=== PATIENT | male | born 1965 | race African-American/Black ===

== ENCOUNTER 2016-10-02 18:57 | Inpatient (IN) | payer OTHER ==
[~2016-10-02] VITALS: Ht 182.9 cm; Wt 75.0 kg
[~2016-10-02 18:57] MED LIST: FURO40TA PO; GLUCTAB PO; HYDR12.56 PO; IBUP800T23 PO; METO25 PO; PENI250T59 PO
[2016-10-02 18:58] VITALS: BP 135/63; PULSE 95; RESP 17; TEMP 97.7; O2SAT 95
--- NOTE | 2016-10-02 21:32 | PD ---
HPI Chief Complaint: Pain: Acute or Chronic Time Seen by Provider: 21:11 Travel History International Travel<30 days: No Contact w/Intl Traveler<30days: No Traveled to known affect area: No History of Present Illness HPI The patient is a 50 year old male who presents to the [facility] emergency department with a history of reported right leg pain and swelling that he reports began 3 days ago. He reports that he does have some swelling in the left leg, however the right leg is much worse. He denies having any injury associated with this. He denies having any prior history of DVT or PE. The patient denies having any chest pain or chest pressure. He does report having some dyspnea with exertion that is reportedly chronic. He reports that his primary care physician is Merlyn Weir. He reports that he recently moved back to the area. He reports that he's had multiple amputations done of the fingers of bilateral hands and his right forefoot related to palpitations from diabetes. He reports that his diabetes has been under control recently. He reports that he last checked his blood sugar 2 days ago and it was 93. He reports that he is on metformin. He denies having any history of congestive heart failure or renal failure. He denies having any open wounds. The patient denies any recent fevers cough, congestion, neck pain, chest pain, abdominal pain, vomiting , diarrhea, urinary symptoms, or neurologic symptoms. PENDING SALE TO [facility] Past Medical History Narrative Medical The patient's past medical history is significant for amputation of the fingers of bilateral upper extremities and the right forefoot related to patient's from diabetes mellitus, history of diabetes mellitus, and a heart murmur. I review after reviewing the patient's electronic medical record, the patient does have a history of renal insufficiency and anemia. Arthritis: No Asthma: No Autoimmune Disease: No Anxiety: No Depression: No Heart Rhythm Problems: No Cancer: No Cardiovascular Problems: Yes (MURMUR) High Cholesterol: No Chemotherapy: No Chest Pain: No Congestive Heart Failure: No COPD: No Cerebrovascular Accident: No Diabetes: Yes Patient Takes Glucophage: Yes Diminished Hearing: No Endocrine: Yes Gastrointestinal Disorders: No GERD: No Genitourinary: No Headaches: No Hiatal Hernia: No Heparin Induced Thrombocytopen: No Hypertension: No Immune Disorder: No Implanted Vascular Access Dvce: No Kidney Stones: No Musculoskeletal: Yes (RIGHT FOOT) Neurologic: No Psychiatric: No Reproductive: No Respiratory: No Integumentary: Yes Migraines: No Radiation Therapy: No Renal Failure: No Seizures: No Sickle Cell Disease: No Sleep Apnea: No Thyroid Disease: No Ulcer: No Tetanus Vaccination: > 5 Years Past Surgical History Narrative Surgical The patient's past surgical history is significant for a left thumb amputation, distal second and third phalanx amputation of the right hand, history of a right forefoot amputation. Abdominal Surgery: No AICD: No Arteriovenous Shunt: No Cardiac Surgery: No Ear Surgery: No Endocrine Surgery: No Eye Surgery: No Genitourinary Surgery: No Gynecologic Surgery: No Insulin Pump: No Joint Replacement: No Neurologic Surgery: No Oral Surgery: No Pacemaker: No Thoracic Surgery: No Other Surgery: Yes (AMPUTATION 1ST -5TH TOE RIGHT FOOT, and multiple fingers) Social History Alcohol Use: No Tobacco Use: No Substance Use: No Allergies-Medications (Allergen,Severity, Reaction): Coded Allergies: No Known Allergies (Verified , 10/02/16) Reported Meds & Prescriptions Reported Meds & Active Scripts Active Reported Penicillin Vk (Penicillin V Potassium) 250 Mg Tab 500 Mg PO Q6 Ibuprofen 800 Mg Tab 800 Mg PO Q8HR PRN Hydrochlorothiazide 12.5 Mg Tab 25 Mg PO DAILY Metoprolol Tartrate 25 mg (Metoprolol Tartrate) 25 Mg Tab 25 Mg PO BID Furosemide 40 Mg Tab 40 Mg PO DAILY Metformin (Metformin HCl) 500 Mg Tab 500 Mg PO BID Review of Systems Except as stated in HPI: all other systems reviewed are Neg General / Constitutional: No: Fever Eyes: No: Visual changes HENT: No: Headaches Cardiovascular: Positive: Dyspnea on exertion, Edema, No: Chest Pain or Discomfort Respiratory: No: Shortness of Breath Gastrointestinal: No: Abdominal Pain Genitourinary: No: Dysuria Musculoskeletal: Positive: Myalgias, Pain Skin: No Rash Neurologic: No: Weakness, Focal Abnormalities, Change in Mentation, Slurred Speech, Sensory Disturbance Psychiatric: No: Depression Endocrine: No: Polydipsia Hematologic/Lymphatic: No: Easy Bruising Physical Exam Narrative General: The patient is a well-developed well-nourished male in no acute distress. Head and Neck exam: Head is normocephalic atraumatic. Eyes: Pupils are equal round and reactive to light. Nose: Midline septum with pink mucous membranes Mouth: Dentition unremarkable. Moist mucus membranes. Posterior oropharynx is not erythematous. No tonsillar hypertrophy. Uvula midline. Airway patent. Neck: No palpable lymphadenopathy. No nuchal rigidity. No thyromegaly. Cardiovascular: Regular rate and rhythm with a 1/6 systolic murmur audible. No gallops or rubs. Lungs: Clear to auscultation bilaterally. No wheezes, rhonchi, or rales. Abdomen: Soft, without tenderness to palpation in all 4 quadrants of the abdomen. No guarding, rebound, or rigidity. Normal bowel sounds are audible. Extremities: No clubbing or cyanosis. The patient has 2+ dorsalis pedis pulses bilaterally. The patient is noted on examination of the area of interest, the right lower extremity that he has had before foot amputation. There are no open wounds are the patient reports having right thigh discomfort. The patient has notable swelling involving the right thigh, right leg. Trace edema of the left leg. Back: No spinous process tenderness to palpation. No costovertebral angle tenderness to palpation. Neurologic Exam: Grossly nonfocal. Skin Exam: No rash noted. Intact skin that is warm and dry. Data Data Last Documented VS Vital Signs Date Time Temp Pulse Resp B/P Pulse Ox O2 Delivery O2 Flow Rate FiO2 10/02/16 18:58 97.7 95 17 135/63 95 Orders Electrocardiogram (10/02/16 21:12) Complete Blood Count With Diff (10/02/16 21:12) Comprehensive Metabolic Panel (10/02/16 21:12) Prothrombin Time / Inr (Pt) (10/02/16 21:12) Act Partial Throm Time (Ptt) (10/02/16 21:12) C-Reactive Protein (Crp) (10/02/16 21:12) Urinalysis - C+S If Indicated (10/02/16 21:12) Westergren Sedimentation Rate (10/02/16 21:12) Magnesium (Mg) (10/02/16 21:12) Iv Access Insert/Monitor (10/02/16 21:12) Ecg Monitoring (10/02/16 21:12) Oximetry (10/02/16 21:12) Blood Glucose (10/02/16 21:12) Us Leg Venous Doppler (10/02/16 21:20) B-Type Natriuretic Peptide (10/02/16 21:50) Chest, Single Ap (10/02/16 21:50) Type And Screen (10/02/16 23:28) Red Blood Cells (Rbc) (10/02/16 23:28) Blood Product Administration .UPON TRANSFUSION (10/02/16 23:28) Sodium Chlor 0.9% 250 Ml Inj (Ns 250 Ml (10/02/16 23:30) Admit Order (Ed Use Only) (10/02/16 23:40) Piperacil-Tazo 3.375 Gm Premix (Zosyn 3. (10/02/16 23:45) Vancomycin Inj (Vancomycin Inj) (10/02/16 23:45) Lactic Acid Sepsis Protocol (10/02/16 23:40) Urinary Catheter Management SHERYL.Q8H (10/02/16 23:40) Sodium Chlor 0.9% 1000 Ml Inj (Ns 1000 M (10/02/16 23:45) Blood Culture (10/02/16 23:40) Labs Laboratory Tests Test 10/02/16 21:10 White Blood Count 13.2 TH/MM3 Red Blood Count 2.13 MIL/MM3 Hemoglobin 6.3 GM/DL Hematocrit 20.1 % Mean Corpuscular Volume 94.6 FL Mean Corpuscular Hemoglobin 29.7 PG Mean Corpuscular Hemoglobin 31.4 % Concent Red Cell Distribution Width 17.7 % Platelet Count 237 TH/MM3 Mean Platelet Volume 7.9 FL Neutrophils (%) (Auto) % Lymphocytes (%) (Auto) % Monocytes (%) (Auto) % Eosinophils (%) (Auto) % Basophils (%) (Auto) % Neutrophils # (Auto) TH/MM3 Lymphocytes # (Auto) TH/MM3 Monocytes # (Auto) TH/MM3 Eosinophils # (Auto) TH/MM3 Basophils # (Auto) TH/MM3 CBC Comment AUTO DIFF Differential Total Cells 100 Counted Neutrophils % (Manual) 94 % Lymphocytes % 5 % Monocytes % 1 % Neutrophils # (Manual) 12.4 TH/MM3 Nucleated Red Blood Cells 1 /100 WBC Differential Comment FINAL DIFF MANUAL Platelet Estimate NORMAL Platelet Morphology Comment NORMAL Erythrocyte Sedimentation Rate GREATER THAN 140 mm/hr Prothrombin Time 12.1 SEC Prothromb Time International 1.1 RATIO Ratio Activated Partial 34.3 SEC Thromboplast Time Sodium Level 143 MEQ/L Potassium Level 5.1 MEQ/L Chloride Level 121 MEQ/L Carbon Dioxide Level 11.3 MEQ/L Anion Gap 11 MEQ/L Blood Urea Nitrogen 78 MG/DL Creatinine 5.31 MG/DL Estimat Glomerular Filtration 14 ML/MIN Rate Random Glucose 132 MG/DL Calcium Level 8.2 MG/DL Magnesium Level 2.0 MG/DL Total Bilirubin 0.6 MG/DL Aspartate Amino Transf 35 U/L (AST/SGOT) Alanine Aminotransferase 18 U/L (ALT/SGPT) Alkaline Phosphatase 94 U/L C-Reactive Protein 34.30 MG/DL Total Protein 6.8 GM/DL Albumin 1.7 GM/DL MDM Medical Decision Making Medical Screen Exam Complete: Yes Emergency Medical Condition: Yes Medical Record Reviewed: Yes Interpretation(s) Last Impressions Chest X-Ray 10/02/162149 Signed Impressions: Service Date/Time: Sunday, October 02, 2016 22:14 - CONCLUSION: Symmetric bilateral predominantly perihilar alveolar opacities Dain Lima MD Lower Extremity Ultrasound 10/02/[id number] Signed Impressions: Service Date/Time: Sunday, October 02, 2016 21:49 - CONCLUSION: Normal examination. Dain Lima MD Differential Diagnosis DVT, versus edema related to hypoalbuminemia, versus congestive heart failure, versus acute renal failure, versus musculoskeletal strain with associated edema Narrative Course During the course of the patients emergency department visit, the patients history, examination, and differential diagnosis were reviewed with the patient. The patient had IV access obtained and blood work sent for analysis. The patient had an EKG ordered. The patient was placed on a manager cardiac cath with oximetry and blood pressure monitoring. The patient's EKG shows a sinus rhythm heart rate of 75, no acute ST segment elevation or depression. T waves are inverted in V1 An ultrasound of the right lower extremity was ordered. The patient requested coffee and soup. I explained to him that we would do our initial medical evaluation first and then on his other needs at that point. The patients laboratory studies were reviewed and remarkable for a white count of 13.2, hemoglobin 6.3, platelets 237 with 94 neutrophils 5 lymphocytes. The patient was probably typed and crossmatched for 2 units of packed red blood cells to be administered. A review of the electronic medical record reveals that the patient has had anemia in the past, however this is worse compared to previously. The patient's sedimentation rate was noted to be greater than 140. The patient was started on vancomycin 1 g IV, Zosyn 3.375 g IV. CMP is remarkable for chloride of 121, CO2 11.3, BUN 78, creatinine 5.31, glucose 132 which is greatly increased compared to previously, albumin 1.7, C- reactive protein 34.3, lactic acid 0.8, BNP 827, INR 1.1, due to the patient's acute renal failure will he catheter was placed to gravity to rule out obstruction and monitor urine output. The patient was started on normal saline 1 L IV fluid bolus. Urinalysis and this patient reveals hazy urine 300 protein small occult blood. Radiology studies were reviewed and remarkable for a chest x-ray that shows symmetric bilateral predominantly perihilar alveolar opacities. An ultrasound of the right leg reveals no evidence of DVT. The patient will be admitted to the hospital for symptomatic anemia, acute on chronic renal failure, leukocytosis with suspected source of cellulitis in the right leg. The patients results were discussed with the patient, including the plan of care. I explained that further testing and/ or monitoring is indicated based on the patients history, examination, and/ or laboratory findings. Therefore, I recommended admission for additional evaluation. The patient expressed understanding and was agreeable with this plan. The patient was admitted to the hospital in guarded condition and [facility] Sepsis Criteria SIRS Criteria (2 or more): Heart rate over 90, WBC > 75092, < 4000 or > 10% bands Criteria Outcome: Meets SIRS criteria Physician Communication Physician Communication The patient's case was discussed with Dr. Darnell who did agree to admit the patient for further evaluation and treatment at this time. Diagnosis Primary Impression: Acute on chronic renal failure Additional Impressions: Cellulitis Qualified Code: L03.115 - Cellulitis of right lower extremity Symptomatic anemia Admitting Information Admitting Physician Requests: Admit Julieta Roman MD Oct 02, 2016 21:32
[2016-10-02 22:10] LABS: MEAN CELL VOLUME 94.6 FL (80.0-100.0); MEAN CORPUSCULAR HEMOGLOBIN 29.7 PG (27.0-34.0); MEAN CORPUSCULAR HGB CONC 31.4 % (32.0-36.0); PLATELET COUNT 237 TH/MM3 (150-450); RED BLOOD COUNT 2.13 MIL/MM3 (4.50-5.90); RED CELL DISTRIBUTION WIDTH 17.7 % (11.6-17.2); WHITE BLOOD COUNT 13.2 TH/MM3 (4.0-11.0)
[2016-10-02 22:13] LABS: HEMO FLAGS AUTO DIFF
[2016-10-02 22:15] LABS: HEMATOCRIT 20.1 % (39.0-51.0)
[2016-10-02 22:18] LABS: APTT (PATIENT) 34.3 SEC (24.3-30.1); INTERNATIONAL NORMALIZED RATIO 1.1 RATIO; PROTHROMBIN TIME - PATIENT 12.1 SEC (9.8-11.6)
[2016-10-02 22:39] LABS: CORRECTED NUCLEATED RBC 1 /100 WBC (0-0); NEUTROPHIL # MANUAL DIFF 12.4 TH/MM3 (1.8-7.7); POLYS (SEG NEUTROPHILS) 94 % (16-70); WBC DIFF SAMPLE 100
[2016-10-02 22:40] LABS: PLATELET ESTIMATE SMEAR NORMAL (NORMAL); PLATELET MORPHOLOGY NORMAL (NORMAL); SCAN/DIFF FINAL DIFF MANUAL
[2016-10-02 22:42] LABS: ALKALINE PHOSPHATASE 94 U/L (45-117); TOTAL BILIRUBIN ADULT 0.6 MG/DL (0.2-1.0)
[2016-10-02 22:43] LABS: ALT (GPT) 18 U/L (12-78); ANION GAP 11 MEQ/L (5-15); AST (GOT) 35 U/L (15-37); BICARBONATE 11.3 MEQ/L (21.0-32.0); BLOOD UREA NITROGEN 78 MG/DL (7-18); CHLORIDE 121 MEQ/L (98-107); GLOMERULAR FILTRATION RATE 14 ML/MIN (>89); SODIUM (NA) 143 MEQ/L (136-145)
[2016-10-02 22:44] LABS: POTASSIUM 5.1 MEQ/L (3.5-5.1)
--- NOTE | 2016-10-02 22:44 | RADRPT ---
EXAM DATE/TIME: 10/02/2016 21:49 [facility] COMPARISON: No previous studies available for comparison. INDICATIONS : Right leg pain and swelling. MEDICAL HISTORY : Heart murmur. Diabetes. SURGICAL HISTORY : Right foot toe amputation. Finger amputations. ENCOUNTER: Initial ACUITY: 3 days PAIN SCORE: 3/10 LOCATION: Right leg. TECHNIQUE: Venous ultrasound of the leg was performed from the inguinal ligament to the proximal calf. Real-roly e, color Doppler and spectral tracing, compression and augmentation techniques were used. FINDINGS: There is normal compressibility of the deep venous system from the inguinal region to the proximal ca lf. No echogenic clot is seen in the lumen of the common femoral, femoral, popliteal, and posterior tibial veins. There is a normal response of the venous system to proximal and distal augmentation an d respiration. CONCLUSION: Normal examination. Dain Lima MD on October 02, 2016 at 22:42 Board Certified Radiologist. This report was verified electronically.
[2016-10-02] MEDS ORDERED: SODIUM CHLOR 0.9% 250 ML INJ 250 ML IV ONE (23:30)
--- NOTE | 2016-10-02 23:31 | RADRPT ---
EXAM DATE/TIME: 10/02/2016 22:14 [facility] COMPARISON: CHEST SINGLE AP, July 10, 2016, 11:11. INDICATIONS : Shortness of breath. MEDICAL HISTORY : Diabetes mellitus type II. Renal failure, acute. SURGICAL HISTORY : Partial right foot amputation. ENCOUNTER: Initial ACUITY: 1 day PAIN SCORE: 0/10 LOCATION: Bilateral chest FINDINGS: Bilateral perihilar alveolar opacities are present which may be developing edema. 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 The stomach contours are satisfactory. Thoracic skeleton is intact. CONCLUSION: Symmetric bilateral predominantly perihilar alveolar opacities Dain Lima MD on October 02, 2016 at 23:28 Board Certified Radiologist. This report was verified electronically.
--- NOTE | 2016-10-02 23:40 | HHI.HP ---
[facility] No Primary Care Physician Admission Diagnosis Diagnoses: (1) Cellulitis Diagnosis: Principal (2) Anemia Diagnosis: Principal (3) Renal insufficiency Diagnosis: Principal (4) DM (diabetes mellitus) Diagnosis: Principal Travel History International Travel<30 Days: No Contact w/Intl Traveler <30 Da: No Traveled to Known Affected Are: No History of Present Illness This is a 50-year-old male with PMH of HTN, DM and Peripheral Neuropathy who came to the ER with complaints of right leg pain and swelling x3 days. Denies recent injury. No fever, chills. On arrival, BP 135/63, HR 95, O2 sat 94% on RA, Afebrile. WBC 13.2. Hgb 6.3, previously 9.2 on 07/15/16. No active bleeding noted. Creatinine 5.31, previously 2.40 on 07/15/16. RLE Doppler normal. CXR symmetric bilateral predominantly perihilar alveolar opacities. S/ p Vanc/Zosyn in ER in addition to Blood Cultures for RLE Cellulitis. Review of Systems Other ROS: 14 point review of systems otherwise negative. Past Family Social History Past Medical History PMH: HTN, DM and Peripheral Neuropathy Past Surgical History PAST SURGICAL HISTORY: Multiple Finger Amputations, Right Forefoot Amputation Allergies: Coded Allergies: No Known Allergies (Verified , 10/02/16) Family History PAST FAMILY HISTORY: Reviewed. No h/o DM or CAD Social History PAST SOCIAL HISTORY: Negative for alcohol, tobacco or drugs. Physical Exam Vital Signs Vital Signs Date Time Temp Pulse Resp B/P Pulse Ox O2 Delivery O2 Flow Rate FiO2 10/02/16 18:58 97.7 95 17 135/63 95 Physical Exam PE: GENERAL: Middle-aged male in no acute distress. HEENT: PERRLA, EOMI. No scleral icterus or conjunctival pallor. No lid lag or facial droop. CARDIOVASCULAR: Regular rate and rhythm. No obvious murmurs to auscultation. No chest tenderness to palpation. RESPIRATORY: No obvious rhonchi or wheezing. Clear to auscultation. Breath sounds equal bilaterally. GASTROINTESTINAL: Abdomen soft, non-tender, nondistended. BS normal. MUSCULOSKELETAL: Multiple digit amputations, right forefoot amputation. Right thigh/leg with edema NEUROLOGICAL: Awake, alert and oriented x4. No focal neurologic deficits. Moving both upper and lower extremities spontaneously. Laboratory Laboratory Tests Test 10/02/16 21:10 White Blood Count 13.2 Red Blood Count 2.13 Hemoglobin 6.3 Hematocrit 20.1 Mean Corpuscular Volume 94.6 Mean Corpuscular Hemoglobin 29.7 Mean Corpuscular Hemoglobin 31.4 Concent Red Cell Distribution Width 17.7 Platelet Count 237 Mean Platelet Volume 7.9 Neutrophils (%) (Auto) Lymphocytes (%) (Auto) Monocytes (%) (Auto) Eosinophils (%) (Auto) Basophils (%) (Auto) Neutrophils # (Auto) Lymphocytes # (Auto) Monocytes # (Auto) Eosinophils # (Auto) Basophils # (Auto) CBC Comment AUTO DIFF Differential Total Cells 100 Counted Neutrophils % (Manual) 94 Lymphocytes % 5 Monocytes % 1 Neutrophils # (Manual) 12.4 Nucleated Red Blood Cells 1 Differential Comment FINAL DIFF MANUAL Platelet Estimate NORMAL Platelet Morphology Comment NORMAL Erythrocyte Sedimentation Rate GREATER THAN 140 Prothrombin Time 12.1 Prothromb Time International 1.1 Ratio Activated Partial 34.3 Thromboplast Time Sodium Level 143 Potassium Level 5.1 Chloride Level 121 Carbon Dioxide Level 11.3 Anion Gap 11 Blood Urea Nitrogen 78 Creatinine 5.31 Estimat Glomerular Filtration 14 Rate Random Glucose 132 Calcium Level 8.2 Magnesium Level 2.0 Total Bilirubin 0.6 Aspartate Amino Transf 35 (AST/SGOT) Alanine Aminotransferase 18 (ALT/SGPT) Alkaline Phosphatase 94 C-Reactive Protein 34.30 Total Protein 6.8 Albumin 1.7 Result Diagram: 10/02/16210910/02/162109 Assessment and Plan Problem List: (1) Cellulitis ICD Code: L03.90 Status: Acute (2) Anemia ICD Code: D64.9 Status: Acute (3) DM (diabetes mellitus) ICD Code: E11.9 Status: Acute (4) Renal insufficiency ICD Code: N28.9 Status: Acute Assessment and Plan A/P: 1. Cellulitis: RLE Cellulitis, progressive pain/swelling of RLE x3 days. Doppler RLE negative, images reviewed by me. WBC 13.2. Afebrile. S/p Blood Cultures, Vanc/Zosyn in ER. Follow up cultures, continue w/ IV Abx, IVF for hydration. 2. Anemia: Hgb 6.3, previously 9.2 on 07/15/16. No active bleeding. 2u pRBC ordered in ER, pending transfusion. 3. DM: Sliding scale w/ Accu-Cheks. Hold Metformin in light of renal insufficiency. 4. Renal Insufficiency: Acute on Chronic. Creatinine 5.31, previous eat 2.40 on 07/15/16. Check U/a, h/o Cocaine-check Urine Drug Screen, IVF, repeat labs in am. 5. DVT Prophylaxis: SCD/Teds. 6. Social work for d/c planning as needed. 7. Case discussed w/ ER physician at length. Physician Certification 2 Midnight Certification Type: Admission for Inpatient Services Order for Inpatient Services The services are ordered in accordance with Medicare regulations or non- Medicare payer requirements, as applicable. In the case of services not specified as inpatient-only, they are appropriately provided as inpatient services in accordance with the 2-midnight benchmark. Estimated LOS (days): 2 days is the estimated time the patient will need to remain in the hospital, assuming treatment plan goals are met and no additional complications. Post-Hospital Plan: Not yet determined Petra Darnell MD Oct 02, 2016 23:40
[2016-10-02] MEDS ORDERED: VANCOMYCIN INJ 1,000 MG in SODIUM CHLOR 0.9% 250 ML INJ 250 ML IV ONE (23:45)
[2016-10-02] MEDS ORDERED: SODIUM CHLOR 0.9% 1000 ML INJ 1,000 ML IV ONE (23:45)
[2016-10-02] MEDS ORDERED: PIPERACIL-TAZO 3.375 GM PREMIX 50 ML IV ONE (23:45)
[2016-10-03] VITALS (25 sets, daily range): BP systolic 115–141; BP diastolic 61–95; PULSE 76–92; RESP 14–20; TEMP 95.2–98.1; O2SAT 91–98
[2016-10-03] MEDS ORDERED: BISACODYL 10 MG SUPP PR PRN (00:15)
[2016-10-03] MEDS ORDERED: SODIUM CHLORIDE 0.9% FLUSH 5 ML FLUSH FLUSH PRN (00:15)
[2016-10-03] MEDS ORDERED: GLUCAGON 1 MG/ML VIAL OTHER PRN (00:15)
[2016-10-03] MEDS ORDERED: Vancomycin Consult Pharmacy 1 EA OTHER SCH (00:15)
[2016-10-03] MEDS ORDERED: DEXTROSE 50% IN WATER 50 ML VIAL(D50) IV PUSH PRN (00:15)
[2016-10-03] MEDS ORDERED: MORPHINE SULFATE 4 MG/ML INJ IV PRN (00:15)
[2016-10-03] MEDS ORDERED: ACETAMINOPHEN 325 MG TAB PO PRN (00:15)
[2016-10-03] MEDS ORDERED: ONDANSETRON HCL 4 MG/2 ML VIAL IVP PRN (00:15)
[2016-10-03] MEDS: SODIUM CHLOR 0.9% 1000 ML INJ 1,000 ML IV SCH ×2 (02:06→08:15)
[2016-10-03] MEDS: ACETAMINOPHEN/HYDROcodone 325 MG/5 MG TAB PO PRN (04:06)
[2016-10-03 04:22] LABS: AMPHETAMINE, URINE NEG (NEG); BARBITURATES, URINE NEG (NEG); COCAINE, URINE POS (NEG)
[2016-10-03 04:24] LABS: BACTERIA, URINE RARE /hpf; BLOOD, URINE SMALL (NEG); COMMENT (UR) CULT NOT INDICATED; CULTURE IF INDICATED CULT NOT INDICATED; GLUCOSE,URINE NEG (NEG); HYALINE CAST, URINE 10 /lpf (RARE); KETONE, URINE NEG (NEG); NITRITE,URINE NEG (NEG); PH, URINE 5.5 (5.0-8.5); RENAL EPITHELIAL CELLS <1 /hpf; SQUAMOUS EPITHELIAL CELL URINE <1 /hpf (0-5); URINE COLOR YELLOW (YELLW/STRAW)
[2016-10-03] MEDS ORDERED: diphenhydrAMINE HCL 50 MG/ML VIAL IV PUSH ONE (04:30)
[2016-10-03] MEDS: RESP: ALBUTEROL 2.5 MG/IPRATROPIUM 0.5 MG NEB (PRN) NEB ×3 (04:36→22:52)
--- NOTE | 2016-10-03 05:26 | RADRPT ---
EXAM DATE/TIME: 10/03/2016 04:42 [facility] COMPARISON: CHEST SINGLE AP, October 02, 2016, 22:14. INDICATIONS : Congestion during blood transfusion. MEDICAL HISTORY : Diabetes mellitus type II. Renal failure, acute. SURGICAL HISTORY : Partial right foot amputation. ENCOUNTER: Subsequent ACUITY: 1 day PAIN SCORE: 0/10 LOCATION: Bilateral chest FINDINGS: There has been slight interval increase in confluence of bilateral diffuse infiltrates, slightly wors e on the left than the right. Cardiac contours are now somewhat obscured. CONCLUSION: Worsening aeration. Dain Lima MD on October 03, 2016 at 5:24 Board Certified Radiologist. This report was verified electronically.
[2016-10-03] MEDS ORDERED: FUROSEMIDE 40 MG/4 ML VIAL IV PUSH ONE ×3 (05:45→23:00)
[2016-10-03] MEDS: INSULIN ASPART SUPPLEMENTAL SCALE SQ SCH ×4 (06:03→21:00)
[2016-10-03] MEDS: SODIUM CHLORIDE 0.9% FLUSH 5 ML FLUSH FLUSH SCH ×2 (08:15→20:07)
[2016-10-03] MEDS ORDERED: CEFEPIME INJ 1,000 MG in SODIUM CHLORIDE 0.9% INJ 100 ML IV SCH (09:00)
--- NOTE | 2016-10-03 10:25 | HHI.PR ---
Subjective Remarks Follow-up for right lower extremity pain and swelling. The patient reports pain and swelling of his right leg up to his thigh over the past 3 days. He's having discomfort from the swelling. He denies any fevers or chills. He denies any nausea, vomiting, diarrhea. Stools are formed and brown, denies any bleeding. He reports she's had a blood transfusion before. He reports good oral intake. He reports good urine output. He recently relocated here from [place], and is requesting a cane, metformin, and [place]. He denies any history of CHF. Former tobacco and marijuana use, denies any current use. Objective Vitals Vital Signs Date Time Temp Pulse Resp B/P Pulse Ox O2 Delivery O2 Flow Rate FiO2 10/03/16 08:30 97.2 84 18 120/75 97 10/03/16 08:08 97.1 83 18 115/75 97 10/03/16 08:00 95.2 80 20 120/64 95 10/03/16 07:30 92 Nasal Cannula 2.00 10/03/16 06:23 97.0 83 14 115/73 96 10/03/16 06:01 97.1 83 18 123/81 97 10/03/16 05:18 97.0 86 18 141/85 98 10/03/16 05:10 16 10/03/16 04:52 98.0 87 18 138/95 98 10/03/16 04:39 98 Nasal Cannula 2.00 10/03/16 04:16 98.0 83 18 138/72 97 10/03/16 04:07 97.9 81 18 136/75 93 10/03/16 03:57 79 10/03/16 03:48 98.0 81 18 127/67 91 10/03/16 03:35 98.1 80 20 135/74 91 10/03/16 03:03 97.4 80 16 139/70 91 10/03/16 02:46 98.0 78 20 124/63 95 10/03/16 01:46 76 16 128/61 96 Room Air 10/02/16 18:58 97.7 95 17 135/63 95 Result Diagram: 10/02/16210910/02/162109 Imaging Last Impressions Chest X-Ray 10/03/16 0000 Signed Impressions: Service Date/Time: Monday, October 03, 2016 04:42 - CONCLUSION: Worsening aeration. Dain Lima MD Lower Extremity Ultrasound 10/02/160 Signed Impressions: Service Date/Time: Sunday, October 02, 2016 21:49 - CONCLUSION: Normal examination. Dain Lima MD Objective Remarks GENERAL: Well-developed well-nourished. In no acute distress. SKIN: Warm and dry. No lesions noted. HEENT: Normocephalic. Pupils equal and round. Mucous membranes pink and moist. CARDIOVASCULAR: Regular rate and rhythm. No murmur appreciated. RESPIRATORY: No accessory muscle use. Clear to auscultation. Breath sounds equal bilaterally. Mild bibasilar crackles. GASTROINTESTINAL: Abdomen soft, non-tender, nondistended. Bowel sounds x4. MUSCULOSKELETAL: Right forefoot amputation. 2+ edema on the right, 1+ on the left. No erythema or warmth. No clubbing or cyanosis. NEUROLOGICAL: Awake and alert. No focal neurological deficits. Moves upper and lower extremities spontaneously. Normal speech. PSYCHIATRIC: Appropriate mood and affect; insight and judgment normal. A/P Problem List: (1) Cellulitis ICD Code: L03.90 Status: Acute (2) Anemia ICD Code: D64.9 Status: Acute (3) DM (diabetes mellitus) ICD Code: E11.9 Status: Acute (4) Renal insufficiency ICD Code: N28.9 Status: Acute Assessment and Plan 50-year-old male with PMH of HTN, DM and Peripheral Neuropathy who came to the ER with complaints of right leg pain and swelling x3 days RLE swellin days. Doppler RLE negative. WBC 13.2. Afebrile. S/P Vanc/ cefepime, no signs of active infection on exam, monitor. Blood cultures drawn and pending. PT eval. Follow-up CBC. New-onset CHF: Bilateral lower extremity swelling, right worse than left. BNP 827. Chest x-ray with bilateral edema. Received Lasix overnight. DC IVF. Check echocardiogram. Consult cardiology. Normocytic anemia: Hgb 6.3, previously 9.2 on 07/15/16. No signs of active bleeding. Transfusing 2u pRBCs. Check stool for Hemoccult and consult GI. IV Protonix BID. Check iron studies. DM: Sliding scale w/ Accu-Cheks. Hold Metformin in light of renal insufficiency. Acute kidney injury on CKD: Creatinine 5.31, previously 2.40 on 07/15/16. Secondary to NSAID use? Check renal ultrasound. Check urine sodium and creatinine. Caution with IV hydration with CHF as above. Insert [place] and monitor output. Consult nephrology. Metabolic acidosis: Bicarbonate 11.3. Get sodium bicarbonate 1. Follow-up BMP. Polysubstance abuse: Patient denies any substance abusing years, however UDS is positive for cocaine and cannabis. DVT Prophylaxis: SCD/Teds. Discharge Planning Disposition pending clinical course Attending Statement The exam, history, and the medical decision-making described in the above note were completed with the assistance of the mid-level provider. I reviewed and agree with the findings presented. I attest that I had a [id number] encounter with the patient on the same day, and personally performed and documented my assessment and findings in the medical record. Problem Qualifiers (1) Cellulitis: Qualified Code: L03.115 - Cellulitis of right lower extremity Daniel Hathaway Oct 03, 2016 10:25 Blake Quinn MD Oct 11, 2016 00:49
[2016-10-03] MEDS ORDERED: SODIUM BICARBONATE 325 MG TAB PO ONE (11:00)
[2016-10-03] MEDS: PANTOPRAZOLE SODIUM 40 MG VIAL IV PUSH SCH ×2 (11:45→22:14)
--- NOTE | 2016-10-03 12:00 | PD.CONS ---
HPI History of Present Illness This is a 50 year old who came to the ER for evaluation of right leg pain and swelling x 3 days and was admitted for right lower extremity cellulitis and anemia. He was noted to have an H/H of 6.3/20.1 on admission. He has been transfused 2 units of PRBC. GI has been consulted for further evaluation of anemia. The patient denies any prior hx of anemia. He denies any hx of peptic ulcer disease. He has not seen any obvious blood loss. He denies any nausea, vomiting, heartburn, reflux, weight loss, decreased appetite, abdominal pain, bowel changes, constipation, diarrhea, or melena, or hematochezia. He does have intermittent shortness of breath and has been more tired than usual, but cannot state how long this has been going on. He has never had an EGD or colonoscopy. His maternal grandfather from an unknown type of cancer. He does not know his father's medical history. He used to take ibuprofen, but has not recently. No ETOH use. (Liliana Hays) PFSH Past Medical History HTN DM Peripheral Neuropathy Past Surgical History Multiple Finger Amputations Right Forefoot Amputation (Liliana Hays) Coded Allergies: No Known Allergies (Verified , 10/02/16) Medications Allergies Coded Allergies Type Severity Reaction Last Updated Verified No Known Allergies 10/02/16 Yes Active Scripts Medications Dose Route/Sig Days Date Category Penicillin Vk (Penicillin V Potassium) 250 Mg Tab 500 Mg PO Q6 07/14/16 Reported Ibuprofen 800 Mg Tab 800 Mg PO Q8HR PRN 07/14/16 Reported Hydrochlorothiazide 12.5 Mg Tab 25 Mg PO DAILY 07/14/16 Reported Metoprolol Tartrate 25 mg (Metoprolol Tartrate) 25 Mg Tab 25 Mg PO BID 07/14/16 Reported Furosemide 40 Mg Tab 40 Mg PO DAILY 07/14/16 Reported Metformin (Metformin HCl) 500 Mg Tab 500 Mg PO BID 07/11/16 Reported Family History Maternal grandfather from unknown type of cancer. Social History Negative for alcohol, tobacco or drugs. (Liliana Hays) Review of Systems Constitutional: COMPLAINS OF: Fatigue, DENIES: Weight loss, Change in appetite Respiratory: COMPLAINS OF: Shortness of breath, DENIES: Cough Cardiovascular: COMPLAINS OF: Lower Extremity Edema Gastrointestinal: DENIES: Abdominal pain, Black stools, Bloody stools, Constipation, Diarrhea, Nausea, Vomiting, Anorexia, Heartburn, Hematemesis Musculoskeletal: DENIES: Back pain Integumentary: DENIES: Abnormal pigmentation Hematologic/lymphatic: DENIES: Bruising Neurologic: DENIES: Headache Psychiatric: DENIES: Confusion (Liliana Hays) GI Exam Vitals I&O Vital Signs Date Time Temp Pulse Resp B/P Pulse Ox O2 Delivery O2 Flow Rate FiO2 10/03/16 09:15 97.1 89 20 115/75 96 10/03/16 08:30 97.2 84 18 120/75 97 10/03/16 08:08 97.1 83 18 115/75 97 10/03/16 08:00 86 10/03/16 08:00 95.2 80 20 120/64 95 10/03/16 07:30 92 Nasal Cannula 2.00 10/03/16 06:23 97.0 83 14 115/73 96 10/03/16 06:01 97.1 83 18 123/81 97 10/03/16 05:18 97.0 86 18 141/85 98 10/03/16 05:10 16 10/03/16 04:52 98.0 87 18 138/95 98 10/03/16 04:39 98 Nasal Cannula 2.00 10/03/16 04:16 98.0 83 18 138/72 97 10/03/16 04:07 97.9 81 18 136/75 93 10/03/16 03:57 79 10/03/16 03:48 98.0 81 18 127/67 91 10/03/16 03:35 98.1 80 20 135/74 91 10/03/16 03:03 97.4 80 16 139/70 91 10/03/16 02:46 98.0 78 20 124/63 95 10/03/16 01:46 76 16 128/61 96 Room Air 10/02/16 18:58 97.7 95 17 135/63 95 Imaging Last Impressions Chest X-Ray 10/03/16 0000 Signed Impressions: Service Date/Time: Monday, October 03, 2016 04:42 - CONCLUSION: Worsening aeration. Dain Lima MD Lower Extremity Ultrasound 10/02/162119 Signed Impressions: Service Date/Time: Sunday, October 02, 2016 21:49 - CONCLUSION: Normal examination. Dain Lima MD Laboratory Test 10/02/16 10/03/16 10/03/16 10/03/16 21:10 01:15 01:18 01:37 White Blood Count 13.2 TH/MM3 Red Blood Count 2.13 MIL/MM3 Hemoglobin 6.3 GM/DL Hematocrit 20.1 % Mean Corpuscular Volume 94.6 FL Mean Corpuscular Hemoglobin 29.7 PG Mean Corpuscular Hemoglobin 31.4 % Concent Red Cell Distribution Width 17.7 % Platelet Count 237 TH/MM3 Mean Platelet Volume 7.9 FL Neutrophils (%) (Auto) % Lymphocytes (%) (Auto) % Monocytes (%) (Auto) % Eosinophils (%) (Auto) % Basophils (%) (Auto) % Neutrophils # (Auto) TH/MM3 Lymphocytes # (Auto) TH/MM3 Monocytes # (Auto) TH/MM3 Eosinophils # (Auto) TH/MM3 Basophils # (Auto) TH/MM3 CBC Comment AUTO DIFF Differential Total Cells 100 Counted Neutrophils % (Manual) 94 % Lymphocytes % 5 % Monocytes % 1 % Neutrophils # (Manual) 12.4 TH/MM3 Nucleated Red Blood Cells 1 /100 WBC Differential Comment FINAL DIFF MANUAL Platelet Estimate NORMAL Platelet Morphology Comment NORMAL Erythrocyte Sedimentation Rate GREATER THAN 140 mm/hr Prothrombin Time 12.1 SEC Prothromb Time International 1.1 RATIO Ratio Activated Partial 34.3 SEC Thromboplast Time Sodium Level 143 MEQ/L Potassium Level 5.1 MEQ/L Chloride Level 121 MEQ/L Carbon Dioxide Level 11.3 MEQ/L Anion Gap 11 MEQ/L Blood Urea Nitrogen 78 MG/DL Creatinine 5.31 MG/DL Estimat Glomerular Filtration 14 ML/MIN Rate Random Glucose 132 MG/DL Calcium Level 8.2 MG/DL Magnesium Level 2.0 MG/DL Total Bilirubin 0.6 MG/DL Aspartate Amino Transf 35 U/L (AST/SGOT) Alanine Aminotransferase 18 U/L (ALT/SGPT) Alkaline Phosphatase 94 U/L C-Reactive Protein 34.30 MG/DL Total Protein 6.8 GM/DL Albumin 1.7 GM/DL Lactic Acid Level 0.8 mmol/L Blood Type A POSITIVE Antibody Screen NEGATIVE Crossmatch Leukocyte-Reduced Red Blood Cells Blood Bank Comment B-Type Natriuretic Peptide 827 PG/ML Test 10/03/16 04:05 Urine Color YELLOW Urine Turbidity HAZY Urine pH 5.5 Urine Specific [place] 1.015 Urine Protein 300 mg/dL Urine Glucose (UA) NEG mg/dL Urine Ketones NEG mg/dL Urine Occult Blood SMALL Urine Nitrite NEG Urine Bilirubin NEG Urine Urobilinogen LESS THAN 2.0 MG/DL Urine Leukocyte Esterase NEG Urine RBC 1 /hpf Urine WBC 1 /hpf Urine Squamous Epithelial <1 /hpf Cells Urine Renal Epithelial Cells <1 /hpf Urine Bacteria RARE /hpf Urine Hyaline Casts 10 /lpf Microscopic Urinalysis Comment CULT NOT INDICATED Urine Opiates Screen NEG Urine Barbiturates Screen NEG Urine Amphetamines Screen NEG Urine Benzodiazepines Screen NEG Urine Cocaine Screen POS Urine Cannabinoids Screen POS Date/Time Procedure Status Source Growth 10/03/16 01:15 Aerobic Blood Culture Received Blood Peripheral Pending 10/03/16 01:15 Anaerobic Blood Culture Received Blood Peripheral Pending Physical Examination HEENT: Normocephalic; atraumatic; no jaundice CHEST: CTA CARDIAC: RRR. ABDOMEN: Soft, nondistended, nontender; no hepatosplenomegaly; bowel sounds are present in all four quadrants. EXTREMITIES: RLE edema. SKIN: Normal; no rash; no jaundice. SOFTWARE DEVELOPER INTERN: No focal deficits; alert and oriented times three. (Liliana Hays) Assessment and Plan Plan ASSESSMENT: - Severe anemia. No GI symptoms. No hx of GI bleeding or PUD. No current use of NSAIDS/ETOH. HH 6.3/20.1 on admission. S/P 2 units PRBC. D/W patient our recommendations for egd/colonoscopy- procedure, risks, benefits, and risks of not pursuing, he is adamantly refusing at this time. - Acute renal failure. Pt denies any hx of kidney disease. His creat. is 5.31. - RLE Cellulitis. Abx per primary - HTN, DM per primary. PLAN: - D/W patient our recommendations for egd/colonoscopy- procedure, risks, benefits, and risks of not pursuing, he is adamantly refusing at this time. - PPI - Monitor HH - Transfuse as necessary - Supportive care - Further recommendations to follow based on results of above - Pt seen and examined by Dr. Osorio and myself and this note is written on his behalf (Liliana Hays) Physician Comments Seen and examined with Ms. Lis HILL, no active bleeding at this time. Does not want any gi garcia. Will sign off, reconsult as needed. Thank you (Deanne Osorio MD) Liliana Hays Oct 03, 2016 12:00 Deanne Osorio MD Oct 03, 2016 15:17
--- NOTE | 2016-10-03 12:24 | RADRPT ---
EXAM DATE/TIME: 10/03/2016 11:23 [facility] COMPARISON: US KIDNEY/RENAL/BLADDER, July 12, 2016, 8:03. INDICATIONS : Increased BUN and creatinine. MEDICAL HISTORY : Peripheral neuropathy. Heart murmur. Blurry vision. Diabetes. SURGICAL HISTORY : Right 1st and 5th toe amputation. Multiple finger amputations. ENCOUNTER: Subsequent ACUITY: 1 day PAIN SCORE: 1/10 LOCATION: Bilateral flank MEASUREMENTS: RIGHT KIDNEY: 10.1 x 5.2 x 6.5 cm LEFT KIDNEY: Not visualized. FINDINGS: The kidneys remain mildly echogenic without hydronephrosis. There is no discrete mass appreciated. There is trace ascites. CONCLUSION: Small echogenic kidneys without hydronephrosis. Trace ascites as described previously. Samuel Shah MD FACR on October 03, 2016 at 12:21 Board Certified Radiologist. This report was verified electronically.
[2016-10-03] MEDS ORDERED: FUROSEMIDE 40 MG/4 ML VIAL IV PUSH SCH (14:00)
--- NOTE | 2016-10-03 16:41 | EC ---
Study Study Date:10/03/2016 STUDY CONCLUSIONS SUMMARY - Left ventricle: The cavity size was normal. Wall thickness was increased in a pattern of mild LVH. Systolic function was normal. The estimated ejection fraction was in the range of 55% to 60%. Wall motion was normal; there were no regional wall motion abnormalities. - Mitral valve: Mild regurgitation. - Tricuspid valve: Mild-moderate regurgitation. - Pulmonic valve: Mild regurgitation. If LV function is below 40, please consider prescribing an ACEI or ARB or document rationale for non-use. PROCEDURE DATA STUDY STATUS: Elective. Procedure: Transthoracic echocardiography. Image quality was good. Scanning was performed from the parasternal, apical, and subcostal acoustic windows. Study completion: The patient tolerated the procedure well. Transthoracic echocardiography. M-mode, complete 2D, complete spectral Doppler, and color Doppler. Patient status: Inpatient. CARDIAC ANATOMY LEFT VENTRICLE: The cavity size was normal. Wall thickness was increased in a pattern of mild LVH. Systolic function was normal. The estimated ejection fraction was in the range of 55% to 60%. Wall motion was normal; there were no regional wall motion abnormalities. AORTIC VALVE: Trileaflet; normal thickness leaflets. Doppler: Transvalvular velocity was within the normal range. There was no stenosis. No regurgitation. AORTA: Aortic root: The aortic root was normal in size. MITRAL VALVE: Structurally normal valve. Doppler: Transvalvular velocity was within the normal range. There was no evidence for stenosis. Mild regurgitation. LEFT ATRIUM: The atrium was normal in size. RIGHT VENTRICLE: The cavity size was normal. Wall thickness was normal. PULMONIC VALVE: Doppler: Transvalvular velocity was within the normal range. There was no evidence for stenosis. Mild regurgitation. TRICUSPID VALVE: Structurally normal valve. Doppler: Transvalvular velocity was within the normal range. Mild-moderate regurgitation. PULMONARY ARTERY: The main pulmonary artery was normal-sized. Systolic pressure was within the normal range. RIGHT ATRIUM: The atrium was normal in size. PERICARDIUM: There was no pericardial effusion. SYSTEMIC VEINS: Inferior vena cava: The vessel was normal in size. Prepared and signed by Everardo Wilson [id number]
[2016-10-03] MEDS: SODIUM BICARBONATE 8.4% INJ 75 MEQ in SODIUM CHLOR 0.45% 1000 ML INJ 1,000 ML IV SCH (18:33)
--- NOTE | 2016-10-03 19:29 | EKG ---
Date Performed: 10/02/2016 Time Performed: 21:35:59 PTAGE: 50 years EKG: Sinus rhythm NORMAL ECG PREVIOUS TRACING : 07/10/2016 11.20 DOCTOR: Bony Ortega Interpretating Date/Time 10/03/2016 19:25:34
--- NOTE | 2016-10-03 21:55 | MB ---
cc: KEO LACEY DATE OF CONSULTATION 10/03/2016 INDICATION Congestive heart failure. HISTORY OF PRESENT ILLNESS A 50-year-old gentleman with a history of prior hypertension, diabetes who presented to the emergency department with complaints of right thigh pain over the course of the past 3 days. Initial workup revealed rather profound anemia. He was actively transfused and we are awaiting his hemoglobin redraw. He also had acute on chronic renal insufficiency with a creatinine bump up to 5. They did a venous ultrasound of the right leg due to some edema but it did not show any evidence of DVT. He was treated for cellulitis of the right thigh. Blood culture is pending. He has no prior history of known heart disease although BNP was elevated. Chest x-ray was ordered which showed bilateral perihilar opacity with interstitial edema and he has had some progressive shortness of breath. I am not sure if this has been worsened or progressive since his transfusion. He did get one dose of Lasix early this a.m. but did not put out much in terms of urine output at least from what was measured. We are consulted now for further recommendations. PAST MEDICAL HISTORY 1. Hypertension. 2. Diabetes. 3. Peripheral neuropathy. PAST SURGICAL HISTORY He has severe peripheral arterial disease with right forefoot amputation in addition to multiple finger amputations. ALLERGIES None. FAMILY HISTORY Denies any family history of early coronary artery disease or sudden cardiac . SOCIAL HISTORY Denies alcohol or drug use. Prior tobacco use, quit 2 years ago. REVIEW OF SYSTEMS A 12-point review of systems was performed and negative unless otherwise noted in the history of present illness. PHYSICAL EXAMINATION VITAL SIGNS: Temperature is 97, heart rate is 82, blood pressure is 129/78 mmHg. GENERAL: Alert and oriented times three, in no acute distress. HEENT: Examination shows pupils reactive to light and accommodation. Extraocular movements are intact. NECK: Jugular vein is mildly distended. No thyromegaly. No lymphadenopathy. LUNGS: Clear to auscultation bilaterally with diffuse wheeze, end-expiratory wheeze. Also has bibasilar crackles. CARDIOVASCULAR: Regular rhythm. No murmurs, rubs, or gallops. ABDOMEN: Nontender, nondistended. Good bowel sounds. No hepatosplenomegaly. EXTREMITIES: Show 1-2+ ____ level extremity right mid foot amputation. LABORATORY DATA WBC 13.2, hemoglobin 6.3, platelet count 237. INR is 1.0. Sodium 143, potassium 4.1, chloride 121, BUN 78, creatinine is 5.31. AST, ALT is within normal limits. C-reactive protein is 34. BNP is 827. Electrocardiogram shows sinus rhythm, no ischemic changes. ASSESSMENT 1. Congestive heart failure. 2. Right lower extremity thigh cellulitis. 3. Peripheral arterial disease. 4. Prior smoking history. 5. Acute on chronic renal failure. 6. Anemia. PLAN 1. The patient has significant anemia, seen by GI. They are going to plan for EGD colonoscopy to look for the source of bleeding. He has now received two packs of red blood cells which is also probably created some osmotic fluid overload. In the setting of his renal insufficiency and difficulty with clearance he now has significant interstitial edema. We will also get respiratory therapy as he has got some wheezing, not sure if it is bronchospasm versus cardiac wheeze. We will give him Lasix 40 milligrams IV. We will see how his creatinine trends but we may have to get nephrology involved. We will get an echocardiogram to evaluate for ejection fraction. EKG does not suggest any significant ischemic heart disease or ischemic events. 2. Right thigh pain and point tenderness. It is also warm. All consistent with cellulitis. He does have severe peripheral arterial disease but this does not look to be related to arterial insufficiency. If he does not show much improvement may consider non contrast CT to make sure there is no abscess. We will follow. MD LAKSHMI Banerjee/LU /1:57 PM /9:33 PM
[2016-10-03] MEDS ORDERED: FUROSEMIDE 40 MG/4 ML VIAL ONE (22:47)
[2016-10-03] MEDS ORDERED: SODIUM BICARBONATE 8.4% INJ 50 MEQ/50 ML SYR IV PUSH ONE (23:00)
--- NOTE | 2016-10-03 23:10 | HHI.PR ---
Addendum to Inpatient Note Addendum Reason: Additional Documentation Additional Information Rapid response was called on this patient because respiratory therapist had found him with O2 saturation in the 70s. He was also reported that he was wheezing actively. She therefore gave nebulizer treatments, and placed patient on nonrebreather. Chart reviewed. Patient examined at the bedside. Patient is awake, alert, oriented. However is quite scared of his medical conditions. He was initially refusing care to nursing staff. However when explained in detail of his medical conditions, he was agreeable to all the further treatments. He is noted to be in acute distress. He was saturating 99% on nonrebreather. However positive JVD, increased work of breathing. Heart rate is regular, tachycardic around 100. Abdomen is soft and nontender. However suprapubic tenderness noted. Bilateral lower extremities with no calf asymmetry or edema. Amputated metatarsals. On review of records, patient did receive 2 units of PRBC during his hospitalization. He received Lasix around 6 AM after the first unit. He then got another 40 mg grams of Lasix IV around 3:30 PM today. Cardiology notes reviewed. Cardiology also believed that patient wasn't cardiac asthma at the time of exam. Patient's echo was done today. EF was preserved at 55-60%. Patient after the nebs treatment did not improve in terms of respiratory status. Patient's bicarbonate was also a 11. He was receiving bicarbonate IV drip at 75 cc per hour on top of his antibiotics. Impression: Acute hypoxemic respiratory failurelikely secondary to fluid overload. However is multifactorial with metabolic acidosis, anemia as well. Metabolic acidosis Anemiasecondary to GI bleed COPD Plan: Lasix 40 mg IV push 1 dose now. Bladder scan now. [place] if there is retention. chest x-ray stat. Labsincluding hemoglobin/hematocrit,, BNP, electrolytes BiPAP 15/5 FiO2 to adjust to keep O2 sat 90-93%. Patient is a chronic smoker of pack a day for more than 20 years. Not on home oxygen. Sodium bicarbonate 50 ME Q 1 dose now. Will hold bicarbonate IV drip for now. Field Trainer consult for transfer of care. Discussed with nurse navigator public administration teacher. Critical care time 30 minutes Indira Hendrix MD Oct 03, 2016 23:10
--- NOTE | 2016-10-03 23:27 | RADRPT ---
EXAM DATE/TIME: 10/03/2016 23:19 [facility] COMPARISON: CHEST SINGLE AP, October 03, 2016, 4:42. INDICATIONS : Shortness of breath. MEDICAL HISTORY : Peripheral neuropathy. Heart murmur. Diabetes mellitus type II. Renal failure, acute. SURGICAL HISTORY : None. ENCOUNTER: Subsequent ACUITY: 1 day PAIN SCORE: 0/10 LOCATION: Bilateral chest FINDINGS: There has been slight interval decrease in confluence of diffuse bilateral infiltrates. Cardiomediast inal contours are stable. CONCLUSION: Slight improvement in aeration. Dain Lima MD on October 03, 2016 at 23:25 Board Certified Radiologist. This report was verified electronically.
--- NOTE | 2016-10-03 23:50 | PD.CONS ---
[facility] Service Critical Care Medicine Consult Requested By Dr. Hendrix Reason for Consult hypoxia Primary Care Physician No Primary Care Physician History of Present Illness This is a 50-year-old male with history of hypertension diabetes and peripheral neuropathy who originally presented yesterday to the emergency department with right leg pain and swelling was diagnosed with cellulitis and was admitted for observation and antibiotics. Of note he also had a worsening renal function with a creatinine 5, and was severely anemic with hemoglobin of 6.3. Cardiology was consult didn't diagnose him with diastolic heart failure exacerbation. A rapid response was called for hypoxia, and the patient was on a nonrebreather when I evaluated him. He was unable to provide a history given his severe dyspnea. Review of Systems ROS Limitations: Clinical Condition (hypoxia) Past Family Social History Allergies: Coded Allergies: No Known Allergies (Verified , 10/02/16) Past Medical History The patient is unable to provide a past medical history. Per chart review: HTN, DM and Peripheral Neuropathy Past Surgical History The patient is unable to provide a past surgical history. Per chart review: Multiple Finger Amputations, Right Forefoot Amputation Active Ordered Medications See MAR Family History Patient is unable to provide a past family history. It is unlikely contributory to his acute illness. Social History The patient is unable to provide a past social history reviewed per chart review : Negative for alcohol, tobacco or drugs. Physical Exam Vital Signs Vital Signs Date Time Temp Pulse Resp B/P Pulse Ox O2 Delivery O2 Flow Rate FiO2 10/03/16 21:46 81 10/03/16 19:03 97.8 80 18 131/72 95 10/03/16 12:00 95.2 82 20 129/78 91 10/03/16 09:15 97.1 89 20 115/75 96 10/03/16 08:30 97.2 84 18 120/75 97 10/03/16 08:08 97.1 83 18 115/75 97 10/03/16 08:00 86 10/03/16 08:00 95.2 80 20 120/64 95 10/03/16 07:30 92 Nasal Cannula 2.00 10/03/16 06:23 97.0 83 14 115/73 96 10/03/16 06:01 97.1 83 18 123/81 97 10/03/16 05:18 97.0 86 18 141/85 98 10/03/16 05:10 16 10/03/16 04:52 98.0 87 18 138/95 98 10/03/16 04:39 98 Nasal Cannula 2.00 10/03/16 04:16 98.0 83 18 138/72 97 10/03/16 04:07 97.9 81 18 136/75 93 10/03/16 03:57 79 10/03/16 03:48 98.0 81 18 127/67 91 10/03/16 03:35 98.1 80 20 135/74 91 10/03/16 03:03 97.4 80 16 139/70 91 10/03/16 02:46 98.0 78 20 124/63 95 10/03/16 01:46 76 16 128/61 96 Room Air Physical Exam GENERAL: Middle-aged male, lying in bed, acute respiratory distress. HEENT: Normocephalic. Atraumatic. Pupils equally round and reactive. NECK: Trachea is midline. There is significant JVD up above the level the mandible. CHEST: Labored breathing. On a nonrebreather on my evaluation. SPO2 of 96%. Significant tachypnea. Coarse crackles in all lung dial. CARDIOVASCULAR: Tachycardic rate, regular rhythm. No appreciable murmurs. ABDOMEN: Soft, nontender, nondistended. No guarding. MUSCULOSKELETAL: Right lower extremity with significant erythema, edema. NEUROLOGICAL: RASS -1. Follows commands. Laboratory Laboratory Tests Test 10/03/16 10/03/16 10/03/16 10/03/16 01:15 01:18 01:37 04:05 Lactic Acid Level 0.8 Blood Type A POSITIVE Antibody Screen NEGATIVE Crossmatch Leukocyte-Reduced Red Blood Cells Blood Bank Comment B-Type Natriuretic Peptide 827 Urine Color YELLOW Urine Turbidity HAZY Urine pH 5.5 Urine Specific [place] 1.015 Urine Protein 300 Urine Glucose (UA) NEG Urine Ketones NEG Urine Occult Blood SMALL Urine Nitrite NEG Urine Bilirubin NEG Urine Urobilinogen LESS THAN 2.0 Urine Leukocyte Esterase NEG Urine RBC 1 Urine WBC 1 Urine Squamous Epithelial <1 Cells Urine Renal Epithelial Cells <1 Urine Bacteria RARE Urine Hyaline Casts 10 Microscopic Urinalysis Comment CULT NOT INDICATED Urine Random Creatinine 119.9 Urine Random Sodium 17 Urine Opiates Screen NEG Urine Barbiturates Screen NEG Urine Amphetamines Screen NEG Urine Benzodiazepines Screen NEG Urine Cocaine Screen POS Urine Cannabinoids Screen POS Date/Time Procedure Status Source Growth 10/03/16 01:15 Aerobic Blood Culture Received Blood Peripheral Pending 10/03/16 01:15 Anaerobic Blood Culture Received Blood Peripheral Pending Result Diagram: 10/02/16210910/02/162109 Assessment and Plan Assessment and Plan Assessment: This is a 50-year-old male who was recently admitted for anemia and dyspnea thought to be due to diastolic heart failure exacerbation. He appears to be in decompensated diastolic congestive heart failure with concrete and severe acute kidney injury as well as anemia of unknown cause. I agree that he needs a blood transfusion to help with oxygen caring capacity, but he needs significant force diuresis, which may be very difficult given his severely elevated creatinine of 5. We will start with aggressive force diuresis and main need to resort to renal replacement therapy. Active problems: Metabolic encephalopathy Acute hypoxic restaurant failure Acute heart failure exacerbation, secondary to severe diastolic dysfunction Acute intravascular volume overload Severe acute kidney injury Right lower extremity cellulitis Plan: Every hour neuro checks Place the patient on BiPAP Wean FiO2 for SPO2 greater than 90% Stop maintenance fluids Agree with 1 unit PRBC Lasix 20 mg IV 1 followed by a Lasix infusion at 40 mg an hour. Goal diuresis -2-3 L in the next 12 hours. May require renal replacement therapy Agree with antibiotics for cellulitis, this is unlikely to be septic shock. Every hour urine outputs Daily BMP. Monitor renal function and electrolytes May require mechanical ventilation if we cannot rapidly correct his volume overload. May also require renal replacement therapy for acute volume overload. We'll follow up cardiology and nephrology recommendations This patient remains critically ill with one or more organ systems which are or may become a threat to life. I have spent in excess of 40 minutes discontinuously in the care and management of this patient. This time is exclusive of procedures, and includes, but is not limited to, evaluation of the patient, review of the medical record, discussions with family, consultants, nursing staff, or respiratory therapy, and documentation in the medical record. Code Status Full Code Jan Reyes MD Oct 03, 2016 23:50
[2016-10-04] VITALS (14 sets, daily range): BP systolic 116–158; BP diastolic 76–113; PULSE 86–96; RESP 16–21; TEMP 97.9; O2SAT 92–100
--- NOTE | 2016-10-04 00:31 | HHI.PR ---
Addendum to Inpatient Note Addendum Reason: Additional Documentation Additional Information S: Medical team paged to [employer] at approximately 2230 for respiratory distress and oxygen desaturation. Per nursing report patient began having SOB and then desaturated to the 70s prior to calling the [employer]. Patient is a 50 y/o M admitted for RLE cellulitis and anemia. He received 2 units of RBC over the last 24 hours with 40mg of Lasix given x2 and was started on Cefepime for his infection. O: GENERAL: 50 y/o M lying in bed in no acute distress refusing treatment by the nursing staff. SKIN: Warm and dry. No visible rash. HEENT: Atraumatic, normocephalic. CARDIOVASCULAR: RRR with no MGR. RESPIRATORY: Expiratory wheezes with fine rhonchi throughout all lung dial. GASTROINTESTINAL: Abdomen soft, non-tender, nondistended with +BS. MUSCULOSKELETAL: No cyanosis or edema. RLE bandage CDI. NEURO/PSYCH: Afocal. Awake, alert, and oriented x3. A: Mr. Roman is a 50 y/o M admitted for RLE cellulitis and anemia presenting with respiratory distress. P: 1. Respiratory Distress -Patient placed on 4L with a non-rebreather mask with Duoneb breathing treatment ; oxygen saturation recheck 94% -CBC, CMP, BNP, CXR, and Lasix 40mg IVP ordered for likely fluid overload post- transfusion; Refused by patient -Dr. Hendrix, attending physician, at bedside to resume patient care SDW: Dillon Payton MD R1 Oct 04, 2016 00:31
[2016-10-04 00:38] LABS: ALT (GPT) 14 U/L (12-78); ANION GAP 14 MEQ/L (5-15); AST (GOT) 20 U/L (15-37); BICARBONATE 11.1 MEQ/L (21.0-32.0); BLOOD UREA NITROGEN 83 MG/DL (7-18); CHLORIDE 123 MEQ/L (98-107); GLOMERULAR FILTRATION RATE 13 ML/MIN (>89); POTASSIUM 4.4 MEQ/L (3.5-5.1); SODIUM (NA) 148 MEQ/L (136-145)
[2016-10-04 00:40] LABS: ALKALINE PHOSPHATASE 86 U/L (45-117); FERRITIN 614 NG/ML (26-388); TOTAL BILIRUBIN ADULT 0.4 MG/DL (0.2-1.0); TRANSFERRIN IRON PROFILE 98 MG/DL (200-360)
[2016-10-04 00:44] LABS: HEMATOCRIT 22.4 % (39.0-51.0); MEAN CELL VOLUME 89.9 FL (80.0-100.0); MEAN CORPUSCULAR HEMOGLOBIN 28.8 PG (27.0-34.0); MEAN CORPUSCULAR HGB CONC 32.1 % (32.0-36.0); PLATELET COUNT 230 TH/MM3 (150-450); WHITE BLOOD COUNT 12.6 TH/MM3 (4.0-11.0)
[2016-10-04 00:46] LABS: HEMO FLAGS AUTO DIFF
[2016-10-04 01:09] LABS: BANDS 8 % (0-6); EOSINOPHILS 2 % (0-4); POLYS (SEG NEUTROPHILS) 79 % (16-70); SCAN/DIFF FINAL DIFF MANUAL; WBC DIFF SAMPLE 100
[2016-10-04 01:10] LABS: BURR CELLS 1+ (NORMAL); PLATELET ESTIMATE SMEAR NORMAL (NORMAL); PLATELET MORPHOLOGY NORMAL (NORMAL)
[2016-10-04 01:11] LABS: ACANTHOCYTES OCC (NORMAL)
[2016-10-04 05:18] LABS: TRANSFERRIN IRON PROFILE 93 MG/DL (200-360)
[2016-10-04 05:21] LABS: FERRITIN 845 NG/ML (26-388)
[2016-10-04] MEDS ORDERED: FUROSEMIDE 100 MG/10 ML VIAL IV PUSH ONE (05:30)
[2016-10-04] MEDS: INSULIN ASPART SUPPLEMENTAL SCALE SQ SCH ×4 (06:13→21:00)
[2016-10-04] MEDS: SODIUM BICARBONATE 8.4% INJ 75 MEQ in SODIUM CHLOR 0.45% 1000 ML INJ 1,000 ML IV SCH ×2 (06:18→20:45)
[2016-10-04] MEDS: FUROSEMIDE INJ 100 MG in SODIUM CHLORIDE 0.9% INJ 90 ML IV SCH ×4 (06:56→19:37)
--- NOTE | 2016-10-04 08:21 | MB ---
cc: MARJ GARRISON MD DATE OF CONSULTATION 10/03/2016 REASON FOR CONSULTATION Elevated BUN and creatinine for evaluation. HISTORY OF PRESENT ILLNESS This is a 50-year-old -Cyp[place] male with past medical history of hypertension, diabetes mellitus, history of peripheral neuropathy, peripheral vascular disease and chronic kidney disease who came to the hospital with a complaint of right leg and right foot pain. I was called to see the patient because of elevated BUN and creatinine. The patient has a known history of chronic kidney disease and he was here twice in June of last year and he was seen by Dr. Henderson. The patient is very noncompliant and he signed against medical advice the last time he was here. When he was here in June, his creatinine was 2.3-2.4 and this seems to be his baseline and now he came with a creatinine of 5.3 and also his hemoglobin was low 6.3. The patient denies any nausea or vomiting. He denies taking any nonsteroidal anti-inflammatory drugs. He has pain in the right foot and he was found to have some right lower extremity cellulitis and was started on antibiotics. The patient was also seen by the GI for low hemoglobin and refused any GI workup. He denies any dysuria, hematuria, or difficulty passing urine. PAST MEDICAL HISTORY 1. Hypertension 2. Diabetes mellitus 3. Peripheral vascular disease 4. Peripheral neuropathy 5. Chronic kidney disease 6. Chronic anemia PAST SURGICAL HISTORY History of right foot transmetatarsal amputation. REVIEW OF SYSTEMS The patient has generalized weakness, feeling tired. There is no history of fever. No headache, dizziness or blurring of vision. No shortness breath or chest pain. No palpitation, nausea, vomiting. No abdominal tenderness or diarrhea. He has pain in the right foot. He denies taking any nonsteroidal anti-inflammatory drugs. SOCIAL HISTORY Denies any history of smoking or alcoholism. FAMILY HISTORY Noncontributory ALLERGIES NO KNOWN DRUG ALLERGIES. MEDICATIONS Currently he is on: 1. Furosemide 40 mg IV daily 2. He received one dose of Vancomycin and Zosyn. 3. He is on Protonix 40 mg IV q. 12-hour. 4. Insulin sliding scale 5. Zofran as needed 6. Morphine as needed 7. He also received one dose of cefepime PHYSICAL EXAM On examination, the patient is awake and alert. He is not in acute distress. VITAL SIGNS: His last blood pressure was 129/78 temperature 95.2, oxygen saturation 91-96%. There is no documented hypotensive episode during this admission. HEAD, EYES, EARS, NOSE, AND THROAT: Pupils equally reacting to light. Nonicteric sclerae. Conjunctiva pale. NECK: Supple. JVD is not elevated. LUNGS: The patient has bilateral decreased air entry with occasional wheezing. HEART: S1 and S2 regular rhythm. ABDOMEN: Soft and lax. There is no tenderness. Bowel sounds positive. EXTREMITIES: He has mild edema in lower leg and his right foot is covered with a dressing. INVESTIGATIONS WBC count is 13.2 with a hemoglobin 6.3 and platelet count of 237. Sodium 143, potassium 5.1, chloride 121, bicarb 11.3, BUN 78, creatinine 5.3, calcium 8.6. C-reactive protein is 34, BNP is 827, INR 1.1. Urine toxicology was positive for cocaine and cannabinoids. Urinalysis showing protein of 300. Urine sodium 17, random creatinine is 119, protein to creatinine ratio 3.7. IMAGING STUDIES The patient had an ultrasound of the kidneys done which shows that both kidneys are small and echogenic without any hydronephrosis, trace ascites. Also had a chest x-ray done which shows he has worsening aeration. Lower extremity ultrasound was done yesterday which shows a normal examination. He had echocardiogram done today which shows ejection fraction of 55-60%. ASSESSMENT/PLAN 1. Chronic kidney disease with acute kidney injury 2. Metabolic acidosis 3. Severe anemia 4. Right foot cellulitis 5. Diabetes mellitus 6. History of hypertension. The patient has chronic kidney disease and has proteinuria most likely has diabetic renal disease and there is possibility an element of acute worsening most likely because of infection or there is a possibility of prerenal azotemia. I will hold his Lasix and give him some IV fluid with sodium bicarbonate and follow the urine output and BUN and creatinine. The patient was seen by Dr. Henderson when he was here the last time, so I will ask him to follow the patient from tomorrow. Thank you for the consultation. MD PHILIP Mora/CHRIS /5:04 PM /8:12 AM
--- NOTE | 2016-10-04 08:40 | PD.CARD.PN ---
Subjective Subjective Remarks continues to have mild-moderate shortness of breath, now on non-rebreather mask. Denies chest pain or palpitations. (Ana Chan) Objective Medications Current Medications Medications (Trade) Dose Ordered Sig/John Route Start Time Stop Time Status Last Admin (D50w (Vial) Inj) 25 ml UNSCH PRN IV PUSH 10/03/16 00:15 (Glucagon Inj) 1 mg UNSCH PRN OTHER 10/03/16 00:15 (NS Flush) 2 ml UNSCH PRN FLUSH 10/03/16 00:15 (NS Flush) 2 ml BID FLUSH 10/03/16 09:00 10/03/16 08:15 (Zofran Inj) 4 mg Q6H PRN IVP 10/03/16 00:15 (Dulcolax Supp) 10 mg DAILY PRN OK 10/03/16 00:15 (Tylenol) 650 mg Q6H PRN PO 10/03/16 00:15 ([place] 5-325 Mg) 1 tab Q4H PRN PO 10/03/16 00:15 10/03/16 04:06 (Morphine Inj) 2 mg Q3H PRN IV 10/03/16 00:15 Pantoprazole Sodium 40 mg 40 mg Q12H IV PUSH 10/03/16 11:00 10/03/16 22:14 Sodium Bicarbonate 75 meq/Sodium Chloride 1,075 ml @ 84 mls/hr [id number] IV 10/03/16 18:00 10/04/16 06:18 (Lasix Inj/NS Inj) 100 ml @ 0 mls/hr CONTINUOUS IV 10/04/16 07:30 10/04/16 06:56 Vital Signs / I&O Vital Signs Date Time Temp Pulse Resp B/P Pulse Ox O2 Delivery O2 Flow Rate FiO2 10/04/16 08:21 94 Non-Rebreather 100 10/04/16 04:25 98 50 10/04/16 04:00 90 18 132/78 98 10/04/16 02:15 96 Non-Rebreather 15.00 100 10/04/16 01:11 96 50 10/03/16 23:39 98 50 10/03/16 23:30 97.4 92 17 138/86 98 10/03/16 23:26 98 15.00 100 10/03/16 22:40 94 Non-Rebreather 12.00 10/03/16 21:46 81 10/03/16 19:03 97.8 80 18 131/72 95 10/03/16 12:00 95.2 82 20 129/78 91 10/03/16 09:15 97.1 89 20 115/75 96 10/03/16 08:30 97.2 84 18 120/75 97 I/O 10/03/16 10/03/16 10/03/16 10/04/16 10/04/16 10/04/16 07:00 15:00 23:00 07:00 15:00 23:00 Intake Total 360 ml 120 ml Output Total 200 ml 300 ml 1400 ml Balance 160 ml -300 ml -1280 ml Intake Oral 360 ml 120 ml IV Total 0 ml Output Urine Total 200 ml 300 ml 1400 ml Stool Total 0 ml # Voids 2 # Bowel Movements 1 Physical Exam GENERAL: SKIN: Warm and dry. NECK: Trachea midline. mild JVD. CARDIOVASCULAR: Regular rate and rhythm. RESPIRATORY: Bilateral wheeze and rales present to both bases. GASTROINTESTINAL: Abdomen soft, non-tender, nondistended. MUSCULOSKELETAL: Extremities show 2+ edema bilaterally NEUROLOGICAL: Awake and alert. No obvious cranial nerve deficits.. PSYCHIATRIC: Appropriate mood and affect; insight and judgment normal. Laboratory Laboratory Tests Test 10/03/16 10/04/16 23:58 03:58 White Blood Count 12.6 TH/MM3 Red Blood Count 2.50 MIL/MM3 Hemoglobin 7.2 GM/DL Hematocrit 22.4 % Mean Corpuscular Volume 89.9 FL Mean Corpuscular Hemoglobin 28.8 PG Mean Corpuscular Hemoglobin 32.1 % Concent Red Cell Distribution Width 20.0 % Platelet Count 230 TH/MM3 Mean Platelet Volume 8.1 FL Neutrophils (%) (Auto) % Lymphocytes (%) (Auto) % Monocytes (%) (Auto) % Eosinophils (%) (Auto) % Basophils (%) (Auto) % Neutrophils # (Auto) TH/MM3 Lymphocytes # (Auto) TH/MM3 Monocytes # (Auto) TH/MM3 Eosinophils # (Auto) TH/MM3 Basophils # (Auto) TH/MM3 CBC Comment AUTO DIFF Differential Total Cells 100 Counted Neutrophils % (Manual) 79 % Band Neutrophils % 8 % Lymphocytes % 9 % Monocytes % 2 % Eosinophils % 2 % Neutrophils # (Manual) 11.0 TH/MM3 Differential Comment FINAL DIFF MANUAL Platelet Estimate NORMAL Platelet Morphology Comment NORMAL [place] Cells 1+ Acanthocytes OCC Sodium Level 148 MEQ/L Potassium Level 4.4 MEQ/L Chloride Level 123 MEQ/L Carbon Dioxide Level 11.1 MEQ/L Anion Gap 14 MEQ/L Blood Urea Nitrogen 83 MG/DL Creatinine 5.54 MG/DL Estimat Glomerular Filtration 13 ML/MIN Rate Random Glucose 127 MG/DL Calcium Level 7.5 MG/DL Iron Level 13 MCG/DL 11 MCG/DL Total Iron Binding Capacity 137 MCG/DL 130 MCG/DL Percent Iron Saturation 9.5 % 8.4 % Ferritin 614 NG/ML 845 NG/ML Total Bilirubin 0.4 MG/DL Aspartate Amino Transf 20 U/L (AST/SGOT) Alanine Aminotransferase 14 U/L (ALT/SGPT) Alkaline Phosphatase 86 U/L B-Type Natriuretic Peptide 803 PG/ML Total Protein 6.1 GM/DL Albumin 1.5 GM/DL Phosphorus Level 5.9 MG/DL Imaging Last Impressions Renal Ultrasound 10/03/16 0000 Signed Impressions: Service Date/Time: Monday, October 03, 2016 11:23 - CONCLUSION: Small echogenic kidneys without hydronephrosis. Trace ascites as described previously. Samuel Shah MD FACR Chest X-Ray 10/03/16 0000 Signed Impressions: Service Date/Time: Monday, October 03, 2016 23:19 - CONCLUSION: Slight improvement in aeration. Dain Lima MD Lower Extremity Ultrasound 10/02/16 2120 Signed Impressions: Service Date/Time: Sunday, October 02, 2016 21:49 - CONCLUSION: Normal examination. Dain Lima MD (Ana Chan) Assessment and Plan Problem List: (1) Acute on chronic renal failure (2) Symptomatic anemia (3) Cellulitis (4) Renal insufficiency Assessment and Plan acute CHF- O2 sats dropped to 70 now on bipap. CXR shows continued bilateral infiltrate L>R. Echo EF 55-60% with mild-mod tricuspid valve regurgitation. Diuresing with Lasix IV; awaiting creatinine. tele reviewed NSR. acute on chronic renal failure- creatinine pending. anemia- s/p transfusion x 2. pending GI workup. (Ana Chan) Assessment and Plan patient refusing care now on lasix gtt. refusing labs continue diuresis will sign off call with question (Everardo Wilson MD) Problem Qualifiers (1) Cellulitis: Qualified Code: L03.115 - Cellulitis of right lower extremity Ana Chan Oct 04, 2016 08:40 Everardo Wilson MD Oct 04, 2016 16:04
[2016-10-04] MEDS: SODIUM CHLORIDE 0.9% FLUSH 5 ML FLUSH FLUSH SCH ×2 (09:00→21:00)
[2016-10-04] MEDS: PANTOPRAZOLE SODIUM 40 MG VIAL IV PUSH SCH ×2 (11:00→23:00)
--- NOTE | 2016-10-04 11:14 | HHI.CCPN ---
Subjective Remarks/Hospital Course This is a 50-year-old male with history of hypertension diabetes and peripheral neuropathy who originally presented yesterday to the emergency department with right leg pain and swelling was diagnosed with cellulitis and was admitted for observation and antibiotics. Of note he also had a worsening renal function with a creatinine 5, and was severely anemic with hemoglobin of 6.3. Cardiology was consult didn't diagnose him with diastolic heart failure exacerbation. A rapid response was called for hypoxia, and the patient was on a nonrebreather when I evaluated him. He was unable to provide a history given his severe dyspnea. 10/04: He is responding to diuretics, requiring BiPAP. Pulmonary edema persists. Objective Vital Signs Date Time Temp Pulse Resp B/P Pulse Ox O2 Delivery O2 Flow Rate FiO2 10/04/16 08:21 94 Non-Rebreather 100 10/04/16 08:00 15.00 10/04/16 08:00 87 10/04/16 08:00 97.9 16 158/76 Intake and Output 10/03/16 10/03/16 10/04/16 08:00 16:00 00:00 Intake Total 360 ml Output Total 200 ml 300 ml Balance 160 ml -300 ml Result Diagram: 10/03/168 10/03/162357 Objective Remarks GENERAL: Middle-aged male, lying in bed, continued acute respiratory distress. HEENT: Normocephalic. Atraumatic. NECK: Trachea is midline. Supple. CHEST: Labored breathing. BiPAP SPO2 of 96%. Diffuse crackles. CARDIOVASCULAR: Tachycardic rate, regular rhythm. ++JVD ABDOMEN: Soft, nontender, nondistended. No guarding. BS active. MUSCULOSKELETAL: Right lower extremity with significant erythema, edema. NEUROLOGICAL: Follows commands. Conversant. A/P Assessment and Plan Active problems: Metabolic encephalopathy Acute hypoxic restaurant failure Acute heart failure exacerbation, secondary to severe diastolic dysfunction Acute intravascular volume overload Severe acute kidney injury Right lower extremity cellulitis Plan: Every hour neuro checks BiPAP Wean FiO2 for SPO2 greater than 90% No maintenance fluids Agree with 1 unit PRBC Lasix infusion at 20 mg an hour. May require renal replacement therapy Agree with antibiotics for cellulitis, this is unlikely to be septic shock. Every hour urine outputs Daily BMP. Monitor renal function and electrolytes May require mechanical ventilation if we cannot rapidly correct his volume overload. We'll follow up cardiology and nephrology recommendations This patient remains critically ill with one or more organ systems which are or may become a threat to life. I have spent in excess of 30 minutes discontinuously in the care and management of this patient. This time is exclusive of procedures, and includes, but is not limited to, evaluation of the patient, review of the medical record, discussions with family, consultants, nursing staff, or respiratory therapy, and documentation in the medical record. Chau Wade MD Oct 04, 2016 11:14
[2016-10-04] MEDS: METOPROLOL TARTRATE 25 MG TAB PO SCH ×2 (12:00→21:00)
--- NOTE | 2016-10-04 18:57 | HHI.NPPN ---
Subjective General Problems: Anemia, Hypertension Renal Failure: Chronic, Stage IV History of Present Illness 50-year-old -[place] male with past medical history of hypertension, diabetes mellitus, history of peripheral neuropathy, peripheral vascular disease and chronic kidney disease who came to the hospital with a complaint of right leg and right foot pain. I was called to see the patient because of elevated BUN and creatinine. The patient has a known history of chronic kidney disease and he was here twice in June of last year and he was seen by Dr. Henderson. Additional Remarks Patient is alert, refusing exam and labs. Objective Data Data 10/03/16 10/04/16 19:00 07:00 Intake Total 360 ml 120 ml Output Total 200 ml 1700 ml Balance 160 ml -1580 ml Intake Oral 360 ml 120 ml IV Total 0 ml Output Urine Total 200 ml 1700 ml Stool Total 0 ml # Voids 2 # Bowel Movements 1 Vital Signs Date Time Temp Pulse Resp B/P Pulse Ox O2 Delivery O2 Flow Rate FiO2 10/04/16 18:00 92 10/04/16 16:00 94 10/04/16 16:00 94 16 116/94 100 10/04/16 14:00 94 10/04/16 12:00 86 10/04/16 12:00 86 21 150/86 100 10/04/16 10:00 86 10/04/16 08:21 94 Non-Rebreather 100 10/04/16 08:00 99 Non-Rebreather 15.00 100 10/04/16 08:00 87 10/04/16 08:00 97.9 86 16 158/76 99 10/04/16 04:25 98 50 10/04/16 04:00 90 18 132/78 98 10/04/16 02:15 96 Non-Rebreather 15.00 100 10/04/16 01:11 96 50 10/03/16 23:39 98 50 10/03/16 23:30 97.4 92 17 138/86 98 10/03/16 23:26 98 15.00 100 10/03/16 22:40 94 Non-Rebreather 12.00 10/03/16 21:46 81 10/03/16 19:03 97.8 80 18 131/72 95 -: 10/03/16 2358 10/03/16 2358 Physical Exam General Appearance: No Acute Distress, Comfortable Eyes Eye Exam: Pupils Equal Pulmonary Resp Exam: Breath Sounds Equal, Rhonchi, Decreased Bases Cardiology CV Exam: Regular, Normal Sinus Rhythm Gastrointestinal/Abdomen GI Exam: Soft, Non-Tender, Bowel Sounds Present Extremeties Extremities Exam: Trace Edema Neurologic Neuro Exam: Alert, Awake Assessment/Plan Assessment Summary: JULIA/Acute Renal Failure, Hypertension, CKD Stage IV Electrolyte Assessment: Metabolic Acidosis Problem List: (1) Diabetes (2) Hypertension (3) Anemia (4) Renal insufficiency (5) Cellulitis (6) Acute on chronic renal failure (7) Acute kidney injury Plan Patient has chronic kidney disease and now has JULIA. Urine out put is better with Lasix infusion. He is non compliant and refusing labs also. Follow urine out and labs. Possibly will need HD if not better. Continue IVF with NaHco3. I will ask Dr. Henderson to follow him from tomorrow. Problem Qualifiers (1) Diabetes: (2) Cellulitis: Qualified Code: L03.115 - Cellulitis of right lower extremity Mary Ann Beard MD Oct 04, 2016 18:57
[2016-10-04] MEDS: POTASSIUM CHLORIDE 25 MEQ EFFERVESCENT TAB PO SCH (21:00)
[2016-10-05] VITALS (15 sets, daily range): BP systolic 124–169; BP diastolic 81–90; PULSE 75–98; RESP 13–37; TEMP 97.4–97.6; O2SAT 93–100
[2016-10-05] MEDS: FUROSEMIDE INJ 100 MG in SODIUM CHLORIDE 0.9% INJ 90 ML IV SCH ×3 (01:55→21:10)
[2016-10-05] MEDS: INSULIN ASPART SUPPLEMENTAL SCALE SQ SCH ×4 (07:00→21:00)
[2016-10-05] MEDS: POTASSIUM CHLORIDE 25 MEQ EFFERVESCENT TAB PO SCH ×2 (08:51→21:00)
[2016-10-05] MEDS: METOPROLOL TARTRATE 25 MG TAB PO SCH ×2 (08:52→21:00)
[2016-10-05] MEDS: SODIUM CHLORIDE 0.9% FLUSH 5 ML FLUSH FLUSH SCH ×2 (08:52→21:00)
[2016-10-05] MEDS: SODIUM BICARBONATE 8.4% INJ 75 MEQ in SODIUM CHLOR 0.45% 1000 ML INJ 1,000 ML IV SCH ×2 (09:16→23:33)
[2016-10-05 11:11] LABS: AUTOMATED NEUTROPHIL # 7.7 TH/MM3 (1.8-7.7); BASOPHIL % 0.1 % (0.0-2.0); EOSINOPHIL # 0.4 TH/MM3 (0-0.4); EOSINOPHIL % 4.4 % (0.0-4.0); HEMATOCRIT 22.2 % (39.0-51.0); HEMO FLAGS DIFF FINAL; LYMPH % 6.1 % (9.0-44.0); LYMPHOCYTE # 0.5 TH/MM3 (1.0-4.8); MEAN CORPUSCULAR HEMOGLOBIN 29.1 PG (27.0-34.0); MEAN CORPUSCULAR HGB CONC 32.4 % (32.0-36.0); MONO % 3.1 % (0.0-8.0); NEUT % 86.3 % (16.0-70.0); PLATELET COUNT 238 TH/MM3 (150-450); RED BLOOD COUNT 2.46 MIL/MM3 (4.50-5.90); RED CELL DISTRIBUTION WIDTH 20.5 % (11.6-17.2)
[2016-10-05 11:25] LABS: ANION GAP 14 MEQ/L (5-15); BICARBONATE 14.2 MEQ/L (21.0-32.0); CHLORIDE 117 MEQ/L (98-107); GLOMERULAR FILTRATION RATE 14 ML/MIN (>89); MAGNESIUM 1.8 MG/DL (1.5-2.5); POTASSIUM 3.9 MEQ/L (3.5-5.1); SODIUM (NA) 145 MEQ/L (136-145)
[2016-10-05 11:28] LABS: BLOOD UREA NITROGEN 87 MG/DL (7-18)
[2016-10-05 11:29] LABS: CREATINE KINASE 108 U/L (39-308)
[2016-10-05] MEDS: PANTOPRAZOLE SODIUM 40 MG VIAL IV PUSH SCH ×2 (11:34→21:10)
[2016-10-05 11:47] LABS: CKMB 2.1 NG/ML (0.5-3.6)
[2016-10-05 11:52] LABS: CALCIUM-PROTEIN CORRECTED 7.4 MG/DL (8.5-10.1)
[2016-10-05 20:17] LABS: HEMOGLOBIN A1a 1.5 %; HEMOGLOBIN A1b 1.8 %; HEMOGLOBIN LA1C 2.4 %
[2016-10-05 20:18] LABS: HEMOGLOBIN Ao 83.9 %; HEMOGLOBIN P3 6.4 %
[2016-10-06] VITALS (15 sets, daily range): BP systolic 132–191; BP diastolic 73–90; PULSE 76–86; RESP 14–25; O2SAT 93–100
[2016-10-06] MEDS: INSULIN ASPART SUPPLEMENTAL SCALE SQ SCH ×3 (06:31→20:47)
[2016-10-06] MEDS: METOPROLOL TARTRATE 25 MG TAB PO SCH ×3 (08:03→20:46)
[2016-10-06] MEDS: SODIUM CHLORIDE 0.9% FLUSH 5 ML FLUSH FLUSH SCH ×2 (08:03→20:47)
[2016-10-06] MEDS: FUROSEMIDE INJ 100 MG in SODIUM CHLORIDE 0.9% INJ 90 ML IV SCH ×3 (08:03→21:11)
[2016-10-06] MEDS: PANTOPRAZOLE SODIUM 40 MG VIAL IV PUSH SCH ×3 (11:00→22:56)
[2016-10-06] MEDS: SODIUM BICARBONATE 8.4% INJ 75 MEQ in SODIUM CHLOR 0.45% 1000 ML INJ 1,000 ML IV SCH ×2 (12:18→22:56)
[2016-10-06] MEDS: hydrALAZINE HCL 20 MG/ML VIAL IV PUSH PRN (12:37)
--- NOTE | 2016-10-06 14:50 | HHI.CCPN ---
Subjective Remarks/Hospital Course Note for 10/05/16: This is a 50-year-old male with history of hypertension diabetes and peripheral neuropathy who originally presented yesterday to the emergency department with right leg pain and swelling was diagnosed with cellulitis and was admitted for observation and antibiotics. Of note he also had a worsening renal function with a creatinine 5, and was severely anemic with hemoglobin of 6.3. Cardiology was consult didn't diagnose him with diastolic heart failure exacerbation. A rapid response was called for hypoxia, and the patient was on a nonrebreather when I evaluated him. He was unable to provide a history given his severe dyspnea. 10/04: He is responding to diuretics, requiring BiPAP. Pulmonary edema persists. 10/05: Refuses to have blood drawn or take KCL. Drinking too much water while we are trying to diurese him. Objective Vital Signs Date Time Temp Pulse Resp B/P Pulse Ox O2 Delivery O2 Flow Rate FiO2 10/06/16 06:00 86 10/06/16 04:25 93 Partial Rebreather 15.00 10/06/16 04:00 14 152/75 10/06/16 00:59 60 10/05/16 12:00 97.4 Intake and Output 10/05/16 10/05/16 10/06/16 08:00 16:00 00:00 Intake Total 1313 ml 903 ml 1165 ml Output Total 1750 ml 1500 ml 1201 ml Balance -437 ml -597 ml -36 ml Result Diagram: 10/05/16 1050 10/05/16 1050 Objective Remarks GENERAL: Middle-aged male, lying in bed, continued acute respiratory distress. HEENT: Normocephalic. Atraumatic. NECK: Trachea is midline. Supple. CHEST: Labored breathing. BiPAP SPO2 of 96%. Diffuse crackles. CARDIOVASCULAR: Tachycardic rate, regular rhythm. ++JVD ABDOMEN: Soft, nontender, nondistended. No guarding. BS active. MUSCULOSKELETAL: Right lower extremity with significant erythema, edema. NEUROLOGICAL: Follows commands. Conversant. A/P Assessment and Plan Active problems: Metabolic encephalopathy Acute hypoxic restaurant failure Acute heart failure exacerbation, secondary to severe diastolic dysfunction Acute intravascular volume overload Severe acute kidney injury Right lower extremity cellulitis Plan: Every hour neuro checks BiPAP Wean FiO2 for SPO2 greater than 90% PO fluid limit. Lasix infusion at 20 mg an hour. May require renal replacement therapy Agree with antibiotics for cellulitis, this is unlikely to be septic shock. Every hour urine outputs Daily BMP. Monitor renal function and electrolytes Chau Wade MD Oct 06, 2016 14:50
--- NOTE | 2016-10-06 14:51 | HHI.CCPN ---
Subjective Remarks/Hospital Course Note for 10/06/16: This is a 50-year-old male with history of hypertension diabetes and peripheral neuropathy who originally presented yesterday to the emergency department with right leg pain and swelling was diagnosed with cellulitis and was admitted for observation and antibiotics. Of note he also had a worsening renal function with a creatinine 5, and was severely anemic with hemoglobin of 6.3. Cardiology was consult didn't diagnose him with diastolic heart failure exacerbation. A rapid response was called for hypoxia, and the patient was on a nonrebreather when I evaluated him. He was unable to provide a history given his severe dyspnea. 10/04: He is responding to diuretics, requiring BiPAP. Pulmonary edema persists. 10/05: Refuses to have blood drawn or take KCL. Drinking too much water while we are trying to diurese him. 10/06: Limit placed on PO intake. Continue diuretic gtt. Check lytes. Objective Vital Signs Date Time Temp Pulse Resp B/P Pulse Ox O2 Delivery O2 Flow Rate FiO2 10/06/16 06:00 86 10/06/16 04:25 93 Partial Rebreather 15.00 10/06/16 04:00 14 152/75 10/06/16 00:59 60 10/05/16 12:00 97.4 Intake and Output 10/05/16 10/05/16 10/06/16 08:00 16:00 00:00 Intake Total 1313 ml 903 ml 1165 ml Output Total 1750 ml 1500 ml 1201 ml Balance -437 ml -597 ml -36 ml Result Diagram: 10/05/16 1050 10/05/16 1050 Objective Remarks GENERAL: Middle-aged male, lying in bed, continued acute respiratory distress. HEENT: Normocephalic. Atraumatic. NECK: Trachea is midline. Supple. CHEST: Labored breathing. BiPAP SPO2 of 96%. Diffuse crackles. CARDIOVASCULAR: Tachycardic rate, regular rhythm. ++JVD ABDOMEN: Soft, nontender, nondistended. No guarding. BS active. MUSCULOSKELETAL: Right lower extremity with significant erythema, edema. NEUROLOGICAL: Follows commands. Conversant. A/P Assessment and Plan Active problems: Metabolic encephalopathy Acute hypoxic restaurant failure Acute heart failure exacerbation, secondary to severe diastolic dysfunction Acute intravascular volume overload Severe acute kidney injury Right lower extremity cellulitis Plan: Every hour neuro checks BiPAP Wean FiO2 for SPO2 greater than 90% PO fluid limit. Lasix infusion at 20 mg an hour. May require renal replacement therapy Agree with antibiotics for cellulitis, this is unlikely to be septic shock. Every hour urine outputs Daily BMP. Monitor renal function and electrolytes -, Phirajat, K now. Chau Wade MD Oct 06, 2016 14:51
[2016-10-07] VITALS (15 sets, daily range): BP systolic 140–178; BP diastolic 70–98; PULSE 80–89; RESP 14–24; TEMP 98–98.2; O2SAT 73–100
[2016-10-07] MEDS: FUROSEMIDE INJ 100 MG in SODIUM CHLORIDE 0.9% INJ 90 ML IV SCH ×4 (01:15→13:01)
[2016-10-07] MEDS: hydrALAZINE HCL 20 MG/ML VIAL IV PUSH PRN ×4 (01:15→17:32)
[2016-10-07] MEDS: ACETAMINOPHEN/HYDROcodone 325 MG/5 MG TAB PO PRN (03:18)
[2016-10-07] MEDS: INSULIN ASPART SUPPLEMENTAL SCALE SQ SCH ×4 (07:00→21:00)
[2016-10-07] MEDS: PANTOPRAZOLE SODIUM 40 MG VIAL IV PUSH SCH (09:08)
[2016-10-07] MEDS: SODIUM CHLORIDE 0.9% FLUSH 5 ML FLUSH FLUSH SCH ×2 (09:09→21:00)
[2016-10-07] MEDS: METOPROLOL TARTRATE 25 MG TAB PO SCH ×2 (09:09→21:00)
[2016-10-07 11:25] LABS: BICARBONATE 23.3 MEQ/L (21.0-32.0); POTASSIUM 3.3 MEQ/L (3.5-5.1)
[2016-10-07 11:34] LABS: MEAN CELL VOLUME 87.2 FL (80.0-100.0); MEAN CORPUSCULAR HEMOGLOBIN 28.9 PG (27.0-34.0); MEAN CORPUSCULAR HGB CONC 33.2 % (32.0-36.0); PLATELET COUNT 209 TH/MM3 (150-450); RED BLOOD COUNT 2.33 MIL/MM3 (4.50-5.90); RED CELL DISTRIBUTION WIDTH 19.2 % (11.6-17.2); WHITE BLOOD COUNT 9.8 TH/MM3 (4.0-11.0)
[2016-10-07 11:35] LABS: REVIEW FLAG FINAL
[2016-10-07 11:39] LABS: HEMATOCRIT 20.3 % (39.0-51.0)
[2016-10-07 11:42] LABS: CALCIUM-PROTEIN CORRECTED 7.3 MG/DL (8.5-10.1)
[2016-10-07 12:22] LABS: MAGNESIUM 1.5 MG/DL (1.5-2.5)
[2016-10-07] MEDS: SODIUM BICARBONATE 8.4% INJ 75 MEQ in SODIUM CHLOR 0.45% 1000 ML INJ 1,000 ML IV SCH (12:58)
[2016-10-07] MEDS ORDERED: POTASSIUM CHLORIDE 20 MEQ CONTROLLED RELEASE TAB PO ONE (14:45)
[2016-10-07] MEDS ORDERED: CALCIUM GLUCONATE 10% 1 GM/10 ML VIAL IV ONE (14:45)
[2016-10-07] MEDS ORDERED: FUROSEMIDE 20 MG/2 ML VIAL IV PUSH SCH (15:00)
[2016-10-07 15:48] LABS: HEMOGLOBIN A1a 1.1 %; HEMOGLOBIN A1b 0.8 %; HEMOGLOBIN Ao 84.3 %; HEMOGLOBIN F 0.8 %; HEMOGLOBIN LA1C 2.7 %; HEMOGLOBIN P3 6.3 %
--- NOTE | 2016-10-07 16:06 | HHI.PR ---
Subjective Remarks "Will he give me pain medication when I go home " "am I going to go home today " Patient is to want to go home, he previously refused workup for anemia by the GI Is currently on Lasix drip per renal with high possibility of needing hemodialysis He doesn't seem to be understanding his critical condition, he just wants to go home and take the medication Objective Vitals Vital Signs Date Time Temp Pulse Resp B/P Pulse Ox O2 Delivery O2 Flow Rate FiO2 10/07/16 10:00 89 10/07/16 08:00 88 14 161/82 97 10/07/16 08:00 88 10/07/16 08:00 98 Partial Non-Rebreather 10/07/16 06:00 86 10/07/16 04:00 98.2 83 18 178/98 98 10/07/16 04:00 83 10/07/16 02:00 82 10/07/16 01:23 178/90 10/07/16 00:00 84 10/07/16 00:00 84 18 166/92 96 10/06/16 22:00 80 10/06/16 20:02 97 Partial Rebreather 15.00 10/06/16 20:00 84 18 174/82 98 10/06/16 20:00 85 10/06/16 19:00 98 Non-Rebreather 15.00 10/06/16 18:00 80 I/O 10/06/16 10/06/16 10/06/16 10/07/16 10/07/16 10/07/16 07:00 15:00 23:00 07:00 15:00 23:00 Intake Total 380 ml 1290 ml 1224 ml 1275 ml Output Total 1300 ml 2002 ml 1200 ml 1550 ml Balance -920 ml -712 ml 24 ml -275 ml Intake Oral 240 ml 440 ml 360 ml 480 ml IV Total 140 ml 850 ml 864 ml 795 ml Output Urine Total 1300 ml 2000 ml 1200 ml 1550 ml Stool Total 0 ml 2 ml 0 ml # Bowel Movements 1 Result Diagram: 10/07/16 1038 10/07/16 1038 Objective Remarks GENERAL: This is a well-nourished, well-developed patient, in no apparent distress. SKIN: No rashes, warm and dry HEAD: Atraumatic. Normocephalic. EYES: Pupils equal round and reactive. Extraocular motions intact. No scleral icterus. ENT: Nose without bleeding, or drainage, Airway patent. NECK: Trachea midline. Supple CARDIOVASCULAR: Regular rate and rhythm without murmurs, gallops, or rubs. ++ JVD RESPIRATORY: Fair air entry bilaterally. No wheezes, rales, or rhonchi. GASTROINTESTINAL: Abdomen soft, non-tender, nondistended. Positive bowel sounds MUSCULOSKELETAL: Extremities without clubbing, cyanosis, +1 edema on the right. Pedal pulses appreciated NEUROLOGICAL: Awake and alert. Moves all extremity. Normal speech.no focal neurological deficit. A/P Problem List: (1) Cellulitis ICD Code: L03.90 Status: Acute (2) Anemia ICD Code: D64.9 Status: Acute (3) DM (diabetes mellitus) ICD Code: E11.9 Status: Acute (4) Renal insufficiency ICD Code: N28.9 Status: Acute Assessment and Plan This is a 50-year-old male with history of hypertension diabetes and peripheral neuropathy who originally presented yesterday to the emergency department with right leg pain and swelling was diagnosed with cellulitis and was admitted for observation and antibiotics. Of note he also had a worsening renal function with a creatinine 5, and was severely anemic with hemoglobin of 6.3. Cardiology was consult didn't diagnose him with diastolic heart failure exacerbation. A rapid response was called for hypoxia, and the patient was on a nonrebreather when I evaluated him. He was unable to provide a history given his severe dyspnea. 10/04: He is responding to diuretics, requiring BiPAP. Pulmonary edema persists. 10/05: Refuses to have blood drawn or take KCL. Drinking too much water while we are trying to diurese him. 10/06: Limit placed on PO intake. Continue diuretic gtt. Check lytes. 10/07: Acute on chronic anemia, hemoglobin 6, ordered units of PRBC, hypokalemia replace potassium, Blood pressure still not optimized, continue antihypertensive medication, continue hourly urine output measuring, patient still on Lasix infusion, renal following A/P: Metabolic encephalopathy Acute hypoxic restaurant failure Acute heart failure exacerbation, secondary to severe diastolic dysfunction Acute intravascular volume overload Severe acute kidney injury Right lower extremity cellulitis Plan: Every hour neuro checks BiPAP Wean FiO2 for SPO2 greater than 90% PO fluid limit. Lasix infusion at 20 mg an hour. May require renal replacement therapy cont antibiotics for cellulitis, this is unlikely to be septic shock. Every hour urine outputs Daily BMP. Monitor renal function and electrolytes -Mag, Phis, K now. Problem Qualifiers (1) Cellulitis: Qualified Code: L03.115 - Cellulitis of right lower extremity Hernando Hughes MD Oct 07, 2016 16:06
[2016-10-08] VITALS (13 sets, daily range): BP systolic 141–176; BP diastolic 70–84; PULSE 80–89; RESP 12–24; TEMP 97.9–98.8; O2SAT 92–100
[2016-10-08] MEDS: PANTOPRAZOLE SODIUM 40 MG VIAL IV PUSH SCH ×3 (01:09→23:32)
[2016-10-08] MEDS: METOPROLOL TARTRATE 25 MG TAB PO SCH ×2 (01:10→09:01)
[2016-10-08] MEDS: SODIUM BICARBONATE 8.4% INJ 75 MEQ in SODIUM CHLOR 0.45% 1000 ML INJ 1,000 ML IV SCH ×2 (01:10→08:52)
[2016-10-08] MEDS: FUROSEMIDE INJ 100 MG in SODIUM CHLORIDE 0.9% INJ 90 ML IV SCH (01:10)
[2016-10-08] MEDS: hydrALAZINE HCL 20 MG/ML VIAL IV PUSH PRN ×3 (01:11→23:33)
[2016-10-08] MEDS: INSULIN ASPART SUPPLEMENTAL SCALE SQ SCH ×4 (07:00→21:00)
[2016-10-08] MEDS: SODIUM CHLORIDE 0.9% FLUSH 5 ML FLUSH FLUSH SCH ×2 (08:52→21:25)
--- NOTE | 2016-10-08 11:49 | HHI.NPPN ---
Subjective General Problems: Anemia, Hypertension Renal Failure: Chronic, Stage IV History of Present Illness 50-year-old -[place] male with past medical history of hypertension, diabetes mellitus, history of peripheral neuropathy, peripheral vascular disease and chronic kidney disease who came to the hospital with a complaint of right leg and right foot pain. I was called to see the patient because of elevated BUN and creatinine. The patient has a known history of chronic kidney disease and he was here twice in June of last year and he was seen by Dr. Henderson. Additional Remarks Patient is alert, refused labs today Objective Data Data 10/07/16 10/08/16 19:00 07:00 Intake Total 1460 ml 2084 ml Output Total 2000 ml 2450 ml Balance -540 ml -366 ml Intake Oral 480 ml 360 ml IV Total 980 ml 1224 ml Packed Cells 500 ml Output Urine Total 2000 ml 2450 ml # Bowel Movements 2 2 Vital Signs Date Time Temp Pulse Resp B/P Pulse Ox O2 Delivery O2 Flow Rate FiO2 10/08/16 08:07 96 Partial Rebreather 10/08/16 06:00 84 10/08/16 04:00 98.3 84 24 155/72 99 10/08/16 04:00 84 10/08/16 02:00 84 10/08/16 00:00 98.0 82 24 141/70 94 10/08/16 00:00 82 10/07/16 23:50 98.0 82 24 141/70 94 10/07/16 22:00 82 10/07/16 21:22 96 Partial Rebreather 12.00 10/07/16 20:00 83 10/07/16 20:00 82 21 140/88 73 10/07/16 18:00 82 10/07/16 16:00 80 10/07/16 16:00 80 14 178/82 98 10/07/16 14:00 80 10/07/16 12:00 82 14 158/84 100 10/07/16 12:00 82 -: 10/07/16 1038 10/07/16 1038 Physical Exam General Appearance: No Acute Distress, Comfortable Eyes Eye Exam: Pupils Equal Pulmonary Resp Exam: Breath Sounds Equal, Rhonchi, Decreased Bases Cardiology CV Exam: Regular, Normal Sinus Rhythm Gastrointestinal/Abdomen GI Exam: Soft, Non-Tender, Bowel Sounds Present Integumentary Skin Exam: Intact Extremeties Extremities Exam: Trace Edema Neurologic Neuro Exam: Alert, Awake Assessment/Plan Assessment Summary: JULIA/Acute Renal Failure, Hypertension, CKD Stage IV Electrolyte Assessment: Metabolic Acidosis Problem List: (1) Diabetes (2) Hypertension (3) Anemia (4) Renal insufficiency (5) Cellulitis (6) Acute on chronic renal failure (7) Acute kidney injury Plan JULIA on CKD 4/5, with possible progression of CKD. Creatinine 5.3 -> 4.8 since admission. Patient was last seen with nephrology 10/04, then called to follow with patient today. Patient has a history of non-compliance with labs and exam, allowed my to examine him today. Patient has continued on IVFs and lasix drip, with 4.5L UOP over last 24 hours. At this point will stop IVFs, as patient is tolerating PO diet. Initial acidosis has improved. Potassium and calcium were ordered yesterday, check AM labs (labs refused today) Anemia likely due to advanced CKD, 2u PRBCs were ordered. Check AM labs Will give lasix 40mg IV BID and follow UOP. I suspect the patient is nearing ESRD and dialysis; however he has a history of non-compliance and I am not certain he would comply with dialysis. At this point, no need for HD. Continue medical management and supportive care. Patient has followed with Dr. Henderson in the past during hospitalizations. Initially admitted with cellulitis, which is improved. Problem Qualifiers (1) Diabetes: (2) Cellulitis: Qualified Code: L03.115 - Cellulitis of right lower extremity Lucas Colorado MD Oct 08, 2016 11:49
--- NOTE | 2016-10-08 12:46 | HHI.PR ---
Subjective Remarks I was warned by the nurse prior to going to the room that the patient has already refused to be examined by the administrative assistant coordinator today, he is refusing Accu- Chek as well as blood work, I went into the room with the nurse, patient was in bed with his family at the bedside, he again asked me if he is denied go home today, I explained to him that we cannot discharge him without addressing his issues however he stopped talking to me and Telling me"stop talking ", and continue to talk to the nurse, and eventually he asked me to leave the room. Objective Vitals Vital Signs Date Time Temp Pulse Resp B/P Pulse Ox O2 Delivery O2 Flow Rate FiO2 10/08/16 08:07 96 Partial Rebreather 10/08/16 06:00 84 10/08/16 04:00 98.3 84 24 155/72 99 10/08/16 04:00 84 10/08/16 02:00 84 10/08/16 00:00 98.0 82 24 141/70 94 10/08/16 00:00 82 10/07/16 23:50 98.0 82 24 141/70 94 10/07/16 22:00 82 10/07/16 21:22 96 Partial Rebreather 12.00 10/07/16 20:00 83 10/07/16 20:00 82 21 140/88 73 10/07/16 18:00 82 10/07/16 16:00 80 10/07/16 16:00 80 14 178/82 98 10/07/16 14:00 80 I/O 10/07/16 10/07/16 10/07/16 10/08/16 10/08/16 10/08/16 07:00 15:00 23:00 07:00 15:00 23:00 Intake Total 1275 ml 1460 ml 714 ml 1370 ml Output Total 1550 ml 2000 ml 1200 ml 1250 ml Balance -275 ml -540 ml -486 ml 120 ml Intake Oral 480 ml 480 ml 240 ml 120 ml IV Total 795 ml 980 ml 474 ml 750 ml Packed Cells 500 ml Output Urine Total 1550 ml 2000 ml 1200 ml 1250 ml # Bowel Movements 1 2 0 2 Result Diagram: 10/07/16 1038 10/07/16 1038 Objective Remarks GENERAL: 50 and pleasant male laying in bed in no acute distress NEUROLOGICAL: Awake and alert. Moves all extremity. Normal speech.. A/P Problem List: (1) Cellulitis ICD Code: L03.90 Status: Acute (2) Anemia ICD Code: D64.9 Status: Acute (3) DM (diabetes mellitus) ICD Code: E11.9 Status: Acute (4) Renal insufficiency ICD Code: N28.9 Status: Acute Assessment and Plan This is a 50-year-old male with history of hypertension diabetes and peripheral neuropathy who originally presented yesterday to the emergency department with right leg pain and swelling was diagnosed with cellulitis and was admitted for observation and antibiotics. Of note he also had a worsening renal function with a creatinine 5, and was severely anemic with hemoglobin of 6.3. Cardiology was consult didn't diagnose him with diastolic heart failure exacerbation. A rapid response was called for hypoxia, and the patient was on a nonrebreather when I evaluated him. He was unable to provide a history given his severe dyspnea. A/P: Metabolic encephalopathy Acute hypoxic restaurant failure Acute heart failure exacerbation, secondary to severe diastolic dysfunction Acute intravascular volume overload Severe acute kidney injury Right lower extremity cellulitis Plan: 10/07: Acute on chronic anemia, hemoglobin 6, ordered units of PRBC, hypokalemia replace potassium, Blood pressure still not optimized, continue antihypertensive medication, continue hourly urine output measuring, patient still on Lasix infusion, renal following 10/08: Patient showed very unpleasant and inappropriate attitude to the health care providers, earlier he refused to be examined by the administrative assistant coordinator Dr. Colorado , he refuses Accu-Chek and lab work, I had discussed with him with the presence of the nurse and explained to him the need of being compliant with the management, however he asked me to stop talking, and then to leave the room. We 'll assign to a colleague to resume care, however patient is showing significant noncompliance which is going to be major issue that preclude appropriate management. Today administrative assistant coordinator stopped Lasix drip and sodium bicarbonate, ordered lab work which patient continued to refuse to do Every hour neuro checks BiPAP Wean FiO2 for SPO2 greater than 90% PO fluid limit. Status post Lasix infusion May require renal replacement therapy cont antibiotics for cellulitis, this is unlikely to be septic shock. Every hour urine outputs Daily BMP. Monitor renal function and electrolytes -Mag, Phis, K now. Problem Qualifiers (1) Cellulitis: Qualified Code: L03.115 - Cellulitis of right lower extremity Hernando Hughes MD Oct 08, 2016 12:46
[2016-10-08 16:08] LABS: AUTOMATED NEUTROPHIL # 10.1 TH/MM3 (1.8-7.7); BASOPHIL % 0.1 % (0.0-2.0); EOSINOPHIL # 0.5 TH/MM3 (0-0.4); HEMATOCRIT 27.3 % (39.0-51.0); HEMO FLAGS DIFF FINAL; LYMPHOCYTE # 0.9 TH/MM3 (1.0-4.8); MEAN CELL VOLUME 85.9 FL (80.0-100.0); MEAN CORPUSCULAR HEMOGLOBIN 28.5 PG (27.0-34.0); MEAN CORPUSCULAR HGB CONC 33.2 % (32.0-36.0); MONO % 2.8 % (0.0-8.0); NEUT % 85.1 % (16.0-70.0); PLATELET COUNT 239 TH/MM3 (150-450); RED BLOOD COUNT 3.17 MIL/MM3 (4.50-5.90); RED CELL DISTRIBUTION WIDTH 18.3 % (11.6-17.2); WHITE BLOOD COUNT 11.8 TH/MM3 (4.0-11.0)
[2016-10-08] MEDS: FUROSEMIDE 40 MG/4 ML VIAL IV PUSH SCH (18:01)
[2016-10-09] VITALS (12 sets, daily range): BP systolic 142–170; BP diastolic 67–84; PULSE 79–86; RESP 14–24; TEMP 97.6–98.7; O2SAT 92–100
[2016-10-09] MEDS: INSULIN ASPART SUPPLEMENTAL SCALE SQ SCH ×3 (07:00→16:00)
[2016-10-09] MEDS: METOPROLOL TARTRATE 25 MG TAB PO SCH ×2 (08:33→20:05)
[2016-10-09] MEDS: SODIUM CHLORIDE 0.9% FLUSH 5 ML FLUSH FLUSH SCH ×2 (08:34→20:06)
[2016-10-09] MEDS: PANTOPRAZOLE SODIUM 40 MG VIAL IV PUSH SCH (08:34)
[2016-10-09] MEDS: FUROSEMIDE 40 MG/4 ML VIAL IV PUSH SCH ×2 (08:34→16:52)
[2016-10-09] MEDS ORDERED: HYDR-3533 PO (08:55)
[2016-10-09] MEDS ORDERED: METF500T PO (08:57)
[2016-10-09] MEDS: hydrALAZINE HCL 20 MG/ML VIAL IV PUSH PRN ×2 (09:00→17:35)
--- NOTE | 2016-10-09 10:44 | HHI.NPPN ---
Subjective General Problems: Anemia, Hypertension Renal Failure: Chronic, Stage IV History of Present Illness 50-year-old -[place]wegian male with past medical history of hypertension, diabetes mellitus, history of peripheral neuropathy, peripheral vascular disease and chronic kidney disease who came to the hospital with a complaint of right leg and right foot pain. I was called to see the patient because of elevated BUN and creatinine. The patient has a known history of chronic kidney disease and he was here twice in June of last year and he was seen by Dr. Henderson. Additional Remarks Patient is awake and alert, reports that he wants to go home Objective Data Data 10/08/16 10/09/16 19:00 07:00 Intake Total 922 ml 240 ml Output Total 1300 ml 800 ml Balance -378 ml -560 ml Intake Oral 360 ml 240 ml IV Total 562 ml Output Urine Total 1300 ml 800 ml # Bowel Movements 0 Vital Signs Date Time Temp Pulse Resp B/P Pulse Ox O2 Delivery O2 Flow Rate FiO2 10/09/16 10:00 82 10/09/16 09:00 95 Nasal Cannula 6.00 10/09/16 08:00 96 Nasal Cannula 6.00 10/09/16 08:00 86 10/09/16 08:00 98.0 86 20 168/84 100 10/09/16 07:51 92 Nasal Cannula 6.00 10/09/16 07:00 100 Partial Non-Rebreather 10.00 10/09/16 02:00 84 10/09/16 00:00 82 10/09/16 00:00 98.7 82 24 142/67 95 10/08/16 22:00 89 10/08/16 20:00 80 10/08/16 20:00 98.8 80 14 161/82 100 10/08/16 20:00 100 Partial Non-Rebreather 10.00 10/08/16 18:00 83 10/08/16 16:00 88 10/08/16 16:00 97.9 88 16 176/84 97 10/08/16 14:00 86 10/08/16 12:00 98.0 84 12 150/73 92 10/08/16 12:00 84 -: 10/08/16 1512 10/07/16 1038 Physical Exam General Appearance: No Acute Distress, Comfortable Eyes Eye Exam: Pupils Equal Pulmonary Resp Exam: Breath Sounds Equal, Rhonchi, Decreased Bases Cardiology CV Exam: Regular, Normal Sinus Rhythm Gastrointestinal/Abdomen GI Exam: Soft, Non-Tender, Bowel Sounds Present Integumentary Skin Exam: Intact Extremeties Extremities Exam: Trace Edema Neurologic Neuro Exam: Alert, Awake Assessment/Plan Assessment Summary: JULIA/Acute Renal Failure, Hypertension, CKD Stage IV Electrolyte Assessment: Metabolic Acidosis Problem List: (1) Diabetes (2) Hypertension (3) Anemia (4) Renal insufficiency (5) Cellulitis (6) Acute on chronic renal failure (7) Acute kidney injury Plan JULIA on CKD 4/5, with possible progression of CKD. Creatinine 5.3 -> 4.8 since admission - no new labs for 2 days (patient refused blood draws). Patient was last seen with nephrology 10/04, then called to follow with patient yesterday. Patient has a history of non-compliance with labs and exam, allowed my to examine him today. Apparently he fired the hospitalist earlier. Anemia likely due to advanced CKD, 2u PRBCs were ordered. Check AM labs Was initially on lasix drip, now on lasix 40mg IV BID. 2L UOP/ 24 hours. I suspect the patient is nearing ESRD and dialysis; however he has a history of non-compliance and I am not certain he would comply with dialysis. At this point, no need for HD. Continue medical management and supportive care. He is adamant that he wants to go home, but I explained to him that he needs to feel well here so he can stay home and avoid re-admission. He agrees to try to sit up and walk around today, agreeable to repeat blood draws now. Patient has followed with Dr. Henderson in the past during hospitalizations. Initially admitted with cellulitis, which is improved. Problem Qualifiers (1) Diabetes: (2) Cellulitis: Qualified Code: L03.115 - Cellulitis of right lower extremity Lucas Colorado MD Oct 09, 2016 10:44
[2016-10-09 11:37] LABS: AUTOMATED NEUTROPHIL # 10.1 TH/MM3 (1.8-7.7); BASOPHIL % 0.3 % (0.0-2.0); EOSINOPHIL # 0.4 TH/MM3 (0-0.4); EOSINOPHIL % 3.2 % (0.0-4.0); HEMO FLAGS DIFF FINAL; LYMPH % 8.9 % (9.0-44.0); LYMPHOCYTE # 1.1 TH/MM3 (1.0-4.8); MEAN CELL VOLUME 86.5 FL (80.0-100.0); MEAN CORPUSCULAR HEMOGLOBIN 28.1 PG (27.0-34.0); MEAN CORPUSCULAR HGB CONC 32.5 % (32.0-36.0); NEUT % 84.6 % (16.0-70.0); PLATELET COUNT 233 TH/MM3 (150-450); RED BLOOD COUNT 3.12 MIL/MM3 (4.50-5.90); RED CELL DISTRIBUTION WIDTH 18.2 % (11.6-17.2); WHITE BLOOD COUNT 11.9 TH/MM3 (4.0-11.0)
[2016-10-09 12:12] LABS: BICARBONATE 23.8 MEQ/L (21.0-32.0); MAGNESIUM 1.4 MG/DL (1.5-2.5); POTASSIUM 3.1 MEQ/L (3.5-5.1); TOTAL BILIRUBIN ADULT 0.4 MG/DL (0.2-1.0)
[2016-10-09 12:32] LABS: CALCIUM-PROTEIN CORRECTED 7.1 MG/DL (8.5-10.1)
[2016-10-09] MEDS ORDERED: POTASSIUM CHLORIDE 10 MEQ CONTROLLED RELEASE TAB PO ONE (12:45)
[2016-10-09] MEDS: LACTIC ACID (AMMONIUM LACTATE) 12% LOTION 225 GM BTL TOPICAL SCH ×2 (13:15→20:05)
--- NOTE | 2016-10-09 13:31 | HHI.PR ---
Subjective Remarks Follow-up for respiratory failure. Patient seen with RN at bedside. The patient is very guarded and repeatedly asks to go home. Reportedly he tried ambulate yesterday, and had desaturation. Oxygen was increased overnight. Currently oxygen has been decreased to 5 L nasal cannula. The patient ambulated to the restroom yesterday, hasn't tried ambulated today. He denies any shortness of breath. He denies any headache or dizziness. Initially resistant to physical examination, but was eventually coaxed and is now agreeable. Objective Vitals Vital Signs Date Time Temp Pulse Resp B/P Pulse Ox O2 Delivery O2 Flow Rate FiO2 10/09/16 12:00 82 10/09/16 12:00 97.6 82 22 170/82 97 10/09/16 10:00 82 10/09/16 09:00 95 Nasal Cannula 6.00 10/09/16 08:00 96 Nasal Cannula 6.00 10/09/16 08:00 86 10/09/16 08:00 98.0 86 20 168/84 100 10/09/16 07:51 92 Nasal Cannula 6.00 10/09/16 07:00 100 Partial Non-Rebreather 10.00 10/09/16 02:00 84 10/09/16 00:00 82 10/09/16 00:00 98.7 82 24 142/67 95 10/08/16 22:00 89 10/08/16 20:00 80 10/08/16 20:00 98.8 80 14 161/82 100 10/08/16 20:00 100 Partial Non-Rebreather 10.00 10/08/16 18:00 83 10/08/16 16:00 88 10/08/16 16:00 97.9 88 16 176/84 97 10/08/16 14:00 86 I/O 10/08/16 10/08/16 10/08/16 10/09/16 10/09/16 10/09/16 07:00 15:00 23:00 07:00 15:00 23:00 Intake Total 1370 ml 922 ml 240 ml Output Total 1250 ml 1300 ml 800 ml Balance 120 ml -378 ml -560 ml Intake Oral 120 ml 360 ml 240 ml IV Total 750 ml 562 ml Packed Cells 500 ml Output Urine Total 1250 ml 1300 ml 800 ml # Bowel Movements 2 0 Result Diagram: 1/22/17 1101 10/09/16 1101 Imaging Last Impressions Renal Ultrasound 10/03/16 0000 Signed Impressions: Service Date/Time: Monday, October 03, 2016 11:23 - CONCLUSION: Small echogenic kidneys without hydronephrosis. Trace ascites as described previously. Samuel Shah MD FACR Chest X-Ray 10/03/16 0000 Signed Impressions: Service Date/Time: Monday, October 03, 2016 23:19 - CONCLUSION: Slight improvement in aeration. Dain Lima MD Lower Extremity Ultrasound 10/02/160 Signed Impressions: Service Date/Time: Sunday, October 02, 2016 21:49 - CONCLUSION: Normal examination. Dain Lima MD Objective Remarks GENERAL: Well-developed well-nourished. In no acute distress. SKIN: Warm and dry. No lesions noted. HEENT: Normocephalic. Pupils equal and round. Mucous membranes pink and moist. CARDIOVASCULAR: Regular rate and rhythm. No murmur appreciated. RESPIRATORY: No accessory muscle use. Clear to auscultation. Breath sounds equal bilaterally. Bibasilar crackles. GASTROINTESTINAL: Abdomen soft, non-tender, nondistended. Bowel sounds x4. MUSCULOSKELETAL: Right forefoot amputation. 1+ edema on the right, trace on the left. No erythema or warmth. No clubbing or cyanosis. Mild right groin lymphadenopathy. NEUROLOGICAL: Awake and alert. No focal neurological deficits. Moves upper and lower extremities spontaneously. Normal speech. PSYCHIATRIC: Calm mood and guarded affect; insight and judgment fair to normal. A/P Problem List: (1) Cellulitis ICD Code: L03.90 Status: Acute (2) Anemia ICD Code: D64.9 Status: Acute (3) DM (diabetes mellitus) ICD Code: E11.9 Status: Acute (4) Renal insufficiency ICD Code: N28.9 Status: Acute Assessment and Plan 50-year-old male with PMH of HTN, DM and Peripheral Neuropathy who came to the ER with complaints of right leg pain and swelling x3 days Acute respiratory failure: Acute respiratory failure 10/03. Likely secondary to volume overload from blood transfusion. S/p BiPAP. IV diuresis as below. Continue supplemental oxygen as needed, and will likely need oxygen in [place]. RLE swellin days prior to admission. Doppler RLE negative. WBC 13.2. Afebrile. No signs of cellulitis on exam. Blood cultures with NGTD. PT consulted. Right inguinal lymphadenopathy, check ultrasound. Possibly secondary to CHF as below. Acute diastolic CHF: Presented with lower extremity edema, BNP 827, Chest x- ray with bilateral edema. Echocardiogram with mild LVH, normal systolic function and EF. Cardiology consulted, patient refuses care, cardiology signed off. Continue IV diuresis DC IVF. Normocytic anemia: Hgb 6.3, previously 9.2 on 07/15/16. No signs of active bleeding. Iron studies show iron deficiency. Transfused 2u pRBCs with Lasix. Check stool for Hemoccult. GI consulted, refused EGD and colonoscopy. Start iron replacement. DM: Sliding scale w/ Accu-Cheks. Discontinue metformin in light of advanced renal disease. Acute kidney injury on CKD: Creatinine 5.31, previously 2.40 on 07/15/16. Renal ultrasound with echogenic kidneys, likely underlying medical renal disease. Consulted nephrology. Was on Lasix drip, transitioned to IV Lasix. Monitor intake and output. Monitor renal function. Possible impending dialysis. Polysubstance abuse: Patient denies any substance abusing years, however UDS is positive for cocaine and cannabis. Hypertension: Continue diuresis with Lasix as above. Start oral hydralazine. IV hydralazine as needed. Electrolyte derangement: Hypokalemia, hypomagnesemia, hypocalcemia. Secondary to diuresis and renal disease. Replace orally. Follow-up labs. DVT Prophylaxis: SCD/Teds. Written by Daniel Hathaway, acting as scribe for Dr. Everett on 10/09/16 at 13:17. The documentation accurately reflects the work performed [id number] by me on at 1317 Discharge Planning Disposition pending clinical course. Consider palliative care consultation patient continues to refuse medical therapy. Problem Qualifiers (1) Cellulitis: Qualified Code: L03.115 - Cellulitis of right lower extremity Daniel Hathaway Oct 09, 2016 13:31 Ap Everett MD Oct 09, 2016 15:24
[2016-10-09] MEDS: hydrALAZINE HCL 25 MG TAB PO SCH ×2 (14:03→20:05)
[2016-10-09] MEDS: MAGNESIUM OXIDE 400 MG TAB PO SCH ×2 (14:03→20:05)
[2016-10-09] MEDS: FERROUS SULFATE 325 MG (65 MG ELEMENTAL IRON) TAB PO SCH ×2 (14:04→20:05)
[2016-10-09] MEDS: MUPIROCIN 2% OINT 1 APPLIC/GM SYR EACH NARE SCH ×2 (14:04→20:05)
[2016-10-09] MEDS: ACETAMINOPHEN/HYDROcodone 325 MG/5 MG TAB PO PRN (16:52)
[2016-10-10] VITALS (13 sets, daily range): BP systolic 170–192; BP diastolic 81–109; PULSE 74–96; RESP 11–24; TEMP 97–98; O2SAT 94–99
[2016-10-10] MEDS: FERROUS SULFATE 325 MG (65 MG ELEMENTAL IRON) TAB PO SCH ×3 (09:00→21:12)
[2016-10-10] MEDS: LACTIC ACID (AMMONIUM LACTATE) 12% LOTION 225 GM BTL TOPICAL SCH ×2 (09:00→21:12)
[2016-10-10] MEDS: hydrALAZINE HCL 25 MG TAB PO SCH ×3 (09:00→17:50)
[2016-10-10] MEDS: FUROSEMIDE 40 MG/4 ML VIAL IV PUSH SCH ×3 (09:00→17:49)
[2016-10-10] MEDS: MAGNESIUM OXIDE 400 MG TAB PO SCH ×3 (09:00→21:12)
[2016-10-10] MEDS: SODIUM CHLORIDE 0.9% FLUSH 5 ML FLUSH FLUSH SCH ×3 (09:00→21:11)
[2016-10-10] MEDS: METOPROLOL TARTRATE 25 MG TAB PO SCH ×3 (09:00→21:12)
[2016-10-10] MEDS: MUPIROCIN 2% OINT 1 APPLIC/GM SYR EACH NARE SCH ×2 (09:00→21:11)
[2016-10-10] MEDS ORDERED: LORazepam 2 MG/ML VIAL IV PUSH PRN (10:30)
--- NOTE | 2016-10-10 10:54 | HHI.PR ---
Subjective Remarks F/u encephalopathy. Agitated and refusing treatment and threatening to sign out AGAINST MEDICAL ADVICE. When I was in the room, patient had an altercation with his daughter( who is his primary caregiver) when I requested her to leave the room. He wanted to be alone with me. Explained to the patient he is not medically stable to leave the hospital and likely he will without appropriate treatment but still wants to leave the hospital. Discussed with nursing staff, patient will be placed under Bradford act as patient not making any rational decisions. He is also medically unstable to leave the hospital with uncontrolled hypertension, congestive heart failure requiring oxygen and worsening renal function with possible impending dialysis. Left message with Psychiatry who has been consulted Objective Vitals Vital Signs Date Time Temp Pulse Resp B/P Pulse Ox O2 Delivery O2 Flow Rate FiO2 10/10/16 08:00 99 Nasal Cannula 4.00 10/10/16 07:53 Nasal Cannula 6.00 10/10/16 06:00 77 10/10/16 04:00 97.0 82 24 189/97 98 10/10/16 04:00 90 10/10/16 02:00 96 10/10/16 00:00 82 10/10/16 00:00 97.7 88 16 170/85 94 10/09/16 23:05 95 Nasal Cannula 6.00 10/09/16 22:00 82 10/09/16 20:00 100 Nasal Cannula 6.00 10/09/16 20:00 82 10/09/16 20:00 98.0 82 16 155/82 100 10/09/16 18:00 82 10/09/16 16:00 79 10/09/16 16:00 79 14 170/80 97 10/09/16 14:00 80 10/09/16 12:00 82 10/09/16 12:00 97.6 82 22 170/82 97 I/O 10/09/16 10/09/16 10/09/16 10/10/16 10/10/16 10/10/16 07:00 15:00 23:00 07:00 15:00 23:00 Intake Total 650 ml 240 ml 240 ml Output Total 750 ml 600 ml 700 ml Balance -100 ml -360 ml -460 ml Intake Oral 650 ml 240 ml 240 ml IV Total 0 ml Output Urine Total 750 ml 600 ml 700 ml Stool Total 0 ml 0 ml # Bowel Movements 1 Result Diagram: 1/22/17 1101 10/09/16 1101 Imaging Last Impressions Renal Ultrasound 10/03/16 0000 Signed Impressions: Service Date/Time: Monday, October 03, 2016 11:23 - CONCLUSION: Small echogenic kidneys without hydronephrosis. Trace ascites as described previously. Samuel Shah MD FACR Chest X-Ray 10/03/16 0000 Signed Impressions: Service Date/Time: Monday, October 03, 2016 23:19 - CONCLUSION: Slight improvement in aeration. Dain Lima MD Lower Extremity Ultrasound 10/02/160 Signed Impressions: Service Date/Time: Sunday, October 02, 2016 21:49 - CONCLUSION: Normal examination. Dain Lima MD Objective Remarks GENERAL: Well-developed well-nourished in acute distress with agitation. SKIN: Warm and dry. No lesions noted. HEENT: Normocephalic. Pupils equal and round. Mucous membranes pink and moist. CARDIOVASCULAR: Regular rate and rhythm. No murmur appreciated. RESPIRATORY: No accessory muscle use. Decreased breath sounds GASTROINTESTINAL: Abdomen soft, non-tender, nondistended. Bowel sounds x4. MUSCULOSKELETAL: Right forefoot amputation. 1+ edema on the right, trace on the left. No erythema or warmth. No clubbing or cyanosis. Mild right groin lymphadenopathy. NEUROLOGICAL: Awake and alert. No focal neurological deficits. Moves upper and lower extremities spontaneously. Normal speech. PSYCHIATRIC: Agitated with poor insight Procedures none A/P Problem List: (1) Cellulitis ICD Code: L03.90 Status: Acute (2) Anemia ICD Code: D64.9 Status: Acute (3) DM (diabetes mellitus) ICD Code: E11.9 Status: Acute (4) Renal insufficiency ICD Code: N28.9 Status: Acute Assessment and Plan 50-year-old male with PMH of HTN, DM and Peripheral Neuropathy who came to the ER with complaints of right leg pain and swelling x3 days Acute respiratory failure: Acute respiratory failure 10/03. Likely secondary to volume overload from blood transfusion. S/p BiPAP. IV diuresis as below. Continue supplemental oxygen as needed, and will likely need oxygen in [place]. Titrate and wean oxygen to keep saturation at least 92% RLE swellin days prior to admission. Doppler RLE negative. WBC 13.2. Afebrile. No signs of cellulitis on exam. Blood cultures with NGTD. PT consulted. Right inguinal lymphadenopathy, check ultrasound if patient compliant. Possibly secondary to CHF as below. Acute diastolic CHF: Presented with lower extremity edema, BNP 827, Chest x- ray with bilateral edema. Echocardiogram with mild LVH, normal systolic function and EF. Cardiology consulted, patient refuses care, cardiology signed off. Continue IV diuresis DC IVF. Normocytic anemia: Hgb 6.3, previously 9.2 on 07/15/16. No signs of active bleeding. Iron studies show iron deficiency. Transfused 2u pRBCs with Lasix. Check stool for Hemoccult. GI consulted, refused EGD and colonoscopy. Continue iron replacement. DM: A1c 4.9. Discontinue Sliding scale w/ Accu-Cheks. Also discontinued metformin in light of advanced renal disease. Acute kidney injury on CKD: Creatinine 5.31, previously 2.40 on 07/15/16. Renal ultrasound with echogenic kidneys, likely underlying medical renal disease. Consulted nephrology. Was on Lasix drip, transitioned to IV Lasix. Monitor intake and output. Monitor renal function. Possible impending dialysis. Polysubstance abuse: Patient denies any substance abusing years, however UDS is positive for cocaine and cannabis. Hypertension: Accelerated Continue diuresis with Lasix as above and oral hydralazine. IV hydralazine as needed. Since he is refusing by mouth medications, start Nitropaste and consider adding clonidine patch. If needed Cardene or nitro drip Electrolyte derangement: Hypokalemia, hypomagnesemia, hypocalcemia. Secondary to diuresis and renal disease. Replace orally. Follow-up labs. Encephalopathy with agitation. Threatening to sign out AGAINST MEDICAL ADVICE. Explained to the patient he is not medically stable to leave the hospital and likely he will without appropriate treatment but still wants to leave the hospital. Discussed with nursing staff, patient will be placed under Bradford act as patient not making any rational decisions. He is also medically unstable to leave the hospital with uncontrolled hypertension, congestive heart failure requiring oxygen and worsening renal function with possible impending dialysis. Left message with Psychiatry who has been consulted. IV Ativan and IM Haldol as needed. DVT Prophylaxis: SCD/Teds. Discharge Planning Not stable for discharge. We'll keep in ICU high likelihood of decompensation. He is critically ill with accelerated hypertension, congestive heart failure requiring oxygen and worsening renal function with possible impending dialysis complicated by ongoing encephalopathy with increased agitation. Critical care time spent 35 mins Problem Qualifiers (1) Cellulitis: Qualified Code: L03.115 - Cellulitis of right lower extremity Ap Everett MD Oct 10, 2016 10:54
[2016-10-10] MEDS: NITROGLYCERIN 2% OINT 1 GM PACKET TOPICAL SCH ×2 (12:00→17:50)
[2016-10-10] MEDS ORDERED: HALOPERIDOL LACTATE 5 MG/ML AMP IM PRN ×2 (12:00→18:00)
--- NOTE | 2016-10-10 13:42 | HHI.NPPN ---
Subjective General Problems: Anemia, Hypertension Renal Failure: Chronic, Stage IV History of Present Illness 50-year-old -[place] male with past medical history of hypertension, diabetes mellitus, history of peripheral neuropathy, peripheral vascular disease and chronic kidney disease who came to the hospital with a complaint of right leg and right foot pain. I was called to see the patient because of elevated BUN and creatinine. The patient has a known history of chronic kidney disease and he was here twice in June of last year and he was seen by Dr. Henderson. Additional Remarks Patient is awake and alert, Bradford Act now restrained Objective Data Data 10/09/16 10/10/16 19:00 07:00 Intake Total 650 ml 480 ml Output Total 750 ml 1300 ml Balance -100 ml -820 ml Intake Oral 650 ml 480 ml IV Total 0 ml Output Urine Total 750 ml 1300 ml Stool Total 0 ml # Bowel Movements 1 Vital Signs Date Time Temp Pulse Resp B/P Pulse Ox O2 Delivery O2 Flow Rate FiO2 10/10/16 08:00 99 Nasal Cannula 4.00 10/10/16 07:53 Nasal Cannula 6.00 10/10/16 06:00 77 10/10/16 04:00 97.0 82 24 189/97 98 10/10/16 04:00 90 10/10/16 02:00 96 10/10/16 00:00 82 10/10/16 00:00 97.7 88 16 170/85 94 10/09/16 23:05 95 Nasal Cannula 6.00 10/09/16 22:00 82 10/09/16 20:00 100 Nasal Cannula 6.00 10/09/16 20:00 82 10/09/16 20:00 98.0 82 16 155/82 100 10/09/16 18:00 82 10/09/16 16:00 79 10/09/16 16:00 79 14 170/80 97 10/09/16 14:00 80 -: 10/09/16 1101 10/09/16 1101 Physical Exam General Appearance: No Acute Distress, Comfortable Eyes Eye Exam: Pupils Equal Pulmonary Resp Exam: Breath Sounds Equal, Rhonchi, Decreased Bases Cardiology CV Exam: Regular, Normal Sinus Rhythm Gastrointestinal/Abdomen GI Exam: Soft, Non-Tender, Bowel Sounds Present Integumentary Skin Exam: Intact Extremeties Extremities Exam: Trace Edema Neurologic Neuro Exam: Alert, Awake Assessment/Plan Assessment Summary: JULIA/Acute Renal Failure, Hypertension, CKD Stage IV Electrolyte Assessment: Metabolic Acidosis Problem List: (1) Diabetes (2) Hypertension (3) Anemia (4) Renal insufficiency (5) Cellulitis (6) Acute on chronic renal failure (7) Acute kidney injury Plan JULIA on CKD 4/5, with possible progression of CKD. Creatinine 5.3 -> 4.8 --> 4.2 since admission he has advance kidney disease , he is non compliant and poor patient for dialysis There is no immediate need for dialysis. he is under Bradford Act Problem Qualifiers (1) Diabetes: (2) Cellulitis: Qualified Code: L03.115 - Cellulitis of right lower extremity Goldy Henderson MD Oct 10, 2016 13:42
--- NOTE | 2016-10-10 14:19 | PD.CONS ---
Consult Service Palliative Care Consult Requested By Dr. Everett Primary Care Physician No Primary Care Physician Reason for Consultation a. To assist with evaluation and management of symptoms including: b. To assist medical decision maker(s) with: better understanding of current medical conditions; weighing benefits/burdens of medical treatment options; making medical treatment decisions. HPI History of Present Illness Patient is a 50-year-old with past medical history of diabetes, peripheral neuropathy, cardiac murmur, and drug abuse who presented to [place] emergency department on 10/02/2016 due to right leg pain and swelling that began 3 days prior to hospitalization. He is had multiple hospitalization to [place] with the most recent one with diastolic congestive heart failure, and has a history of noncompliance and signing himself out AMA. 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 In the ER. * WBC is 12.6, hemoglobin 7.2, hematocrit is 22.4, platelet is 230 * Sodium is 143, potassium is 5.1, chloride is 121, bicarbonate is 11.3, BUN 70 , creatinine is 5.31 (baseline from 07/15/2016 was 2.40) * PT 12.1, INR is 1.1, PTT 34.3 * UA shows hazy turbidity small amount of occult blood negative for leukocyte esterase or nitrite. Culture was not indicated. * Tox screen was positive for cocaine and cannabinoids * Lower extremity the ultrasound was negative for blood clots. * Symmetric bilateral predominantly perihilar alveolar opacities. * Patient was admitted to hospitalist service for meeting SIRS criteria, cellulitis of right lower extremity. 10/03 .Patient continue vancomycin and Zosyn. Patient has anemia and was transfused PRBC. GI was consulted due to anemia and an EGD and colonoscopy was recommended. Patient has elevated BNP and cardiology was consulted. 2-D echo was performed, EF is shown to be 55-60%. There is mild regurgitation of mitral , pulmonic and tricuspid valve. Patient was found to have some wheezing and respiratory therapy was given. Patient also was given Lasix. Ctc Operator feel EKG does not require suggest any significant ischemic heart disease or ischemic event. However patient patient's clinical situation got worse later on with worsening hypoxia. A rapid response was called and patient was placed on a nonrebreather. Critical medicine was consulted. Intensivists feel patient has acute heart failure exacerbation likely secondary to severe diastolic dysfunction. Patient was diuresed, which may be difficult given his severe elevation in creatinine. Patient was maintained on BiPAP. Nephrology was also consulted for renal insufficiency. 10/04/2016-patient was responding to diuretics but continued to have pulmonary edema and requires BiPAP. While in the unit patient has refused labs and has been noncompliant. Nephrology, the patient possibly will need hemodialysis if not better. 10/05--patient continued to refuse blood draws or take KCl. Patient has been drinking a lot of watee, while the medical team is trying to diurese him. He has been confused and thought to have metabolic encephalopathy. He has improved in terms of his oxygenation. 10/07--Patient became stable enough for critical care to sign off and transferred to hospitalist care. Patient maintained that he wants to go home and continue to refuse workup by GI. He continues to be on Lasix drip and has a high possibility of needing hemodialysis. Patient endorses that he wants to just go home, but he has been confused. Family (daugther) reports, patient reports that patient has been "playing with his bowel movements." 10/10/16-patient remains in the unit, under hospitalist care. Continues to be noncompliant. Continues to refuse labs. Patient the meantime has been very abrasive to nursing staff trying to hit staff and spit on staff. Patient wanted to sign out AGAINST MEDICAL ADVICE. Patient also had an argument with daughter visited patient this morning. Palliative care was consulted to review goals of care. Patient is [place] acted. Psych was consulted. On my visit patient is clearly confused, and agitated with restraints on. Patient demanded to be released. Patient refuse to speak with me, and asked me to "Get the F out of here." He has attempted to spit at the nurse a few times. Confused and agitated. Function/Cognitive Trajectory Per family member, patient has been getting weaker with a history of multiple falls, and shortness of breath. Patient also has had multiple hospitalization. Pt generally stays with his daughter, but left his daughter 2 weeks. Ago. Daughter states his decline in dyspnea and falls became more significant 3 months ago. Review of Systems ROS Limitations: Clinical Condition, Uncooperative, Refused, Combative Psychiatric: COMPLAINS OF: Confusion, Agitation Past Family Social History Coded Allergies: *MDRO Multi-Drug Resistant Organism (Verified Adverse Reaction, Unknown, ) MRSA PCR Screen POSITIVE - 10/04/2016 Past Medical History HTN DM Peripheral Neuropathy Past Surgical History Multiple Finger Amputations Right Forefoot Amputation Reported Medications Penicillin Vk (Penicillin V Potassium) 250 Mg Tab 500 Mg PO Q6 Ibuprofen 800 Mg Tab 800 Mg PO Q8HR PRN Hydrochlorothiazide 12.5 Mg Tab 25 Mg PO DAILY Metoprolol Tartrate 25 mg (Metoprolol Tartrate) 25 Mg Tab 25 Mg PO BID Furosemide 40 Mg Tab 40 Mg PO DAILY Metformin (Metformin HCl) 500 Mg Tab 500 Mg PO BID Current Medications Medications (Trade) Dose Ordered Sig/John Route Start Time Stop Time Status Last Admin (D50w (Vial) Inj) 25 ml UNSCH PRN IV PUSH 10/03/16 00:15 (Glucagon Inj) 1 mg UNSCH PRN OTHER 10/03/16 00:15 (NS Flush) 2 ml UNSCH PRN FLUSH 10/03/16 00:15 (NS Flush) 2 ml BID FLUSH 10/03/16 09:00 10/10/16 12:00 (Zofran Inj) 4 mg Q6H PRN IVP 10/03/16 00:15 (Dulcolax Supp) 10 mg DAILY PRN [place] 10/03/16 00:15 (Tylenol) 650 mg Q6H PRN PO 10/03/16 00:15 ([place] 5-325 Mg) 1 tab Q4H PRN PO 10/03/16 00:15 10/07/16 03:18 (Morphine Inj) 2 mg Q3H PRN IV 10/03/16 00:15 (Lopressor) 25 mg Q12HR PO 10/04/16 12:00 10/10/16 11:08 (Apresoline Inj) 10 mg Q4H PRN IV PUSH 10/04/16 11:15 10/09/16 17:35 (Lasix Inj) 40 mg BID@09,18 IV PUSH 10/08/16 18:00 10/10/16 12:00 (Mag-Ox) 400 mg Q12HR PO 10/09/16 12:45 10/10/16 11:11 (Ferrous Sulfate) 325 mg BID PO 10/09/16 13:15 10/10/16 11:10 (Bactroban Nasal 2% Oint) 1 applic BID EACH NARE 10/09/16 13:15 10/16/16 13:14 10/09/16 20:05 (Lac-Hydrin 12% Lotion) 1 applic BID TOPICAL 10/09/16 13:15 10/09/16 20:05 (Apresoline) 25 mg TID PO 10/10/16 09:00 10/10/16 11:08 (Ativan Inj) 0.5 mg Q6H PRN IV PUSH 10/10/16 10:30 10/10/16 12:00 (Nitroglycerin 2% Oint) 1 inch Q6HR TOPICAL 10/10/16 12:00 10/10/16 12:00 (Haldol Inj) 2 mg Q8H PRN IM 10/10/16 12:00 10/10/16 12:23 (KCl) 20 meq Q12HR PO 10/10/16 14:00 Family History Maternal grandfather from unknown type of cancer. Substance Use Tobacco:He denies Alcohol: He denies Illicits: Yes. Crack Cocaine, MJ (reported by daughter, although he denies) Psychosocial History Was living with pt's daughter, but moved out 2 weeks. ago. Spiritual/Cultural Factors None listed. Pt uncooperative. Could not elicit. Physical Exam Vital Signs Date Time Temp Pulse Resp B/P Pulse Ox O2 Delivery O2 Flow Rate FiO2 10/10/16 08:00 99 Nasal Cannula 4.00 10/10/16 07:53 Nasal Cannula 6.00 10/10/16 06:00 77 10/10/16 04:00 97.0 82 24 189/97 98 10/10/16 04:00 90 10/10/16 02:00 96 10/10/16 00:00 82 10/10/16 00:00 97.7 88 16 170/85 94 10/09/16 23:05 95 Nasal Cannula 6.00 10/09/16 22:00 82 10/09/16 20:00 100 Nasal Cannula 6.00 10/09/16 20:00 82 10/09/16 20:00 98.0 82 16 155/82 100 10/09/16 18:00 82 10/09/16 16:00 79 10/09/16 16:00 79 14 170/80 97 10/09/16 10/10/16 19:00 07:00 Intake Total 650 ml 480 ml Output Total 750 ml 1300 ml Balance -100 ml -820 ml Intake Oral 650 ml 480 ml IV Total 0 ml Output Urine Total 750 ml 1300 ml Stool Total 0 ml # Bowel Movements 1 Exam Combative, in restraints, overall uncooperative. CONSTITUTIONAL/GENERAL: This is a frail gentle man, appears to have some dyspnea. Uncooperative. Looks older than stated age. Verbally abusive, ask us to leave. SKIN: No jaundice, rashes, or lesions. Ecchymoses on upper extremities. HEAD: Atraumatic. Normocephalic. EYES: Extraocular motions intact. No scleral icterus. No injection or drainage. Fundi not examined. Open eyes. ENT: Hearing grossly normal. Nose without bleeding or purulent drainage. Throat without visible erythema, exudates, masses, or lesions. NECK: Trachea midline. Supple, nontender. No palpable thyroid enlargement or nodularity. CARDIOVASCULAR: RRR no m/rubs appreciated. RESPIRATORY/CHEST: Some tacypnea. Declined examination. GASTROINTESTINAL: ask us to leave GENITOURINARY: ask us to leave. MUSCULOSKELETAL: restraints on. Right forefoot amputation. LYMPHATICS: No palpable cervical or supraclavicular adenopathy. NEUROLOGICAL: Awake and alert. Somewhat confused.. PSYCHIATRIC: Agitated. Upset. Diagnostic Tests Laboratory Laboratory Tests Test 10/07/16 10/08/16 10/09/16 16:10 15:12 11:01 Blood Type A POSITIVE Antibody Screen NEGATIVE Crossmatch Leukocyte-Reduced Red Blood Cells Blood Bank Comment White Blood Count 11.8 TH/MM3 11.9 TH/MM3 (4.0-11.0) (4.0-11.0) Red Blood Count 3.17 MIL/MM3 3.12 MIL/MM3 (4.50-5.90) (4.50-5.90) Hemoglobin 9.1 GM/DL 8.8 GM/DL (13.0-17.0) (13.0-17.0) Hematocrit 27.3 % 27.0 % (39.0-51.0) (39.0-51.0) Mean Corpuscular Volume 85.9 FL 86.5 FL (80.0-100.0) (80.0-100.0) Mean Corpuscular Hemoglobin 28.5 PG 28.1 PG (27.0-34.0) (27.0-34.0) Mean Corpuscular Hemoglobin 33.2 % 32.5 % Concent (32.0-36.0) (32.0-36.0) Red Cell Distribution Width 18.3 % 18.2 % (11.6-17.2) (11.6-17.2) Platelet Count 239 TH/MM3 233 TH/MM3 (150-450) (150-450) Mean Platelet Volume 8.1 FL 7.8 FL (7.0-11.0) (7.0-11.0) Neutrophils (%) (Auto) 85.1 % 84.6 % (16.0-70.0) (16.0-70.0) Lymphocytes (%) (Auto) 8.0 % 8.9 % (9.0-44.0) (9.0-44.0) Monocytes (%) (Auto) 2.8 % (0.0-8.0) 3.0 % (0.0-8.0) Eosinophils (%) (Auto) 4.0 % (0.0-4.0) 3.2 % (0.0-4.0) Basophils (%) (Auto) 0.1 % (0.0-2.0) 0.3 % (0.0-2.0) Neutrophils # (Auto) 10.1 TH/MM3 10.1 TH/MM3 (1.8-7.7) (1.8-7.7) Lymphocytes # (Auto) 0.9 TH/MM3 1.1 TH/MM3 (1.0-4.8) (1.0-4.8) Monocytes # (Auto) 0.3 TH/MM3 0.4 TH/MM3 (0-0.9) (0-0.9) Eosinophils # (Auto) 0.5 TH/MM3 0.4 TH/MM3 (0-0.4) (0-0.4) Basophils # (Auto) 0.0 TH/MM3 0.0 TH/MM3 (0-0.2) (0-0.2) CBC Comment DIFF FINAL DIFF FINAL Differential Comment Sodium Level 143 MEQ/L (136-145) Potassium Level 3.1 MEQ/L (3.5-5.1) Chloride Level 108 MEQ/L (98-107) Carbon Dioxide Level 23.8 MEQ/L (21.0-32.0) Anion Gap 11 MEQ/L (5-15) Blood Urea Nitrogen 79 MG/DL (7-18) Creatinine 4.24 MG/DL (0.60-1.30) Estimat Glomerular Filtration 18 ML/MIN (>89) Rate Random Glucose 131 MG/DL (74-106) Calcium Level 6.8 MG/DL (8.5-10.1) Protein Corrected Calcium 7.1 MG/DL (8.5-10.1) Phosphorus Level 4.7 MG/DL (2.5-4.9) Magnesium Level 1.4 MG/DL (1.5-2.5) Total Bilirubin 0.4 MG/DL (0.2-1.0) Aspartate Amino Transf 11 U/L (15-37) (AST/SGOT) Alanine Aminotransferase 10 U/L (12-78) (ALT/SGPT) Alkaline Phosphatase 109 U/L (45-117) Total Protein 6.6 GM/DL (6.4-8.2) Albumin 1.3 GM/DL (3.4-5.0) Result Diagram: 10/09/16 1101 10/09/16 1101 Imaging Last Impressions Renal Ultrasound 10/03/16 0000 Signed Impressions: Service Date/Time: Monday, October 03, 2016 11:23 - CONCLUSION: Small echogenic kidneys without hydronephrosis. Trace ascites as described previously. Samuel Shah MD FACR Chest X-Ray 10/03/16 0000 Signed Impressions: Service Date/Time: Monday, October 03, 2016 23:19 - CONCLUSION: Slight improvement in aeration. Dain Lima MD Lower Extremity Ultrasound 10/02/160 Signed Impressions: Service Date/Time: Sunday, October 02, 2016 21:49 - CONCLUSION: Normal examination. Dain Lima MD Patient/Family Conference Present at Family Conference: Daughter Adriana Roman (pt's only child) Pt not . Family Conference Time (mins): 35 Family Conference Location: Telephone Issues Discussed: * Palliative care role, purpose, approach * Additional medical, psychosocial, and spiritual history * Patients general health, functional status, and cognitive changes in the months leading up to the current hospitalization * Patient/family understanding of the current medical problems * Patient/family understanding of prognosis * Patients goals of care as best understood from advance directives and/or conversations and/or values * Current medical treatment options and benefits/burdens of those options * Likely scenarios comparing ongoing aggressive care with a transition to comfort measures only * Questions answered to the best of my ability * Palliative care contact information provided Assessment and Plan Disease Oriented Problem List: (1) Anemia (2) Cellulitis (3) Diabetes (4) Hypertension (5) DM (diabetes mellitus) (6) Renal insufficiency Comment: spoke with nephrology, high probablity may need dialysis in the future , in which pt is a poor candidate due to non-compliance, cardiac issue. (7) Acute on chronic renal failure (8) Substance abuse (9) Diastolic CHF (10) Encephalopathy Comment: appears to have some encephalopathy. Pt is Sanchez voss. Pt reportedly has been playing with his own Bowel Movement. Symptom Scale: (1) Agitation 0-10 Scale: Unable to quantify Comment: upset, agitated, spit at and became physical with staff and also daughter. Pertinent Non-Medical Issues Psychosocial: Spiritual: Legal: Ethical issues impacting care: Important Contacts Denny Roman. Prognosis 50 year old old with DM, PVD, drug abuse, came in with worsening kidney functions, diastolic heart failure, agitation, dyspnea. Discussed with nephrology in which pt is a poor candidate should he need it (high possibility ) due to non-compliance and other medically complicated factor such as heart failure and drug abuse. Pt has had multiple hospitalization. Should he survive current hospitalization, likely will continue to have multiple hospitalization related to agitation, infections, kidney dyspfunction, dyspnea. He has been getting more dyspneic and weak when he was at home. At risk of sudden decline, setback and and prognosis may be less than 6 months. Code Status: Full Code Plan == capacity- pt is Sanchez acted, appears confused, likely have encephalopathy. Psych to evaluate please comment on capacity to make medical decision. Currently pt has no capacity to make medical decision on my exam. Daughter noted pt had been playing with his own bowel movements. == Legal medical decision maker: Pt is single, and has only one child. Pt's daughter would be proxy. Pt's mother would be alternate proxy. == Agitation- defer to psych at this time. == goals of care. Could not review goals of care with pt. Pt is bradford acted and has no capacity. Spoke with daughter about pt's condition and recents hospitalization. Pt's daughter recognizes pt's clinical condition and decline from chronic issue. Reviewed kidney function, he is a poor candidate for dialysis (non compliance, substance abuse, cardiac issues), reviewed his diastolic heart disease, PVD, diabets and HTN. Pt's daughter indicate "I know his body is shutting down" but she and pt's mother both feel because of his non-compliance he never really had a chance and wants to continue aggressive care. I did say, his conditions are chronic, and likely would not improved. Combine with his non-compliance and substance abuse, overall prognosis is poor. She states she would want to continue aggressive care and full code. Should pt need to be on a ventilator and life support, okay with short term, and does not think extermination supervisor. When ask what do you think pt would want, she states "It does not matter what the patient would want now." Goals are aggressive. == Palliative Care will follow as pt's clinical condition evolves. Time Spent Total Floor Time (mins): 65 Face to Face Time (mins): 25 Thank you for the opportunity to participate in the care of Mr. Roman. Attestation To help prompt me to consider important information that might be impacting today's encounter and assessment, information from prior notes written by myself or my colleagues may have been "brought forward" into today's note. My signature on this note, however, is an attestation that I personally performed the exam, history, and/or decision-making noted today, and, unless otherwise indicated, the interactions with patient, family, and staff as well as the review of records all occurred today. I also attest that the listed assessment and stated plan reflect my best clinical judgment today based on the combination of historical information, prior notes, and today's exam/ interactions. When time spent is documented, it refers only to time spent today by the signer, or if indicated, combined time spent today by collaborating physician/nurse practitioner. Trevin Ramires MD Oct 10, 2016 14:19
[2016-10-10] MEDS: POTASSIUM CHLORIDE 20 MEQ CONTROLLED RELEASE TAB PO SCH ×2 (14:23→21:12)
[2016-10-10] MEDS: hydrALAZINE HCL 20 MG/ML VIAL IV PUSH PRN (14:42)
--- NOTE | 2016-10-10 15:38 | PD.CONS ---
Provisional Diagnosis Admission Date Oct 02, 2016 at 23:43 History of Present Illness Service Psychiatry Consult Requested By Primary Care Physician No Primary Care Physician Past Family Social History Coded Allergies: *MDRO Multi-Drug Resistant Organism (Verified Adverse Reaction, Unknown, ) MRSA PCR Screen POSITIVE - 10/04/2016 Reported Medications Metformin 500 Mg TabUnknown Dose PO BIDPC #60 TAB Ref 0 With meals 10/09/16 Hydrocodone-Acetaminophen (Lortab)5-325 Mg TabUnknown Dose PO Q4H PRN (PAIN) Ref 0 10/09/16 Current Medications Medications (Trade) Dose Ordered Sig/John Route Start Time Stop Time Status Last Admin (D50w (Vial) Inj) 25 ml UNSCH PRN IV PUSH 10/03/16 00:15 (Glucagon Inj) 1 mg UNSCH PRN OTHER 10/03/16 00:15 (NS Flush) 2 ml UNSCH PRN FLUSH 10/03/16 00:15 (NS Flush) 2 ml BID FLUSH 10/03/16 09:00 10/10/16 12:00 (Zofran Inj) 4 mg Q6H PRN IVP 10/03/16 00:15 (Dulcolax Supp) 10 mg DAILY PRN [place] 10/03/16 00:15 (Tylenol) 650 mg Q6H PRN PO 10/03/16 00:15 ([place] 5-325 Mg) 1 tab Q4H PRN PO 10/03/16 00:15 10/07/16 03:18 (Morphine Inj) 2 mg Q3H PRN IV 10/03/16 00:15 (Lopressor) 25 mg Q12HR PO 10/04/16 12:00 10/10/16 11:08 (Apresoline Inj) 10 mg Q4H PRN IV PUSH 10/04/16 11:15 10/10/16 14:42 (Lasix Inj) 40 mg BID@,18 IV PUSH 10/08/16 18:00 10/10/16 12:00 (Mag-Ox) 400 mg Q12HR PO 10/09/16 12:45 10/10/16 11:11 (Ferrous Sulfate) 325 mg BID PO 10/09/16 13:15 10/10/16 11:10 (Bactroban Nasal 2% Oint) 1 applic BID EACH NARE 10/09/16 13:15 10/16/16 13:14 10/09/16 20:05 (Lac-Hydrin 12% Lotion) 1 applic BID TOPICAL 10/09/16 13:15 10/09/16 20:05 (Apresoline) 25 mg TID PO 10/10/16 09:00 10/10/16 11:08 (Ativan Inj) 0.5 mg Q6H PRN IV PUSH 10/10/16 10:30 10/10/16 12:00 (Nitroglycerin 2% Oint) 1 inch Q6HR TOPICAL 10/10/16 12:00 10/10/16 12:00 (Haldol Inj) 2 mg Q8H PRN IM 10/10/16 12:00 10/10/16 12:23 (KCl) 20 meq Q12HR PO 10/10/16 14:00 10/10/16 14:23 Physical Exam Vital Signs Vital Signs Date Time Temp Pulse Resp B/P Pulse Ox O2 Delivery O2 Flow Rate FiO2 10/10/16 08:00 99 Nasal Cannula 4.00 10/10/16 06:00 77 10/10/16 04:00 97.0 24 189/97 I/O 10/09/16 10/09/16 10/10/16 08:00 16:00 00:00 Intake Total 650 ml 240 ml Output Total 750 ml 600 ml Balance -100 ml -360 ml Assessment & Plan Problem List: (1) Acute kidney injury Assessment & Plan: Patient was visited for psychiatric evaluation today but was found restrained in 4-point, completely sedated and unable to participate in a psychiatric interview due to level of sedation after beginning medication for agitation and aggressive behavior. We will revisit later this evening or tomorrow morning. ICD Code: N17.9 Assessment & Plan Estimated LOS: Chapin Raphael MD Oct 10, 2016 15:38
[2016-10-11] VITALS (14 sets, daily range): BP systolic 134–176; BP diastolic 70–85; PULSE 60–96; RESP 19–22; TEMP 97.9–98.4; O2SAT 92–100
[2016-10-11] MEDS: NITROGLYCERIN 2% OINT 1 GM PACKET TOPICAL SCH ×2 (06:00)
[2016-10-11] MEDS: MAGNESIUM OXIDE 400 MG TAB PO SCH ×4 (09:00→21:16)
[2016-10-11] MEDS: POTASSIUM CHLORIDE 20 MEQ CONTROLLED RELEASE TAB PO SCH ×3 (09:17→21:16)
[2016-10-11] MEDS: FERROUS SULFATE 325 MG (65 MG ELEMENTAL IRON) TAB PO SCH ×3 (09:17→22:41)
[2016-10-11] MEDS: hydrALAZINE HCL 25 MG TAB PO SCH ×3 (09:17→17:21)
[2016-10-11] MEDS: LACTIC ACID (AMMONIUM LACTATE) 12% LOTION 225 GM BTL TOPICAL SCH ×2 (09:18→21:00)
[2016-10-11] MEDS: MUPIROCIN 2% OINT 1 APPLIC/GM SYR EACH NARE SCH ×2 (09:18→21:16)
[2016-10-11] MEDS: METOPROLOL TARTRATE 25 MG TAB PO SCH ×3 (09:18→22:42)
[2016-10-11] MEDS: SODIUM CHLORIDE 0.9% FLUSH 5 ML FLUSH FLUSH SCH ×2 (09:18→21:16)
[2016-10-11] MEDS: FUROSEMIDE 40 MG/4 ML VIAL IV PUSH SCH (09:18)
--- NOTE | 2016-10-11 10:05 | HHI.PR ---
Subjective Remarks F/U HTN. No complaints today. Amazingly a dramatic change with nurse Mary Ellen taking care of him. BP still elevated but no headache or dizziness. He is compliant with therapy. States he will moved to [place] to stay with another family. He is not going back to his girlfriend who reportedly is a drug dependent and daughter. Objective Vitals Vital Signs Date Time Temp Pulse Resp B/P Pulse Ox O2 Delivery O2 Flow Rate FiO2 10/11/16 09:22 94 Nasal Cannula 3.00 10/11/16 06:00 89 10/11/16 04:00 98.2 96 22 156/74 100 10/11/16 04:00 89 10/11/16 02:00 80 10/11/16 00:00 81 10/11/16 00:00 98.2 78 22 134/80 100 10/10/16 22:00 78 10/10/16 20:05 97 Nasal Cannula 6.00 10/10/16 20:00 78 10/10/16 20:00 98.0 78 14 172/81 99 10/10/16 20:00 Nasal Cannula 4.00 Humidified 10/10/16 18:00 78 10/10/16 16:00 74 10/10/16 16:00 74 11 188/109 97 10/10/16 14:00 78 10/10/16 12:00 80 13 192/102 99 10/10/16 12:00 80 I/O 10/10/16 10/10/16 10/10/16 10/11/16 10/11/16 10/11/16 07:00 15:00 23:00 07:00 15:00 23:00 Intake Total 240 ml 240 ml 720 ml 120 ml Output Total 700 ml 603 ml 300 ml Balance -460 ml 240 ml 117 ml -180 ml Intake Oral 240 ml 240 ml 720 ml 120 ml Output Urine Total 700 ml 600 ml 300 ml Stool Total 0 ml 3 ml 0 ml # Voids 2 # Bowel Movements 0 Result Diagram: 10/09/16 1101 10/09/16 1101 Objective Remarks GENERAL: Well-developed well-nourished in no distress. SKIN: Warm and dry. No lesions noted. HEENT: Normocephalic. Pupils equal and round. Mucous membranes pink and moist. CARDIOVASCULAR: Regular rate and rhythm. No murmur appreciated. RESPIRATORY: No accessory muscle use. Decreased breath sounds GASTROINTESTINAL: Abdomen soft, non-tender, nondistended. Bowel sounds x4. MUSCULOSKELETAL: Right forefoot amputation. 1+ edema on the right, trace on the left. No erythema or warmth. No clubbing or cyanosis. Mild right groin lymphadenopathy. NEUROLOGICAL: Awake and alert. No focal neurological deficits. Moves upper and lower extremities spontaneously. Normal speech. PSYCHIATRIC: Calm and cooperative Procedures none A/P Problem List: (1) Cellulitis ICD Code: L03.90 Status: Acute (2) Anemia ICD Code: D64.9 Status: Acute (3) DM (diabetes mellitus) ICD Code: E11.9 Status: Acute (4) Renal insufficiency ICD Code: N28.9 Status: Acute Assessment and Plan 50-year-old male with PMH of HTN, DM and Peripheral Neuropathy who came to the ER with complaints of right leg pain and swelling x3 days Acute respiratory failure: Acute respiratory failure 10/03. Likely secondary to volume overload from blood transfusion. S/p BiPAP. IV diuresis as below. Continue supplemental oxygen as needed, and will likely need oxygen in [place]. Titrate and wean oxygen to keep saturation at least 92% RLE swellin days prior to admission. Doppler RLE negative. WBC 13.2. Afebrile. No signs of cellulitis on exam. Blood cultures with NGTD. PT consulted. Right inguinal lymphadenopathy, check ultrasound if patient compliant. Possibly secondary to CHF as below. Improving Acute diastolic CHF: Presented with lower extremity edema, BNP 827, Chest x- ray with bilateral edema. Echocardiogram with mild LVH, normal systolic function and EF. Cardiology consulted, patient refuses care, cardiology signed off. Improving switch to by mouth Lasix. Repeat BMP and magnesium in the morning Normocytic anemia: Hgb 6.3, previously 9.2 on 07/15/16. No signs of active bleeding. Iron studies show iron deficiency. Transfused 2u pRBCs with Lasix. Check stool for Hemoccult. GI consulted, refused EGD and colonoscopy. Continue iron replacement. DM: A1c 4.9. Discontinue Sliding scale w/ Accu-Cheks. Also discontinued metformin in light of advanced renal disease. Acute kidney injury on CKD: Creatinine 5.31, previously 2.40 on 07/15/16. Renal ultrasound with echogenic kidneys, likely underlying medical renal disease. Consulted nephrology. Was on Lasix drip, transitioned to IV Lasix. Monitor intake and output. Monitor renal function. Possible impending dialysis. Polysubstance abuse: Patient denies any substance abusing years, however UDS is positive for cocaine and cannabis. Hypertension: Improving. Continue diuresis with Lasix as above and increase oral hydralazine for better control. IV hydralazine as needed. Discontinue Nitropaste since he is noncompliant Electrolyte derangement: Hypokalemia, hypomagnesemia, hypocalcemia. Secondary to diuresis and renal disease. Replace orally. Follow-up labs. Encephalopathy with agitation. Threatening to sign out AGAINST MEDICAL ADVICE. Explained to the patient he is not medically stable to leave the hospital and likely he will without appropriate treatment but still wants to leave the hospital. Improved psychiatry has limited Bradford act. Haldol as needed Loose stools. Check C. difficile and start Lactinex. Hold magnesium oxide DVT Prophylaxis: SCD/Teds. Discharge Planning Stable for transfer to floor Problem Qualifiers (1) Cellulitis: Qualified Code: L03.115 - Cellulitis of right lower extremity Ap Everett MD Oct 11, 2016 10:05
--- NOTE | 2016-10-11 10:33 | HHI.NPPN ---
Subjective General Problems: Anemia, Hypertension Renal Failure: Chronic, Stage IV History of Present Illness 50-year-old -[place]amanian male with past medical history of hypertension, diabetes mellitus, history of peripheral neuropathy, peripheral vascular disease and chronic kidney disease who came to the hospital with a complaint of right leg and right foot pain. I was called to see the patient because of elevated BUN and creatinine. The patient has a known history of chronic kidney disease and he was here twice in June of last year and he was seen by Dr. Henderson. Additional Remarks Patient is awake and alert, Bradford Act now restrained Objective Data Data 10/10/16 10/11/16 19:00 07:00 Intake Total 720 ml 360 ml Output Total 903 ml Balance 720 ml -543 ml Intake Oral 720 ml 360 ml Output Urine Total 900 ml Stool Total 3 ml # Voids 2 # Bowel Movements 0 Vital Signs Date Time Temp Pulse Resp B/P Pulse Ox O2 Delivery O2 Flow Rate FiO2 10/11/16 09:22 94 Nasal Cannula 3.00 10/11/16 06:00 89 10/11/16 04:00 98.2 96 22 156/74 100 10/11/16 04:00 89 10/11/16 02:00 80 10/11/16 00:00 81 10/11/16 00:00 98.2 78 22 134/80 100 10/10/16 22:00 78 10/10/16 20:05 97 Nasal Cannula 6.00 10/10/16 20:00 78 10/10/16 20:00 98.0 78 14 172/81 99 10/10/16 20:00 Nasal Cannula 4.00 Humidified 10/10/16 18:00 78 10/10/16 16:00 74 10/10/16 16:00 74 11 188/109 97 10/10/16 14:00 78 10/10/16 12:00 80 13 192/102 99 10/10/16 12:00 80 -: 10/09/16 1101 10/09/16 1101 Physical Exam General Appearance: No Acute Distress, Comfortable Eyes Eye Exam: Pupils Equal Pulmonary Resp Exam: Breath Sounds Equal, Rhonchi, Decreased Bases Cardiology CV Exam: Regular, Normal Sinus Rhythm Gastrointestinal/Abdomen GI Exam: Soft, Non-Tender, Bowel Sounds Present Integumentary Skin Exam: Intact Extremeties Extremities Exam: Trace Edema Neurologic Neuro Exam: Alert, Awake Assessment/Plan Assessment Summary: JULIA/Acute Renal Failure, Hypertension, CKD Stage IV Electrolyte Assessment: Metabolic Acidosis Problem List: (1) Diabetes (2) Hypertension (3) Anemia (4) Renal insufficiency (5) Cellulitis (6) Acute on chronic renal failure (7) Acute kidney injury Plan JULIA on CKD 4/5, with possible progression of CKD. Creatinine 5.3 -> 4.8 --> 4.2 since admission Refuses blood draws Lasix can be K to oral continue to replace potassium and give extra potassium today he has advance kidney disease , he is non compliant and poor patient for dialysis There is no immediate need for dialysis. he is under Bradford Act I asked him about hemodialysis in the future and he refused to consider this patient has poor insight and is going to be noncompliant patient He himself refuses hemodialysis and do not want to live on the machines palliative care is managing Problem Qualifiers (1) Diabetes: (2) Cellulitis: Qualified Code: L03.115 - Cellulitis of right lower extremity Goldy Henderson MD Oct 11, 2016 10:33
[2016-10-11] MEDS: hydrALAZINE HCL 20 MG/ML VIAL IV PUSH PRN ×2 (11:07→18:29)
--- NOTE | 2016-10-11 11:41 | PD.CONS ---
Provisional Diagnosis Admission Date Oct 02, 2016 at 23:43 Buxton I. Adjustment disorder with disturbance of conduct, cocaine and cannabis use disorder Buxton II. Deferred Buxton III. Hypertension, diabetes, renal insufficiency History of Present Illness Service Psychiatry Consult Requested By Primary Care Physician No Primary Care Physician HPI The patient is a 50-year-old -Thai man, domiciled with his daughter, unemployed, on SSI, single, without any previous psychiatric history, no previous psychiatric hospitalizations, no previous suicidal attempts, cocaine and cannabis use disorder, with past medical history of hypertension, diabetes mellitus, history of peripheral neuropathy, peripheral vascular disease and chronic kidney disease who came to the hospital with a complaint of right leg and right foot pain, admitted with a diagnosis of cellulitis and acute anemia. Consulted to psychiatry due to aggressive behavior, also to assess his capacity to leave AMA. Patient was seen for psychiatric evaluation at bedside in the medical floor, a substantial conversation with nurse in charge was sustained in which is nurse add that the patient has been calm and cooperative today, without any episodes of aggressive behavior, following very well her recommendations, sustaining meaningful and logical conversations without any mood or behavioral dysregulation to the moment. On psychiatric evaluation the patient is stays that he feels much better, yesterday he had an articulation with his daughter "I became very mad with her, I understand that I was loud and inappropriate, but she was not helping me". He endorses good mood, he actually states that his mood is excellent, he denies pain, distress, he denies anxiety, he denies hopelessness, helplessness, worthlessness, poor appetite, problems sleeping, with energy, suicidal and homicidality ideation. He also denies visual and auditory hallucinations. Patient states that he is fully motivated to follow medical recommendations and to be compliant with his treatment. Patient is fully oriented 3, on MMS he scored 29/30, without any gross cognitive impairments present at this moment. He was able to express that he wants and he needs to stay in the hospital, "because I am a diabetic person with a lot of complications, including anemia and kidney problems"patient states that not following medical recommendations and taking his treatment might end up in fatal consequences "most probably I would ". Patient reports 2 or 3 times of days use of cocaine and cannabis, he denies any use of alcohol or other illicit drugs. Past Family Social History Coded Allergies: *MDRO Multi-Drug Resistant Organism (Verified Adverse Reaction, Unknown, ) MRSA PCR Screen POSITIVE - 10/04/2016 Reported Medications Metformin 500 Mg TabUnknown Dose PO BIDPC #60 TAB Ref 0 With meals 10/09/16 Hydrocodone-Acetaminophen (Lortab)5-325 Mg TabUnknown Dose PO Q4H PRN (PAIN) Ref 0 10/09/16 Current Medications Medications (Trade) Dose Ordered Sig/Ojhn Route Start Time Stop Time Status Last Admin (D50w (Vial) Inj) 25 ml UNSCH PRN IV PUSH 10/03/16 00:15 (Glucagon Inj) 1 mg UNSCH PRN OTHER 10/03/16 00:15 (NS Flush) 2 ml UNSCH PRN FLUSH 10/03/16 00:15 10/10/16 17:49 (NS Flush) 2 ml BID FLUSH 10/03/16 09:00 10/11/16 09:18 (Zofran Inj) 4 mg Q6H PRN IVP 10/03/16 00:15 (Dulcolax Supp) 10 mg DAILY PRN VT 10/03/16 00:15 (Tylenol) 650 mg Q6H PRN PO 10/03/16 00:15 ([place]hall 5-325 Mg) 1 tab Q4H PRN PO 10/03/16 00:15 10/07/16 03:18 (Morphine Inj) 2 mg Q3H PRN IV 10/03/16 00:15 (Lopressor) 25 mg Q12HR PO 10/04/16 12:00 10/11/16 09:18 (Mag-Ox) 400 mg Q12HR PO 10/09/16 12:45 10/10/16 21:12 (Ferrous Sulfate) 325 mg BID PO 10/09/16 13:15 10/11/16 09:17 (Bactroban Nasal 2% Oint) 1 applic BID EACH NARE 10/09/16 13:15 10/16/16 13:14 10/11/16 09:18 (Lac-Hydrin 12% Lotion) 1 applic BID TOPICAL 10/09/16 13:15 10/11/16 09:18 (Ativan Inj) 0.5 mg Q6H PRN IV PUSH 10/10/16 10:30 10/10/16 12:00 (KCl) 20 meq Q12HR PO 10/10/16 14:00 10/11/16 09:17 (Haldol Inj) 2.5 mg Q6HR PRN IM 10/10/16 18:00 (Apresoline Inj) 20 mg Q4H PRN IV PUSH 10/10/16 20:00 10/11/16 11:07 (Apresoline) 75 mg TID PO 10/11/16 13:00 (Lactinex) 1 tab TID PO 10/11/16 13:00 (Lasix) 40 mg BID@09,18 PO 10/11/16 18:00 (KCl) 20 meq ONCE ONCE PO 10/11/16 13:00 10/11/16 13:01 Family History He denies Social History Patient was born and raised in [place], he was raised by his grandmother, he says that he had a happy childhood, he is single, unemployed, he is on SSI, his highest level of education was "about 8 grade" Patient's Strengths (min. 2) Motivation to continue his medical treatment Physical Exam Vital Signs Vital Signs Date Time Temp Pulse Resp B/P Pulse Ox O2 Delivery O2 Flow Rate FiO2 10/11/16 09:22 94 Nasal Cannula 3.00 10/11/16 06:00 89 10/11/16 04:00 98.2 22 156/74 I/O 10/10/16 10/10/16 10/11/16 08:00 16:00 00:00 Intake Total 240 ml 240 ml 720 ml Output Total 700 ml 603 ml Balance -460 ml 240 ml 117 ml Mental Status Examination Appearance man, who appears older than his stated age, chronically/ acutely ill, poor personal hygiene, calm, cooperative and pleasant Speech: Unremarkable Orientation: x3 Memory: Unremarkable Thought Process: Logical Thought Content: Unremarkable Hallucination Type: None Suicidal Ideation: No Previous Suicide Attempts: No Homicidal Ideation: No Previous Homicide Attempts: No Judgement: Impulsive Affect: Good Mood: Euthymic Motor Activity: Normal gait Assessment & Plan Problem List: (1) Acute kidney injury ICD Code: N17.9 (2) Adjustment disorder with disturbance of conduct Assessment & Plan: The patient is a 50-year-old -Thai man without any previous psychiatric history, no previous psychiatric hospitalizations, no previous suicidal attempts, cocaine and cannabis use disorder, with past medical history of hypertension, diabetes mellitus, history of peripheral neuropathy, peripheral vascular disease and chronic kidney disease who came to the hospital with a complaint of right leg and right foot pain, admitted with a diagnosis of cellulitis and acute anemia. Psychiatric evaluation the patient is calm, cooperative and pleasant. Collateral information from nursing charge obtained, no episodes of mood, psychotic or behavioral dysregulation observed in the last 24 hours. Patient denies depressive symptoms, he denies anxiety, he denies past or current gonzalez, he denies perceptual disturbances, patient is fully oriented 3, no delirium, confusion, agitation, delusions or paranoia observed or reported. MMS was performed, patient scored 29/30. No gross cognitive impairment observed , however adjustment for low level of education were necessary. At this moment the patient does not need any immediate psychiatric intervention , he does not meet criteria for psychiatric hospitalization and his Bradford act will be lifted. The patient was able to verbalize his motivation and wish to continue his process of hospitalization, following medical recommendations and recommended treatment, so at this moment assessment of decision-making capacity was not applicable. However, is important to clarify that decision-making capacity can change from moment to moment, and given the many risk factors of the patient for AMS and delirium changes in decision-making capacity for disposition are probably. Please contact me, , if you have any further questions. Order Haldol 5 mg IM every 8 hours when necessary aggressive behavior and agitation. Consul appreciated. ICD Code: F43.24 Assessment & Plan Estimated LOS: Chapin Raphael MD Oct 11, 2016 11:41
[2016-10-11] MEDS: LACTOBACILLUS ACIDOPHILUS TAB PO SCH ×2 (12:34→17:21)
[2016-10-11] MEDS ORDERED: POTASSIUM CHLORIDE 20 MEQ CONTROLLED RELEASE TAB PO ONE (13:00)
[2016-10-11 16:58] LABS: AUTOMATED NEUTROPHIL # 16.3 TH/MM3 (1.8-7.7); BASOPHIL % 0.3 % (0.0-2.0); EOSINOPHIL # 0.1 TH/MM3 (0-0.4); EOSINOPHIL % 0.6 % (0.0-4.0); HEMATOCRIT 30.5 % (39.0-51.0); HEMO FLAGS DIFF FINAL; LYMPH % 4.1 % (9.0-44.0); LYMPHOCYTE # 0.7 TH/MM3 (1.0-4.8); MEAN CELL VOLUME 88.9 FL (80.0-100.0); MEAN CORPUSCULAR HGB CONC 31.5 % (32.0-36.0); MONO % 2.2 % (0.0-8.0); NEUT % 92.8 % (16.0-70.0); PLATELET COUNT 270 TH/MM3 (150-450); RED BLOOD COUNT 3.43 MIL/MM3 (4.50-5.90); RED CELL DISTRIBUTION WIDTH 18.1 % (11.6-17.2); WHITE BLOOD COUNT 17.5 TH/MM3 (4.0-11.0)
[2016-10-11] MEDS: FUROSEMIDE 40 MG TAB PO SCH (17:21)
[2016-10-11 20:12] LABS: BICARBONATE 22.3 MEQ/L (21.0-32.0); MAGNESIUM 1.9 MG/DL (1.5-2.5); POTASSIUM 4.6 MEQ/L (3.5-5.1)
[2016-10-11] MEDS: ACETAMINOPHEN/HYDROcodone 325 MG/5 MG TAB PO PRN ×2 (21:15→22:40)
[2016-10-12 00:25] VITALS: BP 159/81; PULSE 104; RESP 20; TEMP 98.7; O2SAT 92
[2016-10-12] MEDS: LACTOBACILLUS ACIDOPHILUS TAB PO SCH (09:00)
[2016-10-12] MEDS: POTASSIUM CHLORIDE 20 MEQ CONTROLLED RELEASE TAB PO SCH (09:00)
[2016-10-12] MEDS: FUROSEMIDE 40 MG TAB PO SCH (09:00)
[2016-10-12] MEDS: MAGNESIUM OXIDE 400 MG TAB PO SCH (09:00)
[2016-10-12] MEDS: SODIUM CHLORIDE 0.9% FLUSH 5 ML FLUSH FLUSH SCH (09:00)
[2016-10-12] MEDS: MUPIROCIN 2% OINT 1 APPLIC/GM SYR EACH NARE SCH (09:00)
[2016-10-12] MEDS: hydrALAZINE HCL 25 MG TAB PO SCH (09:00)
[2016-10-12] MEDS: LACTIC ACID (AMMONIUM LACTATE) 12% LOTION 225 GM BTL TOPICAL SCH (09:00)
--- NOTE | 2016-10-12 11:23 | HHI.PR ---
Subjective Remarks Follow-up acute kidney injury. He is doing okay and no headache or dizziness. Denies shortness of breath on room air since yesterday. He wants to go home and if not discharged he will sign out AGAINST MEDICAL ADVICE. He is alert and oriented and has capacity to make decisions. States he is going to [place] stay with relative. He does not want me to call his family. Discussed with RN Objective Vitals Vital Signs Date Time Temp Pulse Resp B/P Pulse Ox O2 Delivery O2 Flow Rate FiO2 10/12/16 00:25 98.7 104 20 159/81 92 10/11/16 22:00 94 10/11/16 20:00 92 22 143/72 93 10/11/16 20:00 92 10/11/16 19:00 98 Nasal Cannula 1.00 10/11/16 18:00 85 10/11/16 16:00 78 10/11/16 16:00 97.9 78 19 172/83 92 10/11/16 14:00 81 10/11/16 12:00 85 10/11/16 12:00 98.4 85 19 157/70 95 I/O 10/11/16 10/11/16 10/11/16 10/12/16 10/12/16 10/12/16 07:00 15:00 23:00 07:00 15:00 23:00 Intake Total 120 ml 480 ml 120 ml 240 ml Output Total 300 ml 750 ml Balance -180 ml -270 ml 120 ml 240 ml Intake Oral 120 ml 480 ml 120 ml 240 ml IV Total 0 ml 0 ml Output Urine Total 300 ml 750 ml Stool Total 0 ml # Voids 1 # Bowel Movements 0 Result Diagram: 10/11/16 1640 10/11/16 1640 Objective Remarks GENERAL: Well-developed well-nourished in no distress. SKIN: Warm and dry. No lesions noted. HEENT: Normocephalic. Pupils equal and round. Mucous membranes pink and moist. CARDIOVASCULAR: Regular rate and rhythm. No murmur appreciated. RESPIRATORY: No accessory muscle use. Decreased breath sounds GASTROINTESTINAL: Abdomen soft, non-tender, nondistended. Bowel sounds x4. MUSCULOSKELETAL: Right forefoot amputation. 1+ edema on the right, trace on the left. No erythema or warmth. No clubbing or cyanosis. Mild right groin lymphadenopathy. NEUROLOGICAL: Awake and alert. No focal neurological deficits. Moves upper and lower extremities spontaneously. Normal speech. Procedures none A/P Problem List: (1) Cellulitis ICD Code: L03.90 Status: Acute (2) Anemia ICD Code: D64.9 Status: Acute (3) DM (diabetes mellitus) ICD Code: E11.9 Status: Acute (4) Renal insufficiency ICD Code: N28.9 Status: Acute Assessment and Plan 50-year-old male with PMH of HTN, DM and Peripheral Neuropathy who came to the ER with complaints of right leg pain and swelling x3 days Acute respiratory failure: Acute respiratory failure 10/03. Likely secondary to volume overload from blood transfusion. S/p BiPAP. IV diuresis as below. Continue supplemental oxygen as needed, and will likely need oxygen in [place]. Titrate and wean oxygen to keep saturation at least 92%. Improved tolerating RA since yesterday RLE swellin days prior to admission. Doppler RLE negative. WBC 13.2. Afebrile. No signs of cellulitis on exam. Blood cultures with NGTD. PT consulted. Right inguinal lymphadenopathy, check ultrasound if patient compliant. Possibly secondary to CHF as below. Improving Acute diastolic CHF: Presented with lower extremity edema, BNP 827, Chest x- ray with bilateral edema. Echocardiogram with mild LVH, normal systolic function and EF. Cardiology consulted, patient refuses care, cardiology signed off. Improving switch to by mouth Lasix. Repeat BMP and magnesium pt refused Normocytic anemia: Hgb 6.3, previously 9.2 on 07/15/16. No signs of active bleeding. Iron studies show iron deficiency. Transfused 2u pRBCs with Lasix. Check stool for Hemoccult. GI consulted, refused EGD and colonoscopy. Continue iron replacement. DM: A1c 4.9. Discontinue Sliding scale w/ Accu-Cheks. Also discontinued metformin in light of advanced renal disease. Acute kidney injury on CKD: Creatinine 5.31, previously 2.40 on 07/15/16. Renal ultrasound with echogenic kidneys, likely underlying medical renal disease. Consulted nephrology. Was on Lasix drip, transitioned to IV Lasix. Monitor intake and output. Monitor renal function. Possible impending dialysis. Polysubstance abuse: Patient denies any substance abusing years, however UDS is positive for cocaine and cannabis. Hypertension: Improving. Continue diuresis with Lasix as above and increase oral hydralazine for better control. IV hydralazine as needed. Discontinue Nitropaste since he is noncompliant Electrolyte derangement: Hypokalemia, hypomagnesemia, hypocalcemia. Secondary to diuresis and renal disease. Replace orally. Follow-up labs. Encephalopathy with agitation. Improved psychiatry has lifted Bradford act. Haldol as needed Loose stools. Check C. difficile and start Lactinex. Hold magnesium oxide. Improved DVT Prophylaxis: SCD/Teds. Left AMA he is aware of worsening multiple conditions(HTn and JULIA) without appropriate treatment leading to Problem Qualifiers (1) Cellulitis: Qualified Code: L03.115 - Cellulitis of right lower extremity Ap Everett MD Oct 12, 2016 11:23
[2016-10-12] MEDS ORDERED: FERR325T PO (11:43)
[2016-10-12] MEDS ORDERED: METO25TA3 PO (11:43)
[2016-10-12] MEDS ORDERED: HYDR25TA35 PO (11:43)
[2016-10-12] MEDS ORDERED: FURO1TAB60 PO (11:43)
[2016-10-12] MEDS ORDERED: HYDR-3516 PO (11:43)
--- NOTE | 2016-10-12 11:43 | HHI.DCPOC ---
Discharge Care Plan Diagnosis: (1) Acute kidney injury (2) Diastolic CHF Your Health Problems Are: Difficulty with ADL Exercise Tolerance Goals to Promote Your Health * To prevent worsening of your condition and complications * To maintain your health at the optimal level Directions to Meet Your Goals Take your medications as prescribed Follow your dietary instruction Follow activity as directed Keep your appointments as scheduled Take your immunizations and boosters as scheduled If your symptoms worsen call your PCP, if no PCP go to Urgent Care Center or Emergency Room Smoking is Dangerous to Your Health. Avoid second hand smoke Call the 24-hour hour crisis hotline for domestic abuse at Ap Everett MD Oct 12, 2016 11:43
--- NOTE | 2016-10-12 16:34 | HHI.DS ---
Discharge Summary Admission Date Oct 02, 2016 at 23:43 Discharge Date: Oct 12, 2016 Admitting Diagnosis (1) Cellulitis ICD Code: L03.90 Diagnosis: Principal (2) Anemia ICD Code: D64.9 Diagnosis: Principal (3) DM (diabetes mellitus) ICD Code: E11.9 Diagnosis: Principal (4) Renal insufficiency ICD Code: N28.9 Diagnosis: Principal Procedures none Brief History - From Admission This is a 50-year-old male with PMH of HTN, DM and Peripheral Neuropathy who came to the ER with complaints of right leg pain and swelling x3 days. Denies recent injury. No fever, chills. On arrival, BP 135/63, HR 95, O2 sat 94% on RA, Afebrile. WBC 13.2. Hgb 6.3, previously 9.2 on 07/15/16. No active bleeding noted. Creatinine 5.31, previously 2.40 on 07/15/16. RLE Doppler normal. CXR symmetric bilateral predominantly perihilar alveolar opacities. S/ p Vanc/Zosyn in ER in addition to Blood Cultures for RLE Cellulitis. CBC/BMP: 10/11/16 1640 10/11/16 1640 Significant Findings Laboratory Tests Test 10/11/16 16:40 White Blood Count 17.5 TH/MM3 (4.0-11.0) Red Blood Count 3.43 MIL/MM3 (4.50-5.90) Hemoglobin 9.6 GM/DL (13.0-17.0) Hematocrit 30.5 % (39.0-51.0) Mean Corpuscular Hemoglobin 31.5 % Concent (32.0-36.0) Red Cell Distribution Width 18.1 % (11.6-17.2) Neutrophils (%) (Auto) 92.8 % (16.0-70.0) Lymphocytes (%) (Auto) 4.1 % (9.0-44.0) Neutrophils # (Auto) 16.3 TH/MM3 (1.8-7.7) Lymphocytes # (Auto) 0.7 TH/MM3 (1.0-4.8) Chloride Level 111 MEQ/L (98-107) Blood Urea Nitrogen 73 MG/DL (7-18) Creatinine 4.07 MG/DL (0.60-1.30) Estimat Glomerular Filtration 19 ML/MIN (>89) Rate Random Glucose 287 MG/DL (74-106) Calcium Level 7.5 MG/DL (8.5-10.1) Imaging Last Impressions Renal Ultrasound 10/03/16 0000 Signed Impressions: Service Date/Time: Monday, October 03, 2016 11:23 - CONCLUSION: Small echogenic kidneys without hydronephrosis. Trace ascites as described previously. Samuel Shah MD FACR Chest X-Ray 10/03/16 0000 Signed Impressions: Service Date/Time: Monday, October 03, 2016 23:19 - CONCLUSION: Slight improvement in aeration. Dain Lima MD Lower Extremity Ultrasound 10/02/160 Signed Impressions: Service Date/Time: Sunday, October 02, 2016 21:49 - CONCLUSION: Normal examination. Dain Lima MD PE at Discharge GENERAL: Well-developed well-nourished in no distress. SKIN: Warm and dry. No lesions noted. HEENT: Normocephalic. Pupils equal and round. Mucous membranes pink and moist. CARDIOVASCULAR: Regular rate and rhythm. No murmur appreciated. RESPIRATORY: No accessory muscle use. Decreased breath sounds GASTROINTESTINAL: Abdomen soft, non-tender, nondistended. Bowel sounds x4. MUSCULOSKELETAL: Right forefoot amputation. 1+ edema on the right, trace on the left. No erythema or warmth. No clubbing or cyanosis. Mild right groin lymphadenopathy. NEUROLOGICAL: Awake and alert. No focal neurological deficits. Moves upper and lower extremities spontaneously. Normal speech. Hospital Course 50-year-old male with PMH of HTN, DM and Peripheral Neuropathy who came to the ER with complaints of right leg pain and swelling x3 days Acute respiratory failure: Acute respiratory failure 10/03. Likely secondary to volume overload from blood transfusion. S/p BiPAP. IV diuresis as below. Continue supplemental oxygen as needed, and will likely need oxygen in DC. Titrate and wean oxygen to keep saturation at least 92%. Improved tolerating RA since yesterday RLE swellin days prior to admission. Doppler RLE negative. WBC 13.2. Afebrile. No signs of cellulitis on exam. Blood cultures with NGTD. PT consulted. Right inguinal lymphadenopathy, check ultrasound if patient compliant. Possibly secondary to CHF as below. Improving Acute diastolic CHF: Presented with lower extremity edema, BNP 827, Chest x- ray with bilateral edema. Echocardiogram with mild LVH, normal systolic function and EF. Cardiology consulted, patient refuses care, cardiology signed off. Improving switch to by mouth Lasix. Repeat BMP and magnesium pt refused Normocytic anemia: Hgb 6.3, previously 9.2 on 07/15/16. No signs of active bleeding. Iron studies show iron deficiency. Transfused 2u pRBCs with Lasix. Check stool for Hemoccult. GI consulted, refused EGD and colonoscopy. Continue iron replacement. DM: A1c 4.9. Discontinue Sliding scale w/ Accu-Cheks. Also discontinued metformin in light of advanced renal disease. Acute kidney injury on CKD: Creatinine 5.31, previously 2.40 on 07/15/16. Renal ultrasound with echogenic kidneys, likely underlying medical renal disease. Consulted nephrology. Was on Lasix drip, transitioned to IV Lasix. Monitor intake and output. Monitor renal function. Possible impending dialysis. Polysubstance abuse: Patient denies any substance abusing years, however UDS is positive for cocaine and cannabis. Hypertension: Improving. Continue diuresis with Lasix as above and increase oral hydralazine for better control. IV hydralazine as needed. Discontinue Nitropaste since he is noncompliant Electrolyte derangement: Hypokalemia, hypomagnesemia, hypocalcemia. Secondary to diuresis and renal disease. Replace orally. Follow-up labs. Encephalopathy with agitation. Improved psychiatry has lifted Bradford act. Haldol as needed Loose stools. Check C. difficile and start Lactinex. Hold magnesium oxide. Improved DVT Prophylaxis: SCD/Teds. Left AMA he is aware of worsening multiple conditions(HTn and JULIA) without appropriate treatment leading to Pt Condition on Discharge: Guarded Discharge Disposition: Discharge Home (AMA) Discharge Time: <= 30 minutes Discharge Instructions DIET: Follow Instructions for: Heart Healthy Diet, Diabetic Diet Activities you can perform: Regular-No Restrictions Activities to Avoid: Driving Follow up Referrals: PCP Follow-up - 1 Week New Medications: Ferrous Sulfate (Ferrous Sulfate) 325 Mg Tab 325 MG PO BID Build Red Blood Cells #60 TAB Furosemide (Lasix) 40 Mg Tab 40 MG PO BID@09,18 Blood Pressure Management #60 TAB Hydralazine (Hydralazine) 25 Mg Tab 75 MG PO TID Blood Pressure Management #90 TAB Hydrocodone-Acetaminophen (Hydrocodone-Acetaminophen) 5-325 mg Tab 1 TAB PO Q6HR PRN pain #20 TAB Metoprolol Tartrate (Metoprolol Tartrate) 25 Mg Tab 25 MG PO Q12HR Blood Pressure Management #60 TAB Ap Everett MD Oct 12, 2016 16:33
== END 2016-10-12 12:49 | disposition left against medical advice (07) | DRG 602 ==
LOC: NEPE 18:57 → NEDA 23:43 → NEPFCDU 10-03 02:48 → N03B 10-03 23:22 → N05B 10-12 00:15
PROVIDERS: ADMIT Internal Medicine; ATTEND Internal Medicine
PROC: 0T9B70Z Drainage of Bladder with Drainage Device, Via Natural or Artificial Opening (ICD-10-PCS; principal; 2016-10-02)
PROC: 30233N1 Transfusion of Nonautologous Red Blood Cells into Peripheral Vein, Percutaneous Approach (ICD-10-PCS; 2016-10-02)
PROC: 5A09557 Assistance with Respiratory Ventilation, Greater than 96 Consecutive Hours, Continuous Positive Airway Pressure (ICD-10-PCS; 2016-10-03)
DX: L03.115 Cellulitis of right lower limb (principal); J96.01 Acute respiratory failure with hypoxia; I50.31 Acute diastolic (congestive) heart failure; G93.41 Metabolic encephalopathy; N17.9 Acute kidney failure, unspecified; N18.4 Chronic kidney disease, stage 4 (severe); K92.2 Gastrointestinal hemorrhage, unspecified; E87.2 Acidosis; I07.1 Rheumatic tricuspid insufficiency; E11.22 Type 2 diabetes mellitus with diabetic chronic kidney disease; E11.42 Type 2 diabetes mellitus with diabetic polyneuropathy; E11.51 Type 2 diabetes mellitus with diabetic peripheral angiopathy without gangrene; Z89.431 Acquired absence of right foot; I12.9 Hypertensive chronic kidney disease with stage 1 through stage 4 chronic kidney disease, or unspecified chronic kidney disease; Z87.891 Personal history of nicotine dependence; Z91.19 Patient's noncompliance with other medical treatment and regimen; J44.9 Chronic obstructive pulmonary disease, unspecified; D50.0 Iron deficiency anemia secondary to blood loss (chronic); E83.42 Hypomagnesemia; E83.51 Hypocalcemia; E87.6 Hypokalemia; F14.10 Cocaine abuse, uncomplicated; F43.24 Adjustment disorder with disturbance of conduct; E87.71 Transfusion associated circulatory overload
CPT/HCPCS: 36430; 71010; 76775; 76937; 80048; 80053; 80307; 81001; 82550; 82552; 82570; 82728; 82948; 83036; 83540; 83550; 83605; 83735; 83880; 84100; 84155; 84300; 84484; 85007; 85025; 85027; 85610; 85652; 85730; 86140; 86850; 86900; 86901; 86920; 87040; 87641; 93005; 93306; 93971; 94002; 94003; 94640; 94664; C9113; J0360; J0610; J0692; J1200; J1630; J1815; J1940; J2060; J2543; J3370; J7030; J7050; P9016

== ENCOUNTER 2016-10-13 08:21 | Inpatient (IN) | payer OTHER ==
[2016-10-13] VITALS (14 sets, daily range): BP systolic 117–228; BP diastolic 75–118; PULSE 93–126; RESP 15–35; TEMP 97.8–102; O2SAT 87–99
[~2016-10-13] VITALS: Ht 182.9 cm; Wt 82.0 kg
[~2016-10-13 08:21] MED LIST changes: +FERR325T PO; +FURO1TAB60 PO; -FURO40TA PO; -GLUCTAB PO; +HYDR-3516 PO; +HYDR-3533 PO; -HYDR12.56 PO; +HYDR25TA35 PO; -IBUP800T23 PO; +METF500T PO; -METO25 PO; +METO25TA3 PO; -PENI250T59 PO
--- NOTE | 2016-10-13 08:38 | PD ---
HPI Chief Complaint: Respiratory Distress Time Seen by Provider: 08:23 Travel History International Travel<30 days: No Contact w/Intl Traveler<30days: No Traveled to known affect area: No History of Present Illness HPI The patient is a 50-year-old [place] male presents emergency department via EMS for shortness of breath. The patient signed out against medical technicians , yesterday, from the hospital after he was admitted for cellulitis and acute renal failure. The patient states that his shortness of breath got worse after he left the hospital. He does complain of increasing shortness of breath, dry nonproductive cough, but denies any company chest pain. EMS states patient's temperature prior to arrival was 101. The patient does have a history of diabetes and illicit drug use, however, denies using any illicit drugs after he left the hospital yesterday. The patient does have a remote history of tobacco use, denies any current tobacco use. The patient was placed on CPAP by EMS prior to arrival, his high saturation per EMS was 88% on CPAP. The patient's symptoms are moderate, there are no current alleviating or exacerbating factors. PFSH Past Medical History Arthritis: No Asthma: No Autoimmune Disease: No Anxiety: No Depression: No Heart Rhythm Problems: No Cancer: No Cardiovascular Problems: Yes (MURMUR) High Cholesterol: No Chemotherapy: No Chest Pain: No Congestive Heart Failure: No COPD: No Cerebrovascular Accident: No Diabetes: Yes Patient Takes Glucophage: No Diminished Hearing: No Endocrine: Yes Gastrointestinal Disorders: No GERD: No Genitourinary: No Headaches: No Hiatal Hernia: No Heparin Induced Thrombocytopen: No Hypertension: No Immune Disorder: No Implanted Vascular Access Dvce: No Kidney Stones: No Musculoskeletal: Yes (RIGHT FOOT) Neurologic: No Psychiatric: No Reproductive: No Respiratory: No Integumentary: Yes Migraines: No Radiation Therapy: No Renal Failure: No Seizures: No Sickle Cell Disease: No Sleep Apnea: No Thyroid Disease: No Ulcer: No Past Surgical History Abdominal Surgery: No AICD: No Arteriovenous Shunt: No Cardiac Surgery: No Ear Surgery: No Endocrine Surgery: No Eye Surgery: No Genitourinary Surgery: No Gynecologic Surgery: No Insulin Pump: No Joint Replacement: No Neurologic Surgery: No Oral Surgery: No Pacemaker: No Thoracic Surgery: No Other Surgery: Yes (AMPUTATION 1ST -5TH TOE RIGHT FOOT, and multiple fingers) Social History Alcohol Use: No Tobacco Use: No Substance Use: Yes (COCAINE) Allergies-Medications (Allergen,Severity, Reaction): Coded Allergies: *MDRO Multi-Drug Resistant Organism (Verified Adverse Reaction, Unknown, ) MRSA PCR Screen POSITIVE - 10/04/2016 Reported Meds & Prescriptions Reported Meds & Active Scripts Active Metoprolol Tartrate 25 Mg Tab 25 Mg PO Q12HR Hydrocodone-Acetaminophen 5-325 mg Tab 1 Tab PO Q6HR PRN Hydralazine (Hydralazine HCl) 25 Mg Tab 75 Mg PO TID Lasix (Furosemide) 40 Mg Tab 40 Mg PO BID@,18 Ferrous Sulfate 325 Mg Tab 325 Mg PO BID Reported Metformin (Metformin HCl) 500 Mg Tab Unknown Dose PO BIDPC With meals Lortab (Hydrocodone-Acetaminophen) 5-325 Mg Tab Unknown Dose PO Q4H PRN Review of Systems Except as stated in HPI: all other systems reviewed are Neg General / Constitutional: Positive: Fever (fever of 101 per EMS) HENT: No: Headaches, Lightheadedness Cardiovascular: No: Chest Pain or Discomfort Respiratory: Positive: Cough, Shortness of Breath, Wheezing Gastrointestinal: No: Nausea, Vomiting, Diarrhea, Abdominal Pain Physical Exam Narrative GENERAL: Awake, alert, 50-year-old male who appears in moderate respiratory distress. SKIN: Warm and dry. HEAD: Atraumatic. Normocephalic. EYES: No injection or drainage. ENT: Unable to assess the oropharynx secondary to BiPAP. NECK: Trachea midline. No JVD. CARDIOVASCULAR: Regular, tachycardic with a heart rate in the 120s. Audible murmur. RESPIRATORY: Mild tachypnea with a respiratory rate of 32. Diminished breath sounds in the right base with diffuse rhonchi. GASTROINTESTINAL: Abdomen soft, non-tender, nondistended. No rebound tenderness.. MUSCULOSKELETAL: Partial amputation of right foot. Partial amputation of multiple digits of the right hand. NEUROLOGICAL: Awake and alert. No obvious cranial nerve deficits. Motor grossly within normal limits. Normal speech. Nonfocal. PSYCHIATRIC: Appropriate mood and affect; insight and judgment normal. Data Data Last Documented VS Vital Signs Date Time Temp Pulse Resp B/P Pulse Ox O2 Delivery O2 Flow Rate FiO2 10/13/16 10:00 104 17 157/88 99 BiPAP 50 10/13/16 08:30 102.0 Orders Electrocardiogram (10/13/16 08:31) Complete Blood Count With Diff (10/13/16 08:31) Comprehensive Metabolic Panel (10/13/16 08:31) Prothrombin Time / Inr (Pt) (10/13/16 08:31) Act Partial Throm Time (Ptt) (10/13/16 08:31) Lactic Acid Sepsis Protocol (10/13/16 08:31) Magnesium (Mg) (10/13/16 08:31) Phosphorus (Po4) (10/13/16 08:31) Ckmb (Isoenzyme) Profile (10/13/16 08:31) Troponin I (10/13/16 08:31) Urinalysis - C+S If Indicated (10/13/16 08:31) Influenzae A/B Antigen (10/13/16 08:31) Blood Culture (10/13/16 08:31) Chest, Single Ap (10/13/16 08:31) Blood Gas Venous (Vbg) (10/13/16 08:31) Blood Glucose (10/13/16 08:31) Ecg Monitoring (10/13/16 08:31) Iv Access Insert/Monitor (10/13/16 08:31) Oximetry (10/13/16 08:31) Oxygen Administration (10/13/16 08:31) Acetaminophen (Tylenol) (10/13/16 08:45) Ondansetron Inj (Zofran Inj) (10/13/16 08:45) Cefepime Inj (Maxipime Inj) (10/13/16 08:45) Azithromycin Inj (Zithromax Inj) (10/13/16 08:45) Labetalol Inj (Trandate Inj) (10/13/16 08:45) CKMB (10/13/16 08:35) CKMB% (10/13/16 08:35) Sodium Chlor 0.9% 1000 Ml Inj (Ns 1000 M (10/13/16 09:30) Admit Order (Ed Use Only) (10/13/16 10:40) Labs Laboratory Tests Test 10/13/16 10/13/16 08:35 08:42 White Blood Count 19.4 TH/MM3 Red Blood Count 3.01 MIL/MM3 Hemoglobin 8.7 GM/DL Hematocrit 26.9 % Mean Corpuscular Volume 89.1 FL Mean Corpuscular Hemoglobin 28.8 PG Mean Corpuscular Hemoglobin 32.3 % Concent Red Cell Distribution Width 18.2 % Platelet Count 263 TH/MM3 Mean Platelet Volume 8.4 FL Neutrophils (%) (Auto) 90.5 % Lymphocytes (%) (Auto) 5.3 % Monocytes (%) (Auto) 3.0 % Eosinophils (%) (Auto) 0.9 % Basophils (%) (Auto) 0.3 % Neutrophils # (Auto) 17.6 TH/MM3 Lymphocytes # (Auto) 1.0 TH/MM3 Monocytes # (Auto) 0.6 TH/MM3 Eosinophils # (Auto) 0.2 TH/MM3 Basophils # (Auto) 0.1 TH/MM3 CBC Comment DIFF FINAL Differential Comment Prothrombin Time 11.6 SEC Prothromb Time International 1.0 RATIO Ratio Activated Partial 26.7 SEC Thromboplast Time Sodium Level 148 MEQ/L Potassium Level 5.2 MEQ/L Chloride Level 117 MEQ/L Carbon Dioxide Level 22.2 MEQ/L Anion Gap 9 MEQ/L Blood Urea Nitrogen 80 MG/DL Creatinine 4.24 MG/DL Estimat Glomerular Filtration 18 ML/MIN Rate Random Glucose 218 MG/DL Lactic Acid Level 1.1 mmol/L Calcium Level 7.7 MG/DL Phosphorus Level 2.5 MG/DL Magnesium Level 1.8 MG/DL Total Bilirubin 0.3 MG/DL Aspartate Amino Transf 55 U/L (AST/SGOT) Alanine Aminotransferase 34 U/L (ALT/SGPT) Alkaline Phosphatase 110 U/L Total Creatine Kinase 235 U/L Creatine Kinase MB 2.0 NG/ML Troponin I 0.11 NG/ML Total Protein 7.8 GM/DL Albumin 1.7 GM/DL Blood Gas Puncture Site CENTRAL LINE Blood Gas Patient Temperature 98.6 Venous Blood pH 7.36 Venous Blood Partial Pressure 39 mmHg CO2 Venous Blood Partial Pressure 55 mmHg O2 Venous Blood HCO3 22 mmol/L Venous Blood Oxygen Saturation 83 % Venous Blood Oxygen Content 10.3 Vol % Venous Blood Base Excess -3.0 mmol/L Oxygen Delivery Device BiPAP Blood Gas Ventilator Setting [id number] Blood Gas Inspired Oxygen 60 % [facility] Medical Decision Making Medical Screen Exam Complete: Yes Emergency Medical Condition: Yes Medical Record Reviewed: Yes Interpretation(s) EKG reveals sinus tachycardia with a heart rate of 126. Nonspecific T wave changes. Last Impressions Chest X-Ray 10/13/16 0831 Signed Impressions: Service Date/Time: September 08:56 - CONCLUSION: Worsening airspace consolidation. Sis Porter MD Laboratory Tests Test 10/13/16 10/13/16 08:35 08:42 White Blood Count 19.4 TH/MM3 Red Blood Count 3.01 MIL/MM3 Hemoglobin 8.7 GM/DL Hematocrit 26.9 % Mean Corpuscular Volume 89.1 FL Mean Corpuscular Hemoglobin 28.8 PG Mean Corpuscular Hemoglobin 32.3 % Concent Red Cell Distribution Width 18.2 % Platelet Count 263 TH/MM3 Mean Platelet Volume 8.4 FL Neutrophils (%) (Auto) 90.5 % Lymphocytes (%) (Auto) 5.3 % Monocytes (%) (Auto) 3.0 % Eosinophils (%) (Auto) 0.9 % Basophils (%) (Auto) 0.3 % Neutrophils # (Auto) 17.6 TH/MM3 Lymphocytes # (Auto) 1.0 TH/MM3 Monocytes # (Auto) 0.6 TH/MM3 Eosinophils # (Auto) 0.2 TH/MM3 Basophils # (Auto) 0.1 TH/MM3 CBC Comment DIFF FINAL Differential Comment Prothrombin Time 11.6 SEC Prothromb Time International 1.0 RATIO Ratio Activated Partial 26.7 SEC Thromboplast Time Sodium Level 148 MEQ/L Potassium Level 5.2 MEQ/L Chloride Level 117 MEQ/L Carbon Dioxide Level 22.2 MEQ/L Anion Gap 9 MEQ/L Blood Urea Nitrogen 80 MG/DL Creatinine 4.24 MG/DL Estimat Glomerular Filtration 18 ML/MIN Rate Random Glucose 218 MG/DL Lactic Acid Level 1.1 mmol/L Calcium Level 7.7 MG/DL Phosphorus Level 2.5 MG/DL Magnesium Level 1.8 MG/DL Total Bilirubin 0.3 MG/DL Aspartate Amino Transf 55 U/L (AST/SGOT) Alanine Aminotransferase 34 U/L (ALT/SGPT) Alkaline Phosphatase 110 U/L Total Creatine Kinase 235 U/L Creatine Kinase MB 2.0 NG/ML Troponin I 0.11 NG/ML Total Protein 7.8 GM/DL Albumin 1.7 GM/DL Blood Gas Puncture Site CENTRAL LINE Blood Gas Patient Temperature 98.6 Venous Blood pH 7.36 Venous Blood Partial Pressure 39 mmHg CO2 Venous Blood Partial Pressure 55 mmHg O2 Venous Blood HCO3 22 mmol/L Venous Blood Oxygen Saturation 83 % Venous Blood Oxygen Content 10.3 Vol % Venous Blood Base Excess -3.0 mmol/L Oxygen Delivery Device BiPAP Blood Gas Ventilator Setting [id number] Blood Gas Inspired Oxygen 60 % Date/Time Procedure Status Source Growth 10/13/16 08:30 Aerobic Blood Culture Received Blood Peripheral Pending 10/13/16 08:30 Anaerobic Blood Culture Received Blood Peripheral Pending 10/13/16 08:35 Aerobic Blood Culture Received Blood Peripheral Pending 10/13/16 08:35 Anaerobic Blood Culture Received Blood Peripheral Pending 10/13/16 09:32 Influenza Types A,B Antigen (HARIKA) - Final Complete Nasal Aspirate NEGATIVE FOR FLU A AND B ANTIGEN.... Differential Diagnosis Differential diagnosis includes pneumonia, flash pulmonary edema, congestive heart failure, pleural effusion, sepsis, DKA, lactic acidosis. Narrative Course IV was established, labs were drawn and sent, and the patient was placed on cardiac telemetry monitoring and continuous pulse oximetry monitoring. EKG was ordered and interpreted. Stat chest x-ray was obtained. Blood cultures and lactic acid were sent to lab. 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 Chest x-ray reveals worsening aeration of the lungs, significant pneumonia on the left side, unsure if this is mild bilateral pulmonary edema with underlying pneumonia as the patient does have elevated creatinine greater than 4. The patient was administered 1 L of IV fluids, but was not administered 30 mL/kg for sepsis secondary to possible underlying pulmonary edema from acute renal failure. Patient's white count was noted to be elevated and 19.8. The patient will be admitted to the medical service, but may need ICU/CICU as he does have sepsis with worsening symptoms. The patient's creatinine is baseline just above 4, patient's blood pressure and heart rate did improve after being placed on BiPAP. Patient's lactic is normal at 1.1, he appears to have pneumonia with underlying pulmonary edema, unsure if this is related to his acute on chronic renal failure. [facility]. Critical Care Narrative Aggregate critical care time was 40 minutes. Time to perform other separately billable procedures was not included in the critical care time. My time did not include minutes spent treating any other patients simultaneously or on activities that did not directly contribute to the patient's treatment. The services I provided to this patient were to treat and/or prevent clinically significant deterioration that could result in: Anoxia, hypoxia, arrhythmia, respiratory distress, septic shock, . I provided critical care services requiring my management, as noted below: Chart data review, documentation time, medication orders and management, vital sign assessments/reviewing monitor data, ordering and reviewing lab tests, ordering and interpreting/reviewing x-rays and diagnostic studies, care of the patient and discussion of the patient with the admitting physicians. Sepsis Criteria SIRS Criteria (2 or more): Temp > 100.9 or < 96.8, Heart rate over 90, RR > 20 or PaCO2 < 32, WBC > 22822, < 4000 or > 10% bands Severe Sepsis (+one): Acute Oliguria/Renal Failure Criteria Outcome: Meets severe sepsis criteria Physician Communication Physician Communication The patient was admitted to [facility], signed out AMA yesterday. 4, [facility] were paged for admission. I discussed the patient with Dr. Everett who requests that the patient be admitted to the lens cutter. Therefore, the on-call lens cutter was paged for admission. I discussed the patient with Dr. Almanza who agrees with admission. Diagnosis Primary Impression: Pneumonia Qualified Code: J18.9 - Pneumonia of both lungs due to infectious organism, unspecified part of lung Additional Impressions: Sepsis Qualified Code: A41.9 - Sepsis, due to unspecified organism Acute on chronic renal failure Admitting Information Admitting Physician Requests: Admit Condition: Stable Drake Temple MD Oct 13, 2016 08:38
[2016-10-13] MEDS ORDERED: LABETALOL HCL 100 MG/20 ML VIAL IV PUSH ONE (08:45)
[2016-10-13] MEDS ORDERED: AZITHROMYCIN INJ 500 MG in SODIUM CHLOR 0.9% 250 ML INJ 250 ML IV ONE (08:45)
[2016-10-13] MEDS ORDERED: CEFEPIME INJ 2,000 MG in SODIUM CHLORIDE 0.9% INJ 100 ML IV ONE (08:45)
[2016-10-13] MEDS ORDERED: ACETAMINOPHEN 325 MG TAB PO ONE (08:45)
[2016-10-13] MEDS ORDERED: ONDANSETRON HCL 4 MG/2 ML VIAL IV ONE (08:45)
[2016-10-13 08:47] LABS: AUTOMATED NEUTROPHIL # 17.6 TH/MM3 (1.8-7.7); BASOPHIL # 0.1 TH/MM3 (0-0.2); BASOPHIL % 0.3 % (0.0-2.0); EOSINOPHIL # 0.2 TH/MM3 (0-0.4); EOSINOPHIL % 0.9 % (0.0-4.0); HEMATOCRIT 26.9 % (39.0-51.0); HEMO FLAGS DIFF FINAL; LYMPH % 5.3 % (9.0-44.0); MEAN CELL VOLUME 89.1 FL (80.0-100.0); MEAN CORPUSCULAR HEMOGLOBIN 28.8 PG (27.0-34.0); MEAN CORPUSCULAR HGB CONC 32.3 % (32.0-36.0); NEUT % 90.5 % (16.0-70.0); PLATELET COUNT 263 TH/MM3 (150-450); RED BLOOD COUNT 3.01 MIL/MM3 (4.50-5.90); RED CELL DISTRIBUTION WIDTH 18.2 % (11.6-17.2); WHITE BLOOD COUNT 19.4 TH/MM3 (4.0-11.0)
[2016-10-13 08:55] LABS: BLOOD GAS VENOUS HCO3 22 mmol/L (22-26); BLOOD GAS VENOUS O2 CONTENT 10.3 Vol % (9.0-17.0); BLOOD GAS VENOUS O2 HGB SAT 83 % (70-76); BLOOD GAS VENOUS PCO2 39 mmHg (44-48); BLOOD GAS VENOUS PO2 55 mmHg (35-40); BLOOD GAS VENOUS pH 7.36 (7.360-7.400); CRITICAL VALUE NO; FIO2 60 %; OXYGEN DEVICE BiPAP; TEMP CORR TO 98.6; VENT SETTINGS IPAP12EPAP5
[2016-10-13 08:56] LABS: DRAW SITE CENTRAL LINE; STAT YES
[2016-10-13 08:57] LABS: APTT (PATIENT) 26.7 SEC (24.3-30.1); PROTHROMBIN TIME - PATIENT 11.6 SEC (9.8-11.6)
[2016-10-13 09:05] LABS: ALKALINE PHOSPHATASE 110 U/L (45-117); CREATINE KINASE 235 U/L (39-308); TOTAL BILIRUBIN ADULT 0.3 MG/DL (0.2-1.0)
[2016-10-13 09:06] LABS: ALT (GPT) 34 U/L (12-78); ANION GAP 9 MEQ/L (5-15); AST (GOT) 55 U/L (15-37); BICARBONATE 22.2 MEQ/L (21.0-32.0); BLOOD UREA NITROGEN 80 MG/DL (7-18); CHLORIDE 117 MEQ/L (98-107); GLOMERULAR FILTRATION RATE 18 ML/MIN (>89); MAGNESIUM 1.8 MG/DL (1.5-2.5); POTASSIUM 5.2 MEQ/L (3.5-5.1); SODIUM (NA) 148 MEQ/L (136-145)
--- NOTE | 2016-10-13 09:08 | RADRPT ---
EXAM DATE/TIME: 10/13/2016 08:56 [facility] COMPARISON: CHEST SINGLE AP, October 03, 2016, 23:19. INDICATIONS : Short of breath. MEDICAL HISTORY : None. SURGICAL HISTORY : None. ENCOUNTER: Initial ACUITY: 2 days PAIN SCORE: 1/10 LOCATION: Bilateral chest FINDINGS: Single AP view of the chest demonstrates worsening airspace consolidation involving predominately the left hemithorax. The hazy airspace consolidation involving the right hemithorax remains stable. Osse ous structures appear intact. CONCLUSION: Worsening airspace consolidation. Sis Porter MD on October 13, 2016 at 9:05 Board Certified Radiologist. This report was verified electronically.
[2016-10-13] MEDS ORDERED: SODIUM CHLOR 0.9% 1000 ML INJ 1,000 ML IV ONE (09:30)
[2016-10-13] MEDS ORDERED: SENNOSIDES 8.6 MG TAB PO PRN (11:30)
[2016-10-13] MEDS ORDERED: RESP: ALBUTEROL 2.5 MG/IPRATROPIUM 0.5 MG NEB (PRN) INH (11:30)
[2016-10-13] MEDS ORDERED: MISCELLANEOUS NURSING INFORMATION XX SCH ×2 (11:30)
[2016-10-13] MEDS ORDERED: ACETAMINOPHEN 325 MG TAB PO PRN (11:30)
[2016-10-13] MEDS ORDERED: Vancomycin Consult Pharmacy 1 EA XX SCH (11:30)
[2016-10-13] MEDS ORDERED: CHLORHEXIDINE GLUCONATE 2 % 1 PACK (2 CLOTHS) TOP PRN ×2 (11:30)
[2016-10-13] MEDS: RESP: ALBUTEROL 2.5 MG/IPRATROPIUM 0.5 MG NEB (SCH) INH ×4 (11:40→23:42)
[2016-10-13] MEDS ORDERED: CALCIUM GLUCONATE 10% 1 GM/10 ML VIAL SLOW IVP ONE (11:45)
[2016-10-13] MEDS ORDERED: DEXTROSE 50% IN WATER 50 ML VIAL(D50) IV PUSH ONE (11:45)
[2016-10-13] MEDS ORDERED: SODIUM BICARBONATE 8.4% SOLN 50 MEQ/50 ML VIAL SLOW IVP ONE (11:45)
[2016-10-13] MEDS ORDERED: SODIUM POLYSTYRENE SULFONATE SUSP 15 GM/60 ML CUP PO ONE (11:45)
--- NOTE | 2016-10-13 11:49 | HHI.HP ---
[facility] Service Critical Care Medicine Primary Care Physician No Primary Care Physician Admission Diagnosis bilateral pneumonia, sepsis, acute on chronic renal failure Diagnosis: (1) Acute on chronic renal failure Diagnosis: Principal (2) Adjustment disorder with disturbance of conduct Diagnosis: Principal (3) HCAP (healthcare-associated pneumonia) Diagnosis: Principal (4) Sepsis Diagnosis: Principal (5) Diastolic CHF Diagnosis: Principal (6) Hypertension Diagnosis: Principal (7) Diabetes Diagnosis: Principal (8) Symptomatic anemia Diagnosis: Principal (9) Cellulitis Diagnosis: Principal (10) Hyperkalemia Diagnosis: Principal (11) Hypernatremia Diagnosis: Principal (12) Elevated AST (SGOT) Diagnosis: Principal (13) Elevated troponin Diagnosis: Principal (14) Hypoalbuminemia Diagnosis: Principal (15) Leukocytosis Diagnosis: Principal (16) Open wound of right foot Diagnosis: Principal Chief Complaint: Dyspnea Travel History International Travel<30 Days: No Contact w/Intl Traveler <30 Da: No Traveled to Known Affected Are: No Sepsis Criteria SIRS Criteria (2 or more): Heart rate over 90, RR > 20 or PaCO2 < 32 Sepsis Criteria (SIRS+source): Infect source susp/known Severe Sepsis (+one): Acute Oliguria/Renal Failure Criteria Outcome: Meets severe sepsis criteria History of Present Illness 50-year-old Ruthy male. Date of admission 10/13/2016. Past medical history includes adjustment disorder, history of syncope, anemia, diabetes mellitus, hypertension and peripheral neuropathy. He presents to [facility] emergency department via EMS for shortness of breath. Patient was originally admitted to [facility] from 10/03/2016 until 10/12/2016 for multiple medical issues including right leg pain with shortness of breath times 3 days. He developed acute respiratory failure on the secondary to volume overload from blood transfusions. Echocardiogram revealed EF 55-60% with mild LVH, mild MR, TR and OR. He diuresed with IV Lasix and treated with BiPAP. This was weaned off and and patient was off oxygen as of 10/11. Dopplers are negative the right lower extremity. He does have some right inguinal lymphadenopathy however. 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 The patient was placed on CPAP by EMS prior to arrival, his high saturation per EMS was 88% on CPAP. The patient's symptoms are moderate, there are no current alleviating or exacerbating factors. Chest x-ray revealed extensive lobar pneumonia. Currently on BiPAP 7/5 at 40% and breathing comfort. Review of Systems Constitutional: COMPLAINS OF: Fatigue, Fever, DENIES: Weight gain, Weight loss Endocrine: DENIES: Polydipsia, Polyuria Eyes: DENIES: Blurred vision, Double Vision Ears, nose, mouth, throat: DENIES: Tinnitus Respiratory: COMPLAINS OF: Cough, Shortness of breath, DENIES: Sputum production Cardiovascular: COMPLAINS OF: Syncope, DENIES: Chest pain Gastrointestinal: DENIES: Abdominal pain, Nausea, Vomiting Genitourinary: DENIES: Urinary frequency Musculoskeletal: DENIES: Joint pain, Joint Swelling, Back pain Integumentary: DENIES: Abnormal pigmentation Hematologic/lymphatic: DENIES: Bruising Immunologic/allergic: DENIES: Eczema Neurologic: DENIES: Abnormal gait, Headache Psychiatric: COMPLAINS OF: Anxiety, DENIES: Confusion, Depression Past Family Social History Allergies: Coded Allergies: *MDRO Multi-Drug Resistant Organism (Verified Adverse Reaction, Unknown, ) MRSA PCR Screen POSITIVE - 10/04/2016 Past Medical History Adjustment disorder History syncope Anemia Diabetes mellitus Hypertension Peripheral neuropathy Past Surgical History Amputation of right first and/fifth toes. Converted to partial right foot amputation Amputation of left thumb Amputation of right second/third fingers Reported Medications Lasix 40 mg by mouth twice a day Iron sulfate 325 mg by mouth twice a day Hydralazine 75 mg by mouth 3 times a day Metoprolol 25 mg by mouth twice a day Metformin 500 mg by mouth twice a day [place] as needed Active Ordered Medications Reviewed in EMR Family History Mother with diabetes. Grandmother with diabetes. Unknown father history Social History Positive THC use. +5-6 cigarettes daily. Denies alcohol or IV drug use Physical Exam Vital Signs Vital Signs Date Time Temp Pulse Resp B/P Pulse Ox O2 Delivery O2 Flow Rate FiO2 10/13/16 10:00 104 17 157/88 99 BiPAP 50 10/13/16 09:30 106 18 154/75 99 BiPAP 60 10/13/16 08:50 107 28 189/87 99 BiPAP 60 10/13/16 08:30 99 60 10/13/16 08:30 102.0 126 26 228/118 98 BiPAP 100 10/13/16 08:21 99 BiPAP 60 10/13/16 08:21 BiPAP 10/13/16 08:21 102.0 126 35 216/113 87 Physical Exam GENERAL: 50-year-old AA male, critically ill currently on BiPAP SKIN: Warm and dry. HEAD: Atraumatic. Normocephalic. EYES: Pupils equal and round. No scleral icterus. No injection or drainage. ENT: No nasal bleeding or discharge. Mucous membranes pink and moist. NECK: Trachea midline. No JVD. CARDIOVASCULAR: Tachycardic, RR. S1, S2 no S4. Faint 1/6 murmur and sternal RESPIRATORY: Coarse crackles appreciated throughout the left lung dial. No significant wheezing appreciated by me GASTROINTESTINAL: Abdomen soft, non-tender, nondistended. Positive bowel sounds MUSCULOSKELETAL: Extremities with right partial lower extremity amputation, laceration noted depressed 2 x 2 centimeters at plantar aspect of right partial amputation. Irritation of left thumb and right second and third fingers noted. NEUROLOGICAL: Awake and alert. No obvious cranial nerve deficits. Motor grossly within normal limits. Five out of 5 muscle strength in the arms and legs. Normal speech. Decreased sensation light touch and pinprick extremities Laboratory Laboratory Tests Test 10/13/16 10/13/16 08:35 08:42 White Blood Count 19.4 Red Blood Count 3.01 Hemoglobin 8.7 Hematocrit 26.9 Mean Corpuscular Volume 89.1 Mean Corpuscular Hemoglobin 28.8 Mean Corpuscular Hemoglobin 32.3 Concent Red Cell Distribution Width 18.2 Platelet Count 263 Mean Platelet Volume 8.4 Neutrophils (%) (Auto) 90.5 Lymphocytes (%) (Auto) 5.3 Monocytes (%) (Auto) 3.0 Eosinophils (%) (Auto) 0.9 Basophils (%) (Auto) 0.3 Neutrophils # (Auto) 17.6 Lymphocytes # (Auto) 1.0 Monocytes # (Auto) 0.6 Eosinophils # (Auto) 0.2 Basophils # (Auto) 0.1 CBC Comment DIFF FINAL Differential Comment Prothrombin Time 11.6 Prothromb Time International 1.0 Ratio Activated Partial 26.7 Thromboplast Time Sodium Level 148 Potassium Level 5.2 Chloride Level 117 Carbon Dioxide Level 22.2 Anion Gap 9 Blood Urea Nitrogen 80 Creatinine 4.24 Estimat Glomerular Filtration 18 Rate Random Glucose 218 Lactic Acid Level 1.1 Calcium Level 7.7 Phosphorus Level 2.5 Magnesium Level 1.8 Total Bilirubin 0.3 Aspartate Amino Transf 55 (AST/SGOT) Alanine Aminotransferase 34 (ALT/SGPT) Alkaline Phosphatase 110 Total Creatine Kinase 235 Creatine Kinase MB 2.0 Troponin I 0.11 Total Protein 7.8 Albumin 1.7 Blood Gas Puncture Site CENTRAL LINE Blood Gas Patient Temperature 98.6 Venous Blood pH 7.36 Venous Blood Partial Pressure 39 CO2 Venous Blood Partial Pressure 55 O2 Venous Blood HCO3 22 Venous Blood Oxygen Saturation 83 Venous Blood Oxygen Content 10.3 Venous Blood Base Excess -3.0 Oxygen Delivery Device BiPAP Blood Gas Ventilator Setting [id number] Blood Gas Inspired Oxygen 60 Date/Time Procedure Status Source Growth 10/13/16 09:32 Influenza Types A,B Antigen (HARIKA) - Final Complete Nasal Aspirate NEGATIVE FOR FLU A AND B ANTIGEN.... 10/13/16 08:35 Aerobic Blood Culture Received Blood Peripheral Pending 10/13/16 08:35 Anaerobic Blood Culture Received Blood Peripheral Pending Result Diagram: 10/13/16 0835 10/13/16 0835 Imaging Last Impressions Chest X-Ray 10/13/16 0831 Signed Impressions: Service Date/Time: September 08:56 - CONCLUSION: Worsening airspace consolidation. Sis Porter MD Assessment and Plan Assessment and Plan Neuro/Psych: Adjustment disorder History of THC use Status post Bradford act last admission. Seen by Dr. Nigel drake. Currently on no medications. Acetaminophen for fever [place]/morphine for pain management CV: History of syncope Hypertension Elevated troponin Chronic diastolic heart failure Severe sepsis Home medication of hydralazine 75 mg by mouth 3 times a day and metoprolol 25 mg by mouth twice a day. Resume hydralazine 50 mg by mouth 3 times a day with its needed labetalol/hydralazine and Nitropaste EKG revealed no acute cardiopulmonary findings consistent sinus tachycardia. Echocardiogram 10/04 revealed EF 55-60%. Mild LVH. Mild MR, TR and OR. Status post 1 liter of saline in ED. Resp: Acute respiratory failure secondary to HCAP Left-sided pneumonia Tobaccoism Currently on CPAP 03/22 at 40%. Wean as tolerated See ID for antibiotic coverage Bronchodilator therapy every 4 hours and as needed Chest x-ray revealed a dense left-sided pneumonia. GI: Hypoalbuminemia Elevated AST Moderate to severe protein calorie malnutrition ADA diet ordered Protonix for GI prophylaxis Colace/as needed Senokot for bowel regimen. : [place] if needed for accurate I's and O's in a critically ill patient Endo: Diabetes mellitus 2 Sliding-scale insulin with Accu-Cheks to maintain euglycemia. Before meals/at bedtime. Moderate regimen Metformin discontinued in light of creatinine greater than 2 Renal: Acute on chronic kidney disease stage IV to 5 Seen by nephrology last admission. No current indication for hemodialysis. Making adequate urine. Status post 1 L in ED for severe sepsis. Heme: Leukocytosis Anemia Follow CBC daily. Monitor trends. No indications for transfusion of blood products at this time. ID: HCAP Status post cefepime/azithromycin in the ED for pneumonia. Added vancomycin day #1 Pertinent cultures 10/13 - blood cultures 2 - pending Influenza pending FEN: Hypernatremia Hyperpotassemia Given bicarbonate, insulin/D50/Kayexalate 1. Recheck in 3 hours MSK: Left thumb, right second and third finger, right lower extremity amputation Diabetic foot ulcer Wound care evaluate and treat. Access - Utilize peripheral IV. Central line if indicated Prophylaxis - GI - Protonix - DVT - SCD/heparin subcutaneous Critical Care: The total critical care time was 65 minutes. Time to perform other separately billable procedures was not included in the critical care time. Code Status Full code Discussed Condition With Dr. Temple/ED physician and patient. Care plan discussed and all questions answered Problem Qualifiers (1) Sepsis: Qualified Code: A41.9 - Sepsis, due to unspecified organism (2) Diastolic CHF: Qualified Code: I50.32 - Chronic diastolic congestive heart failure (3) Hypertension: Qualified Code: I10 - Essential hypertension (4) Diabetes: Qualified Code: E11.8 - Type 2 diabetes mellitus with complication, without long-term current use of insulin (5) Cellulitis: Qualified Code: L03.90 - Cellulitis, unspecified cellulitis site (6) Leukocytosis: Qualified Code: D72.829 - Leukocytosis, unspecified type (7) Open wound of right foot: Qualified Code: S91.301D - Open wound of right foot, subsequent encounter Pipo Almanza MD Oct 13, 2016 11:49
[2016-10-13] MEDS ORDERED: INSULIN HUMAN REGULAR 1,000 UNITS/10 ML VIAL IV PUSH ONE (12:00)
[2016-10-13] MEDS ORDERED: NITROGLYCERIN 2% OINT 1 GM PACKET TOPICAL PRN (12:00)
[2016-10-13] MEDS: HEPARIN SODIUM - SQ 10,000 UNITS/ML VIAL SQ SCH (12:45)
[2016-10-13] MEDS ORDERED: VANCOMYCIN INJ 1,500 MG in SODIUM CHLORID 0.9% 500 ML INJ 500 ML IV ONE (13:00)
[2016-10-13] MEDS: hydrALAZINE HCL 50 MG TAB PO SCH ×2 (13:09→20:00)
[2016-10-13 13:18] LABS: BACTERIA, URINE OCC /hpf; BLOOD, URINE SMALL (NEG); GLUCOSE,URINE 70 mg/dL (NEG); KETONE, URINE NEG (NEG); MUCUS URINE FEW /lpf (OCC); NITRITE,URINE NEG (NEG); PH, URINE 5.5 (5.0-8.5); SQUAMOUS EPITHELIAL CELL URINE 1 /hpf (0-5); URINE COLOR YELLOW (YELLW/STRAW)
[2016-10-13 13:19] LABS: COMMENT (UR) CATH-CULTURE IND; CULTURE IF INDICATED CATH CULTURE IND
[2016-10-13] MEDS: hydrALAZINE HCL 20 MG/ML VIAL IV PUSH PRN ×3 (17:14→22:18)
[2016-10-13] MEDS ORDERED: FUROSEMIDE 20 MG TAB PO SCH (18:00)
[2016-10-13] MEDS: DOCUSATE SODIUM 100 MG CAP PO SCH (20:00)
[2016-10-13] MEDS: SODIUM CHLORIDE 0.9% FLUSH 5 ML FLUSH IV FLUSH SCH (20:00)
--- NOTE | 2016-10-13 20:17 | EKG ---
Date Performed: 10/13/2016 Time Performed: 08:32:42 PTAGE: 50 years EKG: SINUS TACHYCARDIA NONSPECIFIC T-WAVE ABNORMALITY When compared to previous tracing, sinus r ate has increased. ABNORMAL RHYTHM ECG PREVIOUS TRACING : 10/02/2016 21.35 DOCTOR: Og Lomas Interpretating Date/Time 10/13/2016 20:16:32
[2016-10-13] MEDS: MORPHINE SULFATE 4 MG/ML INJ IV PRN (22:29)
[2016-10-13] MEDS: CHLORHEXIDINE GLUCONATE 2 % 1 PACK (2 CLOTHS) TOP SCH (22:53)
[2016-10-14] VITALS (18 sets, daily range): BP systolic 107–183; BP diastolic 67–107; PULSE 81–119; RESP 15–41; TEMP 97–98.7; O2SAT 87–100
[2016-10-14] MEDS: HEPARIN SODIUM - SQ 10,000 UNITS/ML VIAL SQ SCH ×2 (01:57→10:29)
[2016-10-14] MEDS: hydrALAZINE HCL 20 MG/ML VIAL IV PUSH PRN (03:05)
[2016-10-14] MEDS: RESP: ALBUTEROL 2.5 MG/IPRATROPIUM 0.5 MG NEB (SCH) INH ×6 (03:48→23:38)
[2016-10-14] MEDS ORDERED: CHLORHEXIDINE GLUCONATE 2 % 1 PACK (2 CLOTHS) TOP SCH (04:00)
--- NOTE | 2016-10-14 05:10 | RADRPT ---
EXAM DATE/TIME: 10/14/2016 03:24 [facility] COMPARISON: CHEST SINGLE AP, October 13, 2016, 8:56. INDICATIONS : Shortness of breath. MEDICAL HISTORY : None. SURGICAL HISTORY : None. ENCOUNTER: Subsequent ACUITY: 2 days PAIN SCORE: Non-responsive. LOCATION: Bilateral chest FINDINGS: There is increasing bilateral consolidation diffusely within both lungs. A right-sided effusion is no lucho. CONCLUSION: Worsening appearance of the chest. Abhinav Sullivan MD on October 14, 2016 at 5:08 Board Certified Radiologist. This report was verified electronically.
[2016-10-14 05:44] LABS: AUTOMATED NEUTROPHIL # 16.3 TH/MM3 (1.8-7.7); HEMATOCRIT 23.7 % (39.0-51.0); HEMO FLAGS DIFF FINAL; LYMPH % 5.2 % (9.0-44.0); LYMPHOCYTE # 0.9 TH/MM3 (1.0-4.8); MEAN CELL VOLUME 89.9 FL (80.0-100.0); MEAN CORPUSCULAR HEMOGLOBIN 28.6 PG (27.0-34.0); MEAN CORPUSCULAR HGB CONC 31.8 % (32.0-36.0); MONO % 2.7 % (0.0-8.0); NEUT % 92.1 % (16.0-70.0); PLATELET COUNT 202 TH/MM3 (150-450); RED BLOOD COUNT 2.63 MIL/MM3 (4.50-5.90); RED CELL DISTRIBUTION WIDTH 18.6 % (11.6-17.2); WHITE BLOOD COUNT 17.7 TH/MM3 (4.0-11.0)
[2016-10-14 05:52] LABS: APTT (PATIENT) 23.8 SEC (24.3-30.1); PROTHROMBIN TIME - PATIENT 11.6 SEC (9.8-11.6)
[2016-10-14 06:10] LABS: BICARBONATE 21.2 MEQ/L (21.0-32.0); POTASSIUM 4.9 MEQ/L (3.5-5.1); TOTAL BILIRUBIN ADULT 0.3 MG/DL (0.2-1.0)
[2016-10-14 06:14] LABS: CALCIUM-PROTEIN CORRECTED 7.3 MG/DL (8.5-10.1)
[2016-10-14] MEDS ORDERED: GLUCAGON 1 MG/ML VIAL OTHER PRN (06:45)
[2016-10-14] MEDS: hydrALAZINE HCL 50 MG TAB PO SCH ×3 (06:51→19:27)
[2016-10-14] MEDS: INSULIN NovoLIN REGULAR SUPPLEMENTAL SCALE SQ SCH ×3 (07:15→19:23)
--- NOTE | 2016-10-14 08:08 | HHI.CCPN ---
Subjective Remarks/Hospital Course 50-year-old Ruthy male. Date of admission 10/13/2016. Past medical history includes adjustment disorder, history of syncope, anemia, diabetes mellitus, hypertension and peripheral neuropathy. He presents to [facility] emergency department via EMS for shortness of breath. Patient was originally admitted to [facility] from 10/03/2016 until 10/12/2016 for multiple medical issues including right leg pain with shortness of breath times 3 days. He developed acute respiratory failure on the secondary to volume overload from blood transfusions. Echocardiogram revealed EF 55-60% with mild LVH, mild MR, TR and NE. He diuresed with IV Lasix and treated with BiPAP. This was weaned off and and patient was off oxygen as of 10/11. Dopplers are negative the right lower extremity. He does have some right inguinal lymphadenopathy however. 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 The patient was placed on CPAP by EMS prior to arrival, his high saturation per EMS was 88% on CPAP. The patient's symptoms are moderate, there are no current alleviating or exacerbating factors. Chest x-ray revealed extensive lobar pneumonia. Currently on BiPAP 7/ at 40% and breathing comfort. Subjective 10/14: Currently on 4 L nasal cannula. Intermittently on BiPAP overnight. Frustrated. Requesting home O2. Objective Vital Signs Date Time Temp Pulse Resp B/P Pulse Ox O2 Delivery O2 Flow Rate FiO2 10/14/16 06:00 96 10/14/16 04:29 95 50 10/14/16 04:00 98.7 15 163/91 10/13/16 19:56 Nasal Cannula 4.50 Intake and Output 10/13/16 10/13/16 10/14/16 08:00 16:00 00:00 Intake Total 1650 ml 960 ml Output Total 200 ml 0 ml Balance 1450 ml 960 ml Result Diagram: 10/14/16 0524 10/14/16 0524 Other Results Microbiology Date/Time Procedure Status Source Growth 10/13/16 13:00 Urine Culture Received Urine Catheterized Urine Pending 10/13/16 13:00 Legionella Antigen - Final Resulted Urine Catheterized Urine PRESUMPTIVE NEGATIVE FOR LEGIONELLA P... 10/13/16 13:00 Streptococcus pneumoniae Antigen (M - Preliminary Resulted Urine Catheterized Urine 10/13/16 13:00 Received Other Pending 10/13/16 09:32 Influenza Types A,B Antigen (HARIKA) - Final Complete Nasal Aspirate NEGATIVE FOR FLU A AND B ANTIGEN.... 10/13/16 08:35 Aerobic Blood Culture Received Blood Peripheral Pending 10/13/16 08:35 Anaerobic Blood Culture Received Blood Peripheral Pending Imaging Last Impressions Chest X-Ray 10/14/16 0000 Signed Impressions: Service Date/Time: Friday, October 14, 2016 03:24 - CONCLUSION: Worsening appearance of the chest. Abhinav Sullivan MD Objective Remarks GENERAL: 50-year-old AA male, critically ill currently on breathing treatment SKIN: Warm and dry. HEAD: Atraumatic. Normocephalic. EYES: Pupils equal and round. No scleral icterus. No injection or drainage. ENT: No nasal bleeding or discharge. Mucous membranes pink and moist. NECK: Trachea midline. No JVD. CARDIOVASCULAR: Tachycardic, RR. S1, S2 no S4. Faint 1/6 murmur and sternal RESPIRATORY: Coarse crackles appreciated throughout the left lung dial. No significant wheezing appreciated by me GASTROINTESTINAL: Abdomen soft, non-tender, nondistended. Positive bowel sounds MUSCULOSKELETAL: Extremities with right partial lower extremity amputation, laceration noted depressed 2 x 2 centimeters at plantar aspect of right partial amputation. Irritation of left thumb and right second and third fingers noted. NEUROLOGICAL: Awake and alert. No obvious cranial nerve deficits. Motor grossly within normal limits. Five out of 5 muscle strength in the arms and legs. Normal speech. Decreased sensation light touch and pinprick extremities A/P Assessment and Plan Neuro/Psych: Adjustment disorder History of THC use Status post Bradford act last admission. Seen by Dr. Manning and subsequently lifted. Currently on no anti-psychiatric medications. Acetaminophen for fever [place]/morphine for pain management CV: History of syncope Hypertension Elevated troponin Chronic diastolic heart failure Severe sepsis Home medication of hydralazine 75 mg by mouth 3 times a day and metoprolol 25 mg by mouth twice a day. Resume hydralazine 75 mg by mouth 3 times a day , Lopressor 12.5 mg twice a day with its needed labetalol/hydralazine and Nitropaste EKG revealed no acute cardiopulmonary findings consistent sinus tachycardia. Echocardiogram 10/04 revealed EF 55-60%. Mild LVH. Mild MR, TR and NE. Status post 1 liter of saline in ED. +2.5 L since admission. We'll attempt to diurese today see orders Resp: Acute respiratory failure secondary to HCAP Left-sided pneumonia Tobaccoism Currently on nasal cannula at 4 L to maintain a saturation greater than equal to 90% Refusing incentive spirometry. Wean as tolerated See ID for antibiotic coverage Bronchodilator therapy every 4 hours and as needed Chest x-ray 10/14 revealed a worsening dense left-sided pneumonia. Will order CT chest to better define GI: Hypoalbuminemia Elevated AST Moderate to severe protein calorie malnutrition ADA diet ordered Protonix for GI prophylaxis Colace/ Senokot for bowel regimen. : [place] if needed for accurate I's and O's in a critically ill patient Endo: Diabetes mellitus 2 Sliding-scale insulin with Accu-Cheks to maintain euglycemia. Before meals/at bedtime. Moderate regimen Metformin discontinued in light of creatinine greater than 2 Renal: Acute on chronic kidney disease stage IV to 5 Seen by nephrology last admission. No current indication for hemodialysis. Making borderline urine Status post 1 L in ED for severe sepsis. Will receive Lasix today Heme: Leukocytosis Anemia Follow CBC daily. Monitor trends. No indications for transfusion of blood products at this time. ID: HCAP Status post cefepime/azithromycin #2 in the ED for pneumonia. Added vancomycin day #2 Pertinent cultures 10/13 - blood cultures 2 - pending Influenza negative FEN: Hypocalcemia Replace electrolytes as clinically indicated 1 g calcium gluconate IV 1 now MSK: Left thumb, right second and third finger, right lower extremity amputation Diabetic foot ulcer Wound care evaluate and treat. Access - Utilize peripheral IV. Central line if indicated Prophylaxis - GI - Protonix - DVT - SCD/heparin subcutaneous Critical Care: The total critical care time was 35 minutes. Time to perform other separately billable procedures was not included in the critical care time. Pipo Almanza MD Oct 14, 2016 08:08 - DVT - SCD/heparin subcutaneous Critical Care: The total critical care time was 65 minutes. Time to perform other separately billable procedures was not included in the critical care time. Pipo Almanza MD Oct 14, 2016 08:08
[2016-10-14] MEDS ORDERED: CEFEPIME INJ 1,000 MG in SODIUM CHLORIDE 0.9% INJ 100 ML IV SCH (09:00)
[2016-10-14] MEDS: FERROUS SULFATE 325 MG (65 MG ELEMENTAL IRON) TAB PO SCH ×2 (09:00→19:21)
[2016-10-14] MEDS ORDERED: CALCIUM GLUCONATE INJ 1 GM in SODIUM CHLORIDE 0.9% INJ 100 ML IV ONE (09:30)
[2016-10-14] MEDS: FUROSEMIDE 40 MG/4 ML VIAL IV PUSH SCH ×2 (10:28→17:08)
[2016-10-14] MEDS: AZITHROMYCIN 250 MG TAB PO SCH (10:28)
[2016-10-14] MEDS: ASCORBIC ACID 500 MG TAB PO SCH ×2 (10:29→19:20)
[2016-10-14] MEDS: METOPROLOL TARTRATE 25 MG TAB PO SCH ×2 (10:29→19:20)
[2016-10-14] MEDS: INSULIN DETEMIR 100 UNITS/ML VIAL SQ SCH ×2 (10:29→19:23)
[2016-10-14] MEDS: DOCUSATE SODIUM 100 MG CAP PO SCH ×2 (10:29→19:21)
[2016-10-14] MEDS: PANTOPRAZOLE SOD 40 MG DELAYED RELEASE TAB PO SCH (10:29)
[2016-10-14] MEDS: SODIUM CHLORIDE 0.9% FLUSH 5 ML FLUSH IV FLUSH SCH ×2 (10:30→19:22)
[2016-10-14] MEDS: SENNOSIDES 8.6 MG TAB PO SCH ×2 (11:30→19:32)
--- NOTE | 2016-10-14 12:17 | OTSOAPIP ---
TIME SESSION COMPLETED: 1200 PM TREATMENT TIME: 0 MINS. CHART REVIEWED. RECEIVED ORDERS FOR OCCUPATIONAL THERAPY FROM DR. CLARK. ATTEMPTED TO SEE PATIENT HOWEVER RN REQUESTED TO HOLD EVALUATION THIS DATE PATIENT HAD RESPIRATORY DISTRESS EARLIER AND REQUIRED MEDICATION. INTERDISCIPLINARY COMMUNICATION: REVIEWED ELECTRONIC MEDICAL RECORD, SPOKE WITH ROSENDA SUNG Therapist: Maddie Francis, OTR/L Signature on file
[2016-10-14] MEDS ORDERED: VANCOMYCIN 1,500 MG/NS 500 ML IV ONE ×2 (13:00)
[2016-10-14] MEDS: MORPHINE SULFATE 4 MG/ML INJ IV PRN ×2 (13:45→19:22)
[2016-10-14] MEDS: DEXTROSE 50% IN WATER 50 ML VIAL(D50) IV PUSH PRN ×4 (17:08→20:35)
[2016-10-14] MEDS: LORazepam 2 MG/ML VIAL IV PUSH PRN (17:08)
[2016-10-14] MEDS ORDERED: FUROSEMIDE 40 MG/4 ML VIAL IV PUSH STA (22:16)
[2016-10-14 22:36] LABS: BLOOD GAS BASE EXCESS -6.7 mmol/L (-2-2); BLOOD GAS CARBOXYHEMOGLOBIN 1.3 % (0-4); BLOOD GAS HCO3 19 mmol/L (22-26); BLOOD GAS O2 HGB SATURATION 85 % (90-100); BLOOD GAS OXYGEN CONTENT 10.5 Vol % (12.0-20.0); BLOOD GAS PCO2 45 mmHg (38-42); BLOOD GAS PO2 64 mmHg (61-120); BLOOD GAS TOTAL HGB 8.7 G/DL (12.0-16.0); TEMP CORR TO 98.6
[2016-10-14 22:37] LABS: CRITICAL VALUE YES; DRAW SITE RT RADIAL; FIO2 50 %; OXYGEN DEVICE BiPAP
[2016-10-14 22:38] LABS: NUMBER OF ARTERIAL PUNCTURES 1; STAT YES; ULNAR PULSE PRESENT
[2016-10-14] MEDS ORDERED: DEXTROSE 10% INJ 1,000 ML IV SCH (23:15)
[2016-10-15] VITALS (15 sets, daily range): BP systolic 111–167; BP diastolic 58–84; PULSE 92–104; RESP 17–36; TEMP 97.9–98.6; O2SAT 92–100
[2016-10-15] MEDS: LORazepam 2 MG/ML VIAL IV PUSH PRN ×2 (01:48→04:27)
[2016-10-15] MEDS: MORPHINE SULFATE 4 MG/ML INJ IV PRN ×2 (01:48→04:27)
[2016-10-15] MEDS: CHLORHEXIDINE GLUCONATE 2 % 1 PACK (2 CLOTHS) TOP SCH (01:49)
[2016-10-15] MEDS: RESP: ALBUTEROL 2.5 MG/IPRATROPIUM 0.5 MG NEB (SCH) INH ×6 (03:25→23:37)
[2016-10-15] MEDS: HEPARIN SODIUM - SQ 10,000 UNITS/ML VIAL SQ SCH ×2 (04:28→11:00)
[2016-10-15] MEDS: hydrALAZINE HCL 50 MG TAB PO SCH (04:28)
--- NOTE | 2016-10-15 04:29 | RADRPT ---
EXAM DATE/TIME: 10/15/2016 02:36 [facility] COMPARISON: CHEST SINGLE AP, October 14, 2016, 3:24. INDICATIONS : Shortness of breath, possible pulmonary disease. MEDICAL HISTORY : None. SURGICAL HISTORY : None. ENCOUNTER: Subsequent ACUITY: 3 days PAIN SCORE: Non-responsive. LOCATION: Bilateral chest FINDINGS: Esent bilateral consolidation and cardiomegaly. Small right effusion suspected. Osseous structures ar e intact. CONCLUSION: No significant change has occurred. Abhinav Sullivan MD on October 15, 2016 at 4:27 Board Certified Radiologist. This report was verified electronically.
[2016-10-15] MEDS: INSULIN NovoLIN REGULAR SUPPLEMENTAL SCALE SQ SCH ×5 (06:30→22:35)
[2016-10-15] MEDS ORDERED: ETOMIDATE 20 MG/10 ML VIAL ONE (08:03)
[2016-10-15] MEDS ORDERED: ROCURONIUM INJ 50 MG/5 ML VIAL ONE (08:03)
[2016-10-15] MEDS ORDERED: MIDAZOLAM HCL 5 MG/ML VIAL (1 ML) ONE (08:03)
[2016-10-15] MEDS ORDERED: PROPOFOL 1000 MG/100 ML INJ 100 ML ONE ×2 (08:04→12:59)
--- NOTE | 2016-10-15 08:59 | PD.PROCEDR ---
Procedure Note Procedure After the risks and benefits were discussed the following procedure was performed: INTUBATION: The patient was put in optimal position for the procedure. Rapid sequence intubation was initiated by me using 20 milligrams of etomidate IV, 50 mcg Fentanyl IV and 5 milligrams of Versed IV. Neuromuscular paralysis with 50 mg of rocuronium IV. The patient was intubated with a 8.0 cuffed endotracheal tube. DL with Mac 4 blade and Grade 1 view. Tube placement was confirmed by visualization of the tube and balloon passing through the cords, capnometry and subsequent chest x-ray. Breath sounds were equal and well aerated bilaterally postintubation. No breath sounds over stomach. Patient tolerated procedure well. Vicky Gautam MD Oct 15, 2016 08:59
[2016-10-15] MEDS: METOPROLOL TARTRATE 25 MG TAB PO SCH ×2 (09:00→19:54)
[2016-10-15] MEDS: PANTOPRAZOLE SOD 40 MG DELAYED RELEASE TAB PO SCH (09:00)
[2016-10-15] MEDS: FERROUS SULFATE 325 MG (65 MG ELEMENTAL IRON) TAB PO SCH (09:00)
--- NOTE | 2016-10-15 09:01 | PD.PROCEDR ---
Central Line Procedure REASON FOR PROCEDURE Central venous access PROCEDURE PERFORMED Central line placement: LIJ central line US guided CONSENT Informed consent for procedure was obtained prior to intubation. The risks and benefits of the procedure were discussed to include but limited to bleeding, clot formation, infection, and even . ANESTHESIA Local injection of 1% Lidocaine DESCRIPTION OF THE PROCEDURE The patient was placed in supine, mild Trendelenburg position. The area was exposed and cleansed with ChloraPrep, times two. Large sterile drape was used to cover the patient, with the site exposed, under sterile conditions including cap, face mask, sterile gown, and sterile gloves. On single attempt, the introducer needle was inserted with negative pressure in syringe and venous flash was obtained. The guide wire was then advanced without any restriction and the needle was removed. The dilator was used without any complications. Using Seldinger technique the 20 cm 7F triple lumen ABX coated catheter was advanced over the guide wire to a depth of 17 centimeters. The guide wire was removed. All ports were aspirated with dark venous blood return and flushed easily with sterile saline. All ports were capped. Antibiotic disc was placed around central line at puncture site. The central line was secured to the skin with two interrupted 2.0 silk sutures. The area was bandaged with sterile see- through central line bandage. RADIOLOGICAL DATA Ultrasound guidance was used to locate LIJ. Doppler/color flow was used to confirm venous flow. COMPLICATIONS: No apparent complications ESTIMATED BLOOD LOSS: Less than 1 cc. Vicky Gautam MD Oct 15, 2016 09:01
--- NOTE | 2016-10-15 09:02 | OTSOAPIP ---
TIME SESSION COMPLETED: 09:00 AM TREATMENT TIME: 0 MINS. CHART REVIEWED. REATTEMPTED TO SEE PATIENT THIS AM FOR INITIAL OT EVALUATION, HOWEVER PATIENT WAS JUST INTUBATED PER ROSENDA TOBIAS. WILL HOLD AND FOLLOW UP TOMORROW. INTERDISCIPLINARY COMMUNICATION: REVIEWED ELECTRONIC MEDICAL RECORD, SPOKE WITH ROSENDA TOBIAS Therapist: Maddie Francis, OTR/L Signature on file
--- NOTE | 2016-10-15 09:10 | HHI.CCPN ---
Subjective Remarks/Hospital Course 50-year-old [place] male. Date of admission 10/13/2016. Past medical history includes adjustment disorder, history of syncope, anemia, diabetes mellitus, hypertension and peripheral neuropathy. He presents to [facility] emergency department via EMS for shortness of breath. Patient was originally admitted to [facility] from 10/03/2016 until 10/12/2016 for multiple medical issues including right leg pain with shortness of breath times 3 days. He developed acute respiratory failure on the secondary to volume overload from blood transfusions. Echocardiogram revealed EF 55-60% with mild LVH, mild MR, TR and KS. He diuresed with IV Lasix and treated with BiPAP. This was weaned off and and patient was off oxygen as of 10/11. Dopplers are negative the right lower extremity. He does have some right inguinal lymphadenopathy however. 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 The patient signed out against medical aide, yesterday, from the hospital EMS was call if the patient was complaining of increasing shortness of breath, dry nonproductive cough, but denies any company chest pain. The patient was placed on CPAP by EMS prior to arrival, his high saturation per EMS was 88% on CPAP. The patient's symptoms are moderate, there are no current alleviating or exacerbating factors. Chest x-ray revealed extensive lobar pneumonia. Currently on BiPAP 03/22 at 40% and breathing comfort. Subjective 10/14: Currently on 4 L nasal cannula. Intermittently on BiPAP overnight. Frustrated. Requesting home O2. 10/15: Patient in severe respiratory distress today, not tolerating BiPAP, currently on 100% nonrebreather very tachypneic hardly can stop. Initially reluctant to get intubated, but after discussion he agreed for endotracheal intubation. I emergently intubated him on placed on mechanical ventilation. Prior to intubation patient had coarse crackles and reduces extensively on bilateral lung dial. Chest x-ray showed almost complete whiteout of the bilateral lung dial indicating probable ARDS. BUN 92 cr 4.3. UO 1.9 L in 24 hour. Nephrology consulted may need hemodialysis. Also will consider prone therapy after CT chest Objective Vital Signs Date Time Temp Pulse Resp B/P Pulse Ox O2 Delivery O2 Flow Rate FiO2 10/15/16 08:20 96 100 10/15/16 07:27 Non-Rebreather 15.00 10/15/16 06:00 99 10/15/16 04:00 98.6 17 125/68 Intake and Output 10/14/16 10/14/16 10/15/16 08:00 16:00 00:00 Intake Total 480 ml 400 ml Output Total 400 ml 500 ml 400 ml Balance 80 ml -100 ml -400 ml Result Diagram: 10/14/16 0524 10/14/16 0524 Other Results Microbiology Date/Time Procedure Status Source Growth 10/13/16 09:32 Influenza Types A,B Antigen (HARIKA) - Final Complete Nasal Aspirate NEGATIVE FOR FLU A AND B ANTIGEN.... Laboratory Tests Test 10/14/16 22:18 Blood Gas Puncture Site RT RADIAL Blood Gas Patient Temperature 98.6 Blood Gas HCO3 19 mmol/L (22-26) Blood Gas Base Excess -6.7 mmol/L (-2-2) Blood Gas Oxygen Saturation 85 % (90-100) Arterial Blood pH 7.25 (7.380-7.420) Arterial Blood Partial 45 mmHg (38-42) Pressure CO2 Arterial Blood Partial 64 mmHg Pressure O2 (61-120) Arterial Blood Oxygen Content 10.5 Vol % (12.0-20.0) Arterial Blood 1.3 % (0-4) Carboxyhemoglobin Arterial Blood Methemoglobin 2.0 % (0-2) Blood Gas Hemoglobin 8.7 G/DL (12.0-16.0) Oxygen Delivery Device BiPAP Blood Gas Inspired Oxygen 50 % Imaging Last Impressions Chest X-Ray 10/14/16 0000 Signed Impressions: Service Date/Time: Friday, October 14, 2016 03:24 - CONCLUSION: Worsening appearance of the chest. Abhinav Sullivan MD Objective Remarks GENERAL: 50-year-old AA male, critically ill currently on NRB, very tachypneic, unable to speak SKIN: Warm and dry. HEAD: Atraumatic. Normocephalic. EYES: Pupils equal and round. No scleral icterus. No injection or drainage. ENT: No nasal bleeding or discharge. Mucous membranes pink and moist. NECK: Trachea midline. No JVD. CARDIOVASCULAR: Tachycardic, RR. S1, S2 no S4. Faint 1/6 murmur and sternal RESPIRATORY: Coarse crackles appreciated throughout both lung dial. Bilateral wheezes and rhonchi GASTROINTESTINAL: Abdomen soft, non-tender, nondistended. Positive bowel sounds MUSCULOSKELETAL: Extremities with right partial lower extremity amputation, laceration noted depressed 2 x 2 centimeters at plantar aspect of right partial amputation. Irritation of left thumb and right second and third fingers noted. NEUROLOGICAL: Awake and alert. Severe respiratory distress and impending arrest limits neuro exam Urinary Catheter: Yes Assessment to: Continue Vascular Central Line Catheter: Yes Assessment to: Continue Date of Insertion: Oct 15, 2016 Side: Left Location: Internal, Jugular A/P Assessment and Plan Neuro/Psych: Adjustment disorder History of THC use Status post [place] act last admission. Seen by Dr. Manning and subsequently lifted. Currently on no anti-psychiatric medications. Acetaminophen for fever Post intubation started on propofol and fentanyl for sedation and ventilator synchrony CV: Acute on Chronic diastolic heart failure Severe sepsis History of syncope Hypertension Elevated troponin Home medication of hydralazine 75 mg by mouth 3 times a day and metoprolol 25 mg by mouth twice a day. Currently on hydralazine 75 mg by mouth 3 times a day , Lopressor 12.5 mg twice a day with its needed labetalol/hydralazine and Nitropaste Will hold blood pressure medications if hypotensive EKG revealed no acute cardiopulmonary findings consistent sinus tachycardia. Echocardiogram 10/04 revealed EF 55-60%. Mild LVH. Mild MR, TR and KS. Received 40 mg of Lasix IV overnight and currently on 40 mg Lasix every 12, nephrology consult pending. DC IV Lasix. Start Bumex infusion 0.5 mg per hour after 2 mg Bumex IV push Resp: Acute hypoxemic respiratory failure ARDS Multilobar healthcare associated pneumonia Tobaccoism Emergently intubated and placed on mechanical ventilation today 10/15/16 Low tidal volume mechanical ventilation with PEEP 14. ACV 16/550/14/100% Ventilator bundle, DuoNeb every 4 hours scheduled and when necessary Sputum culture See ID for antibiotic coverage CT chest to better define bilateral lung infiltrate Consider prone therapy if respiratory status is not improving with adequate fluid removal GI: Hypoalbuminemia Elevated AST Moderate to severe protein calorie malnutrition NPO. Start tube feeds and next 24 hours Protonix for GI prophylaxis Colace/ Senokot for bowel regimen. : Acute on chronic kidney disease Place [place]. Start Bumex infusion 0.5 mg per hour after 2 mg Bumex IV push Nephrology consulted Endo: Hypoglycemia Diabetes mellitus 2 Hold all insulin. Continue D10 infusion at 42 mL per hour for hypoglycemia Heme: Leukocytosis Anemia Follow CBC daily. Monitor trends. No indications for transfusion of blood products at this time. ID: HCAP Severe sepsis Status post cefepime/azithromycin #3 for pneumonia. Also vancomycin day #3 Pertinent cultures 10/13 - blood cultures 2 -negative to date Send sputum culture today 10/15/16 Influenza negative MSK: Left thumb, right second and third finger, right lower extremity amputation Diabetic foot ulcer Wound care evaluate and treat. Access - Utilize peripheral IV. Left IJ central line placed 10/15/16 Prophylaxis - GI - Protonix - DVT - SCD/heparin subcutaneous Critical Care: The total critical care time was 78 minutes. Excluding procedures Patient remains critically ill with severe sepsis ARDS and severe hypoxemia. He was emergently intubated and placed on mechanical ventilation. Based on CAT scan of chest and response to Bumex, he may need prone therapy Vicky Gautam MD Oct 15, 2016 09:10 - GI - Protonix - DVT - SCD/heparin subcutaneous Critical Care: The total critical care time was 35 minutes. Time to perform other separately billable procedures was not included in the critical care time. Vicky Gautam MD Oct 15, 2016 09:10
--- NOTE | 2016-10-15 09:21 | RADRPT ---
EXAM DATE/TIME: 10/15/2016 08:49 [facility] COMPARISON: CHEST SINGLE AP, October 15, 2016, 2:36. INDICATIONS : Post intubation. MEDICAL HISTORY : None. SURGICAL HISTORY : None. ENCOUNTER: Subsequent ACUITY: 3 days PAIN SCORE: Non-responsive. LOCATION: Bilateral chest FINDINGS: A single view of the chest demonstrates ET tube and left sided central line in good position. There i s no pneumothorax. There continues to be bilateral interstitial and airspace infiltrates throughout b oth lung dial, left greater than right. The heart size is enlarged but stable. There is a small rig ht-sided effusion. The bony structures are stable.. CONCLUSION: 1. The ET tube and left central line are in good position. 2. No pneumothorax. 3. Bilateral pulmonary infiltrates. Yoandy Nj MD on October 15, 2016 at 9:18 Board Certified Radiologist. This report was verified electronically.
[2016-10-15 09:31] LABS: BACTERIA, URINE OCC /hpf; BLOOD, URINE LARGE (NEG); GLUCOSE,URINE NEG (NEG); KETONE, URINE NEG (NEG); MUCUS URINE FEW /lpf (OCC); NITRITE,URINE NEG (NEG); PH, URINE 5.5 (5.0-8.5); SQUAMOUS EPITHELIAL CELL URINE 2 /hpf (0-5); URINE COLOR LIGHT-RED (YELLW/STRAW)
[2016-10-15 09:32] LABS: COMMENT (UR) CATH-CULTURE IND; CULTURE IF INDICATED CATH CULTURE IND
[2016-10-15 09:42] LABS: BLOOD GAS CARBOXYHEMOGLOBIN 1.2 % (0-4); BLOOD GAS HCO3 19 mmol/L (22-26); BLOOD GAS METHEMOGLOBIN 2.4 % (0-2); BLOOD GAS O2 HGB SATURATION 95 % (90-100); BLOOD GAS OXYGEN CONTENT 9.9 Vol % (12.0-20.0); BLOOD GAS PCO2 48 mmHg (38-42); BLOOD GAS PO2 176 mmHg (61-120); BLOOD GAS TOTAL HGB 7.2 G/DL (12.0-16.0); CRITICAL VALUE YES; OXYGEN DEVICE VENTILATOR; TEMP CORR TO 98.6
[2016-10-15 09:43] LABS: DRAW SITE RT RADIAL; FIO2 100 %; NUMBER OF ARTERIAL PUNCTURES 1; STAT NO; ULNAR PULSE PRESENT; VENT SETTINGS AC/16/500/PEEP14
[2016-10-15] MEDS: fentaNYL DRIP 250 ML IV SCH (09:44)
[2016-10-15] MEDS: ASCORBIC ACID 500 MG TAB PO SCH ×2 (09:44→19:54)
[2016-10-15] MEDS: AZITHROMYCIN 250 MG TAB PO SCH (09:44)
[2016-10-15] MEDS: SODIUM CHLORIDE 0.9% FLUSH 5 ML FLUSH IV FLUSH SCH ×2 (09:45→19:54)
[2016-10-15] MEDS ORDERED: BUMETANIDE INJ 1 MG/4 ML VIAL IV PUSH ONE (10:00)
[2016-10-15] MEDS ORDERED: PROPOFOL 1000 MG/100 ML INJ 100 ML IV SCH (10:00)
[2016-10-15 10:17] LABS: MEAN CELL VOLUME 91.8 FL (80.0-100.0); MEAN CORPUSCULAR HEMOGLOBIN 28.3 PG (27.0-34.0); MEAN CORPUSCULAR HGB CONC 30.8 % (32.0-36.0); PLATELET COUNT 210 TH/MM3 (150-450); RED CELL DISTRIBUTION WIDTH 17.9 % (11.6-17.2); WHITE BLOOD COUNT 12.7 TH/MM3 (4.0-11.0)
[2016-10-15 10:21] LABS: REVIEW FLAG FINAL
--- NOTE | 2016-10-15 10:55 | RADRPT ---
EXAM DATE/TIME: 10/15/2016 10:17 [facility] COMPARISON: CHEST SINGLE AP, October 15, 2016, 8:49. INDICATIONS : Short of breath, pneumonia. RADIATION DOSE: 4.94 CTDIvol (mGy) MEDICAL HISTORY : Cardiovascular disease. Diabetes mellitus type 2. SURGICAL HISTORY : None. ENCOUNTER: Initial ACUITY: 3 days PAIN SCALE: 5/10 LOCATION: chest TECHNIQUE: Volumetric scanning of the chest was performed. Using automated exposure control and adjustment of t he mA and/or kV according to patient size, radiation dose was kept as low as reasonably achievable to obtain optimal diagnostic quality images. FINDINGS: LUNGS: There is diffuse prominence interstitial and airspace infiltrates throughout both lung dial. There is consolidation with atelectasis in both lung bases, left greater than right. There is no evidence o f pneumothorax. PLEURAE: There is a very small left pleural effusion. There is a small to moderate right effusion. MEDIASTINUM: The heart and great vessels demonstrate no acute abnormality. There is no mediastinal or hilar lymph adenopathy. The ET tube is in good position. The heart size is enlarged. AXILLAE: Within normal limits. No lymphadenopathy. MUSCULOSKELETAL: Within normal limits for patient age. MISCELLANEOUS: The visualized upper abdominal organs demonstrate no acute abnormality. CONCLUSION: 1. Diffuse prominent bilateral interstitial and airspace infiltrates throughout both lung dial. 2. There is atelectasis and compression of the lower lung dial, left greater than right. 3. Small to moderate right-sided pleural effusion. Yoandy Nj MD on October 15, 2016 at 10:50 Board Certified Radiologist. This report was verified electronically.
[2016-10-15] MEDS: PANTOPRAZOLE SODIUM 40 MG VIAL IV PUSH SCH (11:00)
[2016-10-15] MEDS: DOCUSATE SODIUM 100 MG/10 ML UDC OG-TUBE SCH ×2 (11:00→19:54)
[2016-10-15] MEDS: SENNOSIDES SYRUP 8.8 MG/5 ML CUP OG-TUBE SCH ×2 (11:00→19:54)
[2016-10-15] MEDS: FERROUS SULFATE 300 MG /5ML UDC OG-TUBE SCH ×2 (11:02→19:54)
[2016-10-15 11:18] LABS: BICARBONATE 19.9 MEQ/L (21.0-32.0); MAGNESIUM 1.9 MG/DL (1.5-2.5); POTASSIUM 5.3 MEQ/L (3.5-5.1)
[2016-10-15] MEDS: BUMETANIDE INJ 100 ML IV SCH (11:42)
[2016-10-15] MEDS ORDERED: SODIUM BICARBONATE 8.4% INJ 50 MEQ/50 ML SYR IV PUSH ONE ×2 (11:45→17:30)
[2016-10-15 11:47] LABS: CALCIUM-PROTEIN CORRECTED 7.5 MG/DL (8.5-10.1)
[2016-10-15] MEDS ORDERED: SODIUM CHLOR 0.9% 1000 ML INJ 1,000 ML IV PRN (12:44)
[2016-10-15] MEDS ORDERED: GELATIN 12 MM/7 MM FOAM TOP PRN (12:45)
[2016-10-15] MEDS ORDERED: cloNIDine HCL 0.1 MG TAB PO PRN (12:45)
[2016-10-15] MEDS ORDERED: ACETAMINOPHEN 325 MG TAB PO PRN (12:45)
[2016-10-15] MEDS ORDERED: ONDANSETRON HCL 4 MG/2 ML VIAL IV PRN (12:45)
[2016-10-15] MEDS ORDERED: NITROGLYCERIN 0.4 MG SL 25 TABS/BTL SL PRN (12:45)
[2016-10-15] MEDS ORDERED: diphenhydrAMINE HCL 25 MG CAP PO PRN (12:45)
[2016-10-15] MEDS: DEXTROSE 10% INJ 500 ML IV SCH (12:45)
[2016-10-15] MEDS ORDERED: HEPARIN SODIUM - IV 10,000 UNITS/10 ML VIAL IVF PRN (12:45)
[2016-10-15] MEDS ORDERED: MANNITOL 12.5 GM/50 ML VIAL IV PRN (12:45)
--- NOTE | 2016-10-15 12:58 | PD.CONS ---
HPI Consult Requested By Primary Care Physician No Primary Care Physician Review of Systems ROS Limitations: Clinical Condition, Intubated Past Family Social History Allergies: Coded Allergies: *MDRO Multi-Drug Resistant Organism (Verified Adverse Reaction, Unknown, ) MRSA PCR Screen POSITIVE - 10/04/2016 Past Medical History Obtained from the chart. Adjustment disorder History syncope Anemia Diabetes mellitus Hypertension Peripheral neuropathy Past Surgical History Amputation of right first and/fifth toes. Converted to partial right foot amputation Amputation of left thumb Amputation of right second/third fingers Reported Medications Lasix 40 mg by mouth twice a day Iron sulfate 325 mg by mouth twice a day Hydralazine 75 mg by mouth 3 times a day Metoprolol 25 mg by mouth twice a day Metformin 500 mg by mouth twice a day Kincaid as needed Active Ordered Medications Current Medications Medications (Trade) Dose Ordered Sig/John Route Start Time Stop Time Status Last Admin (NS Flush) 2 ml UNSCH PRN IV FLUSH 10/13/16 11:30 (NS Flush) 2 ml BID IV FLUSH 10/13/16 21:00 10/15/16 09:45 (Tylenol) 650 mg Q6H PRN PO 10/13/16 11:30 (Kincaid 5-325 Mg) 1 tab Q4H PRN PO 10/13/16 11:30 (Morphine Inj) 2 mg Q2H PRN IV 10/13/16 11:30 10/15/16 04:27 (Zofran Inj) 4 mg Q6H PRN IV 10/13/16 11:30 Miscellaneous Information 1 Q361D XX 10/13/16 11:30 (Chlorhexidine 2% Cloth) 3 pack Taper DAILY@04 TOP 10/14/16 04:00 10/10/17 03:59 10/15/16 01:49 Chlorhexidine Gluconate 3 pack 3 pack UNSCH PRN TOP 10/13/16 11:30 (Vancomycin Consult Pharmacy) 0 ml @ 0 mls/hr UNSCH XX 10/13/16 11:30 (Heparin Inj) 5,000 units Q12H SQ 10/13/16 12:00 10/15/16 11:00 (Zithromax) 500 mg DAILY PO 10/14/16 09:00 10/15/16 09:44 (Nitroglycerin 2% Oint) 2 inch Q6HR PRN TOPICAL 10/13/16 12:00 10/13/16 22:18 (Apresoline Inj) 10 mg Q1HR PRN IV PUSH 10/13/16 12:00 10/14/16 03:05 (D50w (Vial) Inj) 25 ml UNSCH PRN IV PUSH 10/14/16 06:45 10/14/16 20:35 (Glucagon Inj) 1 mg UNSCH PRN OTHER 10/14/16 06:45 (Apresoline) 75 mg Q8HR PO 10/14/16 14:00 Hold 10/14/16 19:27 (Vitamin C) 500 mg BID PO 10/14/16 09:00 10/15/16 09:44 (Levemir Inj) 5 units Q12HR SQ 10/14/16 09:00 Hold 10/14/16 10:29 (Lopressor) 12.5 mg Q12HR PO 10/14/16 09:00 10/14/16 19:20 (Ativan Inj) 1 mg Q6H PRN IV PUSH 10/14/16 13:45 10/15/16 04:27 Chlorhexidine Gluconate 15 ml 15 ml BID@08,20 MT 10/15/16 20:00 Fentanyl Citrate 250 ml @ 0 mls/hr TITRATE IV 10/15/16 10:00 10/15/16 09:44 Bumetanide 100 ml @ 2 mls/hr CONTINUOUS IV 10/15/16 12:00 10/15/16 11:42 (Maxipime Inj/NS Inj) 100 ml @ 200 mls/hr Q24H IV 10/15/16 21:00 (Protonix Inj) 40 mg DAILY IV PUSH 10/15/16 10:30 10/15/16 11:00 (Colace Liq) 100 mg BID OG-TUBE 10/15/16 10:30 10/15/16 11:00 (Ferrous Sulfate Liq) 300 mg BID OG-TUBE 10/15/16 10:30 10/15/16 11:02 (Senna Liq) 17.6 mg BID OG-TUBE 10/15/16 11:00 10/15/16 11:00 (NovoLIN R SUPPLEMENTAL SCALE) 1 Q3H SQ 10/15/16 14:00 Sodium Bicarbonate 50 meq 50 meq NOW ONCE IVP 10/15/16 13:00 10/15/16 13:01 (D10w 500 ml Inj) 500 ml @ 40 mls/hr [id number] IV 10/15/16 12:45 UNV Family History Mother with diabetes. Grandmother with diabetes. Unknown father history. Obtained from the chart. Social History Positive THC use. +5-6 cigarettes daily. Denies alcohol or IV drug use. Obtained from the chart. Physical Exam Vital Signs Vital Signs Date Time Temp Pulse Resp B/P Pulse Ox O2 Delivery O2 Flow Rate FiO2 10/15/16 11:17 98 100 10/15/16 08:20 96 100 10/15/16 07:27 98 Non-Rebreather 15.00 10/15/16 06:00 99 10/15/16 04:00 101 10/15/16 04:00 98.6 101 17 125/68 98 10/15/16 02:00 103 10/15/16 01:18 100 50 10/15/16 00:00 104 10/15/16 00:00 98.0 104 27 123/61 100 10/14/16 22:00 96 10/14/16 20:02 97 40 10/14/16 20:00 87 10/14/16 20:00 97.5 87 23 120/67 97 10/14/16 18:00 91 10/14/16 16:00 98.0 92 24 151/83 100 10/14/16 16:00 92 10/14/16 15:48 99 40 10/14/16 14:00 119 Physical Exam GENERAL: patient is intubated, he is unresponsive. SKIN: Warm and dry. HEAD: Normocephalic. EYES: No scleral icterus. No injection or drainage. NECK: Supple, trachea midline. No JVD or lymphadenopathy. CARDIOVASCULAR: Regular rate and rhythm without murmurs, gallops, or rubs. RESPIRATORY: bilateral rhonchi, decreased breath sounds. Vented breath sounds heard bilaterally. GASTROINTESTINAL: Abdomen soft, non-tender, nondistended. MUSCULOSKELETAL: No cyanosis, or edema. Amputation of toes on the right foot. Ulcer on the right foot plantar surface. BACK: Nontender without obvious deformity. No CVA tenderness. Laboratory Laboratory Tests Test 10/14/16 10/15/16 10/15/16 10/15/16 22:18 07:15 09:32 09:50 Blood Gas Puncture Site RT RADIAL RT RADIAL Blood Gas Patient Temperature 98.6 98.6 Blood Gas HCO3 19 19 Blood Gas Base Excess -6.7 -8.0 Blood Gas Oxygen Saturation 85 95 Arterial Blood pH 7.25 7.21 Arterial Blood Partial 45 48 Pressure CO2 Arterial Blood Partial 64 176 Pressure O2 Arterial Blood Oxygen Content 10.5 9.9 Arterial Blood 1.3 1.2 Carboxyhemoglobin Arterial Blood Methemoglobin 2.0 2.4 Blood Gas Hemoglobin 8.7 7.2 Oxygen Delivery Device BiPAP VENTILATOR Blood Gas Inspired Oxygen 50 100 Urine Color LIGHT-RED Urine Turbidity CLOUDY Urine pH 5.5 Urine Specific [place] 1.018 Urine Protein 300 Urine Glucose (UA) NEG Urine Ketones NEG Urine Occult Blood LARGE Urine Nitrite NEG Urine Bilirubin NEG Urine Urobilinogen LESS THAN 2.0 Urine Leukocyte Esterase TRACE Urine RBC Urine WBC 17 Urine Squamous Epithelial 2 Cells Urine Amorphous Sediment RARE Urine Bacteria OCC Urine Mucus FEW Microscopic Urinalysis Comment CATH-CULTURE IND Blood Gas Ventilator Setting AC/16/500/PEEP14 White Blood Count 12.7 Red Blood Count 2.40 Hemoglobin 6.8 Hematocrit 22.0 Mean Corpuscular Volume 91.8 Mean Corpuscular Hemoglobin 28.3 Mean Corpuscular Hemoglobin 30.8 Concent Red Cell Distribution Width 17.9 Platelet Count 210 Mean Platelet Volume 8.9 Sodium Level 143 Potassium Level 5.3 Chloride Level 112 Carbon Dioxide Level 19.9 Anion Gap 11 Blood Urea Nitrogen 101 Creatinine 4.23 Estimat Glomerular Filtration 18 Rate Random Glucose 140 Calcium Level 7.4 Protein Corrected Calcium 7.5 Phosphorus Level 4.5 Magnesium Level 1.9 Total Protein 7.0 Random Vancomycin Level 27.4 Test 10/15/16 10:45 Blood Type A POSITIVE Antibody Screen NEGATIVE Crossmatch Leukocyte-Reduced Red Blood Cells Blood Bank Comment Date/Time Procedure Status Source Growth 10/15/16 09:30 Gram Stain Received Sputum Endotracheal Pending 10/15/16 09:30 Sputum Culture Received Sputum Endotracheal Pending 10/15/16 07:15 Urine Culture Received Urine Clean Catch Pending 10/13/16 13:00 Urine Culture - Preliminary Resulted Urine Catheterized Urine NO GROWTH IN 24 HOURS. 10/13/16 13:00 Legionella Antigen - Final Resulted Urine Catheterized Urine PRESUMPTIVE NEGATIVE FOR LEGIONELLA P... 10/13/16 13:00 Streptococcus pneumoniae Antigen (M - Preliminary Resulted Urine Catheterized Urine 10/13/16 13:00 Received Other Pending 10/13/16 09:32 Influenza Types A,B Antigen (HARIKA) - Final Complete Nasal Aspirate NEGATIVE FOR FLU A AND B ANTIGEN.... 10/13/16 08:35 Aerobic Blood Culture - Preliminary Resulted Blood Peripheral NO GROWTH IN 2 DAYS 10/13/16 08:35 Anaerobic Blood Culture - Preliminary Resulted Blood Peripheral NO GROWTH IN 2 DAYS Result Diagram: 10/15/16 0950 10/15/16 0950 Assessment and Plan Problem List: (1) Chronic kidney disease, stage 5 Plan: GFR this month has been consistent with stage V CKD. He has heavy proteinuria, most likely has diabetic nephropathy. In June 2016 his creatinine was 2.4, there may be an element of JULIA. It should be noted however that during his previous admission to this facility this month, his GFR had declined significantly, and had not improved to baseline levels of last year at the time of discharge. Stage V CKD may be his new baseline. At this time he is oliguric. Serum potassium level has increased. We will need to initiate dialysis. Previously he did not want to initiate dialysis, but apparently he agreed to have dialysis just before intubation. Discussed with Dr. Gautam. (2) HCAP (healthcare-associated pneumonia) Plan: He is on Cefepime, has received Vancomycin. He has moderately large right sided pleural effusion. (3) Respiratory failure Plan: ARDS. Ventilator support. (4) DM (diabetes mellitus) Plan: insulin coverage. Maintain blood glucose between 140 and 180 while hospitalized. (5) Sepsis Plan: due to pneumonia. (6) Hyperkalemia Plan: Dialysis today. Monitor. Assessment and Plan Thanks for the consult. Overall poor prognosis. At high risk for morbidity and mortality. Problem Qualifiers (1) Sepsis: Qualified Code: A41.9 - Sepsis, due to unspecified organism Tomas Blanc MD Oct 15, 2016 12:58
[2016-10-15] MEDS ORDERED: SODIUM BICARBONATE 8.4% INJ 50 MEQ/50 ML SYR IVP ONE (13:00)
[2016-10-15] MEDS ORDERED: DEXTROSE 5% IN WATE 1000ML INJ 1,000 ML IV SCH (13:00)
--- NOTE | 2016-10-15 13:59 | PD.PROCEDR ---
Procedure Note Procedure R thoracentesis Indication: Large right pleural effusion A time-out was completed verifying correct patient, procedure, site, positioning , and special equipment if applicable. The patient's right side was prepped and draped in a sterile manner after the appropriate infiltration level was confirmed by ultrasound. 1% lidocaine was used anesthetize the surrounding skin. A 10-blade scalpel used to make the incision. The thoracentesis Angio cath was then introduced without difficulty and needle was removed. Catheter was connected to Vacutainer bottle and 1700 ml straw colored fluid was removed. A post-procedure chest x-ray was ordered and the fluid will be sent for several studies. Estimated Blood Loss: <1 ml The patient tolerated the procedure well and there were no immediate complications. Vicky Gautam MD Oct 15, 2016 13:59
--- NOTE | 2016-10-15 15:09 | PD.PROCEDR ---
Central Line Procedure REASON FOR PROCEDURE Central venous access PROCEDURE PERFORMED Central line placement: RIJ VasCath CONSENT Informed consent for procedure was obtained and time out performed. The risks and benefits of the procedure were discussed to include but limited to bleeding , clot formation, infection, and even . ANESTHESIA Local injection of 1% Lidocaine DESCRIPTION OF THE PROCEDURE The patient was placed in supine, mild Trendelenburg position. The area was exposed and cleansed with ChloraPrep, times two. Large sterile drape was used to cover the patient, with the site exposed, under sterile conditions including cap, face mask, sterile gown, and sterile gloves. On single attempt, the introducer needle was inserted with negative pressure in syringe and venous flash was obtained. The guide wire was then advanced without any restriction and the needle was removed. The dilator was used without any complications. Using Seldinger technique the 14F 20 CM VasCath was advanced over the guide wire to a depth of 18 centimeters. The guide wire was removed. All ports were aspirated with dark venous blood return and flushed easily with sterile saline. All ports were capped. Antibiotic disc was placed around central line at puncture site. The central line was secured to the skin with two interrupted 2.0 silk sutures. The area was bandaged with sterile see-through central line bandage. RADIOLOGICAL DATA Ultrasound guidance was used to locate RIJ. Doppler/color flow was used to confirm venous flow. COMPLICATIONS: No apparent complications ESTIMATED BLOOD LOSS: Less than 1 cc. Vicky Gautam MD Oct 15, 2016 15:09
--- NOTE | 2016-10-15 15:41 | RADRPT ---
EXAM DATE/TIME: 10/15/2016 14:57 [facility] COMPARISON: CHEST SINGLE AP, October 15, 2016, 8:49. INDICATIONS : Central line placement. MEDICAL HISTORY : None. SURGICAL HISTORY : Thoracentesis ENCOUNTER: Subsequent ACUITY: 4 - 6 days PAIN SCORE: Non-responsive. LOCATION: Bilateral chest FINDINGS: Right internal jugular catheter is in place with the tip projected in the right atrium. No evidence of pneumothorax. Endotracheal tube tip is 2.9 cm above the evan. Left internal jugular catheter t ip at the origin of the superior vena cava. Gastric tube traverses the [id number]. There is diff use air space opacities with air bronchograms throughout the entire left lung, similar in severity to prior. There is improved airspace opacities in the right lung with only minimal right infrahilar in filtrate. Right hemidiaphragm is well delineated. CONCLUSION: 1. Right internal jugular catheter is in good position. No evidence of pneumothorax. 2. Improved aeration of the right lung. Stable severe air space opacities throughout the left lung. Varun Senior MD on October 15, 2016 at 15:38 Board Certified Radiologist. This report was verified electronically.
[2016-10-15 16:55] LABS: BLOOD GAS BASE EXCESS -7.1 mmol/L (-2-2); BLOOD GAS CARBOXYHEMOGLOBIN 1.8 % (0-4); BLOOD GAS HCO3 19 mmol/L (22-26); BLOOD GAS METHEMOGLOBIN 2.2 % (0-2); BLOOD GAS O2 HGB SATURATION 94 % (90-100); BLOOD GAS OXYGEN CONTENT 10.7 Vol % (12.0-20.0); BLOOD GAS PCO2 49 mmHg (38-42); BLOOD GAS PO2 124 mmHg (61-120); BLOOD GAS TOTAL HGB 7.9 G/DL (12.0-16.0); TEMP CORR TO 98.6
[2016-10-15 16:55] LABS: TOTAL PROTEIN,PLEURAL FLUID 2.1 GM/DL
[2016-10-15 16:56] LABS: CRITICAL VALUE YES; DRAW SITE RT RADIAL; FIO2 50 %; NUMBER OF ARTERIAL PUNCTURES 1; OXYGEN DEVICE VENTILATOR; STAT NO; ULNAR PULSE PRESENT; VENT SETTINGS AC/18/550/PEEP10
[2016-10-15 17:31] LABS: PLEURAL FLUID LYMPHS 70 %
[2016-10-15] MEDS: HEPARIN SODIUM - IV 10,000 UNITS/10 ML VIAL PRN (18:27)
[2016-10-15] MEDS: GENTAMICIN SULFATE (DIALYSIS USE ONLY) 20 MG/2 ML VIAL IV PRN (18:27)
[2016-10-15] MEDS: SODIUM CHLOR 0.9% 1000 ML INJ 1,000 ML IV PRN (18:28)
[2016-10-15] MEDS: ALBUMIN HUMAN 25% 25 GM/100 ML BAGP IV PRN (18:28)
[2016-10-15] MEDS: DEXTROSE 50% IN WATER 50 ML VIAL(D50) IV PUSH PRN ×5 (19:53→23:01)
[2016-10-15] MEDS: CEFEPIME INJ 1,000 MG in SODIUM CHLORIDE 0.9% INJ 100 ML IV SCH (19:54)
[2016-10-15] MEDS: CHLORHEXIDINE 0.12% (ORAL KIT) 15 ML CUP MT SCH (19:55)
[2016-10-15] MEDS: PROPOFOL 1000 MG/100 ML IV SCH (20:17)
[2016-10-16] VITALS (16 sets, daily range): BP systolic 131–168; BP diastolic 67–91; PULSE 71–90; RESP 18–20; TEMP 97.5–98; O2SAT 97–100
[2016-10-16] MEDS: fentaNYL DRIP 250 ML IV SCH ×2 (00:17→15:28)
[2016-10-16] MEDS: HEPARIN SODIUM - SQ 10,000 UNITS/ML VIAL SQ SCH ×3 (00:21→22:54)
[2016-10-16] MEDS: DEXTROSE 50% IN WATER 50 ML VIAL(D50) IV PUSH PRN (00:21)
[2016-10-16] MEDS: DEXTROSE 10% INJ 500 ML IV SCH ×2 (01:15→13:05)
[2016-10-16] MEDS: INSULIN NovoLIN REGULAR SUPPLEMENTAL SCALE SQ SCH ×8 (01:16→22:54)
[2016-10-16] MEDS: PROPOFOL 1000 MG/100 ML IV SCH ×4 (01:18→22:36)
[2016-10-16] MEDS: RESP: ALBUTEROL 2.5 MG/IPRATROPIUM 0.5 MG NEB (SCH) INH ×6 (03:23→23:50)
[2016-10-16] MEDS: CHLORHEXIDINE GLUCONATE 2 % 1 PACK (2 CLOTHS) TOP SCH (04:00)
--- NOTE | 2016-10-16 04:42 | RADRPT ---
EXAM DATE/TIME: 10/16/2016 02:54 [facility] COMPARISON: CHEST SINGLE AP, October 15, 2016, 14:57. INDICATIONS : Shortness of breath, possible pulmonary disease. MEDICAL HISTORY : None. SURGICAL HISTORY : Thoracentesis ENCOUNTER: Subsequent ACUITY: 4 - 6 days PAIN SCORE: Non-responsive. LOCATION: Bilateral chest FINDINGS: There is persistent consolidation of the left lung unchanged. Endotracheal tube, enteric tube and rig ht jugular and left jugular lines are again seen. Cardiomegaly. Right lung is clear. CONCLUSION: No significant change has occurred. Abhinav Sullivan MD on October 16, 2016 at 4:40 Board Certified Radiologist. This report was verified electronically.
[2016-10-16 05:36] LABS: AUTOMATED NEUTROPHIL # 12.7 TH/MM3 (1.8-7.7); BASOPHIL % 0.3 % (0.0-2.0); EOSINOPHIL # 0.4 TH/MM3 (0-0.4); EOSINOPHIL % 2.7 % (0.0-4.0); HEMATOCRIT 22.7 % (39.0-51.0); HEMO FLAGS DIFF FINAL; LYMPH % 6.6 % (9.0-44.0); MEAN CELL VOLUME 90.2 FL (80.0-100.0); MEAN CORPUSCULAR HEMOGLOBIN 28.2 PG (27.0-34.0); MEAN CORPUSCULAR HGB CONC 31.3 % (32.0-36.0); MONO % 4.6 % (0.0-8.0); NEUT % 85.8 % (16.0-70.0); PLATELET COUNT 195 TH/MM3 (150-450); RED BLOOD COUNT 2.52 MIL/MM3 (4.50-5.90); RED CELL DISTRIBUTION WIDTH 17.3 % (11.6-17.2); WHITE BLOOD COUNT 14.8 TH/MM3 (4.0-11.0)
[2016-10-16 05:54] LABS: CALCIUM-PROTEIN CORRECTED 7.6 MG/DL (8.5-10.1); MAGNESIUM 1.8 MG/DL (1.5-2.5); POTASSIUM 4.6 MEQ/L (3.5-5.1); TOTAL BILIRUBIN ADULT 0.7 MG/DL (0.2-1.0)
[2016-10-16] MEDS: PANTOPRAZOLE SODIUM 40 MG VIAL IV PUSH SCH (07:45)
[2016-10-16] MEDS: FERROUS SULFATE 300 MG /5ML UDC OG-TUBE SCH ×2 (07:45→19:36)
[2016-10-16] MEDS: SENNOSIDES SYRUP 8.8 MG/5 ML CUP OG-TUBE SCH ×2 (07:45→19:36)
[2016-10-16] MEDS: DOCUSATE SODIUM 100 MG/10 ML UDC OG-TUBE SCH ×2 (07:45→19:37)
[2016-10-16] MEDS: ASCORBIC ACID 500 MG TAB PO SCH ×2 (07:45→19:38)
[2016-10-16] MEDS: METOPROLOL TARTRATE 25 MG TAB PO SCH ×2 (07:45→19:38)
[2016-10-16] MEDS: AZITHROMYCIN 250 MG TAB PO SCH (07:45)
[2016-10-16] MEDS: SODIUM CHLORIDE 0.9% FLUSH 5 ML FLUSH IV FLUSH SCH ×2 (07:45→19:37)
[2016-10-16] MEDS: CHLORHEXIDINE 0.12% (ORAL KIT) 15 ML CUP MT SCH ×2 (07:46→19:37)
--- NOTE | 2016-10-16 10:48 | HHI.NPPN ---
Subjective Interval History Remains on the ventilator. His condition is more stable. Underwent thoracentesis with removal of 1700 ml of pleural fluid from the right pleural cavity. Had dialysis with removal of 3 liters in UF. Patient's oxygen requirement has improved. He is on Bumex drip, non oliguric. Objective Data Data 10/15/16 10/16/16 19:00 07:00 Intake Total 1180 ml 1340 ml Output Total 325 ml 3675 ml Balance 855 ml -2335 ml IV Total 581 ml 1280 ml Packed Cells 359 ml Other 240 ml 60 ml Output Urine Total 325 ml 675 ml Stool Total 0 ml Hemodialysis 3000 ml Vital Signs Date Time Temp Pulse Resp B/P Pulse Ox O2 Delivery O2 Flow Rate FiO2 10/16/16 07:30 99 50 10/16/16 04:09 98 50 10/16/16 04:00 97.5 90 20 139/68 98 10/16/16 04:00 50 10/16/16 01:08 98 50 10/16/16 00:00 50 10/16/16 00:00 97.6 89 18 131/67 98 10/15/16 23:08 97 50 10/15/16 21:03 99 50 10/15/16 20:00 97.9 92 20 134/75 100 10/15/16 20:00 50 10/15/16 17:42 50 10/15/16 16:00 50 10/15/16 16:00 98.1 92 20 111/58 100 10/15/16 15:25 100 50 10/15/16 12:00 97.9 97 20 129/63 97 10/15/16 12:00 75 10/15/16 11:17 98 100 -: 10/16/16 0430 10/16/16 0430 Microbiology 10/15/16 Gram Stain - Final, Resulted 10/15/16 Body Fluid Culture, Resulted Pending 10/15/16 Acid Fast Stain, Received Pending 10/15/16 Mycobacterial Culture, Received Pending 10/15/16 Fungal Smear - Final, Resulted NO FUNGAL ELEMENTS SEEN. 10/15/16 Fungal Culture, Resulted Pending Physical Exam General Appearance: Well Developed Neck Neck Exam: Neck Supple Pulmonary Resp Exam: Rhonchi, Diminished Breath Sounds Cardiology CV Exam: Regular, Normal Sinus Rhythm Gastrointestinal/Abdomen GI Exam: Soft, Non-Tender Integumentary Skin Exam: Intact Extremeties Extremities Exam: No Edema Extremeties Remarks amputation of toes from right foot. Ulcer on the plantar surface of right foot. Neurologic Neuro Exam: Sedated Assessment/Plan Problem List: (1) Chronic kidney disease, stage 5 Plan: GFR this month has been consistent with stage V CKD. He has heavy proteinuria, most likely has diabetic nephropathy. In June 2016 his creatinine was 2.4, there may be an element of JULIA. It should be noted however that during his previous admission to this facility this month, his GFR had declined significantly, and had not improved to baseline levels of last year at the time of discharge. Stage V CKD may be his new baseline. He was dialyzed yesterday. Serum potassium is acceptable today. Continue Bumex drip today. Consider dialysis again tomorrow. Avoid nephrotoxic agents. (2) HCAP (healthcare-associated pneumonia) Plan: He is on Vancomycin and Cefepime. Carefully dose Vancomycin in order to avoid nephrotoxicity. Level was 27.4 yesterday. (3) Respiratory failure Plan: Ventilatory support. Improvement in oxygen requirement. (4) DM (diabetes mellitus) Plan: insulin coverage. Maintain blood glucose between 140 and 180 while hospitalized. (5) Sepsis Plan: due to pneumonia. (6) Hyperkalemia Plan: Improved. Problem Qualifiers (1) Sepsis: Qualified Code: A41.9 - Sepsis, due to unspecified organism Tomas Blanc MD Oct 16, 2016 10:48
--- NOTE | 2016-10-16 11:09 | HHI.CCPN ---
Subjective Remarks/Hospital Course 50-year-old Rut[place] male. Date of admission 10/13/2016. Past medical history includes adjustment disorder, history of syncope, anemia, diabetes mellitus, hypertension and peripheral neuropathy. He presents to [facility] emergency department via EMS for shortness of breath. Patient was originally admitted to [facility] from 10/03/2016 until 10/12/2016 for multiple medical issues including right leg pain with shortness of breath times 3 days. He developed acute respiratory failure on the secondary to volume overload from blood transfusions. Echocardiogram revealed EF 55-60% with mild LVH, mild MR, TR and NE. He diuresed with IV Lasix and treated with BiPAP. This was weaned off and and patient was off oxygen as of 10/11. Dopplers are negative the right lower extremity. He does have some right inguinal lymphadenopathy however. 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 The patient was placed on CPAP by EMS prior to arrival, his high saturation per EMS was 88% on CPAP. The patient's symptoms are moderate, there are no current alleviating or exacerbating factors. Chest x-ray revealed extensive lobar pneumonia. Currently on BiPAP 03/22 at 40% and breathing comfort. Subjective 10/14: Currently on 4 L nasal cannula. Intermittently on BiPAP overnight. Frustrated. Requesting home O2. 10/15: Patient in severe respiratory distress today, not tolerating BiPAP, currently on 100% nonrebreather very tachypneic hardly can stop. Initially reluctant to get intubated, but after discussion he agreed for endotracheal intubation. I emergently intubated him on placed on mechanical ventilation. Prior to intubation patient had coarse crackles and reduces extensively on bilateral lung dial. Chest x-ray showed almost complete whiteout of the bilateral lung dial indicating probable ARDS. BUN 92 cr 4.3. UO 1.9 L in 24 hour. Nephrology consulted may need hemodialysis. Also will consider prone therapy after CT chest 10/16: Intubated yesterday for severe hypoxemic respiratory failure. Thoracentesis performed right-1.7 L of transudative fluid removed. Underwent hemodialysis with 3 L removed. Making urine 1 L in 24 hours. FiO2 has improved now at 50%. Sputum culture showing gram-positive rods Objective Vital Signs Date Time Temp Pulse Resp B/P Pulse Ox O2 Delivery O2 Flow Rate FiO2 10/16/16 07:30 99 50 10/16/16 04:00 97.5 90 20 139/68 10/15/16 07:27 Non-Rebreather 15.00 Intake and Output 10/15/16 10/15/16 10/16/16 08:00 16:00 00:00 Intake Total 173 ml 1180 ml 742 ml Output Total 1000 ml 325 ml 3225 ml Balance -827 ml 855 ml -2483 ml Result Diagram: 10/16/16 0430 10/16/16 0430 Other Results Microbiology Date/Time Procedure Status Source Growth 10/13/16 13:00 Urine Culture - Final Complete Urine Catheterized Urine NO GROWTH IN 48 HOURS. Laboratory Tests Test 10/15/16 16:44 Blood Gas Puncture Site RT RADIAL Blood Gas Patient Temperature 98.6 Blood Gas HCO3 19 mmol/L (22-26) Blood Gas Base Excess -7.1 mmol/L (-2-2) Blood Gas Oxygen Saturation 94 % (90-100) Arterial Blood pH 7.22 (7.380-7.420) Arterial Blood Partial 49 mmHg (38-42) Pressure CO2 Arterial Blood Partial 124 mmHg Pressure O2 (61-120) Arterial Blood Oxygen Content 10.7 Vol % (12.0-20.0) Arterial Blood 1.8 % (0-4) Carboxyhemoglobin Arterial Blood Methemoglobin 2.2 % (0-2) Blood Gas Hemoglobin 7.9 G/DL (12.0-16.0) Oxygen Delivery Device VENTILATOR Blood Gas Ventilator Setting AC/18/550/PEEP10 Blood Gas Inspired Oxygen 50 % Imaging Last Impressions Chest X-Ray 10/14/16 0000 Signed Impressions: Service Date/Time: Friday, October 14, 2016 03:24 - CONCLUSION: Worsening appearance of the chest. Abhinav Sullivan MD Objective Remarks GENERAL: 50-year-old AA male, critically ill currently on intubated heavily sedated SKIN: Warm and dry. HEAD: Atraumatic. Normocephalic. EYES: Pupils equal and round. No scleral icterus. No injection or drainage. ENT: No nasal bleeding or discharge. Orotracheally intubated NECK: Trachea midline. No JVD. CARDIOVASCULAR: Tachycardic, RR. S1, S2 no S4. Faint 1/6 murmur RESPIRATORY: Coarse crackles appreciated throughout left lung field. Lung essentially clear GASTROINTESTINAL: Abdomen soft, non-tender, nondistended. Positive bowel sounds MUSCULOSKELETAL: Extremities with right partial lower extremity amputation, laceration noted depressed 2 x 2 centimeters at plantar aspect of right partial amputation. Irritation of left thumb and right second and third fingers noted. NEUROLOGICAL: Intubated heavily sedated,. Wakes up follows some commands Date of Insertion: Oct 15, 2016 Side: Left Location: Internal, Jugular A/P Assessment and Plan Neuro/Psych: Adjustment disorder History of THC use Post intubation started on propofol and fentanyl for sedation and ventilator synchrony Start daily sedation vacation Status post Bradford act last admission. Seen by Dr. Manning and subsequently lifted. Currently on no anti-psychiatric medications. Acetaminophen for fever CV: Acute on Chronic diastolic heart failure Severe sepsis History of syncope Hypertension Elevated troponin Home medication of hydralazine 75 mg by mouth 3 times a day and metoprolol 25 mg by mouth twice a day. Currently on hydralazine 75 mg by mouth 3 times a day, Lopressor 12.5 mg twice a day with its needed labetalol/hydralazine and Nitropaste Hold blood pressure medications if hypotensive EKG revealed no acute cardiopulmonary findings consistent sinus tachycardia. Echocardiogram 10/04 revealed EF 55-60%. Mild LVH. Mild MR, TR and NE. Continue Bumex infusion 0.5 mg per hour after 2 mg Bumex IV push HD with 3L fluid removed yesterday Resp: Acute hypoxemic respiratory failure ARDS Multilobar healthcare associated pneumonia Tobaccoism Emergently intubated and placed on mechanical ventilation 10/15/16 ACV 18/550/8/50% Ventilator bundle, DuoNeb every 4 hours scheduled and when necessary F/u Sputum culture See ID for antibiotic coverage s/p thoracentesis 10/15 with 1.7L of fluid removed (Transudate) Start SBT today GI: Hypoalbuminemia Elevated AST Moderate to severe protein calorie malnutrition NPO. Start tube feeds with Nepro Protonix for GI prophylaxis Colace/ Senokot for bowel regimen. : Acute on chronic kidney disease Hemodialysis started yesterday with 3 L removed. Continue Bumex infusion for now Nephrology consulted Dr. Jayashree Schneider: Hypoglycemia Diabetes mellitus 2 Hold all insulin. Continue D10 infusion at 42 mL per hour for hypoglycemia Heme: Leukocytosis Anemia Follow CBC daily. Monitor trends. No indications for transfusion of blood products at this time. ID: HCAP Severe sepsis Status post cefepime/azithromycin/vancomycin day #4 Pertinent cultures 10/13 - blood cultures 2 -negative to date Send sputum culture 10/15/1663-[id number] rods Influenza negative, Legionella and pneumococcal antigen negative MSK: Left thumb, right second and third finger, right lower extremity amputation Diabetic foot ulcer Wound care evaluate and treat. Access - Utilize peripheral IV. Left IJ central line placed 10/15/16 Prophylaxis - GI - Protonix - DVT - SCD/heparin subcutaneous Critical Care: The total critical care time was 40 minutes. Excluding procedures Patient remains critically ill with severe sepsis ARDS Vicky Gautam MD Oct 16, 2016 11:09
[2016-10-16] MEDS: CEFEPIME INJ 1,000 MG in SODIUM CHLORIDE 0.9% INJ 100 ML IV SCH (19:37)
[2016-10-17] VITALS (15 sets, daily range): BP systolic 117–154; BP diastolic 60–80; PULSE 67–102; RESP 18–22; TEMP 97.6–98.7; O2SAT 94–100
[2016-10-17] MEDS: BUMETANIDE INJ 100 ML IV SCH (00:33)
[2016-10-17] MEDS: fentaNYL DRIP 250 ML IV SCH ×2 (00:33→09:58)
[2016-10-17] MEDS: INSULIN NovoLIN REGULAR SUPPLEMENTAL SCALE SQ SCH ×7 (02:00→20:00)
[2016-10-17] MEDS: DEXTROSE 10% INJ 500 ML IV SCH ×2 (02:24→14:45)
[2016-10-17] MEDS: RESP: ALBUTEROL 2.5 MG/IPRATROPIUM 0.5 MG NEB (SCH) INH ×3 (03:34→11:26)
[2016-10-17] MEDS: PROPOFOL 1000 MG/100 ML IV SCH ×2 (03:51→09:59)
[2016-10-17] MEDS: CHLORHEXIDINE GLUCONATE 2 % 1 PACK (2 CLOTHS) TOP SCH (03:51)
[2016-10-17 08:42] LABS: AUTOMATED NEUTROPHIL # 11.9 TH/MM3 (1.8-7.7); BASOPHIL # 0.1 TH/MM3 (0-0.2); BASOPHIL % 0.7 % (0.0-2.0); EOSINOPHIL # 0.6 TH/MM3 (0-0.4); EOSINOPHIL % 4.2 % (0.0-4.0); HEMATOCRIT 26.5 % (39.0-51.0); HEMO FLAGS DIFF FINAL; LYMPH % 5.4 % (9.0-44.0); LYMPHOCYTE # 0.8 TH/MM3 (1.0-4.8); MEAN CELL VOLUME 88.2 FL (80.0-100.0); MEAN CORPUSCULAR HEMOGLOBIN 29.2 PG (27.0-34.0); MEAN CORPUSCULAR HGB CONC 33.1 % (32.0-36.0); NEUT % 85.7 % (16.0-70.0); PLATELET COUNT 206 TH/MM3 (150-450); RED BLOOD COUNT 3.01 MIL/MM3 (4.50-5.90); RED CELL DISTRIBUTION WIDTH 18.5 % (11.6-17.2); WHITE BLOOD COUNT 13.8 TH/MM3 (4.0-11.0)
[2016-10-17 09:11] LABS: POTASSIUM 4.6 MEQ/L (3.5-5.1)
[2016-10-17 09:13] LABS: BICARBONATE 25.9 MEQ/L (21.0-32.0)
[2016-10-17] MEDS: ASCORBIC ACID 500 MG TAB PO SCH ×2 (10:47→21:19)
[2016-10-17] MEDS: METOPROLOL TARTRATE 25 MG TAB PO SCH ×2 (10:47→21:19)
[2016-10-17] MEDS: AZITHROMYCIN 250 MG TAB PO SCH (10:47)
[2016-10-17] MEDS: SODIUM CHLORIDE 0.9% FLUSH 5 ML FLUSH IV FLUSH SCH (10:48)
[2016-10-17] MEDS: DOCUSATE SODIUM 100 MG/10 ML UDC OG-TUBE SCH ×2 (10:48→21:19)
[2016-10-17] MEDS: SENNOSIDES SYRUP 8.8 MG/5 ML CUP OG-TUBE SCH ×2 (10:48→21:19)
[2016-10-17] MEDS: FERROUS SULFATE 300 MG /5ML UDC OG-TUBE SCH ×2 (10:48→21:18)
[2016-10-17] MEDS: PANTOPRAZOLE SODIUM 40 MG VIAL IV PUSH SCH (10:48)
[2016-10-17] MEDS: CHLORHEXIDINE 0.12% (ORAL KIT) 15 ML CUP MT SCH (11:05)
[2016-10-17] MEDS: HEPARIN SODIUM - SQ 10,000 UNITS/ML VIAL SQ SCH (12:00)
--- NOTE | 2016-10-17 12:05 | RADRPT ---
EXAM DATE/TIME: 10/17/2016 11:07 [facility] COMPARISON: CHEST SINGLE AP, October 16, 2016, 2:54. INDICATIONS : Respiratory disease. MEDICAL HISTORY : Peripheral neuropathy. Heart murmur. Blurry vision. Diabetes. SURGICAL HISTORY : Right 1st and 5th toe amputation. Multiple finger amputations. ENCOUNTER: Subsequent ACUITY: 2 weeks PAIN SCORE: Non-responsive. LOCATION: Bilateral chest FINDINGS: Chest is stable with ET tube above the evan and nasogastric tube to the midline at the stomach as w ell as bilateral jugular catheters in place with no pneumothorax. Left pulmonary infiltrate and conso lidation is stable CONCLUSION: Stable chest Tom Cheng MD on October 17, 2016 at 12:03 Board Certified Radiologist. This report was verified electronically.
[2016-10-17] MEDS: ALBUMIN HUMAN 25% 25 GM/100 ML BAGP IV PRN (12:19)
[2016-10-17] MEDS: HEPARIN SODIUM - IV 10,000 UNITS/10 ML VIAL PRN (12:20)
[2016-10-17] MEDS: SODIUM CHLOR 0.9% 1000 ML INJ 1,000 ML IV PRN ×2 (12:20→12:21)
[2016-10-17] MEDS: SODIUM CHLORIDE 0.9% FLUSH 5 ML FLUSH IVF PRN (12:21)
--- NOTE | 2016-10-17 13:31 | HHI.CCPN ---
Subjective Remarks/Hospital Course 50-year-old Rut[place] male. Date of admission 10/13/2016. Past medical history includes adjustment disorder, history of syncope, anemia, diabetes mellitus, hypertension and peripheral neuropathy. He presents to [facility] emergency department via EMS for shortness of breath. Patient was originally admitted to [facility] from 10/03/2016 until 10/12/2016 for multiple medical issues including right leg pain with shortness of breath times 3 days. He developed acute respiratory failure on the secondary to volume overload from blood transfusions. Echocardiogram revealed EF 55-60% with mild LVH, mild MR, TR and ID. He diuresed with IV Lasix and treated with BiPAP. This was weaned off and and patient was off oxygen as of 10/11. Dopplers are negative the right lower extremity. He does have some right inguinal lymphadenopathy however. 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 The patient was placed on CPAP by EMS prior to arrival, his high saturation per EMS was 88% on CPAP. The patient's symptoms are moderate, there are no current alleviating or exacerbating factors. Chest x-ray revealed extensive lobar pneumonia. Currently on BiPAP 03/22 at 40% and breathing comfort. Subjective 10/14: Currently on 4 L nasal cannula. Intermittently on BiPAP overnight. Frustrated. Requesting home O2. 10/15: Patient in severe respiratory distress today, not tolerating BiPAP, currently on 100% nonrebreather very tachypneic hardly can stop. Initially reluctant to get intubated, but after discussion he agreed for endotracheal intubation. I emergently intubated him on placed on mechanical ventilation. Prior to intubation patient had coarse crackles and reduces extensively on bilateral lung dial. Chest x-ray showed almost complete whiteout of the bilateral lung dial indicating probable ARDS. BUN 92 cr 4.3. UO 1.9 L in 24 hour. Nephrology consulted may need hemodialysis. Also will consider prone therapy after CT chest 10/16: Intubated yesterday for severe hypoxemic respiratory failure. Thoracentesis performed right-1.7 L of transudative fluid removed. Underwent hemodialysis with 3 L removed. Making urine 1 L in 24 hours. FiO2 has improved now at 50%. Sputum culture showing gram-positive rods 10/17: Improving infiltrate on L side on my review. FiO2 down to 40%. Getting hemodialysis today. Wakes up on sedation hold. Start spontaneous breathing trials after hemodialysis Objective Vital Signs Date Time Temp Pulse Resp B/P Pulse Ox O2 Delivery O2 Flow Rate FiO2 10/17/16 12:10 40 10/17/16 11:27 99 10/17/16 10:00 75 10/17/16 04:00 98.0 19 117/69 10/15/16 07:27 Non-Rebreather 15.00 Intake and Output 10/16/16 10/16/16 10/17/16 08:00 16:00 00:00 Intake Total 598 ml 1241 ml 1050 ml Output Total 450 ml 1000 ml 1250 ml Balance 148 ml 241 ml -200 ml Result Diagram: 10/17/16 0825 10/17/16 0825 Other Results Microbiology Date/Time Procedure Status Source Growth 10/15/16 07:15 Urine Culture - Final Complete Urine Clean Catch NO GROWTH IN 48 HOURS. 10/15/16 09:30 Gram Stain - Final Complete Sputum Endotracheal 10/15/16 09:30 Sputum Culture - Final Complete Sputum Endotracheal HEAVY GROWTH NORMAL RESPIRATORY RABIA Imaging Last Impressions Chest X-Ray 10/14/16 0000 Signed Impressions: Service Date/Time: Friday, October 14, 2016 03:24 - CONCLUSION: Worsening appearance of the chest. Abhinav Sullivan MD Objective Remarks GENERAL: 50-year-old AA male, critically ill currently on intubated heavily sedated SKIN: Warm and dry. HEAD: Atraumatic. Normocephalic. EYES: Pupils equal and round. No scleral icterus. No injection or drainage. ENT: No nasal bleeding or discharge. Orotracheally intubated NECK: Trachea midline. No JVD. CARDIOVASCULAR: RR. S1, S2 no S4. Faint 1/6 murmur RESPIRATORY: Coarse crackles appreciated throughout left lung field. GASTROINTESTINAL: Abdomen soft, non-tender, nondistended. Positive bowel sounds MUSCULOSKELETAL: Extremities with right partial lower extremity amputation, laceration noted depressed 2 x 2 centimeters at plantar aspect of right partial amputation. Irritation of left thumb and right second and third fingers noted. NEUROLOGICAL: Intubated heavily sedated,. Wakes up follows some commands Urinary Catheter: Yes Assessment to: Continue Vascular Central Line Catheter: Yes Assessment to: Continue Date of Insertion: Oct 15, 2016 Side: Left Location: Internal, Jugular A/P Assessment and Plan Neuro/Psych: Adjustment disorder History of THC use Post intubation started on propofol and fentanyl for sedation and ventilator synchrony Daily sedation vacation Status post Bradford act last admission. Seen by Dr. Manning and subsequently lifted. Currently on no anti-psychiatric medications. Acetaminophen for fever CV: Acute on Chronic diastolic heart failure Severe sepsis History of syncope Hypertension Elevated troponin Home medication of hydralazine 75 mg by mouth 3 times a day and metoprolol 25 mg by mouth twice a day. Currently on hydralazine 75 mg by mouth 3 times a day, Lopressor 12.5 mg twice a day with its needed labetalol/hydralazine and Nitropaste Hold blood pressure medications if hypotensive Continue Bumex infusion 0.5 mg per hour. HD today EKG revealed no acute cardiopulmonary findings consistent sinus tachycardia. Echocardiogram 10/04 revealed EF 55-60%. Mild LVH. Mild MR, TR and ID. Resp: Acute hypoxemic respiratory failure ARDS Multilobar healthcare associated pneumonia Tobaccoism Emergently intubated and placed on mechanical ventilation 10/15/16 ACV 18/550/8/50% Ventilator bundle, DuoNeb every 4 hours scheduled and when necessary F/u Sputum culture See ID for antibiotic coverage s/p thoracentesis 10/15 with 1.7L of fluid removed (Transudate) Start SBT GI: Hypoalbuminemia Elevated AST Moderate to severe protein calorie malnutrition Tube feeds with Nepro Protonix for GI prophylaxis Colace/ Senokot for bowel regimen. : Acute on chronic kidney disease Hemodialysis started yesterday with 3 L removed, repeat today. Continue Bumex infusion for now Nephrology Dr. Blanc Endo: Hypoglycemia Diabetes mellitus 2 Hold all insulin. Continue D10 infusion at 42 mL per hour for hypoglycemia Heme: Leukocytosis Anemia Follow CBC daily. Monitor trends. No indications for transfusion of blood products at this time. ID: HCAP Severe sepsis Status post cefepime/azithromycin/vancomycin day #5 Pertinent cultures 10/13 - blood cultures 2 -negative to date sputum culture 10/15/[id number] rods-final negative Influenza negative, Legionella and pneumococcal antigen negative MSK: Left thumb, right second and third finger, right lower extremity amputation Diabetic foot ulcer Wound care evaluate and treat. Access - Utilize peripheral IV. Left IJ central line placed 10/15/16 Prophylaxis - GI - Protonix - DVT - SCD/heparin subcutaneous Critical Care: The total critical care time was 40 minutes. Excluding procedures Patient remains critically ill with severe sepsis ARDS Vicky Gautam MD Oct 17, 2016 13:31
--- NOTE | 2016-10-17 15:15 | HHI.NPPN ---
Objective Data Data 10/16/16 10/17/16 19:00 07:00 Intake Total 1241 ml 1819 ml Output Total 1000 ml 1700 ml Balance 241 ml 119 ml IV Total 639 ml 1293 ml Tube Feeding 80 ml 466 ml Packed Cells 342 ml Other 180 ml 60 ml Output Urine Total 1000 ml 1700 ml Stool Total 0 ml Vital Signs Date Time Temp Pulse Resp B/P Pulse Ox O2 Delivery O2 Flow Rate FiO2 10/17/16 12:10 40 10/17/16 11:27 99 40 10/17/16 10:00 75 10/17/16 07:43 100 40 10/17/16 06:00 68 10/17/16 04:53 100 40 10/17/16 04:00 71 10/17/16 04:00 98.0 71 19 117/69 100 10/17/16 04:00 40 10/17/16 02:00 67 10/17/16 01:08 100 40 10/17/16 00:00 40 10/17/16 00:00 69 10/17/16 00:00 97.6 69 18 139/77 100 10/16/16 22:00 71 10/16/16 21:29 99 40 10/16/16 20:00 97.5 75 18 157/84 100 10/16/16 20:00 78 10/16/16 20:00 40 10/16/16 18:00 82 10/16/16 16:00 85 10/16/16 16:00 40 10/16/16 16:00 98.0 85 18 153/80 98 10/16/16 15:47 99 40 -: 10/17/16 0825 10/17/16 0825 Physical Exam General Appearance: Well Developed Neck Neck Exam: Neck Supple Pulmonary Resp Exam: Rhonchi, Diminished Breath Sounds Cardiology CV Exam: Regular, Normal Sinus Rhythm Gastrointestinal/Abdomen GI Exam: Soft, Non-Tender Integumentary Skin Exam: Intact Extremeties Extremities Exam: No Edema Neurologic Neuro Exam: Sedated Assessment/Plan Problem List: (1) Chronic kidney disease, stage 5 Plan: GFR this month has been consistent with stage V CKD. He has heavy proteinuria, most likely has diabetic nephropathy. he had second dialysis today 3.5 L off tolerated it well continue supportive care (2) HCAP (healthcare-associated pneumonia) Plan: He is on Azithromycin and Cefepime. (3) Respiratory failure Plan: Ventilatory support. Improvement in oxygen requirement. (4) DM (diabetes mellitus) Plan: insulin coverage. Maintain blood glucose between 140 and 180 while hospitalized. (5) Sepsis Plan: due to pneumonia. (6) Hyperkalemia Plan: Improved. Problem Qualifiers (1) Sepsis: Qualified Code: A41.9 - Sepsis, due to unspecified organism Goldy Henderson MD Oct 17, 2016 15:14 oGldy Henderson MD Oct 17, 2016 15:14
[2016-10-17] MEDS: hydrALAZINE HCL 20 MG/ML VIAL IV PUSH PRN (16:35)
[2016-10-17] MEDS: CEFEPIME INJ 1,000 MG in SODIUM CHLORIDE 0.9% INJ 100 ML IV SCH (21:18)
[2016-10-18] VITALS (14 sets, daily range): BP systolic 150–211; BP diastolic 79–98; PULSE 88–100; RESP 18–25; TEMP 98.1–98.6; O2SAT 92–97
[2016-10-18 05:15] LABS: AUTOMATED NEUTROPHIL # 13.1 TH/MM3 (1.8-7.7); BASOPHIL # 0.1 TH/MM3 (0-0.2); BASOPHIL % 0.4 % (0.0-2.0); EOSINOPHIL # 0.2 TH/MM3 (0-0.4); EOSINOPHIL % 1.4 % (0.0-4.0); HEMATOCRIT 27.2 % (39.0-51.0); HEMO FLAGS DIFF FINAL; LYMPH % 3.8 % (9.0-44.0); LYMPHOCYTE # 0.5 TH/MM3 (1.0-4.8); MEAN CELL VOLUME 87.2 FL (80.0-100.0); MEAN CORPUSCULAR HEMOGLOBIN 28.6 PG (27.0-34.0); MEAN CORPUSCULAR HGB CONC 32.8 % (32.0-36.0); MONO % 3.9 % (0.0-8.0); NEUT % 90.5 % (16.0-70.0); PLATELET COUNT 226 TH/MM3 (150-450); RED BLOOD COUNT 3.12 MIL/MM3 (4.50-5.90); WHITE BLOOD COUNT 14.4 TH/MM3 (4.0-11.0)
[2016-10-18 05:36] LABS: BICARBONATE 29.5 MEQ/L (21.0-32.0); POTASSIUM 4.1 MEQ/L (3.5-5.1)
[2016-10-18] MEDS: CHLORHEXIDINE 0.12% (ORAL KIT) 15 ML CUP MT SCH (07:50)
[2016-10-18] MEDS: PANTOPRAZOLE SODIUM 40 MG VIAL IV PUSH SCH (07:51)
[2016-10-18] MEDS: FERROUS SULFATE 300 MG /5ML UDC OG-TUBE SCH ×2 (07:51→22:16)
[2016-10-18] MEDS: hydrALAZINE HCL 20 MG/ML VIAL IV PUSH PRN ×3 (07:51→22:17)
[2016-10-18] MEDS: DOCUSATE SODIUM 100 MG/10 ML UDC OG-TUBE SCH ×2 (07:52→21:00)
[2016-10-18] MEDS: METOPROLOL TARTRATE 25 MG TAB PO SCH ×2 (07:52→22:17)
[2016-10-18] MEDS: ASCORBIC ACID 500 MG TAB PO SCH ×2 (07:52→22:17)
[2016-10-18] MEDS: SENNOSIDES SYRUP 8.8 MG/5 ML CUP OG-TUBE SCH ×2 (07:52→21:00)
[2016-10-18] MEDS: AZITHROMYCIN 250 MG TAB PO SCH (07:52)
[2016-10-18] MEDS: SODIUM CHLORIDE 0.9% FLUSH 5 ML FLUSH IV FLUSH SCH ×2 (07:53→22:18)
[2016-10-18] MEDS: INSULIN NovoLIN REGULAR SUPPLEMENTAL SCALE SQ SCH ×6 (08:00→23:00)
[2016-10-18] MEDS: ONDANSETRON HCL 4 MG/2 ML VIAL IV PRN ×2 (08:04→22:16)
--- NOTE | 2016-10-18 08:52 | HHI.CCPN ---
Subjective Remarks/Hospital Course 50-year-old [place] male. Date of admission 10/13/2016. Past medical history includes adjustment disorder, history of syncope, anemia, diabetes mellitus, hypertension and peripheral neuropathy. He presents to [facility] emergency department via EMS for shortness of breath. Patient was originally admitted to [facility] from 10/03/2016 until 10/12/2016 for multiple medical issues including right leg pain with shortness of breath times 3 days. He developed acute respiratory failure on the secondary to volume overload from blood transfusions. Echocardiogram revealed EF 55-60% with mild LVH, mild MR, TR and NH. He diuresed with IV Lasix and treated with BiPAP. This was weaned off and and patient was off oxygen as of 10/11. Dopplers are negative the right lower extremity. He does have some right inguinal lymphadenopathy however. 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 The patient signed out against medical transcription, yesterday, from the hospital EMS was call if the patient was complaining of increasing shortness of breath, dry nonproductive cough, but denies any company chest pain. The patient was placed on CPAP by EMS prior to arrival, his high saturation per EMS was 88% on CPAP. The patient's symptoms are moderate, there are no current alleviating or exacerbating factors. Chest x-ray revealed extensive lobar pneumonia. Currently on BiPAP 03/22 at 40% and breathing comfort. Subjective 10/14: Currently on 4 L nasal cannula. Intermittently on BiPAP overnight. Frustrated. Requesting home O2. 10/15: Patient in severe respiratory distress today, not tolerating BiPAP, currently on 100% nonrebreather very tachypneic hardly can stop. Initially reluctant to get intubated, but after discussion he agreed for endotracheal intubation. I emergently intubated him on placed on mechanical ventilation. Prior to intubation patient had coarse crackles and reduces extensively on bilateral lung dial. Chest x-ray showed almost complete whiteout of the bilateral lung dial indicating probable ARDS. BUN 92 cr 4.3. UO 1.9 L in 24 hour. Nephrology consulted may need hemodialysis. Also will consider prone therapy after CT chest 10/16: Intubated yesterday for severe hypoxemic respiratory failure. Thoracentesis performed right-1.7 L of transudative fluid removed. Underwent hemodialysis with 3 L removed. Making urine 1 L in 24 hours. FiO2 has improved now at 50%. Sputum culture showing gram-positive rods 10/17: Improving infiltrate on L side on my review. FiO2 down to 40%. Getting hemodialysis today. Wakes up on sedation hold. Start spontaneous breathing trials after hemodialysis 10/18: Extubated yesterday tolerating well. Currently on nasal cannula with good oxygen saturation. Had hemodialysis yesterday with 3.5 L removed. Last 24 hours and 1.3 today urine output, BUN/creatinine steadily improving creatinine is 2.75 today Objective Vital Signs Date Time Temp Pulse Resp B/P Pulse Ox O2 Delivery O2 Flow Rate FiO2 10/18/16 06:00 94 10/18/16 04:00 98.5 18 160/93 94 10/17/16 20:57 Nasal Cannula 4.00 10/17/16 15:36 40 Intake and Output 10/17/16 10/17/16 10/18/16 08:00 16:00 00:00 Intake Total 769 ml 824 ml Output Total 450 ml 3500 ml 1000 ml Balance 319 ml -3500 ml -176 ml Result Diagram: 10/18/16 0420 10/18/16 0420 Other Results Microbiology Date/Time Procedure Status Source Growth 10/15/16 09:30 Gram Stain - Final Complete Sputum Endotracheal 10/15/16 09:30 Sputum Culture - Final Complete Sputum Endotracheal HEAVY GROWTH NORMAL RESPIRATORY RABIA 10/15/16 13:50 Gram Stain - Final Complete Fluid Pleural Fluid 10/15/16 13:50 Body Fluid Culture - Final Complete Fluid Pleural Fluid NO GROWTH IN 72 HRS.--AEROBICALLY OR ... Imaging Last Impressions Chest X-Ray 10/14/16 0000 Signed Impressions: Service Date/Time: Friday, October 14, 2016 03:24 - CONCLUSION: Worsening appearance of the chest. Abhinav Sullivan MD Objective Remarks GENERAL: 50-year-old ill-appearing AA male, on nasal cannula SKIN: Warm and dry. HEAD: Atraumatic. Normocephalic. EYES: Pupils equal and round. No scleral icterus. No injection or drainage. ENT: No nasal bleeding or discharge. NECK: Trachea midline. No JVD. CARDIOVASCULAR: RR. S1, S2 no S4. Faint 1/6 murmur RESPIRATORY: Coarse crackles appreciated throughout bilateral lung dial GASTROINTESTINAL: Abdomen soft, non-tender, nondistended. Positive bowel sounds MUSCULOSKELETAL: Extremities with right partial lower extremity amputation, laceration noted depressed 2 x 2 centimeters at plantar aspect of right partial amputation. Irritation of left thumb and right second and third fingers noted. NEUROLOGICAL: Alert awake oriented no focal deficits Urinary Catheter: Yes Assessment to: Continue Vascular Central Line Catheter: Yes Assessment to: Continue Date of Insertion: Oct 15, 2016 Side: Left Location: Internal, Jugular A/P Assessment and Plan Neuro/Psych: Adjustment disorder History of THC use Minimize sedation. Acetaminophen for fever pain Status post Bradford act last admission. Seen by Dr. Manning and subsequently lifted. Currently on no anti-psychiatric medications. CV: Acute on Chronic diastolic heart failure Severe sepsis History of syncope Hypertension Elevated troponin Home medication of hydralazine 75 mg by mouth 3 times a day and metoprolol 25 mg by mouth twice a day. Currently on hydralazine 75 mg by mouth 3 times a day, Lopressor 12.5 mg twice a day with its needed labetalol/hydralazine and Nitropaste Hold blood pressure medications if hypotensive Continue Bumex infusion 0.5 mg per hour. HD yesterday with 3.5 L Echocardiogram 10/04 revealed EF 55-60%. Mild LVH. Mild MR, TR and NH. Resp: Acute hypoxemic respiratory failure ARDS-resolving Multilobar healthcare associated pneumonia Tobaccoism Emergently intubated and placed on mechanical ventilation 10/15/16, extubated DuoNeb every 4 hours scheduled and when necessary F/u Sputum culture negative to date See ID for antibiotic coverage s/p thoracentesis 10/15 with 1.7L of fluid removed (Transudate) GI: Hypoalbuminemia Elevated AST Moderate to severe protein calorie malnutrition Resume diet per speech recommendation Protonix for GI prophylaxis Colace/ Senokot for bowel regimen. : Acute on chronic kidney disease Hemodialysis started yesterday with 3.5 L removed10/17/16. Continue Bumex infusion for now. Nephrology Dr. Blanc Endo: Hypoglycemia Diabetes mellitus 2 Holding all insulin. Continue D10 infusion at 42 mL per hour for hypoglycemia Heme: Leukocytosis Anemia Follow CBC daily. Monitor trends. No indications for transfusion of blood products at this time. ID: HCAP Severe sepsis Cefepime/azithromycin/vancomycin day #6 DC Vanc today Pertinent cultures 10/13 - blood cultures 2 -negative to date sputum culture 10/15/1684-[id number] rods-final cx negative Influenza negative, Legionella and pneumococcal antigen negative MSK: Left thumb, right second and third finger, right lower extremity amputation Diabetic foot ulcer Wound care evaluate and treat. Access - Utilize peripheral IV. Left IJ central line placed 10/15/16 Prophylaxis - GI - Protonix - DVT - SCD/heparin subcutaneous Critical Care: Level [address] Dr. Epps [facility] to assume care in Vicky Gautam MD Oct 18, 2016 08:52 Vicky Gautam MD Oct 18, 2016 08:52
--- NOTE | 2016-10-18 10:35 | RADRPT ---
EXAM DATE/TIME: 10/18/2016 08:01 [facility] COMPARISON: Prior study previous day. INDICATIONS : Respiratory disease. Shortness of breath. MEDICAL HISTORY : Peripheral neuropathy. Heart murmur. Blurry vision. Diabetes. SURGICAL HISTORY : Right 1st and 5th toe amputation. Multiple finger amputations. ENCOUNTER: Subsequent ACUITY: 2 weeks PAIN SCORE: 0/10 LOCATION: Bilateral chest FINDINGS: A single view of the chest demonstrates the patient's right IJ Vas cath and left IJ central venous ca theter are both in good position. ET tube and NG tube have been removed. There is patchy bilateral air space disease, left worse than right. There is some perihilar vascular congestion. No visible p neumothorax. Small right pleural effusion. CONCLUSION: ET tube and NG tube have been removed. Patchy air space disease left lung with some air bronchograms left lower lobe are unchanged. Everardo Nolan MD on October 18, 2016 at 8:38 Board Certified Radiologist. This report was verified electronically.
[2016-10-18] MEDS: HEPARIN SODIUM - SQ 10,000 UNITS/ML VIAL SQ SCH ×2 (11:33)
--- NOTE | 2016-10-18 11:43 | HHI.NPPN ---
Objective Data Data 10/17/16 10/18/16 19:00 07:00 Intake Total 1138 ml Output Total 3500 ml 1300 ml Balance -3500 ml -162 ml Intake Oral 50 ml IV Total 1088 ml Output Urine Total 1300 ml Hemodialysis 3500 ml # Bowel Movements 4 Vital Signs Date Time Temp Pulse Resp B/P Pulse Ox O2 Delivery O2 Flow Rate FiO2 10/18/16 10:00 100 10/18/16 09:20 96 Nasal Cannula 2.00 10/18/16 08:00 98.6 99 20 197/93 95 10/18/16 08:00 99 10/18/16 06:00 94 10/18/16 04:00 97 10/18/16 04:00 98.5 99 18 160/93 94 10/18/16 02:00 100 10/18/16 00:00 100 10/18/16 00:00 98.4 100 20 177/90 95 10/17/16 22:00 80 10/17/16 20:57 97 Nasal Cannula 4.00 10/17/16 20:00 98.7 94 22 154/60 100 10/17/16 20:00 102 10/17/16 18:17 85 10/17/16 16:48 94 Nasal Cannula 4.00 10/17/16 16:48 94 Nasal Cannula 3 10/17/16 16:00 98.3 73 19 149/80 100 10/17/16 15:36 40 10/17/16 12:10 40 -: 10/18/16 0420 10/18/16 0420 Physical Exam General Appearance: Well Developed Neck Neck Exam: Neck Supple Pulmonary Resp Exam: Rhonchi, Diminished Breath Sounds Cardiology CV Exam: Regular, Normal Sinus Rhythm Gastrointestinal/Abdomen GI Exam: Soft, Non-Tender Integumentary Skin Exam: Intact Extremeties Extremities Exam: No Edema Neurologic Neuro Exam: Sedated Assessment/Plan Problem List: (1) Chronic kidney disease, stage 5 Plan: GFR this month has been consistent with stage V CKD. He has heavy proteinuria, most likely has diabetic nephropathy. he had second dialysis yesterday 3.5 L off tolerated it well continue supportive care (2) HCAP (healthcare-associated pneumonia) Plan: He is on Azithromycin and Cefepime. (3) Respiratory failure Plan: extubated doing better (4) DM (diabetes mellitus) Plan: insulin coverage. Maintain blood glucose between 140 and 180 while hospitalized. (5) Sepsis Plan: due to pneumonia. (6) Hyperkalemia Plan: Improved. Problem Qualifiers (1) Sepsis: Qualified Code: A41.9 - Sepsis, due to unspecified organism Goldy Henderson MD Oct 18, 2016 11:43 Goldy Henderson MD Oct 18, 2016 11:43
[2016-10-18] MEDS: DEXTROSE 10% INJ 500 ML IV SCH (18:58)
[2016-10-18] MEDS: CEFEPIME INJ 1,000 MG in SODIUM CHLORIDE 0.9% INJ 100 ML IV SCH (22:18)
[2016-10-19] VITALS (13 sets, daily range): BP systolic 164–185; BP diastolic 86–93; PULSE 82–101; RESP 15–24; TEMP 97.8–98.9; O2SAT 83–97
[2016-10-19] MEDS: CHLORHEXIDINE GLUCONATE 2 % 1 PACK (2 CLOTHS) TOP SCH (04:00)
[2016-10-19] MEDS: INSULIN NovoLIN REGULAR SUPPLEMENTAL SCALE SQ SCH ×2 (05:00→07:58)
[2016-10-19 05:45] LABS: AUTOMATED NEUTROPHIL # 9.9 TH/MM3 (1.8-7.7); BASOPHIL # 0.2 TH/MM3 (0-0.2); BASOPHIL % 1.3 % (0.0-2.0); EOSINOPHIL # 0.2 TH/MM3 (0-0.4); EOSINOPHIL % 1.5 % (0.0-4.0); HEMATOCRIT 28.4 % (39.0-51.0); HEMO FLAGS DIFF FINAL; LYMPH % 8.3 % (9.0-44.0); MEAN CELL VOLUME 88.5 FL (80.0-100.0); MEAN CORPUSCULAR HEMOGLOBIN 27.9 PG (27.0-34.0); MEAN CORPUSCULAR HGB CONC 31.5 % (32.0-36.0); MONO % 7.2 % (0.0-8.0); NEUT % 81.7 % (16.0-70.0); PLATELET COUNT 233 TH/MM3 (150-450); RED BLOOD COUNT 3.21 MIL/MM3 (4.50-5.90); RED CELL DISTRIBUTION WIDTH 17.4 % (11.6-17.2); WHITE BLOOD COUNT 12.1 TH/MM3 (4.0-11.0)
[2016-10-19 06:11] LABS: ALT (GPT) 15 U/L (12-78); ANION GAP 9 MEQ/L (5-15); AST (GOT) 19 U/L (15-37); BICARBONATE 29.4 MEQ/L (21.0-32.0); BLOOD UREA NITROGEN 51 MG/DL (7-18); CHLORIDE 104 MEQ/L (98-107); GLOMERULAR FILTRATION RATE 24 ML/MIN (>89); SODIUM (NA) 142 MEQ/L (136-145)
[2016-10-19 06:13] LABS: ALKALINE PHOSPHATASE 103 U/L (45-117); TOTAL BILIRUBIN ADULT 0.5 MG/DL (0.2-1.0)
[2016-10-19] MEDS: hydrALAZINE HCL 20 MG/ML VIAL IV PUSH PRN ×4 (06:17→22:49)
[2016-10-19] MEDS: BUMETANIDE INJ 100 ML IV SCH (06:18)
--- NOTE | 2016-10-19 06:25 | RADRPT ---
EXAM DATE/TIME: 10/19/2016 03:59 [facility] COMPARISON: CHEST SINGLE AP, October 18, 2016, 8:01. INDICATIONS : Shortness of breath. MEDICAL HISTORY : Cardiovascular disease. Diabetes mellitus type II. SURGICAL HISTORY : None. ENCOUNTER: Subsequent ACUITY: 1 week PAIN SCORE: Non-responsive. LOCATION: Bilateral chest FINDINGS: Left greater than right airspace disease persists, not significantly changed. There is mild left volu me loss, also stable. Mild cardiomegaly again noted. No large effusion seen. No pneumothorax. Bilateral internal jugular central venous catheters are present with tips in the superior vena cava, unchanged. CONCLUSION: No significant change. Dain Morrison MD on October 19, 2016 at 6:21 Board Certified Radiologist. This report was verified electronically.
[2016-10-19] MEDS: ASCORBIC ACID 500 MG TAB PO SCH ×2 (07:57→20:27)
[2016-10-19] MEDS: METOPROLOL TARTRATE 25 MG TAB PO SCH ×2 (07:57→20:27)
[2016-10-19] MEDS: ONDANSETRON HCL 4 MG/2 ML VIAL IV PRN (07:57)
[2016-10-19] MEDS: PANTOPRAZOLE SODIUM 40 MG VIAL IV PUSH SCH (07:57)
[2016-10-19] MEDS: DOCUSATE SODIUM 100 MG/10 ML UDC OG-TUBE SCH ×2 (07:58→20:28)
[2016-10-19] MEDS: SENNOSIDES SYRUP 8.8 MG/5 ML CUP OG-TUBE SCH ×2 (07:58→20:28)
[2016-10-19] MEDS: SODIUM CHLORIDE 0.9% FLUSH 5 ML FLUSH IV FLUSH SCH ×2 (07:58→20:27)
[2016-10-19] MEDS: FERROUS SULFATE 300 MG /5ML UDC OG-TUBE SCH ×2 (07:58→20:28)
[2016-10-19] MEDS: AZITHROMYCIN 250 MG TAB PO SCH (07:58)
[2016-10-19] MEDS: CHLORHEXIDINE 0.12% (ORAL KIT) 15 ML CUP MT SCH ×2 (07:59→20:00)
--- NOTE | 2016-10-19 11:25 | HHI.NPPN ---
Objective Data Data 10/18/16 10/19/16 19:00 07:00 Intake Total 751 ml 989 ml Output Total 450 ml 650 ml Balance 301 ml 339 ml Intake Oral 120 ml 300 ml IV Total 631 ml 689 ml Tube Feeding 0 ml Output Urine Total 450 ml 650 ml # Bowel Movements 1 Vital Signs Date Time Temp Pulse Resp B/P Pulse Ox O2 Delivery O2 Flow Rate FiO2 10/19/16 10:00 101 10/19/16 08:40 96 Nasal Cannula 3.00 10/19/16 08:00 92 10/19/16 08:00 98.4 96 22 176/91 96 10/19/16 06:00 89 10/19/16 04:00 89 10/19/16 04:00 97.8 82 15 164/90 96 10/19/16 00:00 89 10/19/16 00:00 98.0 82 18 164/90 95 10/18/16 22:00 88 10/18/16 21:20 97 Nasal Cannula 3.00 10/18/16 20:00 99 10/18/16 20:00 98.1 96 18 211/98 96 10/18/16 18:00 94 10/18/16 16:00 94 10/18/16 16:00 98.2 94 25 176/89 97 10/18/16 14:00 94 10/18/16 12:00 98.4 91 25 150/79 92 10/18/16 12:00 94 -: 10/19/16 0445 10/19/16 0445 Physical Exam General Appearance: Well Developed Neck Neck Exam: Neck Supple Pulmonary Resp Exam: Rhonchi, Diminished Breath Sounds Cardiology CV Exam: Regular, Normal Sinus Rhythm Gastrointestinal/Abdomen GI Exam: Soft, Non-Tender Integumentary Skin Exam: Intact Extremeties Extremities Exam: No Edema Neurologic Neuro Exam: Sedated Assessment/Plan Problem List: (1) Chronic kidney disease, stage 5 Plan: Patient is told that he has remained on hemodialysis continue with diet restrictions and continue with hemodialysis he will need access primary AV fistula placement Placement for hemodialysis as outpatient He kept talking about the discharge but he was told it will take a while Next hemodialysis today (2) HCAP (healthcare-associated pneumonia) Plan: He is on Azithromycin and Cefepime. (3) Respiratory failure Plan: off Vent (4) DM (diabetes mellitus) Plan: insulin coverage. Maintain blood glucose between 140 and 180 while hospitalized. (5) Sepsis Plan: due to pneumonia. (6) Hyperkalemia Plan: Improved. Problem Qualifiers (1) Sepsis: Qualified Code: A41.9 - Sepsis, due to unspecified organism Goldy Henderson MD Oct 19, 2016 11:25 Goldy Henderson MD Oct 19, 2016 11:25
[2016-10-19] MEDS: HEPARIN SODIUM - IV 10,000 UNITS/10 ML VIAL PRN (15:02)
[2016-10-19] MEDS: GENTAMICIN SULFATE (DIALYSIS USE ONLY) 20 MG/2 ML VIAL IV PRN (15:02)
--- NOTE | 2016-10-19 17:23 | HHI.PR ---
Subjective Remarks Follow-up for hypertension No complaints, shortness of breath better, no chest pain, denies any headache. Objective Vitals Vital Signs Date Time Temp Pulse Resp B/P Pulse Ox O2 Delivery O2 Flow Rate FiO2 10/19/16 12:00 88 10/19/16 12:00 98.6 88 24 185/86 95 10/19/16 10:00 101 10/19/16 08:40 96 Nasal Cannula 3.00 10/19/16 08:00 92 10/19/16 08:00 98.4 96 22 176/91 96 10/19/16 06:00 89 10/19/16 04:00 89 10/19/16 04:00 97.8 82 15 164/90 96 10/19/16 00:00 89 10/19/16 00:00 98.0 82 18 164/90 95 10/18/16 22:00 88 10/18/16 21:20 97 Nasal Cannula 3.00 10/18/16 20:00 99 10/18/16 20:00 98.1 96 18 211/98 96 10/18/16 18:00 94 I/O 10/18/16 10/18/16 10/18/16 10/19/16 10/19/16 10/19/16 07:00 15:00 23:00 07:00 15:00 23:00 Intake Total 314 ml 751 ml 600 ml 389 ml Output Total 300 ml 450 ml 300 ml 350 ml 3000 ml Balance 14 ml 301 ml 300 ml 39 ml -3000 ml Intake Oral 50 ml 120 ml 300 ml IV Total 264 ml 631 ml 300 ml 389 ml Tube Feeding 0 ml Output Urine Total 300 ml 450 ml 300 ml 350 ml Hemodialysis 3000 ml # Bowel Movements 2 1 Result Diagram: 10/19/16 0445 10/19/16 0445 Objective Remarks GENERAL: 50-year-old ill-appearing AA male, on nasal cannula SKIN: Warm and dry. NECK: Trachea midline. No JVD. CARDIOVASCULAR: RR. S1, S2 no S4. Faint 1/6 murmur RESPIRATORY: Occasional crackles, no wheezing. Decreased breath sounds bilaterally. GASTROINTESTINAL: Abdomen soft, non-tender, nondistended. Positive bowel sounds MUSCULOSKELETAL: Extremities with right partial lower extremity amputation, laceration noted depressed 2 x 2 centimeters at plantar aspect of right partial amputation. Irritation of left thumb and right second and third fingers noted. NEUROLOGICAL: Alert awake oriented to place, person and time, no focal deficits Date of Insertion: Oct 15, 2016 Side: Left Location: Internal, Jugular A/P Problem List: (1) Acute on chronic renal failure ICD Code: N17.9 Status: Acute (2) Adjustment disorder with disturbance of conduct ICD Code: F43.24 Status: Acute (3) HCAP (healthcare-associated pneumonia) ICD Code: J18.9 Status: Acute (4) Sepsis ICD Code: A41.9 Status: Acute (5) Diastolic CHF ICD Code: I50.30 Status: Acute (6) Hypertension ICD Code: I10 Status: Acute (7) Diabetes ICD Code: E11.9 Status: Acute (8) Symptomatic anemia ICD Code: D64.9 Status: Acute (9) Cellulitis ICD Code: L03.90 Status: Acute (10) Hyperkalemia ICD Code: E87.5 Status: Acute (11) Hypernatremia ICD Code: E87.0 Status: Acute (12) Elevated AST (SGOT) ICD Code: R74.0 Status: Acute (13) Elevated troponin ICD Code: R79.89 Status: Acute (14) Hypoalbuminemia ICD Code: E88.09 Status: Acute (15) Leukocytosis ICD Code: D72.829 Status: Acute (16) Open wound of right foot ICD Code: S91.301A Status: Acute Assessment and Plan Adjustment disorder History of THC use Status post Bradford act last admission. Seen by Dr. Manning and subsequently lifted. Currently on no anti-psychiatric medications. Acute on Chronic diastolic heart failure Severe sepsis History of syncope Hypertension Elevated troponin - Hypertension uncontrolled, restart hydralazine at a lower dose, continue metoprolol, increase dose. Echocardiogram 10/04 revealed EF 55-60%. Mild LVH. Mild MR, TR and NH. Acute hypoxemic respiratory failure ARDS-resolving Multilobar healthcare associated pneumonia Tobaccoism -Emergently intubated and placed on mechanical ventilation 10/15/16, extubated DuoNeb every 4 hours scheduled and when necessary, sputum culture negative to date. s/p thoracentesis 10/15 with 1.7L of fluid removed (Transudate), continue Cefepime/azithromycin, received vancomycin for 6 days. -10/13 - blood cultures 2 -negative to date sputum culture 10/15/1675-[id number] rods-final cx negative Influenza negative, Legionella and pneumococcal antigen negative MSK: Hypoalbuminemia Elevated AST Moderate to severe protein calorie malnutrition -Resume diet per speech recommendation Protonix for GI prophylaxis Colace/ Senokot for bowel regimen. Acute on chronic kidney disease stage V-nephrology following, diuretics for nephrology, continue dialysis, started 10/17/16. Hypoglycemia Diabetes mellitus 2-continue Levemir with sliding scale insulin. Left thumb, right second and third finger, right lower extremity amputation Diabetic foot ulcer Wound care evaluate and treat. Prophylaxis - GI - Protonix - DVT - SCD/heparin subcutaneous Problem Qualifiers (1) Sepsis: Qualified Code: A41.9 - Sepsis, due to unspecified organism (2) Diastolic CHF: Qualified Code: I50.32 - Chronic diastolic congestive heart failure (3) Hypertension: Qualified Code: I10 - Essential hypertension (4) Diabetes: Qualified Code: E11.8 - Type 2 diabetes mellitus with complication, without long-term current use of insulin (5) Cellulitis: Qualified Code: L03.90 - Cellulitis, unspecified cellulitis site (6) Leukocytosis: Qualified Code: D72.829 - Leukocytosis, unspecified type (7) Open wound of right foot: Qualified Code: S91.301D - Open wound of right foot, subsequent encounter Nat Epps MD Oct 19, 2016 17:23
[2016-10-19] MEDS: CEFEPIME INJ 1,000 MG in SODIUM CHLORIDE 0.9% INJ 100 ML IV SCH (20:27)
[2016-10-19] MEDS: INSULIN ASPART SUPPLEMENTAL SCALE SQ SCH (20:28)
[2016-10-19] MEDS: hydrALAZINE HCL 50 MG TAB PO SCH (21:44)
[2016-10-19] MEDS: PANTOPRAZOLE SOD 40 MG DELAYED RELEASE TAB PO SCH (21:44)
--- NOTE | 2016-10-19 21:47 | RADRPT ---
EXAM DATE/TIME: 10/19/2016 20:53 [facility] COMPARISON: No previous studies available for comparison. INDICATIONS : Bilateral arm swelling. Evaluate for future AVF placement. MEDICAL HISTORY : Heart murmur. Diabetes. MRSA. Substance use. SURGICAL HISTORY : Right first and fifth toe amputated. Blood transfusions. ENCOUNTER: Initial ACUITY: 1 day PAIN SCORE: 2/10 LOCATION: Bilateral arm. FINDINGS: RIGHT UPPER EXTREMITY: There is spontaneous flow documented in the brachial, basilic, cephalic, axillary, and subclavian vei ns. The vessels are compressible and augmentation response is documented. No filling defects are se en. The flow is phasic with respiration. Direction of flow in the jugular vein is caudal. LEFT UPPER EXTREMITY: There is spontaneous flow documented in the brachial, basilic, cephalic, axillary, and subclavian vei ns. The vessels are compressible and augmentation response is documented. No filling defects are se en. The flow is phasic with respiration. Direction of flow in the jugular vein is caudal. CONCLUSION: No DVT in either arm. Ronnie Lozano MD on October 19, 2016 at 21:45 Board Certified Radiologist. This report was verified electronically.
[2016-10-19] MEDS ORDERED: hydrALAZINE HCL 50 MG TAB PO SCH (22:00)
[2016-10-19] MEDS: SODIUM CHLORIDE 0.9% FLUSH 5 ML FLUSH IV FLUSH PRN (22:49)
[2016-10-19] MEDS: HEPARIN SODIUM - SQ 10,000 UNITS/ML VIAL SQ SCH (23:52)
[2016-10-20] VITALS (13 sets, daily range): BP systolic 130–179; BP diastolic 61–100; PULSE 84–96; RESP 12–20; TEMP 98.1–99; O2SAT 89–97
[2016-10-20] MEDS: CHLORHEXIDINE GLUCONATE 2 % 1 PACK (2 CLOTHS) TOP SCH (04:00)
[2016-10-20] MEDS: hydrALAZINE HCL 20 MG/ML VIAL IV PUSH PRN (05:10)
[2016-10-20] MEDS: SODIUM CHLORIDE 0.9% FLUSH 5 ML FLUSH IV FLUSH PRN (05:11)
[2016-10-20] MEDS: hydrALAZINE HCL 50 MG TAB PO SCH ×3 (05:13→23:35)
[2016-10-20] MEDS: INSULIN ASPART SUPPLEMENTAL SCALE SQ SCH ×4 (06:21→20:57)
--- NOTE | 2016-10-20 06:23 | RADRPT ---
EXAM DATE/TIME: 10/19/2016 21:02 [facility] COMPARISON: No previous studies available for comparison. INDICATIONS : AV fistula placement. MEDICAL HISTORY : Heart murmur. Diabetes. MRSA. Substance use. SURGICAL HISTORY : Right first and fifth toe amputated. Blood transfusions. ENCOUNTER: Initial ACUITY: 1 day PAIN SCORE: 2/10 LOCATION: Bilateral arm. CEPHALIC: ORIGIN: Right 2 mm Left 2 mm MID-ARM: Right 2 mm Left 2 mm ELBOW: Right 2 mm Left 3 mm FOREARM: Right Non-visualized Left Non-visualized WRIST: Right Non-visualized Left Non-visualized BASILIC: ORIGIN: Right 3 mm Left 3 mm MID-ARM: Right 3 mm Left 3 mm ELBOW: Right 3 mm Left 4 mm ARTERIES: BRACHIAL: Right 5 mm Left 6 mm ULNAR: Right 2 mm Left 2 mm RADIAL: Right 2 mm Left 3 mm VEINS: RADIAL: Right 2 mm Left 2 mm ULNAR: Right 2 mm Left 2 mm FINDINGS: The venous system of the upper extremities are patent by color Doppler imaging. Measurements of the arm veins (in mm) are listed above. CONCLUSION: Upper extremity venous mapping as above. Dain Morrison MD on October 20, 2016 at 6:21 Board Certified Radiologist. This report was verified electronically.
[2016-10-20] MEDS: CHLORHEXIDINE 0.12% (ORAL KIT) 15 ML CUP MT SCH ×2 (07:28→20:00)
--- NOTE | 2016-10-20 08:41 | PD.VS.CON ---
History of Present Illness Chief Complaint: ESRD, need for HD access Consult Requested by: nephrology History of Present Illness 50 yo male with ESRD, started HD this week. Adm for pneumonia/sepsis but improved and now extubated. RIGHT handed. +DM, HTN, PAD no prior access attempts Past/Family/Social History Past Medical History HTN DM ESRD, now on HD heart failure Past Surgical History TMA R finger amps Social History lives with mother in [facility] Family History grandmother was on HD but in 1991 Home Medications Active Scripts Metoprolol Tartrate 25 Mg Tab25 Mg PO Q12HR #60 TAB Prov:Ap Everett MD 10/12/16 Hydrocodone-Acetaminophen 5-325 mg Tab1 Tab PO Q6HR PRN (pain) #20 TAB Prov:Ap Everett MD 10/12/16 Hydralazine 25 Mg Tab75 Mg PO TID #90 TAB Prov:Ap Everett MD 10/12/16 Furosemide (Lasix)40 Mg Tab40 Mg PO BID@,18 #60 TAB Prov:Ap Everett MD 10/12/16 Ferrous Sulfate 325 Mg Bbs578 Mg PO BID #60 TAB Prov:Ap Everett MD 10/12/16 Reported Medications Metformin 500 Mg TabUnknown Dose PO BIDPC #60 TAB Ref 0 With meals 10/09/16 Hydrocodone-Acetaminophen (Lortab)5-325 Mg TabUnknown Dose PO Q4H PRN (PAIN) Ref 0 10/09/16 Coded Allergies: *MDRO Multi-Drug Resistant Organism (Verified Adverse Reaction, Unknown, ) MRSA PCR Screen POSITIVE - 10/04/2016 Review of Systems Respiratory: COMPLAINS OF: Apneas, DENIES: Shortness of breath Musculoskeletal: COMPLAINS OF: Back pain Physical Exam Vitals/I&O Date Time Temp Pulse Resp B/P Pulse Ox O2 Delivery O2 Flow Rate FiO2 10/20/16 06:00 96 10/20/16 04:00 99.0 96 20 179/100 96 10/20/16 04:00 96 10/20/16 02:00 92 10/20/16 00:00 92 10/20/16 00:00 98.6 92 16 170/82 97 10/19/16 22:00 97 10/19/16 20:00 98.7 96 20 169/93 83 10/19/16 20:00 96 10/19/16 19:20 94 Nasal Cannula 3.00 10/19/16 18:00 91 10/19/16 16:00 98.9 88 19 173/92 97 10/19/16 16:00 91 10/19/16 14:00 91 10/19/16 12:00 88 10/19/16 12:00 98.6 88 24 185/86 95 10/19/16 10:00 101 10/19/16 08:40 96 Nasal Cannula 3.00 10/20/16 10/20/16 10/20/16 07:00 15:00 23:00 Intake Total 113 ml Output Total 275 ml Balance -162 ml Neuro: somewhat somnolent, [place] HEENT: NC/AT Anicteric sclera Neck: trachea midline, no JVD but B neck catheters Heart: reg rate Lungs: unlabored breathing Abdomen: sacral decubitus, stage 2, no surrounding erythema Vascular: palpable B UE pulses, 2+ Extremities: R digit amps Date/Time Procedure Status Source Growth 10/15/16 13:50 Gram Stain - Final Complete Fluid Pleural Fluid 10/15/16 13:50 Body Fluid Culture - Final Complete Fluid Pleural Fluid NO GROWTH IN 72 HRS.--AEROBICALLY OR ... 10/15/16 13:50 Fungal Smear - Final Resulted Fluid Pleural Fluid NO FUNGAL ELEMENTS SEEN. 10/15/16 13:50 Fungal Culture Resulted Fluid Pleural Fluid Pending 10/15/16 13:50 Acid Fast Stain - Final Resulted Fluid Pleural Fluid NO ACID FAST BACILLI SEEN 10/15/16 13:50 Mycobacterial Culture Resulted Fluid Pleural Fluid Pending Last 48 hours Impressions Chest X-Ray 10/19/16 0600 Signed Impressions: Service Date/Time: Wednesday, October 19, 2016 03:59 - CONCLUSION: No significant change. Dain Morrison MD Upper Extremity Ultrasound 10/19/16 0000 Signed Impressions: Service Date/Time: Wednesday, October 19, 2016 21:02 - CONCLUSION: Upper extremity venous mapping as above. Dain Morrison MD Upper Extremity Ultrasound 10/19/16 0000 Signed Impressions: Service Date/Time: Wednesday, October 19, 2016 20:53 - CONCLUSION: No DVT in either arm. Ronnie Lozano MD Assessment and Plan Assessment: (1) Renal insufficiency Status: Acute (2) Acute kidney injury Status: Acute (3) Acute on chronic renal failure Status: Acute Plan Would be a candidate for either RIGHT or LEFT brachiobasilic AVF. Since he is RIGHT handed, I will preferentially perform a LEFT arm access. This can be done once he is out of the ICU, prior to discharge or potentially as an outpatient. I'd like to talk this over with him again and include his mother in the discussions since he lives with her. Please save the LEFT arm for future HD access (no bp, no IV, etc). Eugeen England MD FACS senior project manager engineering [facility] [phone] Eugene England MD Oct 20, 2016 08:41
[2016-10-20] MEDS: DOCUSATE SODIUM 100 MG/10 ML UDC OG-TUBE SCH ×3 (09:00→20:56)
[2016-10-20] MEDS: SODIUM CHLORIDE 0.9% FLUSH 5 ML FLUSH IV FLUSH SCH ×2 (09:00→20:48)
[2016-10-20] MEDS: FERROUS SULFATE 300 MG /5ML UDC OG-TUBE SCH ×3 (09:00→20:56)
[2016-10-20] MEDS: SENNOSIDES SYRUP 8.8 MG/5 ML CUP OG-TUBE SCH ×3 (09:00→20:56)
--- NOTE | 2016-10-20 09:02 | HHI.NPPN ---
Subjective History of Present Illness 50 year old with non compliance multiple admissions, renal failure, DM, HTN Additional Remarks Combative non cooperative refusing medications and treatment Review of Systems Psych Psych: Anxiety (Psychosis) Objective Data Data 10/19/16 10/20/16 19:00 07:00 Intake Total 538 ml Output Total 3000 ml 725 ml Balance -3000 ml -187 ml Intake Oral 100 ml IV Total 438 ml Output Urine Total 725 ml Hemodialysis 3000 ml # Bowel Movements 0 Vital Signs Date Time Temp Pulse Resp B/P Pulse Ox O2 Delivery O2 Flow Rate FiO2 10/20/16 06:00 96 10/20/16 04:00 99.0 96 20 179/100 96 10/20/16 04:00 96 10/20/16 02:00 92 10/20/16 00:00 92 10/20/16 00:00 98.6 92 16 170/82 97 10/19/16 22:00 97 10/19/16 20:00 98.7 96 20 169/93 83 10/19/16 20:00 96 10/19/16 19:20 94 Nasal Cannula 3.00 10/19/16 18:00 91 10/19/16 16:00 98.9 88 19 173/92 97 10/19/16 16:00 91 10/19/16 14:00 91 10/19/16 12:00 88 10/19/16 12:00 98.6 88 24 185/86 95 10/19/16 10:00 101 -: 10/19/16 0445 10/19/16 0445 Physical Exam General Appearance: Well Developed Neck Neck Exam: Neck Supple Pulmonary Resp Exam: Rhonchi, Diminished Breath Sounds Cardiology CV Exam: Regular, Normal Sinus Rhythm Gastrointestinal/Abdomen GI Exam: Soft, Non-Tender Integumentary Skin Exam: Intact Extremeties Extremities Exam: No Edema Neurologic Neuro Exam: Sedated Assessment/Plan Problem List: (1) Chronic kidney disease, stage 5 Plan: Patient is told that he has remained on hemodialysis he is non cooperative, combative refusing medications non compliant with medical care poor prognosis and poor candidate for dialysis I will reconsult Psychiatrist (2) HCAP (healthcare-associated pneumonia) Plan: He is on Azithromycin and Cefepime. (3) Respiratory failure Plan: off Vent (4) DM (diabetes mellitus) Plan: insulin coverage. Maintain blood glucose between 140 and 180 while hospitalized. (5) Sepsis Plan: due to pneumonia. (6) Hyperkalemia Plan: Improved. Problem Qualifiers (1) Sepsis: Qualified Code: A41.9 - Sepsis, due to unspecified organism Goldy Henderson MD Oct 20, 2016 09:02
[2016-10-20] MEDS: AZITHROMYCIN 250 MG TAB PO SCH (09:53)
[2016-10-20] MEDS: PANTOPRAZOLE SOD 40 MG DELAYED RELEASE TAB PO SCH (09:53)
[2016-10-20] MEDS: ASCORBIC ACID 500 MG TAB PO SCH ×3 (09:53→20:57)
[2016-10-20] MEDS: METOPROLOL TARTRATE 25 MG TAB PO SCH ×3 (09:53→20:57)
[2016-10-20] MEDS: NIFEdipine 60 MG SUSTAINED RELEASE TAB PO SCH (10:14)
[2016-10-20] MEDS: HEPARIN SODIUM - SQ 10,000 UNITS/ML VIAL SQ SCH ×2 (12:37→23:36)
--- NOTE | 2016-10-20 14:53 | HHI.PR ---
Subjective Remarks Follow-up for kidney failure, pneumonia Patient refused to be seen, once to go home. Threatening to leave AMA.? Capacity Objective Vitals Vital Signs Date Time Temp Pulse Resp B/P Pulse Ox O2 Delivery O2 Flow Rate FiO2 10/20/16 14:00 90 10/20/16 12:00 98.9 90 12 155/81 90 10/20/16 12:00 88 10/20/16 10:00 95 10/20/16 09:25 93 21 10/20/16 08:00 98.6 90 18 130/61 89 10/20/16 08:00 92 10/20/16 06:00 96 10/20/16 04:00 99.0 96 20 179/100 96 10/20/16 04:00 96 10/20/16 02:00 92 10/20/16 00:00 92 10/20/16 00:00 98.6 92 16 170/82 97 10/19/16 22:00 97 10/19/16 20:00 98.7 96 20 169/93 83 10/19/16 20:00 96 10/19/16 19:20 94 Nasal Cannula 3.00 10/19/16 18:00 91 10/19/16 16:00 98.9 88 19 173/92 97 10/19/16 16:00 91 I/O 10/19/16 10/19/16 10/19/16 10/20/16 10/20/16 10/20/16 07:00 15:00 23:00 07:00 15:00 23:00 Intake Total 389 ml 425 ml 113 ml 385 ml Output Total 350 ml 3450 ml 275 ml 800 ml Balance 39 ml -3025 ml -162 ml -415 ml Intake Oral 100 ml 320 ml IV Total 389 ml 425 ml 13 ml 65 ml Output Urine Total 350 ml 450 ml 275 ml 800 ml Hemodialysis 3000 ml # Bowel Movements 0 0 Result Diagram: 10/19/16 0445 10/19/16 0445 Objective Remarks Patient refused to be examined today. Was root. Vital signs and labs reviewed. Patient awake, alert, oriented to place. Speech is normal. Moves extremities. Date of Insertion: Oct 15, 2016 Side: Left Location: Internal, Jugular A/P Problem List: (1) Acute on chronic renal failure ICD Code: N17.9 Status: Acute (2) Adjustment disorder with disturbance of conduct ICD Code: F43.24 Status: Acute (3) HCAP (healthcare-associated pneumonia) ICD Code: J18.9 Status: Acute (4) Sepsis ICD Code: A41.9 Status: Acute (5) Diastolic CHF ICD Code: I50.30 Status: Acute (6) Hypertension ICD Code: I10 Status: Acute (7) Diabetes ICD Code: E11.9 Status: Acute (8) Symptomatic anemia ICD Code: D64.9 Status: Acute (9) Cellulitis ICD Code: L03.90 Status: Acute (10) Hyperkalemia ICD Code: E87.5 Status: Acute (11) Hypernatremia ICD Code: E87.0 Status: Acute (12) Elevated AST (SGOT) ICD Code: R74.0 Status: Acute (13) Elevated troponin ICD Code: R79.89 Status: Acute (14) Hypoalbuminemia ICD Code: E88.09 Status: Acute (15) Leukocytosis ICD Code: D72.829 Status: Acute (16) Open wound of right foot ICD Code: S91.301A Status: Acute Assessment and Plan Adjustment disorder History of THC use Status post [place] act last admission. Currently on no anti-psychiatric medications. Patient wants to leave AGAINST MEDICAL ADVICE,? Capacity, discussed with Dr. Wheeler, might need to be transferred to [facility] psych Acute on Chronic diastolic heart failure Severe sepsis History of syncope Hypertension Elevated troponin - Hypertension uncontrolled, continue hydralazine and metoprolol. Echocardiogram 10/04 revealed EF 55-60%. Mild LVH. Mild MR, TR and AK. Acute hypoxemic respiratory failure ARDS-resolving Multilobar healthcare associated pneumonia Tobaccoism -Emergently intubated and placed on mechanical ventilation 10/15/16, extubated DuoNeb every 4 hours scheduled and when necessary, sputum culture negative to date. s/p thoracentesis 10/15 with 1.7L of fluid removed (Transudate), finish azithromycin, switch cefepime to oral, start Ceftin until October 23. -10/13 - blood cultures 2 -negative to date sputum culture 10/15/1615-[id number] rods-final cx negative Influenza negative, Legionella and pneumococcal antigen negative Hypoalbuminemia Elevated AST Moderate to severe protein calorie malnutrition -Resume diet per speech recommendation Protonix for GI prophylaxis Colace/ Senokot for bowel regimen. Acute on chronic kidney disease stage V-nephrology following, diuretics for nephrology, continue dialysis, started 10/17/16. Hypoglycemia Diabetes mellitus 2-continue Levemir with sliding scale insulin. Left thumb, right second and third finger, right lower extremity amputation Diabetic foot ulcer Wound care evaluate and treat. Prophylaxis - GI - Protonix - DVT - SCD/heparin subcutaneous Discussed with psychiatry. Patient may transfer to [facility] or [facility] Problem Qualifiers (1) Sepsis: Qualified Code: A41.9 - Sepsis, due to unspecified organism (2) Diastolic CHF: Qualified Code: I50.32 - Chronic diastolic congestive heart failure (3) Hypertension: Qualified Code: I10 - Essential hypertension (4) Diabetes: Qualified Code: E11.8 - Type 2 diabetes mellitus with complication, without long-term current use of insulin (5) Cellulitis: Qualified Code: L03.90 - Cellulitis, unspecified cellulitis site (6) Leukocytosis: Qualified Code: D72.829 - Leukocytosis, unspecified type (7) Open wound of right foot: Qualified Code: S91.301D - Open wound of right foot, subsequent encounter Nat Epps MD Oct 20, 2016 14:53
[2016-10-20] MEDS ORDERED: HALOPERIDOL LACTATE 5 MG/ML AMP IM PRN (15:15)
--- NOTE | 2016-10-20 15:30 | PD.CONS ---
Provisional Diagnosis Admission Date Oct 13, 2016 at 10:41 [place]. Adjustment disorder with depression and anxiety History of Present Illness Service Psychiatry Consult Requested By Primary Care Physician No Primary Care Physician HPI The patient is a 50-year-old -[place] man without any previous psychiatric history, no previous psychiatric hospitalizations, no previous suicidal attempts, cocaine and cannabis use disorder, with past medical history of hypertension, diabetes mellitus, history of peripheral neuropathy, peripheral vascular disease and chronic kidney disease hospitalized Chronic diastolic heart failure, Severe sepsis, History of syncope, uncontrolled Hypertension, chronic kidney disease stage V-nephrology following, diuretics for nephrology, continue dialysis, started 10/17/16. Patient was consulted to psychiatry due to aggressive behavior and agitation, to assess capacity to leave AMA. On psychiatric evaluation today patient refuses to speak with psychiatry, he is continuously asking to leave AMA, to let him go back home and . He says that he just want to , that he should be allowed to and he is not been taking care in this hospital. Patient seems to be partially oriented, but unable to give a rational explanation for his choice of leaving AMA, also unable to list his medical problems, unable to verbalize understanding of his medical condition and appreciation of the importance of continuing under medical care versus leaving AMA. Review of Systems ROS Limitations: Uncooperative, Combative Past Family Social History Coded Allergies: *MDRO Multi-Drug Resistant Organism (Verified Adverse Reaction, Unknown, ) MRSA PCR Screen POSITIVE - 10/04/2016 Active Scripts Metoprolol Tartrate 25 Mg Tab25 Mg PO Q12HR #60 TAB Prov:Ap Everett MD 10/12/16 Hydrocodone-Acetaminophen 5-325 mg Tab1 Tab PO Q6HR PRN (pain) #20 TAB Prov:Ap Everett MD 10/12/16 Hydralazine 25 Mg Tab75 Mg PO TID #90 TAB Prov:Ap Everett MD 10/12/16 Furosemide (Lasix)40 Mg Tab40 Mg PO BID@,18 #60 TAB Prov:Ap Everett MD 10/12/16 Ferrous Sulfate 325 Mg Vps831 Mg PO BID #60 TAB Prov:Ap Everett MD 10/12/16 Reported Medications Metformin 500 Mg TabUnknown Dose PO BIDPC #60 TAB Ref 0 With meals 10/09/16 Hydrocodone-Acetaminophen (Lortab)5-325 Mg TabUnknown Dose PO Q4H PRN (PAIN) Ref 0 10/09/16 Current Medications Medications (Trade) Dose Ordered Sig/John Route Start Time Stop Time Status Last Admin (NS Flush) 2 ml UNSCH PRN IV FLUSH 10/13/16 11:30 10/20/16 05:11 (NS Flush) 2 ml BID IV FLUSH 10/13/16 21:00 10/19/16 07:58 (Tylenol) 650 mg Q6H PRN PO 10/13/16 11:30 ([place] 5-325 Mg) 1 tab Q4H PRN PO 10/13/16 11:30 (Zofran Inj) 4 mg Q6H PRN IV 10/13/16 11:30 10/19/16 07:57 Miscellaneous Information 1 Q361D XX 10/13/16 11:30 (Chlorhexidine 2% Cloth) Taper DAILY@04 TOP 10/14/16 04:00 10/10/17 03:59 10/17/16 03:51 (Chlorhexidine 2% Cloth) 3 pack UNSCH PRN TOP 10/13/16 11:30 (Heparin Inj) 5,000 units Q12H SQ 10/13/16 12:00 10/20/16 12:37 (Nitroglycerin 2% Oint) 2 inch Q6HR PRN TOPICAL 10/13/16 12:00 10/13/16 22:18 (Apresoline Inj) 10 mg Q1HR PRN IV PUSH 10/13/16 12:00 10/20/16 05:10 (D50w (Vial) Inj) 25 ml UNSCH PRN IV PUSH 10/14/16 06:45 10/16/16 00:21 (Glucagon Inj) 1 mg UNSCH PRN OTHER 10/14/16 06:45 (Vitamin C) 500 mg BID PO 10/14/16 09:00 10/20/16 09:53 (Levemir Inj) 5 units Q12HR SQ 10/14/16 09:00 Hold 10/14/16 10:29 (Ativan Inj) 1 mg Q6H PRN IV PUSH 10/14/16 13:45 10/15/16 04:27 Chlorhexidine Gluconate 15 ml 15 ml BID@08,20 MT 10/15/16 20:00 10/17/16 11:05 (fentaNYL DRIP) 250 ml @ 0 mls/hr TITRATE IV 10/15/16 10:00 10/17/16 09:58 (Colace Liq) 100 mg BID OG-TUBE 10/15/16 10:30 10/17/16 21:19 (Ferrous Sulfate Liq) 300 mg BID OG-TUBE 10/15/16 10:30 10/19/16 07:58 Sennosides 17.6 mg 17.6 mg BID OG-TUBE 10/15/16 11:00 10/17/16 21:19 (NS 1000 ml Inj) 1,000 ml @ 0 mls/hr Q0M PRN IV 10/15/16 12:44 10/17/16 12:20 Heparin Sodium (Porcine) 8000 units 8,000 units UNSCH PRN IVF 10/15/16 12:45 Sodium Chloride 1,000 ml @ 200 mls/hr Q5H PRN IV 10/15/16 12:44 10/17/16 12:21 (NS 1000 ml Inj) 1,000 ml @ 0 mls/hr Q0M PRN IV 10/15/16 12:44 (Mannitol Inj) 12.5 gm UNSCH PRN IV 10/15/16 12:45 (Albumin 25% Inj) 25 gm UNSCH PRN IV 10/15/16 12:45 10/17/16 12:19 (NS Flush) 5 ml UNSCH PRN IVF 10/15/16 12:45 10/17/16 12:21 (Heparin Inj) UNSCH PRN .XX 10/15/16 12:45 10/19/16 15:02 (Gentamicin (Dialysis) Inj) 20 mg UNSCH PRN IV 10/15/16 12:45 10/19/16 15:02 (Zofran Inj) 4 mg UNSCH PRN IV 10/15/16 12:45 (Tylenol) 650 mg UNSCH PRN PO 10/15/16 12:45 (Benadryl) 25 mg UNSCH PRN PO 10/15/16 12:45 (Nitrostat Sl) 0.4 mg UNSCH PRN SL 10/15/16 12:45 (Catapres) 0.1 mg UNSCH PRN PO 10/15/16 12:45 (Gelfoam 12 Mm/7 Mm Top) 1 foam UNSCH PRN TOP 10/15/16 12:45 (Lopressor) 25 mg Q12HR PO 10/19/16 21:00 10/20/16 09:53 (Protonix) 40 mg DAILY PO 10/19/16 18:00 10/20/16 09:53 (Apresoline) 50 mg Q8HR PO 10/19/16 22:00 10/20/16 12:37 (Procardia Xl) 60 mg DAILY PO 10/20/16 10:00 10/20/16 10:14 (Ceftin) 500 mg Q12HR PO 10/20/16 21:00 10/23/16 20:59 (Haldol Inj) 5 mg Q8H PRN IV 10/20/16 16:00 (Ativan Inj) 2 mg Q8H PRN IV 10/20/16 16:00 (Haldol Inj) 5 mg Q8HR PRN IM 10/20/16 15:15 (risperDAL) 1 mg Q12HR PO 10/20/16 21:00 Social History Patient was born and raised in [place], he was raised by his grandmother, he says that he had a happy childhood, he is single, unemployed, he is on SSI, his highest level of education was "about 8 grade" Physical Exam Vital Signs Vital Signs Date Time Temp Pulse Resp B/P Pulse Ox O2 Delivery O2 Flow Rate FiO2 10/20/16 14:00 90 10/20/16 12:00 98.9 12 155/81 90 10/20/16 09:25 21 10/19/16 19:20 Nasal Cannula 3.00 I/O 10/19/16 10/19/16 10/20/16 08:00 16:00 00:00 Intake Total 389 ml 425 ml Output Total 350 ml 3000 ml 450 ml Balance 39 ml -3000 ml -25 ml Mental Status Examination Appearance man, underlying stated age, combative, aggressive, poorly cooperative Speech: Fast (loud) Orientation: Person Memory: Impaired (describe) Thought Process: Loose Association, Tangential Thought Content: Unremarkable Attention and Concentration: Abnormal Suicidal Ideation: Yes (patient expresses his wish to be ) Previous Suicide Attempts: No Previous Homicide Attempts: No Insight: Poor Affect: Irritable Mood: Angry Motor Activity: Normal gait Assessment & Plan Problem List: (1) Adjustment disorder with mixed anxiety and depressed mood Assessment & Plan: Patient refusing to cooperate with psychotic assessment, requesting to leave AMA, but seems to be acting erratically, oddly related, verbally aggressive and combative, just partially oriented, unable to verbalize a reason for his choice of leaving AMA, unable to verbalize a clear understanding and appreciation of his multiple medical history and the consequences of leaving AMA. At this moment the patient does not have decision- making capacity to leave AMA. Patient can be medicated with Haldol 5 mg IV every 8 hours when necessary aggressive behavior and agitation, Haldol can be accompanied with Ativan IV 1 mg every 8 hours severe aggressive behavior and agitation. We'll start the patient is standing Risperdal 1 mg twice a day to help with behavioral dysregulation. Patient voiced a wish to be , he did not voice a plan. Due to his behavior and mood dysregulation patient might benefit of being is transferred to the/med psych unit in order to continue with his medical care and also monitoring and stabilizing psychiatric symptom. We will follow-up. ICD Code: F43.23 Assessment & Plan Estimated LOS: days Chapin Morfin MD Oct 20, 2016 15:30
[2016-10-20] MEDS ORDERED: LORazepam 2 MG/ML VIAL IV PRN (16:00)
[2016-10-20] MEDS ORDERED: HALOPERIDOL LACTATE 5 MG/ML AMP IV PRN (16:00)
[2016-10-20] MEDS: CEFUROXIME AXETIL 500 MG TAB PO SCH ×2 (20:47→20:56)
[2016-10-20] MEDS: risperiDONE 1 MG TAB PO SCH ×2 (20:47→20:57)
[2016-10-21] VITALS (8 sets, daily range): BP systolic 158–189; BP diastolic 80–98; PULSE 60–100; RESP 17–20; TEMP 96.7–98.7; O2SAT 91–97
[2016-10-21] MEDS: CHLORHEXIDINE GLUCONATE 2 % 1 PACK (2 CLOTHS) TOP SCH (04:00)
[2016-10-21] MEDS: INSULIN ASPART SUPPLEMENTAL SCALE SQ SCH ×4 (04:57→21:28)
[2016-10-21] MEDS: hydrALAZINE HCL 50 MG TAB PO SCH ×3 (04:57→21:26)
[2016-10-21 05:52] LABS: BICARBONATE 31.4 MEQ/L (21.0-32.0); POTASSIUM 3.7 MEQ/L (3.5-5.1)
[2016-10-21 06:47] LABS: AUTOMATED NEUTROPHIL # 6.3 TH/MM3 (1.8-7.7); BASOPHIL # 0.1 TH/MM3 (0-0.2); BASOPHIL % 1.5 % (0.0-2.0); EOSINOPHIL # 0.3 TH/MM3 (0-0.4); EOSINOPHIL % 3.5 % (0.0-4.0); HEMATOCRIT 25.8 % (39.0-51.0); HEMO FLAGS DIFF FINAL; LYMPH % 17.6 % (9.0-44.0); LYMPHOCYTE # 1.6 TH/MM3 (1.0-4.8); MEAN CELL VOLUME 89.2 FL (80.0-100.0); MEAN CORPUSCULAR HEMOGLOBIN 28.7 PG (27.0-34.0); MEAN CORPUSCULAR HGB CONC 32.2 % (32.0-36.0); MONO % 8.5 % (0.0-8.0); NEUT % 68.9 % (16.0-70.0); PLATELET COUNT 203 TH/MM3 (150-450); RED BLOOD COUNT 2.89 MIL/MM3 (4.50-5.90); WHITE BLOOD COUNT 9.2 TH/MM3 (4.0-11.0)
[2016-10-21] MEDS: CHLORHEXIDINE 0.12% (ORAL KIT) 15 ML CUP MT SCH ×2 (08:00→20:00)
[2016-10-21] MEDS: FERROUS SULFATE 300 MG /5ML UDC OG-TUBE SCH ×2 (09:00→21:00)
[2016-10-21] MEDS: DOCUSATE SODIUM 100 MG/10 ML UDC OG-TUBE SCH ×2 (09:00→21:00)
[2016-10-21] MEDS: SENNOSIDES SYRUP 8.8 MG/5 ML CUP OG-TUBE SCH ×2 (09:00→21:00)
[2016-10-21] MEDS: ASCORBIC ACID 500 MG TAB PO SCH ×2 (09:43→21:26)
[2016-10-21] MEDS: risperiDONE 1 MG TAB PO SCH ×2 (09:43→21:26)
[2016-10-21] MEDS: CEFUROXIME AXETIL 500 MG TAB PO SCH ×2 (09:43→21:26)
[2016-10-21] MEDS: NIFEdipine 60 MG SUSTAINED RELEASE TAB PO SCH (09:44)
[2016-10-21] MEDS: PANTOPRAZOLE SOD 40 MG DELAYED RELEASE TAB PO SCH (09:44)
[2016-10-21] MEDS: METOPROLOL TARTRATE 25 MG TAB PO SCH ×2 (09:44→21:25)
[2016-10-21] MEDS: SODIUM CHLORIDE 0.9% FLUSH 5 ML FLUSH IV FLUSH SCH ×2 (09:44→21:26)
[2016-10-21] MEDS: HEPARIN SODIUM - SQ 10,000 UNITS/ML VIAL SQ SCH ×2 (11:46→22:52)
--- NOTE | 2016-10-21 13:44 | HHI.NPPN ---
Subjective History of Present Illness 50 year old with non compliance multiple admissions, renal failure, DM, HTN Review of Systems Psych Psych: Anxiety (Psychosis) Objective Data Data 10/20/16 10/21/16 19:00 07:00 Intake Total 385 ml 480 ml Output Total 800 ml 500 ml Balance -415 ml -20 ml Intake Oral 320 ml 480 ml IV Total 65 ml 0 ml Output Urine Total 800 ml 500 ml # Bowel Movements 1 Vital Signs Date Time Temp Pulse Resp B/P Pulse Ox O2 Delivery O2 Flow Rate FiO2 10/21/16 12:00 96.7 88 18 172/82 91 10/21/16 09:35 94 Nasal Cannula 2.00 10/21/16 08:00 98.4 96 17 183/89 93 10/21/16 06:35 95 167/86 10/21/16 04:00 97.8 96 20 189/85 96 10/21/16 00:00 98.7 93 20 158/80 97 10/20/16 19:47 97 Nasal Cannula 5.00 10/20/16 18:42 92 Nasal Cannula 5.00 10/20/16 18:00 84 10/20/16 16:00 98.1 85 18 142/67 97 10/20/16 16:00 84 10/20/16 14:00 90 -: 10/21/16 0500 10/21/16 0500 Physical Exam General Appearance: Well Developed Neck Neck Exam: Neck Supple Pulmonary Resp Exam: Rhonchi, Diminished Breath Sounds Cardiology CV Exam: Regular, Normal Sinus Rhythm Gastrointestinal/Abdomen GI Exam: Soft, Non-Tender Integumentary Skin Exam: Intact Extremeties Extremities Exam: No Edema Neurologic Neuro Exam: Sedated Assessment/Plan Problem List: (1) Chronic kidney disease, stage 5 Plan: Patient is told that he has remained on hemodialysis he refuses his medications today he is calmer appreciate Psychiatrist Dr. Morfin help seen during dialysis 3 L UF tolerating it (2) HCAP (healthcare-associated pneumonia) Plan: He is on Ceftin (3) DM (diabetes mellitus) Plan: insulin coverage. Maintain blood glucose between 140 and 180 while hospitalized. (4) Sepsis Plan: due to pneumonia. (5) Hyperkalemia Plan: Improved. Problem Qualifiers (1) Sepsis: Qualified Code: A41.9 - Sepsis, due to unspecified organism Goldy Henderson MD Oct 21, 2016 13:44
[2016-10-21] MEDS: HEPARIN SODIUM - IV 10,000 UNITS/10 ML VIAL PRN (15:39)
[2016-10-21] MEDS: GENTAMICIN SULFATE (DIALYSIS USE ONLY) 20 MG/2 ML VIAL IV PRN (15:40)
[2016-10-21] MEDS: SODIUM CHLOR 0.9% 1000 ML INJ 1,000 ML IV PRN (15:40)
--- NOTE | 2016-10-21 15:47 | HHI.PR ---
Subjective Remarks Finished dialysis today, no overnight events, denies any chest pain or shortness of breath. Agreed to stay in the hospital. Objective Vitals Vital Signs Date Time Temp Pulse Resp B/P Pulse Ox O2 Delivery O2 Flow Rate FiO2 10/21/16 12:00 96.7 88 18 172/82 91 10/21/16 09:35 94 Nasal Cannula 2.00 10/21/16 08:00 98.4 96 17 183/89 93 10/21/16 06:35 95 167/86 10/21/16 04:00 97.8 96 20 189/85 96 10/21/16 00:00 98.7 93 20 158/80 97 10/20/16 19:47 97 Nasal Cannula 5.00 10/20/16 18:42 92 Nasal Cannula 5.00 10/20/16 18:00 84 10/20/16 16:00 98.1 85 18 142/67 97 10/20/16 16:00 84 I/O 10/20/16 10/20/16 10/20/16 10/21/16 10/21/16 10/21/16 07:00 15:00 23:00 07:00 15:00 23:00 Intake Total 113 ml 385 ml 480 ml 0 ml Output Total 275 ml 800 ml 500 ml Balance -162 ml -415 ml -20 ml 0 ml Intake Oral 100 ml 320 ml 480 ml IV Total 13 ml 65 ml 0 ml 0 ml Output Urine Total 275 ml 800 ml 500 ml # Bowel Movements 0 1 Result Diagram: 10/21/16 0500 10/21/16 0500 Objective Remarks Patient refused to be examined today. Was root. Vital signs and labs reviewed. Patient awake, alert, oriented to place. Speech is normal. Moves extremities. Date of Insertion: Oct 15, 2016 Side: Left Location: Internal, Jugular A/P Problem List: (1) Acute on chronic renal failure ICD Code: N17.9 Status: Acute (2) Adjustment disorder with disturbance of conduct ICD Code: F43.24 Status: Acute (3) HCAP (healthcare-associated pneumonia) ICD Code: J18.9 Status: Acute (4) Sepsis ICD Code: A41.9 Status: Acute (5) Diastolic CHF ICD Code: I50.30 Status: Acute (6) Hypertension ICD Code: I10 Status: Acute (7) Diabetes ICD Code: E11.9 Status: Acute (8) Symptomatic anemia ICD Code: D64.9 Status: Acute (9) Cellulitis ICD Code: L03.90 Status: Acute (10) Hyperkalemia ICD Code: E87.5 Status: Acute (11) Hypernatremia ICD Code: E87.0 Status: Acute (12) Elevated AST (SGOT) ICD Code: R74.0 Status: Acute (13) Elevated troponin ICD Code: R79.89 Status: Acute (14) Hypoalbuminemia ICD Code: E88.09 Status: Acute (15) Leukocytosis ICD Code: D72.829 Status: Acute (16) Open wound of right foot ICD Code: S91.301A Status: Acute Assessment and Plan Adjustment disorder History of THC use Status post Bradford act last admission. Currently on no anti-psychiatric medications. Patient wants to leave AGAINST MEDICAL ADVICE,? Capacity, discussed with Dr. Wheeler, might need to be transferred to [facility] Acute on Chronic diastolic heart failure Severe sepsis History of syncope Hypertension Elevated troponin - Hypertension uncontrolled, continue hydralazine and metoprolol. Echocardiogram 10/04 revealed EF 55-60%. Mild LVH. Mild MR, TR and MI. Acute hypoxemic respiratory failure ARDS-resolving Multilobar healthcare associated pneumonia Tobaccoism -Emergently intubated and placed on mechanical ventilation 10/15/16, extubated DuoNeb every 4 hours scheduled and when necessary, sputum culture negative to date. s/p thoracentesis 10/15 with 1.7L of fluid removed (Transudate), finish azithromycin, switch cefepime to oral, start Ceftin until October 23. -10/13 - blood cultures 2 -negative to date sputum culture 10/15/1600-oxpl-lbbzvlqv rods-final cx negative Influenza negative, Legionella and pneumococcal antigen negative Hypoalbuminemia Elevated AST Moderate to severe protein calorie malnutrition -Resume diet per speech recommendation Protonix for GI prophylaxis Colace/ Senokot for bowel regimen. Acute on chronic kidney disease stage V-nephrology following, diuretics for nephrology, continue dialysis, started 10/17/16. Status post hemodialysis today. Hypoglycemia Diabetes mellitus 2-continue Levemir with sliding scale insulin. Prophylaxis - GI - Protonix - DVT - SCD/heparin subcutaneous Problem Qualifiers (1) Sepsis: Qualified Code: A41.9 - Sepsis, due to unspecified organism (2) Diastolic CHF: Qualified Code: I50.32 - Chronic diastolic congestive heart failure (3) Hypertension: Qualified Code: I10 - Essential hypertension (4) Diabetes: Qualified Code: E11.8 - Type 2 diabetes mellitus with complication, without long-term current use of insulin (5) Cellulitis: Qualified Code: L03.90 - Cellulitis, unspecified cellulitis site (6) Leukocytosis: Qualified Code: D72.829 - Leukocytosis, unspecified type (7) Open wound of right foot: Qualified Code: S91.301D - Open wound of right foot, subsequent encounter Nat Epps MD Oct 21, 2016 15:47 Nat Epps MD Oct 21, 2016 15:47
[2016-10-21] MEDS: ACETAMINOPHEN/HYDROcodone 325 MG/5 MG TAB PO PRN (21:26)
[2016-10-22] VITALS: BP 170/84; PULSE 100; RESP 20; TEMP 97.6; O2SAT 94
[2016-10-22] MEDS: CHLORHEXIDINE GLUCONATE 2 % 1 PACK (2 CLOTHS) TOP SCH (02:29)
[2016-10-22 03:55] VITALS: BP 165/86; PULSE 94; RESP 19; TEMP 98.6; O2SAT 94
[2016-10-22] MEDS: hydrALAZINE HCL 50 MG TAB PO SCH ×3 (05:02→22:23)
[2016-10-22] MEDS: ACETAMINOPHEN/HYDROcodone 325 MG/5 MG TAB PO PRN (05:03)
[2016-10-22] MEDS: INSULIN ASPART SUPPLEMENTAL SCALE SQ SCH ×4 (06:43→22:14)
[2016-10-22 08:00] VITALS: BP 174/80; PULSE 94; RESP 18; TEMP 98.6; O2SAT 95
[2016-10-22] MEDS: CHLORHEXIDINE 0.12% (ORAL KIT) 15 ML CUP MT SCH (08:00)
[2016-10-22] MEDS: DOCUSATE SODIUM 100 MG/10 ML UDC OG-TUBE SCH (08:27)
[2016-10-22] MEDS: SODIUM CHLORIDE 0.9% FLUSH 5 ML FLUSH IV FLUSH SCH ×2 (08:27→22:23)
[2016-10-22] MEDS: FERROUS SULFATE 300 MG /5ML UDC OG-TUBE SCH (08:27)
[2016-10-22] MEDS: SENNOSIDES SYRUP 8.8 MG/5 ML CUP OG-TUBE SCH (08:28)
[2016-10-22] MEDS: CEFUROXIME AXETIL 500 MG TAB PO SCH ×2 (08:28→21:59)
[2016-10-22] MEDS: PANTOPRAZOLE SOD 40 MG DELAYED RELEASE TAB PO SCH (08:29)
[2016-10-22] MEDS: NIFEdipine 60 MG SUSTAINED RELEASE TAB PO SCH (08:29)
[2016-10-22] MEDS: risperiDONE 1 MG TAB PO SCH ×2 (08:29→22:00)
[2016-10-22] MEDS: METOPROLOL TARTRATE 25 MG TAB PO SCH (08:30)
[2016-10-22] MEDS: ASCORBIC ACID 500 MG TAB PO SCH ×2 (08:30→22:00)
--- NOTE | 2016-10-22 09:24 | HHI.PR ---
Subjective Remarks Follow-up for hypertension, end-stage renal disease and hyperglycemia Blood pressure still elevated in the 160s, patient denies any neurologic deficits, headache, nausea or vomiting. He wants to go home. Status post dialysis yesterday. No shortness of breath. Objective Vitals Vital Signs Date Time Temp Pulse Resp B/P Pulse Ox O2 Delivery O2 Flow Rate FiO2 10/22/16 08:00 98.6 94 18 174/80 95 10/22/16 06:00 20 10/22/16 03:55 98.6 94 19 165/86 94 10/22/16 00:00 97.6 100 20 170/84 94 10/21/16 20:00 97.6 98 20 184/98 93 10/21/16 20:00 97.6 60 20 168/84 93 10/21/16 16:37 97.7 100 19 171/86 91 10/21/16 12:00 96.7 88 18 172/82 91 10/21/16 09:35 94 Nasal Cannula 2.00 I/O 10/21/16 10/21/16 10/21/16 10/22/16 10/22/16 10/22/16 07:00 15:00 23:00 07:00 15:00 23:00 Intake Total 480 ml 300 ml 240 ml 240 ml Output Total 500 ml 250 ml 3250 ml 200 ml Balance -20 ml 50 ml -3010 ml 40 ml Intake Oral 480 ml 300 ml 240 ml 240 ml IV Total 0 ml 0 ml Output Urine Total 500 ml 250 ml 250 ml 200 ml Hemodialysis 3000 ml # Bowel Movements 1 3 1 0 Result Diagram: 10/21/16 0500 10/21/16 0500 Objective Remarks Not in distress PERRL, pink conjunctiva without injection, anicteric Nose without bleeding, airway patent Supple neck, PermCath right neck. Normal rate and regular rhythm, no murmurs gallops or rubs appreciated. Clear to auscultation and symmetric bilaterally, normal respiratory effort. Normal bowel sounds, soft, non-tender, nondistended, no guarding. Extremities without clubbing, cyanosis, or edema. No rash of generalized distribution. Skin is warm and dry. AAO x3, no cranial nerve deficits, moves all 4 extremities, no focal neurologic deficits Calm today. Date of Insertion: Oct 15, 2016 Side: Left Location: Internal, Jugular A/P Problem List: (1) Acute on chronic renal failure ICD Code: N17.9 Status: Acute (2) Adjustment disorder with disturbance of conduct ICD Code: F43.24 Status: Acute (3) HCAP (healthcare-associated pneumonia) ICD Code: J18.9 Status: Acute (4) Sepsis ICD Code: A41.9 Status: Acute (5) Diastolic CHF ICD Code: I50.30 Status: Acute (6) Hypertension ICD Code: I10 Status: Acute (7) Diabetes ICD Code: E11.9 Status: Acute (8) Symptomatic anemia ICD Code: D64.9 Status: Acute (9) Cellulitis ICD Code: L03.90 Status: Acute (10) Hyperkalemia ICD Code: E87.5 Status: Acute (11) Hypernatremia ICD Code: E87.0 Status: Acute (12) Elevated AST (SGOT) ICD Code: R74.0 Status: Acute (13) Elevated troponin ICD Code: R79.89 Status: Acute (14) Hypoalbuminemia ICD Code: E88.09 Status: Acute (15) Leukocytosis ICD Code: D72.829 Status: Acute (16) Open wound of right foot ICD Code: S91.301A Status: Acute Assessment and Plan This is a 15-year-old male who presented with shortness of breath and acute hypoxic respiratory failure. Acute hypoxemic respiratory failure secondary to ARDS with multilobar healthcare associated pneumonia--Emergently intubated and placed on mechanical ventilation 10/15/16, extubated 10/17/16, cultures negative to date. Continue duo nebs. Status post thoracentesis 10/15 with 1.7L of fluid removed (Transudate ), finish azithromycin, cefepime switch to Ceftin until October 23. Blood cultures negative to date. Influenza negative, Legionella and pneumococcal antigen negative Acute on chronic kidney disease stage V-nephrology following, diuretics for nephrology, continue dialysis, started 10/17/16. Adjustment disorder, History of THC use - Status post Bradford act last admission. Patient wants to leave AGAINST MEDICAL ADVICE,? Continue Haldol and Ativan as needed. Patient usually can be talked out of leaving AGAINST MEDICAL ADVICE. Acute on Chronic diastolic heart failure- Echocardiogram 10/04 revealed EF 55-60% . Mild LVH. Mild MR, TR and NC. Uncontrolled hypertension-continue hydralazine, increase metoprolol, clonidine as needed. Hypoalbuminemia Elevated AST Moderate to severe protein calorie malnutrition -Resume diet per speech recommendation Protonix for GI prophylaxis Colace/ Senokot for bowel regimen. Uncontrolled diabetes mellitus type 2-continue sliding scale insulin, increase Levemir to 15 units at night. Left thumb, right second and third finger, right lower extremity amputation Diabetic foot ulcer Wound care evaluate and treat. Prophylaxis - GI - Protonix - DVT - SCD/heparin subcutaneous Problem Qualifiers (1) Sepsis: Qualified Code: A41.9 - Sepsis, due to unspecified organism (2) Diastolic CHF: Qualified Code: I50.32 - Chronic diastolic congestive heart failure (3) Hypertension: Qualified Code: I10 - Essential hypertension (4) Diabetes: Qualified Code: E11.8 - Type 2 diabetes mellitus with complication, without long-term current use of insulin (5) Cellulitis: Qualified Code: L03.90 - Cellulitis, unspecified cellulitis site (6) Leukocytosis: Qualified Code: D72.829 - Leukocytosis, unspecified type (7) Open wound of right foot: Qualified Code: S91.301D - Open wound of right foot, subsequent encounter Nat Epps MD Oct 22, 2016 09:24
[2016-10-22] MEDS: METOPROLOL TARTRATE 50 MG TAB PO SCH ×2 (10:58→22:00)
[2016-10-22] MEDS: HEPARIN SODIUM - SQ 10,000 UNITS/ML VIAL SQ SCH ×2 (10:58→22:15)
[2016-10-22 12:00] VITALS: BP_SYST 170; BP_SYST 177; BP_DIAS 84; BP_DIAS 85; PULSE 84; RESP 17; TEMP 96.6; O2SAT 94
--- NOTE | 2016-10-22 15:27 | HHI.NPPN ---
Subjective History of Present Illness 50 year old with non compliance multiple admissions, renal failure, DM, HTN Additional Remarks Patient seen in [facility], reports he wants to go home soon. Review of Systems Psych Psych: Anxiety (Psychosis) Objective Data Data 10/21/16 10/22/16 19:00 07:00 Intake Total 300 ml 480 ml Output Total 3250 ml 450 ml Balance -2950 ml 30 ml Intake Oral 300 ml 480 ml IV Total 0 ml Output Urine Total 250 ml 450 ml Hemodialysis 3000 ml # Bowel Movements 4 0 Vital Signs Date Time Temp Pulse Resp B/P Pulse Ox O2 Delivery O2 Flow Rate FiO2 10/22/16 13:47 21 10/22/16 12:00 96.6 84 17 177/85 94 170/84 10/22/16 08:00 98.6 94 18 174/80 95 10/22/16 06:00 20 10/22/16 03:55 98.6 94 19 165/86 94 10/22/16 00:00 97.6 100 20 170/84 94 10/21/16 20:00 97.6 98 20 184/98 93 10/21/16 20:00 97.6 60 20 168/84 93 10/21/16 16:37 97.7 100 19 171/86 91 -: 10/21/16 0500 10/21/16 0500 Physical Exam General Appearance: Well Developed, No Acute Distress Neck Neck Exam: Neck Supple Pulmonary Resp Exam: Rhonchi, Diminished Breath Sounds Cardiology CV Exam: Regular, Normal Sinus Rhythm Gastrointestinal/Abdomen GI Exam: Soft, Non-Tender Integumentary Skin Exam: Intact Extremeties Extremities Exam: No Edema Neurologic Neuro Exam: Alert, Awake, Oriented, Sedated Assessment/Plan Problem List: (1) Chronic kidney disease, stage 5 Plan: Patient tolerated HD yesterday. Continue to follow with psychiatrist Dr. Morfin Volume status and electrolytes stable today - plan for next HD Monday. Seen with Dr. England - plan is for eventual left upper arm brachiobasilic AV fistula. Current right IJ non-tunneled dialysis catheter, will order for tunneled catheter with IR Monday. Will need to evaluate for outpatient dialysis placement. Of note, history of non-compliance - however reports he is willing to follow with dialysis as an outpatient. (2) HCAP (healthcare-associated pneumonia) Plan: He is on Ceftin Cultures negative, afebrile, WBC stable. (3) DM (diabetes mellitus) Plan: insulin coverage. Maintain blood glucose between 140 and 180 while hospitalized. (4) Sepsis Plan: due to pneumonia. (5) Hyperkalemia Plan: Improved. Problem Qualifiers (1) DM (diabetes mellitus): Qualified Code: E13.22 - Other specified diabetes mellitus with chronic kidney disease on chronic dialysis, unspecified [facility] insulin use status (2) Sepsis: Qualified Code: A41.9 - Sepsis, due to unspecified organism Lucas Colorado MD Oct 22, 2016 15:27
[2016-10-22 16:00] VITALS: BP 138/79; PULSE 79; RESP 16; TEMP 96.3; O2SAT 93
[2016-10-22] MEDS: FERROUS SULFATE 325 MG (65 MG ELEMENTAL IRON) TAB PO SCH (22:00)
[2016-10-22] MEDS: INSULIN DETEMIR 100 UNITS/ML VIAL SQ SCH (22:04)
[2016-10-22 23:30] VITALS: BP 188/98; PULSE 108; RESP 20; TEMP 98.2; O2SAT 91
[2016-10-23] VITALS (7 sets, daily range): BP systolic 149–177; BP diastolic 74–98; PULSE 88–94; RESP 16–19; TEMP 97.6–99.4; O2SAT 91–97
[2016-10-23] MEDS: hydrALAZINE HCL 50 MG TAB PO SCH (05:59)
[2016-10-23] MEDS: INSULIN ASPART SUPPLEMENTAL SCALE SQ SCH ×4 (06:29→20:41)
[2016-10-23] MEDS: NIFEdipine 60 MG SUSTAINED RELEASE TAB PO SCH (08:03)
[2016-10-23] MEDS: FERROUS SULFATE 325 MG (65 MG ELEMENTAL IRON) TAB PO SCH ×2 (08:03→20:40)
[2016-10-23] MEDS: PANTOPRAZOLE SOD 40 MG DELAYED RELEASE TAB PO SCH (08:03)
[2016-10-23] MEDS: METOPROLOL TARTRATE 50 MG TAB PO SCH ×2 (08:03→20:40)
[2016-10-23] MEDS: CEFUROXIME AXETIL 500 MG TAB PO SCH (08:03)
[2016-10-23] MEDS: SODIUM CHLORIDE 0.9% FLUSH 5 ML FLUSH IV FLUSH SCH ×2 (08:04→20:44)
[2016-10-23] MEDS: ASCORBIC ACID 500 MG TAB PO SCH ×2 (08:04→20:40)
[2016-10-23] MEDS: risperiDONE 1 MG TAB PO SCH ×2 (08:04→20:40)
--- NOTE | 2016-10-23 08:05 | HHI.PR ---
Subjective Remarks Follow-up for shortness of breath, end-stage renal disease Patient excited that we will have tunneled catheter placed tomorrow. Not short of breath, no chest pain. Not coughing. Afebrile. Blood pressure elevated, no headache. Objective Vitals Vital Signs Date Time Temp Pulse Resp B/P Pulse Ox O2 Delivery O2 Flow Rate FiO2 10/23/16 03:58 92 165/77 10/22/16 23:30 98.2 108 20 188/98 91 10/22/16 16:00 96.3 79 16 138/79 93 10/22/16 13:47 21 10/22/16 12:00 96.6 84 17 177/85 94 170/84 I/O 10/22/16 10/22/16 10/22/16 10/23/16 10/23/16 10/23/16 07:00 15:00 23:00 07:00 15:00 23:00 Intake Total 240 ml 1500 ml 480 ml 280 ml Output Total 200 ml 225 ml 300 ml 300 ml Balance 40 ml 1275 ml 180 ml -20 ml Intake Oral 240 ml 1500 ml 480 ml 280 ml IV Total 0 ml 0 ml Output Urine Total 200 ml 225 ml 300 ml 300 ml # Bowel Movements 0 2 2 1 Result Diagram: 10/21/16 0500 10/21/16 0500 Objective Remarks Not in distress PERRL, pink conjunctiva without injection, anicteric Nose without bleeding, airway patent Supple neck, PermCath right neck. Normal rate and regular rhythm, no murmurs gallops or rubs appreciated. Clear to auscultation and symmetric bilaterally, occasional rhonchi. Normal bowel sounds, soft, non-tender, nondistended, no guarding. Extremities without clubbing, cyanosis, trace nonpitting edema bilateral calves No rash of generalized distribution. Skin is warm and dry. AAO x3, no cranial nerve deficits, moves all 4 extremities, no focal neurologic deficits Calm today. Date of Insertion: Oct 15, 2016 Side: Left Location: Internal, Jugular A/P Problem List: (1) Acute on chronic renal failure ICD Code: N17.9 Status: Acute (2) Adjustment disorder with disturbance of conduct ICD Code: F43.24 Status: Acute (3) HCAP (healthcare-associated pneumonia) ICD Code: J18.9 Status: Acute (4) Sepsis ICD Code: A41.9 Status: Acute (5) Diastolic CHF ICD Code: I50.30 Status: Acute (6) Hypertension ICD Code: I10 Status: Acute (7) Diabetes ICD Code: E11.9 Status: Acute (8) Symptomatic anemia ICD Code: D64.9 Status: Acute (9) Cellulitis ICD Code: L03.90 Status: Acute (10) Hyperkalemia ICD Code: E87.5 Status: Acute (11) Hypernatremia ICD Code: E87.0 Status: Acute (12) Elevated AST (SGOT) ICD Code: R74.0 Status: Acute (13) Elevated troponin ICD Code: R79.89 Status: Acute (14) Hypoalbuminemia ICD Code: E88.09 Status: Acute (15) Leukocytosis ICD Code: D72.829 Status: Acute (16) Open wound of right foot ICD Code: S91.301A Status: Acute Assessment and Plan Adjustment disorder, History of THC use - Status post Bradford act last admission. Haldol and Ativan as needed per psychiatry. Patient wants to leave AGAINST MEDICAL ADVICE, patient does have capacity. Acute on Chronic diastolic heart failure Severe sepsis History of syncope Hypertension Elevated troponin - Hypertension uncontrolled, continue metoprolol. Increase hydralazine 75 mg every 8 hours. Echocardiogram 10/04 revealed EF 55-60%. Mild LVH. Mild MR, TR and MA. Acute hypoxemic respiratory failure ARDS-resolving Multilobar healthcare associated pneumonia Tobaccoism -Emergently intubated and placed on mechanical ventilation 10/15/16, extubated . DuoNeb every 4 hours scheduled and when necessary, sputum culture negative to date. Influenza negative, Legionella and pneumococcal antigen negative, blood cultures negative. s/p thoracentesis 10/15 with 1.7L of fluid removed (Transudate), finish azithromycin, switch cefepime to oral, continue Ceftin, finished today. Hypoalbuminemia Elevated AST Moderate to severe protein calorie malnutrition Protonix for GI prophylaxis Colace/ Senokot for bowel regimen. Acute on chronic kidney disease stage V-nephrology following, diuretics for nephrology, continue dialysis, started 10/17/16. For hemodialysis tomorrow, though catheter placement tomorrow, patient for evaluation for left upper arm brachial basilic AV fistula. Consult case management for outpatient dialysis placement Hypoglycemia Diabetes mellitus 2-continue Levemir with sliding scale insulin. Dose increased to 15 units at night 10/22/16. Prophylaxis - GI - Protonix - DVT - SCD/heparin subcutaneous Discharge Planning Patient for tunneled catheter placement 10/24/16, evaluation for AV fistula placement. Discharge once dialysis as outpatient radiation cleared by nephrology Problem Qualifiers (1) Sepsis: Qualified Code: A41.9 - Sepsis, due to unspecified organism (2) Diastolic CHF: Qualified Code: I50.32 - Chronic diastolic congestive heart failure (3) Hypertension: Qualified Code: I10 - Essential hypertension (4) Diabetes: Qualified Code: E11.8 - Type 2 diabetes mellitus with complication, without long-term current use of insulin (5) Cellulitis: Qualified Code: L03.90 - Cellulitis, unspecified cellulitis site (6) Leukocytosis: Qualified Code: D72.829 - Leukocytosis, unspecified type (7) Open wound of right foot: Qualified Code: S91.301D - Open wound of right foot, subsequent encounter Nat Epps MD Oct 23, 2016 08:05
[2016-10-23] MEDS: HEPARIN SODIUM - SQ 10,000 UNITS/ML VIAL SQ SCH (11:27)
--- NOTE | 2016-10-23 13:18 | HHI.NPPN ---
Subjective History of Present Illness 50 year old with non compliance multiple admissions, renal failure, DM, HTN Additional Remarks Patient seen in room with his mother, reports he wants to go home soon. Review of Systems Psych Psych: Anxiety (Psychosis) Objective Data Data 10/22/16 10/23/16 19:00 07:00 Intake Total 1500 ml 760 ml Output Total 225 ml 600 ml Balance 1275 ml 160 ml Intake Oral 1500 ml 760 ml IV Total 0 ml Output Urine Total 225 ml 600 ml # Bowel Movements 2 3 Vital Signs Date Time Temp Pulse Resp B/P Pulse Ox O2 Delivery O2 Flow Rate FiO2 10/23/16 12:00 98.2 94 16 162/77 96 10/23/16 08:00 99.4 94 19 177/86 95 10/23/16 03:58 92 165/77 10/22/16 23:30 98.2 108 20 188/98 91 10/22/16 16:00 96.3 79 16 138/79 93 10/22/16 13:47 21 -: 10/21/16 0500 10/21/16 0500 Physical Exam General Appearance: Well Developed, No Acute Distress Neck Neck Exam: Neck Supple Pulmonary Resp Exam: Rhonchi, Diminished Breath Sounds Cardiology CV Exam: Regular, Normal Sinus Rhythm Gastrointestinal/Abdomen GI Exam: Soft, Non-Tender Integumentary Skin Exam: Intact Extremeties Extremities Exam: No Edema Neurologic Neuro Exam: Alert, Awake, Oriented, Sedated Assessment/Plan Problem List: (1) Chronic kidney disease, stage 5 Plan: Patient tolerated HD Monday Continue to follow with psychiatrist Dr. Morfin Volume status and electrolytes stable today - plan for next HD Monday. Seen with Dr. England - plan is for eventual left upper arm brachiobasilic AV fistula. Current right IJ non-tunneled dialysis catheter, ordered for tunneled catheter with IR Monday and NPO at midnight Will need to evaluate for outpatient dialysis placement. Of note, history of non-compliance - however reports he is willing to follow with dialysis as an outpatient. (2) HCAP (healthcare-associated pneumonia) Plan: He is on Ceftin Cultures negative, afebrile, WBC stable. (3) DM (diabetes mellitus) Plan: insulin coverage. Maintain blood glucose between 140 and 180 while hospitalized. (4) Sepsis Plan: due to pneumonia. (5) Hyperkalemia Plan: Improved. Problem Qualifiers (1) DM (diabetes mellitus): Qualified Code: E13.22 - Other specified diabetes mellitus with chronic kidney disease on chronic dialysis, unspecified intermediate manager insulin use status (2) Sepsis: Qualified Code: A41.9 - Sepsis, due to unspecified organism Lucas Colorado MD Oct 23, 2016 13:18
[2016-10-23 15:01] LABS: C. DIFF EPI 027 PRESUMPTIVE NEGATIVE (NEGATIVE)
[2016-10-23 15:18] LABS: C. DIFF TOXIN PCR POSITIVE (NEGATIVE)
[2016-10-23] MEDS: hydrALAZINE HCL 25 MG TAB PO SCH ×2 (16:00→20:41)
[2016-10-23] MEDS: metroNIDAZOLE 500 MG INJ 100 ML IV SCH (16:03)
[2016-10-23] MEDS: INSULIN DETEMIR 100 UNITS/ML VIAL SQ SCH (20:41)
[2016-10-24] VITALS (7 sets, daily range): BP systolic 161–190; BP diastolic 68–98; PULSE 88–106; RESP 18–20; TEMP 95.9–97.9; O2SAT 92–100
[2016-10-24] MEDS: metroNIDAZOLE 500 MG INJ 100 ML IV SCH ×4 (01:09→23:24)
[2016-10-24] MEDS: DEXTROSE 50% IN WATER 50 ML VIAL(D50) IV PUSH PRN ×5 (05:02→12:08)
[2016-10-24 05:27] LABS: BASOPHIL # 0.2 TH/MM3 (0-0.2); BASOPHIL % 1.1 % (0.0-2.0); EOSINOPHIL # 0.3 TH/MM3 (0-0.4); EOSINOPHIL % 2.2 % (0.0-4.0); HEMATOCRIT 26.8 % (39.0-51.0); LYMPH % 10.3 % (9.0-44.0); LYMPHOCYTE # 1.4 TH/MM3 (1.0-4.8); MEAN CORPUSCULAR HEMOGLOBIN 28.1 PG (27.0-34.0); MEAN CORPUSCULAR HGB CONC 31.6 % (32.0-36.0); MONO % 7.5 % (0.0-8.0); NEUT % 78.9 % (16.0-70.0); PLATELET COUNT 236 TH/MM3 (150-450); RED BLOOD COUNT 3.01 MIL/MM3 (4.50-5.90); WHITE BLOOD COUNT 13.9 TH/MM3 (4.0-11.0)
[2016-10-24 05:35] LABS: INTERNATIONAL NORMALIZED RATIO 1.1 RATIO; PROTHROMBIN TIME - PATIENT 11.8 SEC (9.8-11.6)
[2016-10-24] MEDS: INSULIN ASPART SUPPLEMENTAL SCALE SQ SCH ×4 (05:36→21:36)
[2016-10-24] MEDS: hydrALAZINE HCL 25 MG TAB PO SCH ×3 (06:00→21:29)
[2016-10-24 06:02] LABS: BICARBONATE 28.6 MEQ/L (21.0-32.0); POTASSIUM 3.4 MEQ/L (3.5-5.1)
[2016-10-24 06:05] LABS: HEMO FLAGS AUTO DIFF
[2016-10-24] MEDS ORDERED: DEXTROSE 5% IN WATE 1000ML INJ 1,000 ML IV SCH (07:00)
[2016-10-24 08:09] LABS: BANDS 2 % (0-6); BASOPHILS 1 % (0-2); EOSINOPHILS 1 % (0-4); NEUTROPHIL # MANUAL DIFF 11.3 TH/MM3 (1.8-7.7); POLYS (SEG NEUTROPHILS) 79 % (16-70); WBC DIFF SAMPLE 100
[2016-10-24 08:10] LABS: KERATOCYTES OCC (NORMAL); PLATELET ESTIMATE SMEAR NORMAL (NORMAL); PLATELET MORPHOLOGY NORMAL (NORMAL); SCAN/DIFF FINAL DIFF MANUAL
[2016-10-24] MEDS: SODIUM CHLORIDE 0.9% FLUSH 5 ML FLUSH IV FLUSH SCH ×2 (08:10→21:29)
[2016-10-24] MEDS: NIFEdipine 60 MG SUSTAINED RELEASE TAB PO SCH (08:10)
[2016-10-24] MEDS: ASCORBIC ACID 500 MG TAB PO SCH ×2 (08:10→21:29)
[2016-10-24] MEDS: METOPROLOL TARTRATE 50 MG TAB PO SCH ×2 (08:10→21:29)
[2016-10-24] MEDS: PANTOPRAZOLE SOD 40 MG DELAYED RELEASE TAB PO SCH (08:10)
[2016-10-24] MEDS: FERROUS SULFATE 325 MG (65 MG ELEMENTAL IRON) TAB PO SCH ×2 (08:10→21:29)
[2016-10-24] MEDS: risperiDONE 1 MG TAB PO SCH ×2 (08:10→21:29)
--- NOTE | 2016-10-24 08:15 | HHI.PR ---
Subjective Remarks All by nursing to evaluate the patient secondary to increased agitation and combativeness. The patient has been having low blood sugars this morning. Accu- Cheks have been as low as 45. Serum glucose was 11. Patient was increasingly confused and combative. He was given D50 and placed on IV fluids with dextrose. He was given Haldol, which did result in the patient becoming somewhat sedated. He had been trying to pull out his Vas-Cath and his Burgos catheter. On my examination of the patient he is sedated, but does awaken and answer questions. He denies pain currently. Objective Vitals Vital Signs Date Time Temp Pulse Resp B/P Pulse Ox O2 Delivery O2 Flow Rate FiO2 10/24/16 05:00 100 18 161/92 100 10/24/16 03:44 97.9 102 20 171/68 92 10/23/16 23:56 98.9 90 18 168/88 91 10/23/16 20:08 97.6 92 17 157/86 91 10/23/16 17:59 92 21 10/23/16 16:00 97.6 88 18 149/74 97 10/23/16 12:00 98.2 94 16 162/77 96 I/O 10/23/16 10/23/16 10/23/16 10/24/16 10/24/16 10/24/16 07:00 15:00 23:00 07:00 15:00 23:00 Intake Total 280 ml 3240 ml 470 ml 0 ml Output Total 300 ml 325 ml 280 ml 280 ml Balance -20 ml 2915 ml 190 ml -280 ml Intake Oral 280 ml 3240 ml 360 ml IV Total 0 ml 110 ml 0 ml Output Urine Total 300 ml 325 ml 280 ml 280 ml # Bowel Movements 1 7 2 Result Diagram: 10/24/16 0500 10/24/16 0500 Imaging Last Impressions Chest X-Ray 10/19/16 0600 Signed Impressions: Service Date/Time: Wednesday, October 19, 2016 03:59 - CONCLUSION: No significant change. Dain Morrison MD Upper Extremity Ultrasound 10/19/16 0000 Signed Impressions: Service Date/Time: Wednesday, October 19, 2016 21:02 - CONCLUSION: Upper extremity venous mapping as above. Dain Morrison MD Chest CT 10/15/16 0000 Signed Impressions: Service Date/Time: Saturday, October 15, 2016 10:17 - CONCLUSION: 1. Diffuse prominent bilateral interstitial and airspace infiltrates throughout both lung dial. 2. There is atelectasis and compression of the lower lung dial, left greater than right. 3. Small to moderate right-sided pleural effusion. Yoandy Nj MD Objective Remarks General: No acute distress. In soft restraints. Heart: Regular rate and rhythm. No murmur. Lungs: Clear to auscultation bilaterally. No wheezes, rales, or rhonchi. Breathing is nonlabored. Abdomen: Soft, nontender, nondistended. Extremities: No lower extremity edema. Psych: Sedated, but does awaken and answer questions. Urinary Catheter: Yes Assessment to: Remove Vascular Central Line Catheter: Yes Assessment to: Continue Date of Insertion: Oct 15, 2016 Side: Left Location: Internal, Jugular A/P Problem List: (1) Acute on chronic renal failure ICD Code: N17.9 Status: Acute (2) Adjustment disorder with disturbance of conduct ICD Code: F43.24 Status: Acute (3) HCAP (healthcare-associated pneumonia) ICD Code: J18.9 Status: Acute (4) Sepsis ICD Code: A41.9 Status: Acute (5) Diastolic CHF ICD Code: I50.30 Status: Acute (6) Hypertension ICD Code: I10 Status: Acute (7) Diabetes ICD Code: E11.9 Status: Acute (8) Symptomatic anemia ICD Code: D64.9 Status: Acute (9) Cellulitis ICD Code: L03.90 Status: Acute (10) Hyperkalemia ICD Code: E87.5 Status: Acute (11) Hypernatremia ICD Code: E87.0 Status: Acute (12) Elevated AST (SGOT) ICD Code: R74.0 Status: Acute (13) Elevated troponin ICD Code: R79.89 Status: Acute (14) Hypoalbuminemia ICD Code: E88.09 Status: Acute (15) Leukocytosis ICD Code: D72.829 Status: Acute (16) Open wound of right foot ICD Code: S91.301A Status: Acute Assessment and Plan 1. Hypoglycemia: Patient has diabetes mellitus and is on Levemir with sliding scale insulin coverage. He has been hypoglycemic this morning, likely contributing to his altered mental status. Will decrease Levemir. 2. Agitation, confusion, combativeness: he patient was placed in soft restraints as he was attempting to pull out his Vas-Cath and his Burgos catheter. He was also becoming combative with nursing staff. Reconsult psychiatry for further evaluation. On most recent psychiatric evaluation, patient was noted to not have capacity to make medical decisions and therefore not have capacity to leave AGAINST MEDICAL ADVICE. Haldol, Ativan as needed per psychiatry. 3. Acute on chronic diastolic heart failure: Improved. Continue current medications including beta sue. 4. Hypertension: Continue metoprolol, hydralazine. 5. Acute hypoxemic respiratory failure, ARDS: Resolving. 6. Multilobar healthcare associated pneumonia: Patient was intubated on 10/15/16 and extubated on 10/17/16. Continue DuoNeb scheduled and as needed. Sputum culture negative. Influenza negative. Blood cultures are negative. Patient had thoracentesis on 10/15/16 with removal of 1.7 L of fluid. Completed course of Ceftin, azithromycin. 7. Hypoalbuminemia, elevated AST, moderate to severe protein calorie malnutrition: Encourage oral intake. 8. GI prophylaxis: Protonix. 9. Acute on chronic kidney disease stage V: Nephrology following. Continue dialysis, which was started 10/17/16. Due for hemodialysis today. Case management assisting with outpatient dialysis. Patient is scheduled for tunneled catheter placement today. 10. DVT prophylaxis: SCDs, heparin. Problem Qualifiers (1) Sepsis: Qualified Code: A41.9 - Sepsis, due to unspecified organism (2) Diastolic CHF: Qualified Code: I50.32 - Chronic diastolic congestive heart failure (3) Hypertension: Qualified Code: I10 - Essential hypertension (4) Diabetes: Qualified Code: E11.8 - Type 2 diabetes mellitus with complication, without long-term current use of insulin (5) Cellulitis: Qualified Code: L03.90 - Cellulitis, unspecified cellulitis site (6) Leukocytosis: Qualified Code: D72.829 - Leukocytosis, unspecified type (7) Open wound of right foot: Qualified Code: S91.301D - Open wound of right foot, subsequent encounter Abhinav Storey MD Oct 24, 2016 08:15
[2016-10-24] MEDS: HEPARIN SODIUM - SQ 10,000 UNITS/ML VIAL SQ SCH ×3 (12:00→23:23)
[2016-10-24] MEDS: HEPARIN SODIUM - IV 10,000 UNITS/10 ML VIAL PRN (12:08)
[2016-10-24] MEDS: GENTAMICIN SULFATE (DIALYSIS USE ONLY) 20 MG/2 ML VIAL IV PRN (12:09)
--- NOTE | 2016-10-24 14:43 | HHI.PYPN ---
Subjective Remarks Patient was seen for reevaluation today, his mother was present to well the interview, patient at the beginning was agitated, requesting to be discharged, saying that he wants to go and continue his medical care in outpatient basis. But, later on after reassurance and redirection patient calm down and verbalize understanding of the importance of staying in the hospital and following medical recommendations. He denies depressive symptoms, he denies anxiety, he denies gonzalez, he denies psychosis, he denies visual and auditory hallucinations , he denies suicidal or homicidal ideation. As per nurses, patient had several episodes of aggressive behavior in the floor needing Haldol 5 mg iv when necessary. Review of Systems Other No somatic complaints at this moment Objective Alert: Yes [place]: Person, Place, Date, Situation Mood: Angry Affect: Labile Memory Intact: Immediate, Recent, Remote Hallucinations: Other (he denies) Delusions: No Delusion Type: Other (none) Suicidal: Ideation (he denies) Homicidal: Ideation (he denies) Insight/Judgement fait Labs Test 10/24/16 05:00 White Blood Count 13.9 TH/MM3 Red Blood Count 3.01 MIL/MM3 Hemoglobin 8.5 GM/DL Hematocrit 26.8 % Mean Corpuscular Volume 89.0 FL Mean Corpuscular Hemoglobin 28.1 PG Mean Corpuscular Hemoglobin 31.6 % Concent Red Cell Distribution Width 17.0 % Platelet Count 236 TH/MM3 Mean Platelet Volume 8.1 FL Neutrophils (%) (Auto) 78.9 % Lymphocytes (%) (Auto) 10.3 % Monocytes (%) (Auto) 7.5 % Eosinophils (%) (Auto) 2.2 % Basophils (%) (Auto) 1.1 % Neutrophils # (Auto) 11.0 TH/MM3 Lymphocytes # (Auto) 1.4 TH/MM3 Monocytes # (Auto) 1.0 TH/MM3 Eosinophils # (Auto) 0.3 TH/MM3 Basophils # (Auto) 0.2 TH/MM3 CBC Comment AUTO DIFF Differential Total Cells 100 Counted Neutrophils % (Manual) 79 % Band Neutrophils % 2 % Lymphocytes % 12 % Monocytes % 5 % Eosinophils % 1 % Basophils % 1 % Neutrophils # (Manual) 11.3 TH/MM3 Differential Comment FINAL DIFF MANUAL Platelet Estimate NORMAL Platelet Morphology Comment NORMAL Keratocytes OCC Prothrombin Time 11.8 SEC Prothromb Time International 1.1 RATIO Ratio Sodium Level 145 MEQ/L Potassium Level 3.4 MEQ/L Chloride Level 109 MEQ/L Carbon Dioxide Level 28.6 MEQ/L Anion Gap 7 MEQ/L Blood Urea Nitrogen 58 MG/DL Creatinine 3.97 MG/DL Estimat Glomerular Filtration 20 ML/MIN Rate Random Glucose 11 MG/DL Calcium Level 7.7 MG/DL Vitals/IOs Vital Signs Date Time Temp Pulse Resp B/P Pulse Ox O2 Delivery O2 Flow Rate FiO2 10/24/16 13:11 95.9 90 20 190/98 93 10/23/16 17:59 21 10/21/16 09:35 Nasal Cannula 2.00 Intake and Output 10/23/16 10/23/16 10/24/16 08:00 16:00 00:00 Intake Total 280 ml 3240 ml 470 ml Output Total 300 ml 325 ml 280 ml Balance -20 ml 2915 ml 190 ml Assessment & Plan Problem List: (1) Adjustment disorder with mixed anxiety and depressed mood Assessment & Plan: Patient was seen for evaluation today, at the beginning he was agitated, verbally hostile, but finally was able to be responsive to verbal redirection. As per nurses patient has been having frequent agitation and aggressive behavior outbursts that have been managed successfully with Haldol 5 mg IM/IV every 8 hours when necessary aggressive behavior. We will increase Risperdal to 2 mg twice a day for better behavior control. Patient seems to agree to continue the hospital and follow the medical recommendations. ICD Code: F43.23 Assessment & Plan Estimated LOS: days Justification for Cont. Inpt. Patient does not meet criteria for psychiatric admission at this moment Chapin Morfin MD Oct 24, 2016 14:43
--- NOTE | 2016-10-24 18:20 | HHI.NPPN ---
Subjective History of Present Illness 50 year old with non compliance multiple admissions, renal failure, DM, HTN Additional Remarks Patient is alert, not in distress, wants to go home. Review of Systems Psych Psych: Anxiety (Psychosis) Objective Data Data 10/23/16 10/24/16 19:00 07:00 Intake Total 3350 ml 360 ml Output Total 325 ml 560 ml Balance 3025 ml -200 ml Intake Oral 3240 ml 360 ml IV Total 110 ml 0 ml Output Urine Total 325 ml 560 ml # Bowel Movements 7 2 Vital Signs Date Time Temp Pulse Resp B/P Pulse Ox O2 Delivery O2 Flow Rate FiO2 10/24/16 16:00 97.5 10/24/16 15:18 88 18 170/70 10/24/16 13:11 95.9 90 20 190/98 93 10/24/16 08:00 93 18 168/88 95 10/24/16 05:00 100 18 161/92 100 10/24/16 03:44 97.9 102 20 171/68 92 10/23/16 23:56 98.9 90 18 168/88 91 10/23/16 20:08 97.6 92 17 157/86 91 -: 10/24/16 0500 10/24/16 0500 Physical Exam General Appearance: No Acute Distress, Comfortable, Anxious Neck Neck Exam: Neck Supple Pulmonary Resp Exam: Rhonchi, Diminished Breath Sounds Cardiology CV Exam: Regular, Normal Sinus Rhythm Gastrointestinal/Abdomen GI Exam: Soft, Non-Tender Integumentary Skin Exam: Intact Extremeties Extremities Exam: No Edema Neurologic Neuro Exam: Alert, Awake, Oriented, Sedated Assessment/Plan Problem List: (1) Chronic kidney disease, stage 5 Plan: Continue to follow with psychiatrist Dr. Morfin Seen with Dr. England - plan is for eventual left upper arm brachiobasilic AV fistula. Current right IJ non-tunneled dialysis catheter, To get PermCath, not done today.\ Psychiatry following. For out patient HD arrangement. (2) HCAP (healthcare-associated pneumonia) Plan: He is on Ceftin Cultures negative, afebrile, WBC stable. (3) DM (diabetes mellitus) Plan: insulin coverage. Maintain blood glucose between 140 and 180 while hospitalized. (4) Sepsis Plan: due to pneumonia. (5) Hyperkalemia Plan: Improved. Problem Qualifiers (1) DM (diabetes mellitus): Qualified Code: E13.22 - Other specified diabetes mellitus with chronic kidney disease on chronic dialysis, unspecified usp insulin use status (2) Sepsis: Qualified Code: A41.9 - Sepsis, due to unspecified organism Mary Ann Beard MD Oct 24, 2016 18:20
[2016-10-24] MEDS ORDERED: INSULIN DETEMIR 100 UNITS/ML VIAL SQ SCH (21:00)
[2016-10-25] VITALS: BP 155/80; PULSE 110; RESP 18; TEMP 98.1; O2SAT 93
[2016-10-25] MEDS ORDERED: PICC PRN After Blood Draw NS Lock Flush IVF (02:00)
[2016-10-25] MEDS ORDERED: PICC PRN NS Lock Flush IVF (02:00)
[2016-10-25] MEDS ORDERED: PICC PRN Heparin 100 units/ml Lock Flush IVF (02:00)
[2016-10-25 04:00] VITALS: BP 140/69; PULSE 65; RESP 18; TEMP 98.8; O2SAT 97
[2016-10-25] MEDS: hydrALAZINE HCL 25 MG TAB PO SCH ×3 (05:15→21:43)
[2016-10-25] MEDS: INSULIN ASPART SUPPLEMENTAL SCALE SQ SCH ×4 (05:31→21:00)
[2016-10-25] MEDS: DEXTROSE 50% IN WATER 50 ML VIAL(D50) IV PUSH PRN ×2 (05:31→07:14)
[2016-10-25 05:44] LABS: AUTOMATED NEUTROPHIL # 8.8 TH/MM3 (1.8-7.7); BASOPHIL # 0.1 TH/MM3 (0-0.2); BASOPHIL % 1.2 % (0.0-2.0); EOSINOPHIL # 0.3 TH/MM3 (0-0.4); EOSINOPHIL % 2.5 % (0.0-4.0); HEMATOCRIT 23.5 % (39.0-51.0); HEMO FLAGS DIFF FINAL; LYMPH % 16.2 % (9.0-44.0); MEAN CELL VOLUME 88.5 FL (80.0-100.0); MEAN CORPUSCULAR HEMOGLOBIN 28.3 PG (27.0-34.0); MONO % 7.5 % (0.0-8.0); NEUT % 72.6 % (16.0-70.0); PLATELET COUNT 227 TH/MM3 (150-450); RED BLOOD COUNT 2.66 MIL/MM3 (4.50-5.90); RED CELL DISTRIBUTION WIDTH 17.1 % (11.6-17.2); WHITE BLOOD COUNT 12.2 TH/MM3 (4.0-11.0)
[2016-10-25 06:21] LABS: BICARBONATE 28.4 MEQ/L (21.0-32.0); POTASSIUM 3.7 MEQ/L (3.5-5.1)
[2016-10-25] MEDS ORDERED: DEXTROSE 50% IN WATER 50 ML VIAL(D50) IV PUSH PRN (07:00)
[2016-10-25] MEDS: SODIUM CHLORIDE 0.9% FLUSH 5 ML FLUSH IV FLUSH SCH ×2 (07:45→21:00)
[2016-10-25] MEDS: FERROUS SULFATE 325 MG (65 MG ELEMENTAL IRON) TAB PO SCH ×2 (07:45→21:43)
[2016-10-25] MEDS: PICC Daily Heparin 100 unit/mL Lock Flush IVF SCH (07:45)
[2016-10-25] MEDS: METOPROLOL TARTRATE 50 MG TAB PO SCH ×2 (07:45→21:43)
[2016-10-25] MEDS: metroNIDAZOLE 500 MG INJ 100 ML IV SCH ×2 (07:45→16:23)
[2016-10-25] MEDS: NIFEdipine 60 MG SUSTAINED RELEASE TAB PO SCH (07:45)
[2016-10-25] MEDS: PICC Daily NS Lock Flush IVF SCH (07:46)
[2016-10-25] MEDS: PANTOPRAZOLE SOD 40 MG DELAYED RELEASE TAB PO SCH (07:46)
[2016-10-25] MEDS: ASCORBIC ACID 500 MG TAB PO SCH ×2 (07:46→21:43)
[2016-10-25] MEDS: risperiDONE 1 MG TAB PO SCH ×2 (07:46→21:43)
[2016-10-25 08:00] VITALS: BP 129/65; PULSE 85; RESP 17; TEMP 97.4; O2SAT 97
--- NOTE | 2016-10-25 09:29 | HHI.NPPN ---
Subjective History of Present Illness 50 year old with non compliance multiple admissions, renal failure, DM, HTN Additional Remarks Patient is alert, sitting on the chair, not in distress. Review of Systems Psych Psych: Anxiety (Psychosis) Objective Data Data 10/24/16 10/25/16 19:00 07:00 Intake Total 120 ml 460 ml Output Total 3600 ml 125 ml Balance -3480 ml 335 ml Intake Oral 120 ml 360 ml IV Total 100 ml Output Urine Total 600 ml 125 ml Hemodialysis 3000 ml # Voids 0 # Bowel Movements 1 0 Vital Signs Date Time Temp Pulse Resp B/P Pulse Ox O2 Delivery O2 Flow Rate FiO2 10/25/16 08:00 97.4 85 17 129/65 97 10/25/16 04:00 98.8 65 18 140/69 97 10/25/16 00:00 98.1 110 18 155/80 93 10/24/16 20:00 97.6 106 18 175/84 92 10/24/16 16:00 97.5 10/24/16 15:18 88 18 170/70 10/24/16 13:11 95.9 90 20 190/98 93 -: 10/25/16 0520 10/25/16 0520 Physical Exam General Appearance: No Acute Distress, Comfortable, Anxious Neck Neck Exam: Neck Supple Pulmonary Resp Exam: Rhonchi, Diminished Breath Sounds Cardiology CV Exam: Regular, Normal Sinus Rhythm Gastrointestinal/Abdomen GI Exam: Soft, Non-Tender Integumentary Skin Exam: Intact Extremeties Extremities Exam: No Edema Neurologic Neuro Exam: Alert, Awake, Oriented, Sedated Assessment/Plan Problem List: (1) Chronic kidney disease, stage 5 Plan: Continue to follow with psychiatrist Dr. Morfin Seen with Dr. England - plan is for eventual left upper arm brachiobasilic AV fistula. Current right IJ non-tunneled dialysis catheter, Psychiatry following. For out patient HD arrangement. HD done yesterday and 3 liters removed. To get PermCath in AM. (2) HCAP (healthcare-associated pneumonia) Plan: He is on Ceftin Cultures negative, afebrile, WBC stable. (3) DM (diabetes mellitus) Plan: insulin coverage. Maintain blood glucose between 140 and 180 while hospitalized. (4) Sepsis Plan: due to pneumonia. (5) Hyperkalemia Plan: Improved. Problem Qualifiers (1) DM (diabetes mellitus): Qualified Code: E13.22 - Other specified diabetes mellitus with chronic kidney disease on chronic dialysis, unspecified group home insulin use status (2) Sepsis: Qualified Code: A41.9 - Sepsis, due to unspecified organism Mary Ann Beard MD Oct 25, 2016 09:29
[2016-10-25] MEDS: HEPARIN SODIUM - SQ 10,000 UNITS/ML VIAL SQ SCH (10:43)
--- NOTE | 2016-10-25 11:50 | HHI.PR ---
Subjective Remarks Follow-up hypoglycemia. The patient states that he feels better today. He says that he is having his catheter placed tomorrow and then plans to go home tomorrow. No complaints at this time. Objective Vitals Vital Signs Date Time Temp Pulse Resp B/P Pulse Ox O2 Delivery O2 Flow Rate FiO2 10/25/16 08:00 97.4 85 17 129/65 97 10/25/16 04:00 98.8 65 18 140/69 97 10/25/16 00:00 98.1 110 18 155/80 93 10/24/16 20:00 97.6 106 18 175/84 92 10/24/16 16:00 97.5 10/24/16 15:18 88 18 170/70 10/24/16 13:11 95.9 90 20 190/98 93 I/O 10/24/16 10/24/16 10/24/16 10/25/16 10/25/16 10/25/16 07:00 15:00 23:00 07:00 15:00 23:00 Intake Total 0 ml 120 ml 240 ml 220 ml Output Total 280 ml 3600 ml 125 ml Balance -280 ml -3480 ml 240 ml 95 ml Intake Oral 120 ml 240 ml 120 ml IV Total 0 ml 100 ml Output Urine Total 280 ml 600 ml 125 ml Hemodialysis 3000 ml # Voids 0 # Bowel Movements 1 0 0 Result Diagram: 10/25/16 0520 10/25/16 0520 Imaging Last Impressions Chest X-Ray 10/19/16 0600 Signed Impressions: Service Date/Time: Wednesday, October 19, 2016 03:59 - CONCLUSION: No significant change. Dain Morrison MD Upper Extremity Ultrasound 10/19/16 0000 Signed Impressions: Service Date/Time: Wednesday, October 19, 2016 21:02 - CONCLUSION: Upper extremity venous mapping as above. Dain Morrison MD Chest CT 10/15/16 0000 Signed Impressions: Service Date/Time: Saturday, October 15, 2016 10:17 - CONCLUSION: 1. Diffuse prominent bilateral interstitial and airspace infiltrates throughout both lung dial. 2. There is atelectasis and compression of the lower lung dial, left greater than right. 3. Small to moderate right-sided pleural effusion. Yoandy Nj MD Objective Remarks General: No acute distress. Sitting up in a chair. Heart: Regular rate and rhythm. No murmur. Lungs: Clear to auscultation bilaterally. No wheezes, rales, or rhonchi. Breathing is nonlabored. Abdomen: Soft, nontender, nondistended. Extremities: No lower extremity edema. Psych: Alert, answers questions appropriately. Does display some confusion. Urinary Catheter: Yes Assessment to: Continue Burgos insert reason: Measure Accurate Output Vascular Central Line Catheter: Yes Assessment to: Continue Date of Insertion: Oct 15, 2016 Side: Left Location: Internal, Jugular A/P Problem List: (1) Acute on chronic renal failure ICD Code: N17.9 Status: Acute (2) Adjustment disorder with disturbance of conduct ICD Code: F43.24 Status: Acute (3) HCAP (healthcare-associated pneumonia) ICD Code: J18.9 Status: Acute (4) Sepsis ICD Code: A41.9 Status: Acute (5) Diastolic CHF ICD Code: I50.30 Status: Acute (6) Hypertension ICD Code: I10 Status: Acute (7) Diabetes ICD Code: E11.9 Status: Acute (8) Symptomatic anemia ICD Code: D64.9 Status: Acute (9) Cellulitis ICD Code: L03.90 Status: Acute (10) Hyperkalemia ICD Code: E87.5 Status: Acute (11) Hypernatremia ICD Code: E87.0 Status: Acute (12) Elevated AST (SGOT) ICD Code: R74.0 Status: Acute (13) Elevated troponin ICD Code: R79.89 Status: Acute (14) Hypoalbuminemia ICD Code: E88.09 Status: Acute (15) Leukocytosis ICD Code: D72.829 Status: Acute (16) Open wound of right foot ICD Code: S91.301A Status: Acute Assessment and Plan 1. Hypoglycemia: Patient has diabetes mellitus and is on Levemir with sliding scale insulin coverage. He was again hypoglycemic this morning. Was given D50 and glucose has improved. Will hold Levemir. 2. Agitation, confusion, combativeness: He patient was placed in soft restraints as he was attempting to pull out his Vas-Cath and his Burgos catheter. He was also becoming combative with nursing staff. Appreciate psychiatry recommendations. On most recent psychiatric evaluation, patient was noted to not have capacity to make medical decisions and therefore not have capacity to leave AGAINST MEDICAL ADVICE. Amadodol, Ativan as needed per psychiatry. 3. Acute on chronic diastolic heart failure: Improved. Continue current medications including beta sue. 4. Hypertension: Continue metoprolol, hydralazine. 5. Acute hypoxemic respiratory failure, ARDS: Resolving. 6. Multilobar healthcare associated pneumonia: Patient was intubated on 10/15/16 and extubated on 10/17/16. Continue DuoNeb scheduled and as needed. Sputum culture negative. Influenza negative. Blood cultures are negative. Patient had thoracentesis on 10/15/16 with removal of 1.7 L of fluid. Completed course of Ceftin, azithromycin. 7. Hypoalbuminemia, elevated AST, moderate to severe protein calorie malnutrition: Encourage oral intake. 8. GI prophylaxis: Protonix. 9. Acute on chronic kidney disease stage V: Nephrology following. Continue dialysis, which was started 10/17/16. Case management assisting with outpatient dialysis. Permacath placement to be done soon. 10. DVT prophylaxis: SCDs, heparin. 11. Anemia: H&H trending down. Recheck H&H this afternoon. Transfuse if necessary. Problem Qualifiers (1) Sepsis: Qualified Code: A41.9 - Sepsis, due to unspecified organism (2) Diastolic CHF: Qualified Code: I50.32 - Chronic diastolic congestive heart failure (3) Hypertension: Qualified Code: I10 - Essential hypertension (4) Diabetes: Qualified Code: E11.8 - Type 2 diabetes mellitus with complication, without long-term current use of insulin (5) Cellulitis: Qualified Code: L03.90 - Cellulitis, unspecified cellulitis site (6) Leukocytosis: Qualified Code: D72.829 - Leukocytosis, unspecified type (7) Open wound of right foot: Qualified Code: S91.301D - Open wound of right foot, subsequent encounter Abhinav Storey MD Oct 25, 2016 11:50
[2016-10-25 12:00] VITALS: BP 140/61; PULSE 86; RESP 17; TEMP 97.5; O2SAT 93
[2016-10-25 14:07] LABS: HEMATOCRIT 23.4 % (39.0-51.0); REVIEW FLAG FINAL
[2016-10-25 16:00] VITALS: BP 141/66; PULSE 58; RESP 17; TEMP 97.8; O2SAT 93
[2016-10-25] MEDS ORDERED: ceFAZolin 2 GM PREMIX 50 ML IV SCH (16:00)
[2016-10-25] MEDS ORDERED: VANCOMYCIN INJ 1,000 MG in SODIUM CHLOR 0.9% 250 ML INJ 250 ML IV SCH (16:00)
[2016-10-25 20:00] VITALS: BP 160/79; PULSE 92; RESP 18; TEMP 96.4; O2SAT 94
[2016-10-25] MEDS: ACETAMINOPHEN/HYDROcodone 325 MG/5 MG TAB PO PRN (21:44)
[2016-10-26] VITALS (9 sets, daily range): BP systolic 138–176; BP diastolic 67–93; PULSE 63–100; RESP 16–20; TEMP 96.8–97.7; O2SAT 93–99
[2016-10-26] MEDS: metroNIDAZOLE 500 MG INJ 100 ML IV SCH ×4 (01:09→23:15)
[2016-10-26] MEDS: ACETAMINOPHEN/HYDROcodone 325 MG/5 MG TAB PO PRN ×3 (01:17→21:10)
[2016-10-26] MEDS: hydrALAZINE HCL 25 MG TAB PO SCH ×3 (05:49→21:10)
[2016-10-26 06:06] LABS: AUTOMATED NEUTROPHIL # 7.4 TH/MM3 (1.8-7.7); BASOPHIL # 0.2 TH/MM3 (0-0.2); EOSINOPHIL # 0.4 TH/MM3 (0-0.4); EOSINOPHIL % 4.2 % (0.0-4.0); HEMATOCRIT 24.9 % (39.0-51.0); HEMO FLAGS DIFF FINAL; LYMPH % 14.7 % (9.0-44.0); LYMPHOCYTE # 1.5 TH/MM3 (1.0-4.8); MEAN CELL VOLUME 88.9 FL (80.0-100.0); MEAN CORPUSCULAR HEMOGLOBIN 28.7 PG (27.0-34.0); MEAN CORPUSCULAR HGB CONC 32.3 % (32.0-36.0); MONO % 8.2 % (0.0-8.0); NEUT % 70.9 % (16.0-70.0); PLATELET COUNT 282 TH/MM3 (150-450); RED BLOOD COUNT 2.81 MIL/MM3 (4.50-5.90); RED CELL DISTRIBUTION WIDTH 17.4 % (11.6-17.2); WHITE BLOOD COUNT 10.5 TH/MM3 (4.0-11.0)
[2016-10-26] MEDS: INSULIN ASPART SUPPLEMENTAL SCALE SQ SCH ×4 (06:42→21:11)
[2016-10-26 06:53] LABS: BICARBONATE 26.4 MEQ/L (21.0-32.0); POTASSIUM 4.3 MEQ/L (3.5-5.1)
[2016-10-26] MEDS: PICC Daily Heparin 100 unit/mL Lock Flush IVF SCH (07:41)
[2016-10-26] MEDS: risperiDONE 1 MG TAB PO SCH ×2 (07:43→21:10)
[2016-10-26] MEDS: PANTOPRAZOLE SOD 40 MG DELAYED RELEASE TAB PO SCH (07:43)
[2016-10-26] MEDS: NIFEdipine 60 MG SUSTAINED RELEASE TAB PO SCH (07:43)
[2016-10-26] MEDS: FERROUS SULFATE 325 MG (65 MG ELEMENTAL IRON) TAB PO SCH ×2 (07:43→21:10)
[2016-10-26] MEDS: PICC Daily NS Lock Flush IVF SCH (07:43)
[2016-10-26] MEDS: METOPROLOL TARTRATE 50 MG TAB PO SCH ×2 (07:43→21:10)
[2016-10-26] MEDS: SODIUM CHLORIDE 0.9% FLUSH 5 ML FLUSH IV FLUSH SCH ×2 (07:43→21:11)
[2016-10-26] MEDS: ASCORBIC ACID 500 MG TAB PO SCH ×2 (07:43→21:10)
[2016-10-26] MEDS ORDERED: MIDAZOLAM HCL 5 MG/5 ML VIAL ONE (08:32)
[2016-10-26] MEDS ORDERED: fentaNYL CITRATE 250 MCG/5 ML AMP ONE (08:33)
[2016-10-26] MEDS ORDERED: LIDOCAINE 1%/EPINEPHrine 1:100,000 SOLN 20 ML VIAL ONE (08:42)
--- NOTE | 2016-10-26 09:50 | PD.RAD ---
Post Procedure Progress Note Pre Procedure Diagnosis: (1) Renal insufficiency Post Procedure Diagnosis: (1) Renal insufficiency Procedure Date: Oct 26, 2016 Supervising Radiologist: Epifanio Garcia Proceduralist/Assist: RT Jessica(R), RT Shelton(R) Anesthesia: Conscious Sedation Plan of Activity Patient to Unit: Nursing Unit Patient Condition: Fair See PACS Report for procedural detail/treatment Central Venous Access Device Procedure 1 Right Placement dual lumen Epifanio Garcia MD Oct 26, 2016 09:50
[2016-10-26] MEDS ORDERED: HEPARIN SODIUM - IV 10,000 UNITS/10 ML VIAL IVF PRN (10:00)
[2016-10-26] MEDS ORDERED: SODIUM CHLORIDE 0.9% FLUSH 5 ML FLUSH IVF PRN (10:00)
[2016-10-26] MEDS: HEPARIN SODIUM - SQ 10,000 UNITS/ML VIAL SQ SCH ×3 (11:14→23:15)
--- NOTE | 2016-10-26 15:02 | HHI.PR ---
Subjective Remarks Patient seen during dialysis. Follow-up diabetes mellitus, chronic kidney disease, hypertension. He is frustrated/angry that he will not be discharged today. He states "I'll sign myself out then". I explained to him that the psychiatrist said that he could not sign out AMA. He says "I do what I want". Objective Vitals Vital Signs Date Time Temp Pulse Resp B/P Pulse Ox O2 Delivery O2 Flow Rate FiO2 10/26/16 13:37 93 21 10/26/16 12:00 97.3 63 20 170/87 99 10/26/16 10:35 91 20 171/85 93 10/26/16 10:05 95 20 169/89 93 10/26/16 09:50 97.5 100 20 176/93 94 10/26/16 08:00 97.2 87 20 168/90 99 10/26/16 06:49 17 10/26/16 04:00 97.7 86 16 146/85 98 10/26/16 00:00 96.9 83 16 142/80 96 10/25/16 20:00 96.4 92 18 160/79 94 10/25/16 18:11 21 10/25/16 16:00 97.8 58 17 141/66 93 I/O 10/25/16 10/25/16 10/25/16 10/26/16 10/26/16 10/26/16 07:00 15:00 23:00 07:00 15:00 23:00 Intake Total 220 ml 340 ml 360 ml 100 ml 240 ml Output Total 125 ml 300 ml 300 ml 300 ml 200 ml Balance 95 ml 40 ml 60 ml -200 ml 40 ml Intake Oral 120 ml 240 ml 360 ml 240 ml IV Total 100 ml 100 ml 0 ml 100 ml 0 ml Output Urine Total 125 ml 300 ml 300 ml 300 ml 200 ml # Bowel Movements 0 0 0 1 0 Result Diagram: 10/26/16 0550 10/26/16 0550 Imaging Last Impressions Chest X-Ray 10/19/16 0600 Signed Impressions: Service Date/Time: Wednesday, October 19, 2016 03:59 - CONCLUSION: No significant change. Dain Morrison MD Upper Extremity Ultrasound 10/19/16 0000 Signed Impressions: Service Date/Time: Wednesday, October 19, 2016 21:02 - CONCLUSION: Upper extremity venous mapping as above. Dain Morrison MD Chest CT 10/15/16 0000 Signed Impressions: Service Date/Time: Saturday, October 15, 2016 10:17 - CONCLUSION: 1. Diffuse prominent bilateral interstitial and airspace infiltrates throughout both lung dial. 2. There is atelectasis and compression of the lower lung dial, left greater than right. 3. Small to moderate right-sided pleural effusion. Yoandy Nj MD Objective Remarks General: No acute distress. In dialysis. Heart: Regular rate and rhythm. No murmur. Lungs: Clear to auscultation bilaterally. No wheezes, rales, or rhonchi. Breathing is nonlabored. Abdomen: Soft, nontender, nondistended. Extremities: No lower extremity edema. Psych: Alert, answers questions appropriately. Does display some confusion. Urinary Catheter: Yes Assessment to: Remove Vascular Central Line Catheter: Yes Date of Insertion: Oct 15, 2016 Side: Left Location: Internal, Jugular A/P Problem List: (1) Acute on chronic renal failure ICD Code: N17.9 Status: Acute (2) Adjustment disorder with disturbance of conduct ICD Code: F43.24 Status: Acute (3) HCAP (healthcare-associated pneumonia) ICD Code: J18.9 Status: Acute (4) Sepsis ICD Code: A41.9 Status: Acute (5) Diastolic CHF ICD Code: I50.30 Status: Acute (6) Hypertension ICD Code: I10 Status: Acute (7) Diabetes ICD Code: E11.9 Status: Acute (8) Symptomatic anemia ICD Code: D64.9 Status: Acute (9) Cellulitis ICD Code: L03.90 Status: Acute (10) Hyperkalemia ICD Code: E87.5 Status: Acute (11) Hypernatremia ICD Code: E87.0 Status: Acute (12) Elevated AST (SGOT) ICD Code: R74.0 Status: Acute (13) Elevated troponin ICD Code: R79.89 Status: Acute (14) Hypoalbuminemia ICD Code: E88.09 Status: Acute (15) Leukocytosis ICD Code: D72.829 Status: Acute (16) Open wound of right foot ICD Code: S91.301A Status: Acute Assessment and Plan 1. Hypoglycemia: Patient has diabetes mellitus and is on Levemir with sliding scale insulin coverage. He was again hypoglycemic this morning. Was given D50 and glucose has improved. Will hold Levemir. 2. Agitation, confusion, combativeness: He patient was placed in soft restraints as he was attempting to pull out his Vas-Cath and his Burgos catheter. He was also becoming combative with nursing staff. Appreciate psychiatry recommendations. On most recent psychiatric evaluation, patient was noted to not have capacity to make medical decisions and therefore not have capacity to leave AGAINST MEDICAL ADVICE. Haldol, Ativan as needed per psychiatry. 3. Acute on chronic diastolic heart failure: Improved. Continue current medications including beta sue. 4. Hypertension: Continue metoprolol, hydralazine, Procardia XL. 5. Acute hypoxemic respiratory failure, ARDS: Resolving. 6. Multilobar healthcare associated pneumonia: Patient was intubated on 10/15/16 and extubated on 10/17/16. Continue DuoNeb scheduled and as needed. Sputum culture negative. Influenza negative. Blood cultures are negative. Patient had thoracentesis on 10/15/16 with removal of 1.7 L of fluid. Completed course of Ceftin, azithromycin. 7. Hypoalbuminemia, elevated AST, moderate to severe protein calorie malnutrition: Encourage oral intake. 8. GI prophylaxis: Protonix. 9. Acute on chronic kidney disease stage V: Nephrology following. Continue dialysis, which was started 10/17/16. Case management assisting with outpatient dialysis. Permacath placement to be done soon. 10. DVT prophylaxis: SCDs, heparin. 11. Anemia: H&H low, but stable. The patient is threatening to leave AMA. He was advised that he could not do that at this time. He became more agitated. Psychiatry has been reconsulted. Discharge Planning Cannot discharge until outpatient dialysis is arranged. Per nephrology, the earliest he can have outpatient dialysis is next Monday. Psychiatry stated in consult dated 10/20/16 that patient lacks the decision-making capacity to leave AMA. Problem Qualifiers (1) Sepsis: Qualified Code: A41.9 - Sepsis, due to unspecified organism (2) Diastolic CHF: Qualified Code: I50.32 - Chronic diastolic congestive heart failure (3) Hypertension: Qualified Code: I10 - Essential hypertension (4) Diabetes: Qualified Code: E11.8 - Type 2 diabetes mellitus with complication, without long-term current use of insulin (5) Cellulitis: Qualified Code: L03.90 - Cellulitis, unspecified cellulitis site (6) Leukocytosis: Qualified Code: D72.829 - Leukocytosis, unspecified type (7) Open wound of right foot: Qualified Code: S91.301D - Open wound of right foot, subsequent encounter Abhinav Storey MD Oct 26, 2016 15:02
--- NOTE | 2016-10-26 15:21 | HHI.NPPN ---
Subjective History of Present Illness 50 year old with non compliance multiple admissions, renal failure, DM, HTN Additional Remarks Patient is alert, seen during HD, no complain, wants to go home. Review of Systems Psych Psych: Anxiety (Psychosis) Objective Data Data 10/25/16 10/26/16 19:00 07:00 Intake Total 340 ml 460 ml Output Total 300 ml 600 ml Balance 40 ml -140 ml Intake Oral 240 ml 360 ml IV Total 100 ml 100 ml Output Urine Total 300 ml 600 ml # Bowel Movements 0 1 Vital Signs Date Time Temp Pulse Resp B/P Pulse Ox O2 Delivery O2 Flow Rate FiO2 10/26/16 13:37 93 21 10/26/16 12:00 97.3 63 20 170/87 99 10/26/16 10:35 91 20 171/85 93 10/26/16 10:05 95 20 169/89 93 10/26/16 09:50 97.5 100 20 176/93 94 10/26/16 08:00 97.2 87 20 168/90 99 10/26/16 06:49 17 10/26/16 04:00 97.7 86 16 146/85 98 10/26/16 00:00 96.9 83 16 142/80 96 10/25/16 20:00 96.4 92 18 160/79 94 10/25/16 18:11 21 10/25/16 16:00 97.8 58 17 141/66 93 -: 10/26/16 0550 10/26/16 0550 Physical Exam General Appearance: No Acute Distress, Comfortable, Anxious Neck Neck Exam: Neck Supple Pulmonary Resp Exam: Rhonchi, Diminished Breath Sounds Cardiology CV Exam: Regular, Normal Sinus Rhythm Gastrointestinal/Abdomen GI Exam: Soft, Non-Tender Integumentary Skin Exam: Intact Extremeties Extremities Exam: No Edema Neurologic Neuro Exam: Alert, Awake, Oriented, Sedated Assessment/Plan Problem List: (1) Chronic kidney disease, stage 5 Plan: Continue to follow with psychiatrist Dr. Morfin Seen with Dr. England - plan is for eventual left upper arm brachiobasilic AV fistula. Current right IJ non-tunneled dialysis catheter, Psychiatry following. For out patient HD arrangement. I called [facility], they can start him only from Next week Tu. (2) HCAP (healthcare-associated pneumonia) Plan: He is on Ceftin Cultures negative, afebrile, WBC stable. (3) DM (diabetes mellitus) Plan: insulin coverage. Maintain blood glucose between 140 and 180 while hospitalized. (4) Sepsis Plan: due to pneumonia. (5) Hyperkalemia Plan: Improved. 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
[2016-10-27 00:06] VITALS: BP 162/85; PULSE 102; RESP 18; TEMP 98.9; O2SAT 92
[2016-10-27] MEDS: LORazepam 2 MG/ML VIAL IV PUSH PRN (00:55)
[2016-10-27] MEDS: ACETAMINOPHEN/HYDROcodone 325 MG/5 MG TAB PO PRN ×2 (00:56→06:18)
[2016-10-27] MEDS: hydrALAZINE HCL 25 MG TAB PO SCH ×3 (06:22→20:46)
[2016-10-27] MEDS: INSULIN ASPART SUPPLEMENTAL SCALE SQ SCH ×4 (06:23→20:47)
[2016-10-27 06:29] VITALS: BP 170/87; PULSE 88
[2016-10-27 08:00] VITALS: BP 162/80; PULSE 96; RESP 16; TEMP 97.9; O2SAT 94
[2016-10-27] MEDS: PANTOPRAZOLE SOD 40 MG DELAYED RELEASE TAB PO SCH (08:30)
[2016-10-27] MEDS: risperiDONE 1 MG TAB PO SCH ×2 (08:30→20:46)
[2016-10-27] MEDS: NIFEdipine 60 MG SUSTAINED RELEASE TAB PO SCH (08:30)
[2016-10-27] MEDS: PICC Daily NS Lock Flush IVF SCH (08:30)
[2016-10-27] MEDS: PICC Daily Heparin 100 unit/mL Lock Flush IVF SCH (08:30)
[2016-10-27] MEDS: METOPROLOL TARTRATE 50 MG TAB PO SCH ×2 (08:30→20:46)
[2016-10-27] MEDS: metroNIDAZOLE 500 MG INJ 100 ML IV SCH ×2 (08:30→15:10)
[2016-10-27] MEDS: SODIUM CHLORIDE 0.9% FLUSH 5 ML FLUSH IV FLUSH SCH ×2 (08:30→20:47)
[2016-10-27] MEDS: ASCORBIC ACID 500 MG TAB PO SCH ×2 (08:31→20:46)
[2016-10-27] MEDS: FERROUS SULFATE 325 MG (65 MG ELEMENTAL IRON) TAB PO SCH ×2 (08:31→20:46)
--- NOTE | 2016-10-27 09:30 | RADRPT ---
EXAM DATE/TIME: 10/26/2016 08:25 [facility] COMPARISON: No previous studies available for comparison. INDICATIONS : Patient with history of chronic kidney disease in need of tunnelled dialysis catheter placement. 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 Vancomycin within 2 hours of procedure, Ancef (or alternative) within 1 hour of procedure. DEVICE: 1. 15 [place] dual lumen 23 cm Christina II Plus catheter PROCEDURE : 1. Ultrasound-guided venipuncture. 2. PermaCath placement. 3. Conscious sedation with continuous EKG and oximetry monitoring. The risks, benefits and alternatives to the procedure were explained and verbal and written consent w as obtained. The site was prepped in sterile fashion. Full sterile technique was used, including ca p, mask, sterile gloves and gown and a large sterile sheet. Hand hygiene and 2% chlorhexidine and/or betadine/alcohol prep was utilized per protocol for cutaneous antisepsis. The skin and subcutaneous tissues were infiltrated with local anesthetic solution. With ultrasound and fluoroscopic guidance a dermatotomy was created over the prescribed vein. A micr opuncture set was used to access the targeted vein and serial dilatation was performed to accept the prescribed length catheter. A subcutaneous tunnel was created in a retrograde fashion the catheter w as pulled through the tunnel. The catheter was flushed and assembled and locked with heparin. The c atheter was sutured in place. Conscious sedation was performed with the prescribed dosages and duration as above. The patient tole rated the procedure well and there were no complications. EKG and oximetry remained stable throughou t the procedure. The patient was sent to post anesthesia recovery in stable condition. CONCLUSION: Uncomplicated PermaCath placement as above. Epifanio Garcia MD on October 27, 2016 at 9:28 Board Certified Radiologist. This report was verified electronically.
--- NOTE | 2016-10-27 10:10 | RADRPT ---
EXAM DATE/TIME: 10/27/2016 09:43 [facility] COMPARISON: No previous studies available for comparison. INDICATIONS : Left knee pain, unknown injury. MEDICAL HISTORY : None. SURGICAL HISTORY : None. ENCOUNTER: Initial ACUITY: 1 day PAIN SCORE: Non-responsive. LOCATION: Left knee. FINDINGS: Four view examination of the left knee demonstrates no evidence of fracture or dislocation. Bony min eralization is normal. Degenerative changes present in the patellofemoral joint with spurring and scl erosis. There are minimal degenerative changes in the medial and lateral compartments. The suprapatel lar soft tissues have a normal configuration. CONCLUSION: Mild osteoarthritic change. Rah Tavares MD on October 27, 2016 at 10:08 Board Certified Radiologist. This report was verified electronically.
--- NOTE | 2016-10-27 10:26 | RADRPT ---
EXAM DATE/TIME: 10/27/2016 09:42 [facility] COMPARISON: No previous studies available for comparison. INDICATIONS : Left hip pain, unknown injury. MEDICAL HISTORY : None. SURGICAL HISTORY : None. ENCOUNTER: Initial ACUITY: 1 day PAIN SCORE: Non-responsive. LOCATION: Left hip. FINDINGS: Examination of the left hip was performed with AP Pelvis. The primary and secondary trabecular patte rn of the femoral neck is intact. The hip joint is of normal width without significant sclerosis or bony hypertrophy. The acetabulum is grossly intact. CONCLUSION: Unremarkable exam. Rah Tavares MD on October 27, 2016 at 10:23 Board Certified Radiologist. This report was verified electronically.
[2016-10-27] MEDS: HEPARIN SODIUM - SQ 10,000 UNITS/ML VIAL SQ SCH (11:53)
[2016-10-27 12:00] VITALS: BP 146/70; PULSE 96; RESP 17; TEMP 97.3; O2SAT 95
--- NOTE | 2016-10-27 14:22 | HHI.PR ---
Subjective Remarks Follow up fall, CKD, diabetes. The patient fell this morning, landing on his left knee and hip. No pain currently. Xrays are negative. Wants to go home. No other complaints at this time. Objective Vitals Vital Signs Date Time Temp Pulse Resp B/P Pulse Ox O2 Delivery O2 Flow Rate FiO2 10/27/16 12:00 97.3 96 17 146/70 95 10/27/16 08:00 97.9 96 16 162/80 94 10/27/16 06:29 88 170/87 10/27/16 00:06 98.9 102 18 162/85 92 10/26/16 20:07 96.8 89 17 138/67 93 I/O 10/26/16 10/26/16 10/26/16 10/27/16 10/27/16 10/27/16 07:00 15:00 23:00 07:00 15:00 23:00 Intake Total 100 ml 240 ml 760 ml 580 ml 98 ml Output Total 300 ml 200 ml 500 ml Balance -200 ml 40 ml 260 ml 580 ml 98 ml Intake Oral 240 ml 760 ml 580 ml IV Total 100 ml 0 ml 98 ml Output Urine Total 300 ml 200 ml 500 ml # Voids 1 2 # Bowel Movements 1 0 1 2 Result Diagram: 10/26/16 0550 10/26/16 0550 Imaging Last Impressions Knee X-Ray 10/27/16 0000 Signed Impressions: Service Date/Time: October 09:43 - CONCLUSION: Mild osteoarthritic change. Rah Tavares MD Hip and Pelvis X-Ray 10/27/16 0000 Signed Impressions: Service Date/Time: October 09:42 - CONCLUSION: Unremarkable exam. Rah Tavares MD Catheter Placement X-Ray 10/26/16 0000 Signed Impressions: Service Date/Time: Wednesday, October 26, 2016 08:25 - CONCLUSION: Uncomplicated PermaCath placement as above. Epifanio Garcia MD Chest X-Ray 10/19/16 0600 Signed Impressions: Service Date/Time: Wednesday, October 19, 2016 03:59 - CONCLUSION: No significant change. Dain Morrison MD Upper Extremity Ultrasound 10/19/16 0000 Signed Impressions: Service Date/Time: Wednesday, October 19, 2016 21:02 - CONCLUSION: Upper extremity venous mapping as above. Dain Morrison MD Chest CT 10/15/16 0000 Signed Impressions: Service Date/Time: Saturday, October 15, 2016 10:17 - CONCLUSION: 1. Diffuse prominent bilateral interstitial and airspace infiltrates throughout both lung dial. 2. There is atelectasis and compression of the lower lung dial, left greater than right. 3. Small to moderate right-sided pleural effusion. Yoandy Nj MD Objective Remarks General: No acute distress. Heart: Regular rate and rhythm. No murmur. Lungs: Clear to auscultation bilaterally. No wheezes, rales, or rhonchi. Breathing is nonlabored. Abdomen: Soft, nontender, nondistended. Extremities: No lower extremity edema. Psych: Alert, answers questions appropriately. Urinary Catheter: No Vascular Central Line Catheter: No A/P Problem List: (1) Acute on chronic renal failure ICD Code: N17.9 Status: Acute (2) Adjustment disorder with disturbance of conduct ICD Code: F43.24 Status: Acute (3) HCAP (healthcare-associated pneumonia) ICD Code: J18.9 Status: Acute (4) Sepsis ICD Code: A41.9 Status: Acute (5) Diastolic CHF ICD Code: I50.30 Status: Acute (6) Hypertension ICD Code: I10 Status: Acute (7) Diabetes ICD Code: E11.9 Status: Acute (8) Symptomatic anemia ICD Code: D64.9 Status: Acute (9) Cellulitis ICD Code: L03.90 Status: Acute (10) Hyperkalemia ICD Code: E87.5 Status: Acute (11) Hypernatremia ICD Code: E87.0 Status: Acute (12) Elevated AST (SGOT) ICD Code: R74.0 Status: Acute (13) Elevated troponin ICD Code: R79.89 Status: Acute (14) Hypoalbuminemia ICD Code: E88.09 Status: Acute (15) Leukocytosis ICD Code: D72.829 Status: Acute (16) Open wound of right foot ICD Code: S91.301A Status: Acute Assessment and Plan 1. Diabetes mellitus: Levemir on hold secondary to hypoglycemia. Monitor Accu- Cheks and cover with sliding scale insulin. 2. Agitation, confusion, combativeness: He patient was placed in soft restraints as he was attempting to pull out his Vas-Cath and his Burgos catheter. He was also becoming combative with nursing staff. Appreciate psychiatry recommendations. Discussed with Dr. Morfin. Patient does not require inpatient psychiatry at this time. Haldol, Ativan as needed per psychiatry. 3. Acute on chronic diastolic heart failure: Improved. Continue current medications including beta sue. 4. Hypertension: Continue metoprolol, hydralazine, Procardia XL. 5. Acute hypoxemic respiratory failure, ARDS: Resolving. 6. Multilobar healthcare associated pneumonia: Patient was intubated on 10/15/16 and extubated on 10/17/16. Continue DuoNeb scheduled and as needed. Sputum culture negative. Influenza negative. Blood cultures are negative. Patient had thoracentesis on 10/15/16 with removal of 1.7 L of fluid. Completed course of Ceftin, azithromycin. 7. Hypoalbuminemia, elevated AST, moderate to severe protein calorie malnutrition: Encourage oral intake. 8. GI prophylaxis: Protonix. 9. Acute on chronic kidney disease stage V: Nephrology following. Continue dialysis, which was started 10/17/16. Case management assisting with outpatient dialysis. Permacath placement to be done soon. 10. DVT prophylaxis: SCDs, heparin. 11. Anemia: H&H low, but stable. Discharge Planning Cannot discharge until outpatient dialysis is arranged. Per nephrology, the earliest he can have outpatient dialysis is next Monday. Discharge when cleared by nephrology. Problem Qualifiers (1) Sepsis: Qualified Code: A41.9 - Sepsis, due to unspecified organism (2) Diastolic CHF: Qualified Code: I50.32 - Chronic diastolic congestive heart failure (3) Hypertension: Qualified Code: I10 - Essential hypertension (4) Diabetes: Qualified Code: E11.8 - Type 2 diabetes mellitus with complication, without long-term current use of insulin (5) Cellulitis: Qualified Code: L03.90 - Cellulitis, unspecified cellulitis site (6) Leukocytosis: Qualified Code: D72.829 - Leukocytosis, unspecified type (7) Open wound of right foot: Qualified Code: S91.301D - Open wound of right foot, subsequent encounter Abhinav Storey MD Oct 27, 2016 14:21
--- NOTE | 2016-10-27 14:56 | HHI.PYPN ---
Subjective Remarks Patient was seen today for psychiatric evaluation, he was found sleeping, but easily arousable, patient explains that he feels much better, his mind is clearer and now that there is a hope that he would be discharged soon, he would like to be discharged today, but apparently outpatient dialysis has not been fully arranged. He reports good mood, denies depressive symptoms, denies any pain or distress, denies anxiety, he denies suicidal or homicidal ideation, he denies visual and auditory hallucinations. As per nurses, he has been calm, cooperative no aggressive behavior or agitation observed. Review of Systems Other No somatic complaints Objective Alert: Yes [place]: Person, Place, Date, Situation Mood: Angry Affect: Labile Memory Intact: Immediate, Recent, Remote Hallucinations: Other (he denies) Delusions: No Delusion Type: Other (none) Suicidal: Ideation (he denies) Homicidal: Ideation (he denies) Insight/Judgement good Vitals/IOs Vital Signs Date Time Temp Pulse Resp B/P Pulse Ox O2 Delivery O2 Flow Rate FiO2 10/27/16 12:00 97.3 96 17 146/70 95 10/26/16 13:37 21 Intake and Output 10/26/16 10/26/16 10/27/16 08:00 16:00 00:00 Intake Total 100 ml 240 ml 760 ml Output Total 300 ml 200 ml 500 ml Balance -200 ml 40 ml 260 ml Assessment & Plan Problem List: (1) Adjustment disorder with mixed anxiety and depressed mood ICD Code: F43.23 Assessment & Plan Estimated LOS: days Justification for Cont. Inpt. The patient does not meet criteria for psychiatric admission at this moment. Chapin Morfin MD Oct 27, 2016 14:56
[2016-10-27 16:00] VITALS: BP 144/70; PULSE 87; RESP 17; TEMP 96.7; O2SAT 94
--- NOTE | 2016-10-27 16:58 | HHI.NPPN ---
Subjective History of Present Illness 50 year old with non compliance multiple admissions, renal failure, DM, HTN Additional Remarks Patient is alert, no complain, no SOB, eating well. Review of Systems Psych Psych: Anxiety (Psychosis) Objective Data Data 10/26/16 10/27/16 19:00 07:00 Intake Total 240 ml 1340 ml Output Total 200 ml 500 ml Balance 40 ml 840 ml Intake Oral 240 ml 1340 ml IV Total 0 ml Output Urine Total 200 ml 500 ml # Voids 3 # Bowel Movements 0 3 Vital Signs Date Time Temp Pulse Resp B/P Pulse Ox O2 Delivery O2 Flow Rate FiO2 10/27/16 16:00 96.7 87 17 144/70 94 10/27/16 12:00 97.3 96 17 146/70 95 10/27/16 08:00 97.9 96 16 162/80 94 10/27/16 06:29 88 170/87 10/27/16 00:06 98.9 102 18 162/85 92 10/26/16 20:07 96.8 89 17 138/67 93 -: 10/26/16 0550 10/26/16 0550 Physical Exam General Appearance: No Acute Distress, Comfortable, Anxious Neck Neck Exam: Neck Supple Pulmonary Resp Exam: Rhonchi, Diminished Breath Sounds Cardiology CV Exam: Regular, Normal Sinus Rhythm Gastrointestinal/Abdomen GI Exam: Soft, Non-Tender Integumentary Skin Exam: Intact Extremeties Extremities Exam: No Edema Neurologic Neuro Exam: Alert, Awake, Oriented, Sedated Assessment/Plan Problem List: (1) Chronic kidney disease, stage 5 Plan: Continue to follow with psychiatrist Dr. Morfin Seen with Dr. England - plan is for eventual left upper arm brachiobasilic AV fistula. Current right IJ non-tunneled dialysis catheter, Psychiatry following. For out patient HD arrangement. I called [facility], they can start him only from Next week Tu. HD in AM and then D/C. (2) HCAP (healthcare-associated pneumonia) Plan: He is on Ceftin Cultures negative, afebrile, WBC stable. (3) DM (diabetes mellitus) Plan: insulin coverage. Maintain blood glucose between 140 and 180 while hospitalized. (4) Sepsis Plan: due to pneumonia. (5) Hyperkalemia Plan: Improved. Problem Qualifiers (1) DM (diabetes mellitus): Qualified Code: E13.22 - Other specified diabetes mellitus with chronic kidney disease on chronic dialysis, unspecified detention insulin use status (2) Sepsis: Qualified Code: A41.9 - Sepsis, due to unspecified organism Mary Ann Beard MD Oct 27, 2016 16:58
[2016-10-27 20:00] VITALS: BP 158/88; PULSE 87; RESP 20; TEMP 98.1; O2SAT 97
[2016-10-28] VITALS: BP 153/81; PULSE 80; RESP 20; TEMP 97.4; O2SAT 97
[2016-10-28] MEDS: metroNIDAZOLE 500 MG INJ 100 ML IV SCH (00:09)
[2016-10-28] MEDS ORDERED: metroNIDAZOLE 500 MG INJ 100 ML IV SCH (01:40)
[2016-10-28] MEDS ORDERED: metroNIDAZOLE 500 MG TAB PO SCH (02:00)
[2016-10-28] MEDS: metroNIDAZOLE 500 MG TAB PO SCH ×3 (02:12→14:20)
[2016-10-28 04:00] VITALS: BP 173/97; PULSE 84; RESP 20; TEMP 98.7; O2SAT 98
[2016-10-28 05:29] LABS: AUTOMATED NEUTROPHIL # 9.8 TH/MM3 (1.8-7.7); BASOPHIL # 0.2 TH/MM3 (0-0.2); BASOPHIL % 1.4 % (0.0-2.0); EOSINOPHIL # 0.4 TH/MM3 (0-0.4); EOSINOPHIL % 3.5 % (0.0-4.0); HEMATOCRIT 22.5 % (39.0-51.0); HEMO FLAGS DIFF FINAL; LYMPH % 12.5 % (9.0-44.0); LYMPHOCYTE # 1.6 TH/MM3 (1.0-4.8); MEAN CELL VOLUME 90.2 FL (80.0-100.0); MEAN CORPUSCULAR HEMOGLOBIN 28.4 PG (27.0-34.0); MEAN CORPUSCULAR HGB CONC 31.5 % (32.0-36.0); MONO % 5.5 % (0.0-8.0); NEUT % 77.1 % (16.0-70.0); PLATELET COUNT 237 TH/MM3 (150-450); RED BLOOD COUNT 2.49 MIL/MM3 (4.50-5.90); RED CELL DISTRIBUTION WIDTH 18.1 % (11.6-17.2); WHITE BLOOD COUNT 12.7 TH/MM3 (4.0-11.0)
[2016-10-28 05:49] LABS: BICARBONATE 21.5 MEQ/L (21.0-32.0); POTASSIUM 4.8 MEQ/L (3.5-5.1)
[2016-10-28] MEDS: INSULIN ASPART SUPPLEMENTAL SCALE SQ SCH ×2 (07:00→11:00)
[2016-10-28] MEDS: hydrALAZINE HCL 25 MG TAB PO SCH ×2 (07:14→14:20)
[2016-10-28] MEDS: SODIUM CHLORIDE 0.9% FLUSH 5 ML FLUSH IV FLUSH SCH (07:24)
[2016-10-28] MEDS: PICC Daily Heparin 100 unit/mL Lock Flush IVF SCH (07:25)
[2016-10-28] MEDS: PANTOPRAZOLE SOD 40 MG DELAYED RELEASE TAB PO SCH ×2 (07:25→11:43)
[2016-10-28] MEDS: METOPROLOL TARTRATE 50 MG TAB PO SCH ×2 (07:25→11:43)
[2016-10-28] MEDS: risperiDONE 1 MG TAB PO SCH ×2 (07:25→11:44)
[2016-10-28] MEDS: PICC Daily NS Lock Flush IVF SCH (07:25)
[2016-10-28] MEDS: NIFEdipine 60 MG SUSTAINED RELEASE TAB PO SCH ×2 (07:25→11:44)
[2016-10-28] MEDS: FERROUS SULFATE 325 MG (65 MG ELEMENTAL IRON) TAB PO SCH ×2 (07:25→11:43)
[2016-10-28] MEDS: ASCORBIC ACID 500 MG TAB PO SCH ×2 (07:26→11:44)
[2016-10-28] MEDS: SODIUM CHLOR 0.9% 1000 ML INJ 1,000 ML IV PRN ×2 (07:52)
[2016-10-28] MEDS: GENTAMICIN SULFATE (DIALYSIS USE ONLY) 20 MG/2 ML VIAL IV PRN (07:53)
[2016-10-28] MEDS: HEPARIN SODIUM - IV 10,000 UNITS/10 ML VIAL PRN (07:53)
[2016-10-28] MEDS: SODIUM CHLORIDE 0.9% FLUSH 5 ML FLUSH IVF PRN (07:54)
[2016-10-28 08:00] VITALS: BP 164/98; PULSE 86; RESP 18; TEMP 97.6; O2SAT 98
[2016-10-28] MEDS ORDERED: SODIUM CHLOR 0.9% 250 ML INJ 250 ML IV ONE (08:15)
--- NOTE | 2016-10-28 09:29 | HHI.NPPN ---
Subjective History of Present Illness 50 year old with non compliance multiple admissions, renal failure, DM, HTN Additional Remarks Patient is alert, seen on HD, no SOB. Review of Systems Psych Psych: Anxiety (Psychosis) Objective Data Data 10/27/16 10/28/16 19:00 07:00 Intake Total 938 ml 1920 ml Output Total 2 ml Balance 936 ml 1920 ml Intake Oral 840 ml 1920 ml IV Total 98 ml 0 ml Output Urine Total 2 ml # Voids 5 # Bowel Movements 4 1 Vital Signs Date Time Temp Pulse Resp B/P Pulse Ox O2 Delivery O2 Flow Rate FiO2 10/28/16 08:00 97.6 86 18 164/98 98 10/28/16 04:00 98.7 84 20 173/97 98 10/28/16 00:00 97.4 80 20 153/81 97 10/27/16 20:00 98.1 87 20 158/88 97 10/27/16 16:00 96.7 87 17 144/70 94 10/27/16 12:00 97.3 96 17 146/70 95 -: 10/28/16 0347 10/28/16 0347 Physical Exam General Appearance: No Acute Distress, Comfortable, Anxious Neck Neck Exam: Neck Supple Pulmonary Resp Exam: Rhonchi, Diminished Breath Sounds Cardiology CV Exam: Regular, Normal Sinus Rhythm Gastrointestinal/Abdomen GI Exam: Soft, Non-Tender Integumentary Skin Exam: Intact Extremeties Extremities Exam: No Edema Neurologic Neuro Exam: Alert, Awake, Oriented, Sedated Assessment/Plan Problem List: (1) Chronic kidney disease, stage 5 Plan: Continue to follow with psychiatrist Dr. Morfin Seen with Dr. England - plan is for eventual left upper arm brachiobasilic AV F. Has tunneled dialysis catheter, Psychiatry following. HD now, removing 4 liters. For D/C, to start HD as out patient from [facility]. Told to restrict fluid and K intake. Also told to come to ED if has SOB. Dr. Henderson will follow as out patient. (2) HCAP (healthcare-associated pneumonia) Plan: He is on Ceftin Cultures negative, afebrile, WBC stable. (3) DM (diabetes mellitus) Plan: insulin coverage. Maintain blood glucose between 140 and 180 while hospitalized. (4) Sepsis Plan: due to pneumonia. (5) Hyperkalemia Plan: Improved. Problem Qualifiers (1) DM (diabetes mellitus): Qualified Code: E13.22 - Other specified diabetes mellitus with chronic kidney disease on chronic dialysis, unspecified terminologist insulin use status (2) Sepsis: Qualified Code: A41.9 - Sepsis, due to unspecified organism Mary Ann Beard MD Oct 28, 2016 09:29
[2016-10-28] MEDS: HEPARIN SODIUM - SQ 10,000 UNITS/ML VIAL SQ SCH ×2 (11:44)
[2016-10-28 11:59] VITALS: BP 173/102; PULSE 86; RESP 17; TEMP 98.6; O2SAT 97
[2016-10-28 12:00] VITALS: BP 172/102; PULSE 86; RESP 17; TEMP 98.6; O2SAT 97
[2016-10-28 12:25] VITALS: BP 162/98; PULSE 85; RESP 16; TEMP 98.4; O2SAT 94
[2016-10-28] MEDS ORDERED: NIFEdipine 30 MG SUSTAINED RELEASE TAB PO ONE (14:30)
[2016-10-28] MEDS ORDERED: METR-1 PO (14:32)
[2016-10-28] MEDS ORDERED: RISP1 PO (14:32)
[2016-10-28] MEDS ORDERED: METO-309 PO (14:32)
[2016-10-28] MEDS ORDERED: HYDR-3516 PO (14:32)
[2016-10-28] MEDS ORDERED: NIFE1TAB PO (14:32)
--- NOTE | 2016-10-28 14:45 | HHI.DCPOC ---
Discharge Care Plan Diagnosis: (1) Adjustment disorder with mixed anxiety and depressed mood (2) Chronic kidney disease, stage 5 (3) DM (diabetes mellitus) (4) C. difficile diarrhea Goals to Promote Your Health * To prevent worsening of your condition and complications * To maintain your health at the optimal level Directions to Meet Your Goals Take your medications as prescribed Follow your dietary instruction Follow activity as directed Keep your appointments as scheduled Take your immunizations and boosters as scheduled If your symptoms worsen call your PCP, if no PCP go to Urgent Care Center or Emergency Room Smoking is Dangerous to Your Health. Avoid second hand smoke Call the 24-hour hour crisis hotline for domestic abuse at Abhinav Storey MD Oct 28, 2016 14:45
--- NOTE | 2016-10-28 14:49 | HHI.PR ---
Subjective Remarks Follow up hypertension, anemia. Patient adamant that he is going home today. He states that he feels fine. Denies chest pain, dyspnea, lightheadedness. Denies nausea or vomiting. States that diarrhea has resolved. Objective Vitals Vital Signs Date Time Temp Pulse Resp B/P Pulse Ox O2 Delivery O2 Flow Rate FiO2 10/28/16 12:25 98.4 85 16 162/98 94 10/28/16 12:00 98.6 86 17 172/102 97 10/28/16 11:59 98.6 86 17 173/102 97 10/28/16 08:00 97.6 86 18 164/98 98 10/28/16 04:00 98.7 84 20 173/97 98 10/28/16 00:00 97.4 80 20 153/81 97 10/27/16 20:00 98.1 87 20 158/88 97 10/27/16 16:00 96.7 87 17 144/70 94 I/O 10/27/16 10/27/16 10/27/16 10/28/16 10/28/16 10/28/16 07:00 15:00 23:00 07:00 15:00 23:00 Intake Total 580 ml 938 ml 1200 ml 720 ml 304 ml Output Total 2 ml 4000 ml Balance 580 ml 936 ml 1200 ml 720 ml -3696 ml Intake Oral 580 ml 840 ml 1200 ml 720 ml IV Total 98 ml 0 ml 0 ml 99 ml Packed Cells 205 ml Output Urine Total 2 ml Hemodialysis 4000 ml # Voids 2 3 2 # Bowel Movements 2 4 1 Result Diagram: 10/28/16 0347 10/28/16 0347 Imaging Last Impressions Knee X-Ray 10/27/16 0000 Signed Impressions: Service Date/Time: October 09:43 - CONCLUSION: Mild osteoarthritic change. Rah Tavares MD Hip and Pelvis X-Ray 10/27/16 0000 Signed Impressions: Service Date/Time: October 09:42 - CONCLUSION: Unremarkable exam. Rah Tavares MD Catheter Placement X-Ray 10/26/16 0000 Signed Impressions: Service Date/Time: Wednesday, October 26, 2016 08:25 - CONCLUSION: Uncomplicated PermaCath placement as above. Epifanio Garcia MD Chest X-Ray 10/19/16 0600 Signed Impressions: Service Date/Time: Wednesday, October 19, 2016 03:59 - CONCLUSION: No significant change. Dain Morrison MD Upper Extremity Ultrasound 10/19/16 0000 Signed Impressions: Service Date/Time: Wednesday, October 19, 2016 21:02 - CONCLUSION: Upper extremity venous mapping as above. Dain Morrison MD Chest CT 10/15/16 0000 Signed Impressions: Service Date/Time: Saturday, October 15, 2016 10:17 - CONCLUSION: 1. Diffuse prominent bilateral interstitial and airspace infiltrates throughout both lung dial. 2. There is atelectasis and compression of the lower lung dial, left greater than right. 3. Small to moderate right-sided pleural effusion. Yoandy Nj MD Objective Remarks General: No acute distress. Heart: Regular rate and rhythm. No murmur. Lungs: Clear to auscultation bilaterally. No wheezes, rales, or rhonchi. Breathing is nonlabored. Abdomen: Soft, nontender, nondistended. Extremities: No lower extremity edema. Psych: Alert, answers questions appropriately. Procedures 10/15/16 intubation 10/15/16 central line placement 10/15/16 thoracentesis 10/26/16 permacath placement Urinary Catheter: No Vascular Central Line Catheter: No A/P Problem List: (1) Acute on chronic renal failure ICD Code: N17.9 Status: Acute (2) Adjustment disorder with disturbance of conduct ICD Code: F43.24 Status: Acute (3) HCAP (healthcare-associated pneumonia) ICD Code: J18.9 Status: Acute (4) Sepsis ICD Code: A41.9 Status: Acute (5) Diastolic CHF ICD Code: I50.30 Status: Acute (6) Hypertension ICD Code: I10 Status: Acute (7) Diabetes ICD Code: E11.9 Status: Acute (8) Symptomatic anemia ICD Code: D64.9 Status: Acute (9) Cellulitis ICD Code: L03.90 Status: Acute (10) Hyperkalemia ICD Code: E87.5 Status: Acute (11) Hypernatremia ICD Code: E87.0 Status: Acute (12) Elevated AST (SGOT) ICD Code: R74.0 Status: Acute (13) Elevated troponin ICD Code: R79.89 Status: Acute (14) Hypoalbuminemia ICD Code: E88.09 Status: Acute (15) Leukocytosis ICD Code: D72.829 Status: Acute (16) Open wound of right foot ICD Code: S91.301A Status: Acute Assessment and Plan 1. Diabetes mellitus: Levemir on hold secondary to hypoglycemia. Monitor Accu- Cheks and cover with sliding scale insulin. 2. Agitation, confusion, combativeness: He patient was placed in soft restraints as he was attempting to pull out his Vas-Cath and his Burg[place] catheter. He was also becoming combative with nursing staff. Appreciate psychiatry recommendations. Discussed with Dr. Morfin. Patient does not require inpatient psychiatry at this time. Haldol, Ativan as needed per psychiatry. 3. Acute on chronic diastolic heart failure: Improved. Continue current medications including beta sue. 4. Hypertension: Continue metoprolol, hydralazine, Procardia XL. 5. Acute hypoxemic respiratory failure, ARDS: Resolving. 6. Multilobar healthcare associated pneumonia: Patient was intubated on 10/15/16 and extubated on 10/17/16. Continue DuoNeb scheduled and as needed. Sputum culture negative. Influenza negative. Blood cultures are negative. Patient had thoracentesis on 10/15/16 with removal of 1.7 L of fluid. Completed course of Ceftin, azithromycin. 7. Hypoalbuminemia, elevated AST, moderate to severe protein calorie malnutrition: Encourage oral intake. 8. GI prophylaxis: Protonix. 9. Acute on chronic kidney disease stage V: Nephrology following. Continue dialysis, which was started 10/17/16. Case management assisting with outpatient dialysis. Permacath placement to be done soon. 10. DVT prophylaxis: SCDs, heparin. 11. Anemia: H&H low, but stable. Discharge Planning The patient has been cleared for discharge by nephrology. He is to follow up on Monday for dialysis. The patient is adamant that he will be discharged home today. He has been noncompliant and refusing physical therapy. He does not want rehabilitation or home health physical therapy. He has been ambulating in the room and in the [place]. Problem Qualifiers (1) Sepsis: Qualified Code: A41.9 - Sepsis, due to unspecified organism (2) Diastolic CHF: Qualified Code: I50.32 - Chronic diastolic congestive heart failure (3) Hypertension: Qualified Code: I10 - Essential hypertension (4) Diabetes: Qualified Code: E11.8 - Type 2 diabetes mellitus with complication, without long-term current use of insulin (5) Cellulitis: Qualified Code: L03.90 - Cellulitis, unspecified cellulitis site (6) Leukocytosis: Qualified Code: D72.829 - Leukocytosis, unspecified type (7) Open wound of right foot: Qualified Code: S91.301D - Open wound of right foot, subsequent encounter Abhinav Storey MD Oct 28, 2016 14:49
[2016-10-29] MEDS ORDERED: NIFEdipine 90 MG SUSTAINED RELEASE TAB PO SCH (09:00)
--- NOTE | 2016-12-25 17:04 | HHI.DS ---
Discharge Summary Admission Date Oct 13, 2016 at 10:41 Discharge Date: Oct 28, 2016 Admitting Diagnosis bilateral pneumonia, sepsis, acute on chronic renal failure (1) Acute on chronic renal failure ICD Code: N17.9 Diagnosis: Principal (2) Adjustment disorder with disturbance of conduct ICD Code: F43.24 Diagnosis: Principal (3) HCAP (healthcare-associated pneumonia) ICD Code: J18.9 Diagnosis: Principal (4) Sepsis ICD Code: A41.9 Diagnosis: Principal (5) Diastolic CHF ICD Code: I50.30 Diagnosis: Principal (6) Hypertension ICD Code: I10 Diagnosis: Principal (7) Diabetes ICD Code: E11.9 Diagnosis: Principal (8) Symptomatic anemia ICD Code: D64.9 Diagnosis: Principal (9) Cellulitis ICD Code: L03.90 Diagnosis: Principal (10) Hyperkalemia ICD Code: E87.5 Diagnosis: Principal (11) Hypernatremia ICD Code: E87.0 Diagnosis: Principal (12) Elevated AST (SGOT) ICD Code: R74.0 Diagnosis: Principal (13) Elevated troponin ICD Code: R79.89 Diagnosis: Principal (14) Hypoalbuminemia ICD Code: E88.09 Diagnosis: Principal (15) Leukocytosis ICD Code: D72.829 Diagnosis: Principal (16) Open wound of right foot ICD Code: S91.301A Diagnosis: Principal Procedures 10/15/16 intubation 10/15/16 central line placement 10/15/16 thoracentesis 10/26/16 permacath placement Brief History - From Admission 50-year-old [place] male. Date of admission 10/13/2016. Past medical history includes adjustment disorder, history of syncope, anemia, diabetes mellitus, hypertension and peripheral neuropathy. He presents to [facility] emergency department via EMS for shortness of breath. Patient was originally admitted to [facility] from 10/03/2016 until 10/12/2016 for multiple medical issues including right leg pain with shortness of breath times 3 days. He developed acute respiratory failure on the secondary to volume overload from blood transfusions. Echocardiogram revealed EF 55-60% with mild LVH, mild MR, TR and AK. He diuresed with IV Lasix and treated with BiPAP. This was weaned off and and patient was off oxygen as of 10/11. Dopplers are negative the right lower extremity. He does have some right inguinal lymphadenopathy however. 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 The patient signed out against medical center director, yesterday, from the hospital EMS was call if the patient was complaining of increasing shortness of breath, dry nonproductive cough, but denies any company chest pain. The patient was placed on CPAP by EMS prior to arrival, his high saturation per EMS was 88% on CPAP. The patient's symptoms are moderate, there are no current alleviating or exacerbating factors. Chest x-ray revealed extensive lobar pneumonia. Currently on BiPAP 03/22 at 40% and breathing comfort. Imaging Last Impressions Knee X-Ray 10/27/16 0000 Signed Impressions: Service Date/Time: October 09:43 - CONCLUSION: Mild osteoarthritic change. Rah Tavares MD Hip and Pelvis X-Ray 10/27/16 0000 Signed Impressions: Service Date/Time: October 09:42 - CONCLUSION: Unremarkable exam. Rah Tavares MD Catheter Placement X-Ray 10/26/16 0000 Signed Impressions: Service Date/Time: Wednesday, October 26, 2016 08:25 - CONCLUSION: Uncomplicated PermaCath placement as above. Epifanio Garcia MD Chest X-Ray 10/19/16 0600 Signed Impressions: Service Date/Time: Wednesday, October 19, 2016 03:59 - CONCLUSION: No significant change. Dain Morrison MD Upper Extremity Ultrasound 10/19/16 0000 Signed Impressions: Service Date/Time: Wednesday, October 19, 2016 21:02 - CONCLUSION: Upper extremity venous mapping as above. Dain Morrison MD Chest CT 10/15/16 0000 Signed Impressions: Service Date/Time: Saturday, October 15, 2016 10:17 - CONCLUSION: 1. Diffuse prominent bilateral interstitial and airspace infiltrates throughout both lung dial. 2. There is atelectasis and compression of the lower lung dial, left greater than right. 3. Small to moderate right-sided pleural effusion. Yoandy Nj MD PE at Discharge General: No acute distress. Heart: Regular rate and rhythm. No murmur. Lungs: Clear to auscultation bilaterally. No wheezes, rales, or rhonchi. Breathing is nonlabored. Abdomen: Soft, nontender, nondistended. Extremities: No lower extremity edema. Psych: Alert, answers questions appropriately. Hospital Course The patient was admitted to the critical care service for management of acute respiratory failure. He was placed on BiPAP. He was continuing to have respiratory distress and he was intubated. Nephrology was consulted for evaluation of acute renal failure. The patient was started on hemodialysis. Thoracentesis was done and 1.7 L of transudative fluid was removed. The patient' s respiratory status improved and he was extubated. He was weaned to oxygen per nasal cannula. Vascular surgery was consulted for placement of fistula for hemodialysis access. The patient was confused, verbally aggressive, and combative. Psychiatry was consulted. He was determined to not have decision- making capacity to leave AGAINST MEDICAL ADVICE. The patient had episodes of hypoglycemia. His insulin regimen was adjusted. The patient improved clinically. He was cleared for discharge by nephrology and arrangements were made for outpatient dialysis. The patient was noncompliant with many of the recommendations made by the medical team and refused to participate with physical therapy. He was noted to be ambulating in his room and in the hallway without difficulty. He was felt to be stable for discharge home. Pt Condition on Discharge: Stable Discharge Disposition: Discharge Home Discharge Time: > 30 minutes Discharge Instructions DIET: Follow Instructions for: Diabetic Diet Speech Therapy-Diet Recommends: Honey Thickened Liquids, Pureed Activities you can perform: See Additionl Instruction Other Activity Instructions: With assistive device. Follow up Referrals: Nephrology - 1 Week PCP Follow-up - 1 Week New Medications: Nifedipine ER 24 HR (Nifedipine ER 24 HR) 90 Mg Tab 90 MG PO DAILY Blood Pressure Management #30 Ref 0 TAB Metoprolol Tartrate (Lopressor) 50 Mg Tab 50 MG PO Q12HR Blood Pressure Management #60 Ref 0 TAB Metronidazole (Flagyl) 500 Mg Tab 500 MG PO Q8HR c difficile #30 Ref 0 TAB Risperidone (Risperdal) 1 Mg Tab 2 MG PO Q12HR Agitation #60 Ref 0 TAB Continued Medications: Ferrous Sulfate (Ferrous Sulfate) 325 Mg Tab 325 MG PO BID Build Red Blood Cells #60 TAB Hydralazine (Hydralazine) 25 Mg Tab 75 MG PO TID Blood Pressure Management #90 TAB Hydrocodone-Acetaminophen (Hydrocodone-Acetaminophen) 5-325 mg Tab 1 TAB PO Q6HR PRN pain #20 Ref 0 TAB (This prescription has been renewed) Discontinued Medications: Furosemide (Lasix) 40 Mg Tab 40 MG PO BID@09,18 Blood Pressure Management #60 TAB Hydrocodone-Acetaminophen (Lortab) 5-325 Mg Tab Unknown Dose PO Q4H PRN PAIN Ref 0 TAB Metformin (Metformin) 500 Mg Tab Unknown Dose PO BIDPC With meals Blood Sugar Management #60 Ref 0 TAB Metoprolol Tartrate (Metoprolol Tartrate) 25 Mg Tab 25 MG PO Q12HR Blood Pressure Management #60 TAB Abhinav Storey MD Dec 25, 2016 17:04
== END 2016-10-28 14:59 | disposition home or self-care (01) | DRG 871 ==
LOC: NEPE 08:21 → NEDA 10:41 → EEVIPCON 10:41 → NEDH 16:41 → HIMW 18:25 → N07A 10-20 22:50
PROVIDERS: ADMIT Internal Medicine Critical Care Medicine; ATTEND Family Medicine
PROC: 5A09457 Assistance with Respiratory Ventilation, 24-96 Consecutive Hours, Continuous Positive Airway Pressure (ICD-10-PCS; 2016-10-13)
PROC: 5A1945Z Respiratory Ventilation, 24-96 Consecutive Hours (ICD-10-PCS; principal; 2016-10-15)
PROC: 0BH17EZ Insertion of Endotracheal Airway into Trachea, Via Natural or Artificial Opening (ICD-10-PCS; 2016-10-15)
PROC: 02HV33Z Insertion of Infusion Device into Superior Vena Cava, Percutaneous Approach (ICD-10-PCS; 2016-10-15)
PROC: 0W993ZX Drainage of Right Pleural Cavity, Percutaneous Approach, Diagnostic (ICD-10-PCS; 2016-10-15)
PROC: 30233N1 Transfusion of Nonautologous Red Blood Cells into Peripheral Vein, Percutaneous Approach (ICD-10-PCS; 2016-10-15)
PROC: 05HM33Z Insertion of Infusion Device into Right Internal Jugular Vein, Percutaneous Approach (ICD-10-PCS; 2016-10-26)
DX: A41.9 Sepsis, unspecified organism (principal); I50.33 Acute on chronic diastolic (congestive) heart failure; J96.01 Acute respiratory failure with hypoxia; J18.9 Pneumonia, unspecified organism; J90 Pleural effusion, not elsewhere classified; N17.9 Acute kidney failure, unspecified; E87.0 Hyperosmolality and hypernatremia; N18.5 Chronic kidney disease, stage 5; I13.2 Hypertensive heart and chronic kidney disease with heart failure and with stage 5 chronic kidney disease, or end stage renal disease; E44.0 Moderate protein-calorie malnutrition; L03.90 Cellulitis, unspecified; J80 Acute respiratory distress syndrome; A04.7 Enterocolitis due to Clostridium difficile; E11.21 Type 2 diabetes mellitus with diabetic nephropathy; E11.42 Type 2 diabetes mellitus with diabetic polyneuropathy; E87.5 Hyperkalemia; E11.22 Type 2 diabetes mellitus with diabetic chronic kidney disease; E83.51 Hypocalcemia; D64.9 Anemia, unspecified; E11.649 Type 2 diabetes mellitus with hypoglycemia without coma; R65.20 Severe sepsis without septic shock; Y95 Nosocomial condition; F43.23 Adjustment disorder with mixed anxiety and depressed mood; E11.621 Type 2 diabetes mellitus with foot ulcer; E11.65 Type 2 diabetes mellitus with hyperglycemia; L97.519 Non-pressure chronic ulcer of other part of right foot with unspecified severity; Z91.19 Patient's noncompliance with other medical treatment and regimen; Z79.84 Long term (current) use of oral hypoglycemic drugs; Z68.24 Body mass index [BMI] 24.0-24.9, adult
CPT/HCPCS: 31500; 32554; 36430; 36556; 36558; 36600; 71010; 71250; 73502; 73564; 76937; 77001; 80048; 80051; 80053; 80069; 80074; 80202; 81001; 82150; 82550; 82552; 82565; 82570; 82805; 82945; 82948; 83605; 83615; 83735; 83986; 84100; 84132; 84155; 84157; 84300; 84484; 84520; 85007; 85014; 85018; 85025; 85027; 85610; 85730; 86850; 86900; 86901; 86920; 87015; 87040; 87070; 87086; 87102; 87116; 87205; 87206; 87449; 87493; 87641; 87804; 89051; 90935; 93005; 93970; 93998; 94002; 94003; 94640; 94664; 94667; 94668; 96365; 96366; 96374; 96375; 99152; 99153; C1750; C1769; C9113; J0360; J0456; J0610; J0690; J0692; J1580; J1630; J1642; J1644; J1815; J1940; J2060; J2250; J2270; J2405; J3010; J3370; J7030; J7040; J7050; J7070; P9016; P9047